=== PATIENT | female | born 1965 | race Caucasian/White ===

== ENCOUNTER 2020-10-29 12:02 | Inpatient (IN) ==
[2020-10-29 18:29] LABS: Basophils # (auto) 0.01 K/uL (0-0.2); Basophils % (auto) 0.2 %; Hematocrit (blood only) 35.5 % (37-47); Hemoglobin 11.6 g/dL (12.0-16.0); Immature Granulocytes # (auto) 0.02 K/uL (0.00-0.02); Immature Granulocytes % (auto) 0.4 %; Lymphocytes # (auto) 0.73 K/uL (1.2-3.4); Lymphocytes % (auto) 14.3 %; Mean Corpuscular Hemoglobin 29.4 pg (25-34); Mean Corpuscular Volume 90.1 fL (80-100); Mean Platelet Volume 10.2 fL (7.4-10.4); Monocytes # (auto) 0.18 K/uL (0.11-0.59); Monocytes % (auto) 3.5 %; Neutrophils # (auto) 4.15 K/uL (1.4-6.5); Neutrophils % (auto) 81.6 %; Platelet Count 297 K/uL (130-400); RDW Coefficient of Variation 13.8 % (11.5-14.5); RDW Standard Deviation 46.4 fL (36.4-46.3); Red Blood Count 3.94 M/uL (4.2-5.4); White Blood Count 5.09 K/uL (4.8-10.8)
[2020-10-29] MEDS ORDERED: ACETAMINOPHEN 1000 MG/100 ML IV IV PRN (18:34)
[2020-10-29] MEDS ORDERED: ICU PROTOCOL FOR HYPERGLYCEMIA PRN (18:35)
--- NOTE | 2020-10-29 18:35 | Critical Care Consultation ---
Date of Consultation October 29, 2020 Assessment & Plan (1) Acute respiratory failure with hypoxia: (2) Pneumonia: (3) COVID-19: (4) Obesity: (5) Hypertension: Chest x-ray 10/29/2020 personally reviewed: Portable film, good inspiratory effort, bilateral costophrenic and cardiophrenic angles are clean, diffuse alveolar opacities appreciated bilaterally, increased cardiac silhouette CT chest 10/27/2020 personally reviewed: Centrilobular emphysema, diffuse groundglass opacities appreciated bilaterally upper and lower lobes No pleural effusion No mediastinal adenopathy --Acute hypoxic respiratory failure Likely secondary to multilobar pneumonia from COVID-19 COVID-19 PCR positive 10/25/2020, patient having symptoms since 10/18/2020 Continue with dexamethasone --COPD with emphysema Not on any inhalers at home We will start the patient on Incruse --Hypertension Continue with home medications --Coronary artery disease s/p stent 2014 --Morbid obesity with probable GISEL Advised to lose with diet and exercise --Prophylaxis VTE: Lovenox GI: Protonix Lines: Peripheral Diet: Cardiac Plan: Stick in and out Follow-up CRP, BNP, CMP and CBC Patient does have increased cardiac silhouette. If the BNP is high I will give the patient 40 mg of Lasix. At the time of examination patient was saturating 92% on 50%, 40 L. Continue with O2 supplementation to keep oxygen saturation between 88-92% Awake proning will be beneficial for the patient. We will see how the patient is in the next 24 hours. Based on that we will decide whether the patient will benefit from Tocilizumab. Continue with incentive spirometry and flutter valve Continue with Mucinex 1200 twice daily Awake proning will be beneficial for the patient I have personally spent 60 minutes of critical care time in the direct management of this patient. This is a life/limb threatening event. This includes time spent evaluating patient, direct bedside care, chart review, placing orders, interpretation of diagnostic studies, discussion with consultants, patient, and family members, as well as other required patient management activities. This time is exclusive of all separately billable procedures, and teaching time and separate from and in addition to any other critical care service time. Please note the above document was generated using voice recognition software. It may contain grammatical, syntax or spelling errors. History of Present Illness Attending Physician: Jordy Strong MD History of Present Illness 55-year-old female with past medical history of coronary artery disease s/p stent in 2014, active smoker presented to [facility] as a transfer from [place]. Patient was admitted to [place] for hypoxic respiratory failure with COVID-19 pneumonia Over there she was on 20 L 80% high flow saturating in the low 80s. Patient has been vaccinated for our modern she got 2 vaccine back in July 2020 At the time of examination patient was on high flow 50%, 40 L, she was saturating 92-93% She was in mild respiratory distress but she was able to talk in full sentences. She denies any chest pain. She did complain of cough and inability to bring up phlegm. She denies any hemoptysis. Denies any dysuria, no diarrhea. No headache, no blurry vision. As per the patient patient has been having complaints of cough and shortness of breath which has been going on since 10/18/2020 She was eventually tested for COVID-19 on 10/25/2020. She was progressively getting worse and thus the reason she is went to the hospital. Social history: Greater than [id number] smoking history, a pack a year smoker, denies any illicit drug use, no alcohol use. Has a dog at home. No birds or poultry nearby. Allergies Allergy/AdvReac Type Severity Reaction Status Date / Time latex Allergy Rash Verified 10/29/20 18:35 oxycodone [From Percocet] Allergy Hives Verified 10/29/20 18:36 Home Medications Medication Instructions Recorded Confirmed Type empagliflozin 25 mg tablet 25 mg PO DAILY 10/30/20 10/30/20 History (Jardiance) esomeprazole magnesium 20 mg 20 mg PO DAILY 10/30/20 10/30/20 History capsule,delayed release gabapentin 300 mg capsule 300 mg PO HS 10/30/20 10/30/20 History hydrochlorothiazide 25 mg tablet 25 mg PO DAILY 10/30/20 10/30/20 History insulin glargine 100 unit/mL (3 62 unit SUBCUT BID 10/30/20 10/30/20 History mL) subcutaneous pen (Lantus Solostar U-100 Insulin) metformin 500 mg tablet,extended 500 mg PO BID 10/30/20 10/30/20 History release 24 hr metoprolol succinate 25 mg 25 mg PO BID 10/30/20 10/30/20 History tablet,extended release 24 hr rosuvastatin 20 mg tablet 20 mg PO DAILY 10/30/20 10/30/20 History Patient History Medical History CAD (coronary artery disease) COVID-19 Hyperlipidemia Hypertension Obesity Pneumonia Tobacco dependence Surgical History History of coronary artery stent placement x 1 - 2016; [place] S/P cholecystectomy open Family History Father Myocardial infarction Mother Diabetes ESRD (end stage renal disease) on dialysis Social History (Updated 10/30/20 @ 00:57 by Jordy De La O) Smoking Status: Former smoker Age Started Using Tobacco: 17; Age Quit Using Tobacco: 55; packs per day: 1; Cigarettes Per Day: 20; Smoking End Date: September 2020; Second Hand Exposure: Yes; Do You Dip or Chew Tobacco: No; Hx Alcohol Use: No Hx Substance Use: No Preferred Language: Croatian Communication Ability: Effective Fraud Examiner Required: No Beliefs That Will Affect Care: None marital status: Current Living Situation: Spouse Current Living Situation Comment: Arabella LAKHANI How many Children do You have: 3 Other Information That Helps Us Care for You: No other: grew up in [place]; then lived in [place]; then moved to [place] Feels Safe at Home: Yes Safety Concerns: Feels Safe At This Time Assistive Devices: Oxygen - Continuous Review of Systems Review of Systems: All systems reviewed & are unremarkable except as noted in HPI & below Physical Exam Physical Exam: Constitutional: Mild respiratory distress HEENT: EOMI, PERRLA Respiratory system: Decreased air entry bilaterally, no wheeze, no rub, positive crackles bilateral lower lobes CVS: S1-S2 positive, no murmurs or gallops Abdomen: Soft, nontender, nondistended, positive bowel sounds x4, obese Extremities: +2 pulses bilaterally radialis/ dorsalis pedis, no cyanosis, no ed bryson Neuro: Awake alert oriented x3 Psych: Normal mood and affect G/U: No Parsons Skin: no rashes, warm and dry Lymphatic: no cervical or axillary lymphadenopathy Results & Data Results & Data ([facility]) Vital Signs (Past 12 Hours) Vital Signs Pulse Resp BP Pulse Ox 10/29/20 17:45 100 H 22 91 10/29/20 17:32 92 H 28 H 159/102 H 92 10/29/20 17:30 90 28 H 159/103 H 92 Coding Level of Care Code Critical Care 1st 30-74 mins Diagnoses Acute respiratory failure with hypoxia J96.01 Pneumonia J18.9 COVID-19 U07.1 Obesity E66.9 Hypertension I10 Time Spent (min) 60
[2020-10-29 18:46] LABS: Mean Corpuscular Hgb Conc 32.7 g/dL (32-36)
[2020-10-29 18:51] LABS: Alanine Aminotransferase 29 U/L (12-78); Albumin Level 2.4 gm/dl (3.4-5.0); Aspartate Aminotransferase 41 U/L (15-37); BUN Creatinine Ratio 33.1 (10-20); Blood Urea Nitrogen 41 mg/dl (7-18); Calcium 9.1 mg/dl (8.5-10.1); Carbon Dioxide 20 mmol/L (21-32); Chloride 105 mmol/L (98-107); Creatinine Clr Calc Pharmacy 61.1 ml/min; Est GFR (Non-African American) 49.2 ml/min; Glucose 330 mg/dl (70-99); Potassium 5.7 mmol/L (3.5-5.1); Sodium 131 mmol/L (136-145)
--- NOTE | 2020-10-29 19:04 | XRay Report ---
SINGLE VIEW CHEST CLINICAL HISTORY: Covid pneumonia. FINDINGS: An AP, portable, upright chest radiograph is compared to chest x-ray and chest CT dated 10/27. The heart is enlarged noting atherosclerotic calcification of the thoracic aorta. Multifocal a irspace consolidation is seen throughout both lungs. This has progressed as compared 10/27/2020. No lar ge pleural effusion or pneumothorax is seen. The bony thorax is grossly intact. IMPRESSION: 1. Multifocal airspace consolidation is consistent with the reported history of a viral pneumonia. Th is has worsened as compared to 10/27/2020. Radiographic follow-up to resolution is recommended. 2. Cardiomegaly. ACT 112: Negative or not required by law. Electronically signed by: Shailesh Palma M.D. 10/29/2020 7:02 PM
[2020-10-29 19:18] LABS: Albumin Globulin Ratio 0.5 (0.9-2); Alkaline Phosphatase 121 U/L (45-117); Bilirubin,Total < 0.1 mg/dl (0.2-1); Globulin 4.9 gm/dl (2.5-4.0); NT Pro B Type Natriuretic Pept 996 pg/ml (0-900); Total Protein 7.3 gm/dl (6.4-8.2)
[2020-10-29] MEDS ORDERED: PHARMACY GLYCEMIC MGMT CONSULT PRN (19:31)
[2020-10-29] MEDS ORDERED: FUROSEMIDE 20 MG in SYRINGE 0 ML IV ONE (19:45)
[2020-10-29] MEDS ORDERED: INSULIN PROTOCOL GOAL RANGE ONE (19:55)
[2020-10-29] MEDS ORDERED: STAT IV Infusion **Titration per Protocol STA (19:55)
[2020-10-29] MEDS ORDERED: SEVERE STRESS LEVEL ONE (19:55)
[2020-10-29] MEDS ORDERED: INSULIN REGULAR 250 UNITS in SODIUM CHLORIDE 0.9% 247.5 ML IV SCH (20:00)
--- NOTE | 2020-10-29 20:17 | History & Physical Report ---
Date of Service October 29, 2020 Assessment & Plan (1) Pneumonia due to COVID-19 virus: Plan: She is about 10-11 days into her illness. Unfortunately she was a "breakthrough case" despite full vaccination with Moderna in July. She was initiated on remdesivir on 10/28 at [facility], and steroids on 10/25 (as outpatient). Plan 3 more days of remdesivir (10/30-11/01). Plan 5 more days of decadron 6mg daily given the severity of her illness - start the decadron in am. Appreciate Dr Perez's consultation. If any worsening overnight may be Tocilizumba candidate (CRP>7.5, first day of hospitalization was 10/28 at [facility], etc). Self-proning. Flutter. Incentive. Bronchodilators as needed. O2 support. Procalcitonin is normal making bacterial superinfection unlikely. She did receive 5 days of atypical coverage w/ azithromycin. Hold off on additional abx at this time. (2) Acute respiratory failure with hypoxia: Plan: 2nd severe COVID-19 pneumonia. Could have component of acute diastolic CHF given CXR findings and elevated BNP. Lasix trial tonight. At risk of PE - prolonged travel to [place] by car (to and from), COVID itself, etc. Start with dopplers of legs. If neg consider CTA chest. D-dimer was elevated at outside hospital. (3) Diabetes mellitus type 2, uncontrolled: Plan: Check a1c in am. Was in the 600-700 range upon admission in [place]. BSGs now elevated >300 again here. With stress of illness and steroids SC injections providing adequate control likely to be difficult. Thus, pharmacy consult placed; start insulin infusion. Hold metformin and jardiance. Hold lantus. (4) Abnormal LFTs: Plan: Suspect 2nd to #1. Recheck in am. Given good protective morbidity/mortality data with statins and COVID-19 will resume her statin in am if LFTs are stable. (5) CAD (coronary artery disease): Plan: s/p [place] 2016. Uncertain why she is not on aspirin but should be. Will initiate 81mg in am. Statin. Beta vianey. No evidence of ACS. (6) Obesity: Plan: BMI 37 (7) Hypertension: Plan: Hold HCTZ. Cont BB. Hold CELINE. Lasix x 1 this evening. (8) Hyperlipidemia: Plan: Statin as above (9) Tobacco dependence: Plan: Nicoderm patch 21mg/day. Pt states she has not smoked since being in [place]. (10) Hypomagnesemia: Plan: 2 grams mag sulfate x 1. Repeat mag level am. (11) Acute kidney injury: Plan: Cr 1.9 on 10/27. Improved today to 1.2. Probably multifactorial - prerenal from poor oral intake leading up to admission, hyperglycemia and dehydration from such leading up to 10/27 admission, COVID itself causing ATN, etc. Supportive care. BMP tonight and in am. (12) Hyperkalemia: Plan: 2nd to OMAR and severe hyperglycemia. Suspect the K will correct once on insulin drip. BMP tonight and in am. (13) DVT prophylaxis: Plan: heparin SC ordered by ICU team transition to systemic anticoagulation if dopplers are + for DVT Plan: full code will likely need PT/OT Admission and Anticipated Discharge Date Admission Date: October 29, 2020 History of Present Illness Chief Complaint: worsening dyspnea, known COVID-19 pneumonia Primary Care Provider: NO PCP 55yo female with T2DM x 10+ years, CAD s/p [place] with stent placement x 1 in ~2015 (hospitalized [place], [place]), and chronic tobacco dependence presents as a transfer from [facility] due to worsening acute hypoxic resp failure 2nd COVID-19 pneumonia. Patient's history goes back to about October 19 or October 20 when she and her arrived in [place] to see their son, [id number], and new grand-baby. Upon their arrival in [place] they noted that their son was quite ill from a respiratory infection. Within about 48 hours the patient states she felt chest heaviness and believed she herself was coming down with bronchitis. She convinced her son to get tested for COVID-19 on (son was not vaccinated). On October 22 the patient & her left [place] to drive back to [place]. Over the course of last week the patient's respiratory symptoms worsened and she felt poorly overall. She never had fever. She did have a poor appetite en route back to [place] as well as this past weekend. She mentioned that she received 2 doses of Moderna Vaccine in July. When she & her arrived home they ultimately found out that their son was indeed POSITIVE for COVID-19. On Sunday, 10/25 the patient went to her PCP's office in [place]. She was tested for COVID-19 and her test was also positive. She was placed on prednisone at that time along with inhalers and a z-pack. Despite such her respiratory symptoms continued to worsen with progressive shortness of breath (with minimal exertion) and cough. She presented to [facility] on the evening of 10/[address] d[address] chest (no contrast) showed diffuse b/l pneumonia. Records show her Na was 127, K was 5.3, d-dimer was elevated, Creatinine was 1.9, and serum glucose was 675. She received her first dose of remdesivir on the AM of 10/28, a 2nd dose of remdesivir this am, and also received dexamethasone 6mg on 10/28 and again this morning. I was contacted by the hospitalist at [facility] due to worsening hypoxia and respiratory failure early this am. Patient's O2 requirement escalated from [place] O2 to high-flow 20L and 80% FiO2. CRP was 12 this am. I requested an ABG which returned 7.41, 32, 84, --3. We accepted the patient to [facility], and she was transported by ground with BIPAP in place. After arrival here we were able to transition from BIPAP, to high-flow NC 40 L (vapotherm), to 10 L high-flow wall-mount. During my bedside visit she was feeling better than earlier today, reported good appetite, and only c/o chest symptoms related to her pneumonia. She denies that any of her symptoms today were similar to her past acute IL. Allergies Allergy/AdvReac Type Severity Reaction Status Date / Time latex Allergy Rash Verified 10/29/20 18:35 oxycodone [From Percocet] Allergy Hives Verified 10/29/20 18:36 Home Medications Medication Instructions Recorded Confirmed Type empagliflozin 25 mg tablet 25 mg PO DAILY 10/30/20 10/30/20 History (Jardiance) esomeprazole magnesium 20 mg 20 mg PO DAILY 10/30/20 10/30/20 History capsule,delayed release gabapentin 300 mg capsule 300 mg PO HS 10/30/20 10/30/20 History hydrochlorothiazide 25 mg tablet 25 mg PO DAILY 10/30/20 10/30/20 History insulin glargine 100 unit/mL (3 62 unit SUBCUT BID 10/30/20 10/30/20 History mL) subcutaneous pen (Lantus Solostar U-100 Insulin) metformin 500 mg tablet,extended 500 mg PO BID 10/30/20 10/30/20 History release 24 hr metoprolol succinate 25 mg 25 mg PO BID 10/30/20 10/30/20 History tablet,extended release 24 hr rosuvastatin 20 mg tablet 20 mg PO DAILY 10/30/20 10/30/20 History Past Med/Surg History Medical History CAD (coronary artery disease) COVID-19 Hyperlipidemia Hypertension Obesity Pneumonia Tobacco dependence Surgical History History of coronary artery stent placement x 1 - 2015; [place] S/P cholecystectomy open Family History Father Myocardial infarction Mother Diabetes ESRD (end stage renal disease) on dialysis Social History (Updated 10/30/20 @ 00:57 by Jordy De La O) Smoking Status: Former smoker Age Started Using Tobacco: 17; Age Quit Using Tobacco: 55; packs per day: 1; Cigarettes Per Day: 20; Smoking End Date: September 2020; Second Hand Exposure: Yes; Do You Dip or Chew Tobacco: No; Hx Alcohol Use: No Hx Substance Use: No Preferred Language: Portuguese Communication Ability: Effective Reformatory Attendant Required: No Beliefs That Will Affect Care: None marital status: Current Living Situation: Spouse Current Living Situation Comment: Arabella LAKHANI How many Children do You have: 3 Other Information That Helps Us Care for You: No other: grew up in [place]; then lived in [place]; then moved to [place] Feels Safe at Home: Yes Safety Concerns: Feels Safe At This Time Assistive Devices: Oxygen - Continuous Review of Systems Constitutional: + fatigue, + weakness and + anorexia (early on in illness but appetite now normal ); no fever, no chills and no weight loss Eyes: no worsening vision Ear, Nose, Mouth, Throat: no nasal congestion, no sore throat and no dysphagia denies loss of taste/smell Respiratory: + cough, + chest congestion, + dyspnea, + dyspnea on exertion and + pain on inspiration; no hemoptysis Cardiovascular: as per Subjective / HPI, + chest pain and + dyspnea on exertion; no orthopnea and no edema Gastrointestinal: no abdominal pain, no vomiting and no diarrhea/loose stools Genitourinary: no dysuria Musculoskeletal: + myalgia (now resolved ); no back pain and no neck pain Neurologic: + generalized weakness and + loss of sensation (stocking-glove paresthesias from neuropathy) Psychiatric: + anxiety Endocrine: very high BSGs in the days leading up to hospitalization; recently changed from Trulicity to Jardiance Hematologic / Lymphatic: no easy bleeding Physical Exam Constitutional: + ill appearing and + obese; no acute distress and no altered mental status Eyes: PERRL allergic shiners around periorbital region b/l ENMT: Ears: no hearing impairment Nose: no external nose abnormality Mouth: no oral mucosal abnormality and oral mucous membranes not dry Neck: trachea midline, no thyromegaly Respiratory: severely decreased BS b/l especially the expiratory phase; bibasilar fine crackles; scant wheeze; no increase in work of breathing Cardiovascular: Rate/Rhythm: regular rate and regular rhythm Heart Sounds: normal S1 and normal S2; no murmur Vessels: posterior tibial pulses present and dorsalis pedis pulses present; no JVD Extremities: no edema Gastrointestinal (Abdomen): normal bowel sounds, soft, nontender, no hepatosplenomegaly Musculoskeletal: left calf is larger than right calf; varicosities present b/l legs Skin: no rashes Neurologic: moves all extremities; no focal motor deficits Psychiatric: A+Ox3, euthymic affect Lymphatic: no cervical lymphadenopathy Results & Data Results & Data ([facility]) Vital Signs (Past 12 Hours) Vital Signs Temp Pulse Pulse Pulse Resp BP Pulse Ox 10/29/20 19:40 36.8 C 87 20 143/85 H 97 10/29/20 18:37 97 H 10/29/20 18:36 10/29/20 18:35 37.2 C 109 H 24 135/82 92 10/29/20 17:45 100 H 22 91 10/29/20 17:32 92 H 28 H 159/102 H 92 10/29/20 17:30 90 28 H 159/103 H 92 Pulse Ox 10/29/20 19:40 10/29/20 18:37 10/29/20 18:36 92 10/29/20 18:35 10/29/20 17:45 10/29/20 17:32 10/29/20 17:30 Laboratory Results Laboratory Results - last 24 hr 10/29/20 10/29/20 10/29/20 18:22 18:22 18:44 WBC 5.09 RBC 3.94 L Hgb 11.6 L Hct 35.5 L MCV 90.1 MCH 29.4 MCHC 32.7 RDW Std Deviation 46.4 H RDW Coeff of Ale 13.8 Plt Count 297 MPV 10.2 Immature Gran % (Auto) 0.4 Neut % (Auto) 81.6 Lymph % (Auto) 14.3 Pinal % (Auto) 3.5 Eos % (Auto) 0.0 Baso % (Auto) 0.2 Neut # (Auto) 4.15 Lymph # (Auto) 0.73 L Pinal # (Auto) 0.18 Eos # (Auto) 0.00 Baso # (Auto) 0.01 Immature Gran # (Auto) 0.02 Sodium 131 L Potassium 5.7 H Chloride 105 Carbon Dioxide 20 L Anion Gap 7.0 BUN 41 H Creatinine 1.24 H Est Cr Clr Drug Dosing 61.1 Est GFR ( Amer) 57.0 Est GFR (Non-Af Amer) 49.2 BUN/Creatinine Ratio 33.1 H Glucose 330 H* POC Glucose 339 H* Calcium 9.1 Phosphorus Magnesium Total Bilirubin < 0.1 L AST 41 H ALT 29 Alkaline Phosphatase 121 H C-Reactive Protein 13.60 H NT-Pro-B Natriuret Pep 996 H Total Protein 7.3 Albumin 2.4 L Globulin 4.9 H Albumin/Globulin Ratio 0.5 L Beta-Hydroxybutyric Acd Procalcitonin Nasal Screen MRSA (PCR) 10/29/20 10/29/20 10/29/20 19:07 20:31 21:45 WBC RBC Hgb Hct MCV MCH MCHC RDW Std Deviation RDW Coeff of Ale Plt Count MPV Immature Gran % (Auto) Neut % (Auto) Lymph % (Auto) Pinal % (Auto) Eos % (Auto) Baso % (Auto) Neut # (Auto) Lymph # (Auto) Pinal # (Auto) Eos # (Auto) Baso # (Auto) Immature Gran # (Auto) Sodium Potassium Chloride Carbon Dioxide Anion Gap BUN Creatinine Est Cr Clr Drug Dosing Est GFR ( Amer) Est GFR (Non-Af Amer) BUN/Creatinine Ratio Glucose POC Glucose 287 H Calcium Phosphorus Magnesium Total Bilirubin AST ALT Alkaline Phosphatase C-Reactive Protein NT-Pro-B Natriuret Pep Total Protein Albumin Globulin Albumin/Globulin Ratio Beta-Hydroxybutyric Acd Procalcitonin < 0.05 Nasal Screen MRSA (PCR) Negative 10/29/20 10/29/20 10/29/20 23:05 23:07 23:08 WBC RBC Hgb Hct MCV MCH MCHC RDW Std Deviation RDW Coeff of Ale Plt Count MPV Immature Gran % (Auto) Neut % (Auto) Lymph % (Auto) Pinal % (Auto) Eos % (Auto) Baso % (Auto) Neut # (Auto) Lymph # (Auto) Pinal # (Auto) Eos # (Auto) Baso # (Auto) Immature Gran # (Auto) Sodium 132 L Potassium 5.1 Chloride 104 Carbon Dioxide 19 L Anion Gap 8.0 BUN 43 H Creatinine 1.26 H Est Cr Clr Drug Dosing 60.2 Est GFR ( Amer) 55.9 Est GFR (Non-Af Amer) 48.3 BUN/Creatinine Ratio 33.9 H Glucose 366 H* POC Glucose 360 H* 360 H* Calcium 8.8 Phosphorus 4.4 Magnesium 1.5 L Total Bilirubin AST ALT Alkaline Phosphatase C-Reactive Protein NT-Pro-B Natriuret Pep Total Protein Albumin Globulin Albumin/Globulin Ratio Beta-Hydroxybutyric Acd 0.94 Procalcitonin Nasal Screen MRSA (PCR) 10/30/20 10/30/20 00:10 00:56 WBC RBC Hgb Hct MCV MCH MCHC RDW Std Deviation RDW Coeff of Ale Plt Count MPV Immature Gran % (Auto) Neut % (Auto) Lymph % (Auto) Pinal % (Auto) Eos % (Auto) Baso % (Auto) Neut # (Auto) Lymph # (Auto) Pinal # (Auto) Eos # (Auto) Baso # (Auto) Immature Gran # (Auto) Sodium Potassium Chloride Carbon Dioxide Anion Gap BUN Creatinine Est Cr Clr Drug Dosing Est GFR ( Amer) Est GFR (Non-Af Amer) BUN/Creatinine Ratio Glucose POC Glucose 307 H* 270 H Calcium Phosphorus Magnesium Total Bilirubin AST ALT Alkaline Phosphatase C-Reactive Protein NT-Pro-B Natriuret Pep Total Protein Albumin Globulin Albumin/Globulin Ratio Beta-Hydroxybutyric Acd Procalcitonin Nasal Screen MRSA (PCR) Diagnostic Findings Chest X-Ray 10/29/20 18:00 SINGLE VIEW CHEST CLINICAL HISTORY: Covid pneumonia. FINDINGS: An AP, portable, upright chest radiograph is compared to chest x-ray and chest CT dated 10/27/2020. The heart is enlarged noting atherosclerotic calcification of the thoracic aorta. Multifocal airspace consolidation is seen throughout both lungs. This has progressed as compared 10/27/2020. No large p leural effusion or pneumothorax is seen. The bony thorax is grossly intact. IMPRESSION: 1. Multifocal airspace consolidation is consistent with the reported history of a viral pneumonia. This has worsened as compared to 10/27/2020. Radiographic follow-up to resolution is recommended. 2. Cardiomegaly. ACT 112: Negative or not required by law. Electronically signed by: Shailesh Palma M.D. 10/29/2020 7:02 PM Venous Doppler Study 10/29/20 21:21 ULTRASOUND BILATERAL LOWER EXTREMITY VENOUS CLINICAL HISTORY: Lower extremity edema. Recent travel. Covid. COMPARISON STUDY: No priors. TECHNIQUE: Real-time, grayscale, and color Doppler sonography of the deep veins of the right and left lower extremity was performed from the inguinal crease to the calf. Compression and augmentation were utilized. FINDINGS: There is no sonographic evidence of deep venous thrombosis identified in the right or left lower extremity. The common femoral, superficial femoral, and popliteal veins are patent and normally compressible bilaterally. The greater saphenous vein and the profunda femoris vein at the junction with the common femoral vein are clear in both legs. The visualized calf veins are patent bilaterally. IMPRESSION: There is no sonographic evidence of deep venous thrombosis identified in the right or left lower extremity. ACT 112: Negative or not required by law. Electronically signed by: Shailesh Palma M.D. 10/29/2020 10:13 PM Code Status & VTE Plan VTE Prophylaxis Plan VTE Prophylaxis will be ordered: Yes PG Care Time/CCT Total # of Minutes Spent Total Time Spent with Patient: Total time spent is greater than 50% in coordination of care (as documented) at patient's floor/unit and/or counseling patient: Coding Level of Care Code 00193 Initial Inpt Care Lvl 3 Diagnoses Pneumonia due to COVID-19 virus U07.1; J12.82 Acute respiratory failure with hypoxia J96.01 Diabetes mellitus type 2, uncontrolled E11.65 Abnormal LFTs R94.5 CAD (coronary artery disease) I25.10 Obesity E66.9 Hypertension I10 Hyperlipidemia E78.5 Tobacco dependence F17.200 Hypomagnesemia E83.42 DVT prophylaxis Z29.9 Acute kidney injury N17.9 Hyperkalemia E87.5
[2020-10-29] MEDS ORDERED: GLUCAGON FOR INJ 1 MG VIAL IM PRN (21:00)
[2020-10-29] MEDS ORDERED: CARBOHYDRATES FOR HYPOGLYCEMIA PO PRN (21:00)
[2020-10-29] MEDS ORDERED: GLUCOSE 40% GEL 15 GM TUBE PO PRN (21:00)
[2020-10-29] MEDS ORDERED: NovoLIN-R BOLUS FROM BAG IV ONE (21:00)
[2020-10-29] MEDS ORDERED: GLUCOSE 10 TABS/TUBE PO PRN (21:00)
[2020-10-29] MEDS ORDERED: DEXTROSE 50% 50 ML SYRINGE IV PRN (21:00)
[2020-10-29] MEDS: HEPARIN SOD 5,000 UNIT/0.5 ML VIAL SQ SCH (21:29)
[2020-10-29] MEDS: guaiFENesin 600 MG TABCR PO SCH (21:29)
[2020-10-29] MEDS: INSULIN ASPART 100 UNITS/ML 3 ML PEN SC SCH (21:46)
--- NOTE | 2020-10-29 22:14 | Ultrasound Report ---
ULTRASOUND BILATERAL LOWER EXTREMITY VENOUS CLINICAL HISTORY: Lower extremity edema. Recent travel. Covid. COMPARISON STUDY: No priors. TECHNIQUE: Real-time, grayscale, and color Doppler sonography of the deep veins of the right and left lower extremity was performed from the inguinal crease to the calf. Compression and augmentation wer e utilized. FINDINGS: There is no sonographic evidence of deep venous thrombosis identified in the right or left lower extremity. The common femoral, superficial femoral, and popliteal veins are patent and normally compressible bilaterally. The greater saphenous vein and the profunda femoris vein at the junction w ith the common femoral vein are clear in both legs. The visualized calf veins are patent bilaterally. IMPRESSION: There is no sonographic evidence of deep venous thrombosis identified in the right or lef t lower extremity. ACT 112: Negative or not required by law. Electronically signed by: hSailesh Palma M.D. 10/29/2020 10:13 PM
[2020-10-29] MEDS: ASPIRIN 81 MG ECTAB PO SCH (23:20)
[2020-10-29] MEDS: GABAPENTIN 300 MG CAP PO SCH (23:20)
[2020-10-29] MEDS: METOPROLOL TARTRATE 25 MG TAB PO SCH (23:21)
[2020-10-29 23:54] LABS: BUN Creatinine Ratio 33.9 (10-20); Calcium 8.8 mg/dl (8.5-10.1); Creatinine Clr Calc Pharmacy 60.2 ml/min; Est GFR (African American) 55.9 ml/min; Est GFR (Non-African American) 48.3 ml/min; Magnesium 1.5 mg/dl (1.8-2.4); Phosphorus 4.4 mg/dl (2.5-4.9); Potassium 5.1 mmol/L (3.5-5.1)
[2020-10-30 00:07] LABS: Beta-Hydroxybutyrate 0.94 mg/dl (0.2-2.81)
[2020-10-30] MEDS: MAGNESIUM SULFATE / D5W 1 GM/100 ML BAG IV SCH ×2 (02:37→04:30)
[2020-10-30] MEDS ORDERED: INSULIN GLARGINE SOLOSTAR 100 UNITS/ML 3 ML PEN SC ONE (03:30)
[2020-10-30] MEDS: HEPARIN SOD 5,000 UNIT/0.5 ML VIAL SQ SCH ×3 (05:30→21:43)
[2020-10-30] MEDS: guaiFENesin 600 MG TABCR PO SCH ×2 (07:11→19:25)
[2020-10-30] MEDS: ASPIRIN 81 MG ECTAB PO SCH (07:11)
[2020-10-30] MEDS: dexAMETHasone 6 MG in SYRINGE 0 ML IV SCH (07:11)
[2020-10-30] MEDS: UMECLIDINIUM BROMIDE 62.5MCG/BLISTER 7 PUFFS/INHALER INH SCH (07:12)
[2020-10-30] MEDS: NICOTINE 21 MG/24 HR TDSY TD SCH (07:12)
[2020-10-30] MEDS: PANTOprazole 40 MG TAB PO SCH (07:12)
[2020-10-30] MEDS: METOPROLOL TARTRATE 25 MG TAB PO SCH ×2 (07:12→19:25)
[2020-10-30] MEDS ORDERED: PATIROMER CALCIUM SORBITEX 8.4 GM PACK PO ONE (07:32)
[2020-10-30] MEDS ORDERED: SODIUM BICARB 8.4% INJ 50 MEQ/50 ML SYR IV STA (07:35)
[2020-10-30] MEDS: INSULIN ASPART 100 UNITS/ML 3 ML PEN SC SCH ×4 (08:12→20:57)
[2020-10-30 08:53] LABS: Basophils # (auto) 0.01 K/uL (0-0.2); Basophils % (auto) 0.1 %; Eosinophils # (auto) 0.01 K/uL (0-0.5); Eosinophils % (auto) 0.1 %; Hematocrit (blood only) 35.7 % (37-47); Hemoglobin 11.8 g/dL (12.0-16.0); Immature Granulocytes # (auto) 0.01 K/uL (0.00-0.02); Immature Granulocytes % (auto) 0.1 %; Lymphocytes # (auto) 1.14 K/uL (1.2-3.4); Mean Corpuscular Hemoglobin 29.8 pg (25-34); Mean Corpuscular Hgb Conc 33.1 g/dL (32-36); Mean Corpuscular Volume 90.2 fL (80-100); Mean Platelet Volume 10.2 fL (7.4-10.4); Monocytes # (auto) 0.44 K/uL (0.11-0.59); Monocytes % (auto) 5.4 %; Neutrophils # (auto) 6.55 K/uL (1.4-6.5); Neutrophils % (auto) 80.3 %; Platelet Count 366 K/uL (130-400); RDW Coefficient of Variation 13.8 % (11.5-14.5); Red Blood Count 3.96 M/uL (4.2-5.4); White Blood Count 8.16 K/uL (4.8-10.8)
[2020-10-30 09:05] LABS: Estimated Average Glucose 246 mg/dl; Hemoglobin A1C 10.2 % (4.5-5.6)
[2020-10-30 09:20] LABS: Albumin Level 2.4 gm/dl (3.4-5.0); Aspartate Aminotransferase 33 U/L (15-37); BUN Creatinine Ratio 41.9 (10-20); Blood Urea Nitrogen 42 mg/dl (7-18); Calcium 8.9 mg/dl (8.5-10.1); Carbon Dioxide 24 mmol/L (21-32); Chloride 106 mmol/L (98-107); Creatinine Clr Calc Pharmacy 74.9 ml/min; Est GFR (Non-African American) 63.8 ml/min; Glucose 119 mg/dl (70-99); Potassium 4.7 mmol/L (3.5-5.1); Sodium 135 mmol/L (136-145)
[2020-10-30 09:35] LABS: Alanine Aminotransferase 26 U/L (12-78); Alkaline Phosphatase 125 U/L (45-117); Bilirubin Direct < 0.1 mg/dl (0-0.2); Bilirubin,Total 0.2 mg/dl (0.2-1); Phosphorus 3.7 mg/dl (2.5-4.9); Total Protein 7.5 gm/dl (6.4-8.2)
--- NOTE | 2020-10-30 09:57 | XRay Report ---
XR chest 1V portable CLINICAL HISTORY: f/u COMPARISON STUDY: October 29, 2020 FINDINGS: No pneumothorax. No pleural effusion. Lung volumes are decreased with crowded lung markings. Redemonstration of the multifocal opacities throughout bilateral lungs which appear slightly worsened since prior. Evaluation is slightly limited due to rotation. Cardiomediastinal silhouette is mildly enlarged and stable since prior. Pulmonary vasculature is obscured.. Osseous structures: unremarkable IMPRESSION: 1. Mild interval worsening of bilateral multifocal opacities likely representing pneumonia. ACT 112: Negative or not required by law. The above report was generated using voice recognition software. It may contain grammatical, syntax o r spelling errors. Electronically signed by: Marieal Enamorado DO 10/30/2020 9:55 AM
--- NOTE | 2020-10-30 10:06 | Pharmacy Report ---
Pharmacy Glycemic Short Note 2 - Date of Service October 30, 2020 - Glycemic Short BSG Results (Last 24 hours): 10/29/20 10/29/20 10/29/20 18:22 18:44 20:31 Glucose 330 H* POC Glucose 339 H* 287 H 10/29/20 10/29/20 10/29/20 23:05 23:07 23:08 Glucose 366 H* POC Glucose 360 H* 360 H* 10/30/20 10/30/20 10/30/20 00:10 00:56 02:14 Glucose POC Glucose 307 H* 270 H 209 H 10/30/20 10/30/20 10/30/20 03:22 04:20 05:11 Glucose POC Glucose 183 H 188 H 160 H 10/30/20 10/30/20 10/30/20 07:04 08:08 08:32 Glucose 119 H POC Glucose 122 H 97 OUTPATIENT ANTIDIABETIC REGIMEN: * Metformin XR 500 mg PO BIDM * Jardiance 25 mg PO Daily * Trulicity 0.75 mg SC Weekly * Lantus 62 units SC BID * HbA1c = 10.2% (10/30/20) ASSESSMENT: * 55 yo F admitted last evening from [facility] secondary to worsening COVID-19 pneumonia symptoms. Her BSGs upon arrival to [facility] were > 600 mg/dL. Upon arrival at [facility], BSG was 339 mg/dL. Pharmacy was consulted at this point to assist with inpatient glycemic management. * Received a 4 unit IV insulin bolus followed by a continuous insulin infusion. 62 units of Lantus was administered around 0330 this AM to help transition patient off insulin drip. BSGs trended down nicely: [phone] mg/dL. Insulin infusion was stopped this morning. Over a ten hour period, the patient received ~40 units of insulin from the drip. * She remains on Dexamethasone 6 mg IV daily and Remdesivir. * No carb coverage was administered this morning so expecting lunch BSG to be elevated especially with steroid dose * Will start aggressive Novolog parameters for now based on total outpatient insulin dose * Home Lantus dose will be administered for now given HbA1c and steroids PLAN FOR INPATIENT GLYCEMIC CONTROL: * Hold outpatient oral diabetes medications * Basal insulin * Lantus 62 units SQ BID * Bolus insulin * NovoLog per scale ACHS or Q6hrs while NPO * Goal Range: Low 110 mg/dL - High 140 mg/dL * Correction Factor: 10 mg/dL/unit * Nutritional / Prandial insulin per carb ratio of 1 unit per 3 grams CHO consumed PLAN FOR DISCHARGE: * To be determined
--- NOTE | 2020-10-30 10:24 | Hospitalist Progress Note ---
Date of Service October 30, 2020 Assessment & Plan (1) Pneumonia due to COVID-19 virus: Plan: She is about 10-11 days into her illness. Unfortunately she was a "breakthrough case" despite full vaccination with Moderna in July. She was initiated on remdesivir on 10/28 at [facility], and steroids on 10/25 (as outpatient). continue Remdesivir, 2 more days continue decadron 6mg daily 4 more days great response to Lasix, likely got more than sufficient fluids at [facility] repeat Lasix 20mg IV today, diuresing down to 5L NC no need for Tocilizumab Self-proning. Flutter. Incentive. Bronchodilators as needed. O2 support. Procalcitonin is normal making bacterial superinfection unlikely (2) Acute respiratory failure with hypoxia: Plan: 2nd severe COVID-19 pneumonia, also a slight component of volume overload from fluids prior to transfer great response to Lasix 20mg IV last night, repeat dose today, great response down to 5L NC today, no distress, try to wean oxygen as tolerated (3) Diabetes mellitus type 2, uncontrolled: Plan: Was in the 600-700 range upon admission in [place]. BSGs now elevated >300 on admission initially treated with insulin infusion, now on basal bolus pharmacy consulted due to critical illness initially monitor for hypoglycemia Hold metformin and jardiance. (4) Abnormal LFTs: Plan: Suspect 2nd to #1. LFT normal today (5) CAD (coronary artery disease): Plan: s/p LA 2015. Will initiate 81mg in am. Statin. Beta vianey. No evidence of ACS. (6) Obesity: Plan: BMI 37 (7) Hypertension: Plan: Hold HCTZ. Cont BB. Hold CELINE. Lasix daily (8) Hyperlipidemia: Plan: Statin as above (9) Tobacco dependence: Plan: Nicoderm patch 21mg/day. Pt states she has not smoked since being in [place]. (10) Hypomagnesemia: Plan: 2 grams mag sulfate x 1. Repeat mag level am. (11) Acute kidney injury: Plan: Cr 1.9 on 10/27. Improved today to 1.2. Probably multifactorial - prerenal from poor oral intake leading up to admiss ion, hyperglycemia and dehydration from such leading up to 10/27 admission, COVID itself now with volume overload, treating with Lasix, great response (12) Hyperkalemia: Plan: 2nd to OMAR and severe hyperglycemia. corrected with insulin drip and Lasix (13) DVT prophylaxis: Plan: heparin SC Plan: full code try to d/c in 24-48 hours Admission and Anticipated Discharge Date Admission Date: October 29, 2020 Subjective patient doing much better compared to yesterday, breathing easier, saturations stable on 6L, 88-90% while sitting at edge of bed reviewed chart, discussed with Dr. Perez responded well to Lasix last night, considering another dose later today off insulin drip and on basal bolus eating well, minimal cough, no fever, making urine says she is worried about her because he is sick at home, not as bad as her Review of Systems Review of Systems: All systems reviewed & are unremarkable except as noted in Subjective Respiratory: + cough, + dyspnea and + dyspnea on exertion Cardiovascular: no chest pain and no edema Gastrointestinal: no abdominal pain, no nausea, no vomiting, no constipation and no diarrhea/loose stools Physical Exam Constitutional: well developed, well nourished, + ill appearing and comfortable; no acute distress Neck: trachea midline, no thyromegaly Respiratory: + cough and + tachypneic; no respiratory distress and no labored breathing Auscultation: no crackles, no rales and no wheezes Cardiovascular: RRR, no murmur, no edema Gastrointestinal (Abdomen): normal bowel sounds, soft, nontender, no hepatosplenomegaly Musculoskeletal: no cyanosis or clubbing, extremities motor strength 5/5 Skin: no rashes, warm and dry Neurologic: patellar DTR's 2+ bilat, sensation intact and PERRL, EOMI, accommodation nl, no face palsy, no dysarthria Psychiatric: A+Ox3, euthymic affect Results & Data Results & Data ([facility]) Vital Signs (Past 12 Hours) Vital Signs Temp Pulse Pulse Pulse Resp BP BP 10/30/20 08:59 85 16 117/59 L 10/30/20 08:40 10/30/20 08:35 10/30/20 08:00 36.8 C 86 20 113/85 10/30/20 07:57 80 10/30/20 07:40 10/30/20 07:35 10/30/20 07:10 10/30/20 07:00 36.5 C 80 16 125/69 10/30/20 06:00 80 10/30/20 05:26 93 H 10/30/20 04:25 80 108/56 L 10/30/20 03:55 24 10/30/20 03:25 86 150/91 H 10/30/20 02:25 85 144/74 H 10/30/20 02:22 36.6 C 83 19 10/30/20 01:25 79 130/71 10/30/20 00:25 77 149/85 H 10/29/20 23:21 95 H 128/87 10/29/20 23:18 36.6 C 90 23 BP Pulse Ox Pulse Ox 10/30/20 08:59 98 10/30/20 08:40 98 10/30/20 08:35 88 L 10/30/20 08:00 92 10/30/20 07:57 10/30/20 07:40 96 10/30/20 07:35 88 L 10/30/20 07:10 100 10/30/20 07:00 100 10/30/20 06:00 96 10/30/20 05:26 10/30/20 04:25 100 10/30/20 03:55 98 10/30/20 03:25 96 10/30/20 02:25 87 L 10/30/20 02:22 130/71 90 10/30/20 01:25 98 10/30/20 00:25 100 10/29/20 23:21 90 10/29/20 23:18 128/87 90 Laboratory Results Laboratory Results - last 24 hr 10/29/20 10/29/20 10/29/20 18:22 18:22 18:44 WBC 5.09 RBC 3.94 L Hgb 11.6 L Hct 35.5 L MCV 90.1 MCH 29.4 MCHC 32.7 RDW Std Deviation 46.4 H RDW Coeff of Ale 13.8 Plt Count 297 MPV 10.2 Immature Gran % (Auto) 0.4 Neut % (Auto) 81.6 Lymph % (Auto) 14.3 Routt % (Auto) 3.5 Eos % (Auto) 0.0 Baso % (Auto) 0.2 Neut # (Auto) 4.15 Lymph # (Auto) 0.73 L Routt # (Auto) 0.18 Eos # (Auto) 0.00 Baso # (Auto) 0.01 Immature Gran # (Auto) 0.02 Sodium 131 L Potassium 5.7 H Chloride 105 Carbon Dioxide 20 L Anion Gap 7.0 BUN 41 H Creatinine 1.24 H Est Cr Clr Drug Dosing 61.1 Est GFR ( Amer) 57.0 Est GFR (Non-Af Amer) 49.2 BUN/Creatinine Ratio 33.1 H Glucose 330 H* POC Glucose 339 H* Estimat Average Glucose Hemoglobin A1c Calcium 9.1 Phosphorus Magnesium Total Bilirubin < 0.1 L Direct Bilirubin AST 41 H ALT 29 Alkaline Phosphatase 121 H C-Reactive Protein 13.60 H NT-Pro-B Natriuret Pep 996 H Total Protein 7.3 Albumin 2.4 L Globulin 4.9 H Albumin/Globulin Ratio 0.5 L Beta-Hydroxybutyric Acd Procalcitonin Nasal Screen MRSA (PCR) 10/29/20 10/29/20 10/29/20 19:07 20:31 21:45 WBC RBC Hgb Hct MCV MCH MCHC RDW Std Deviation RDW Coeff of Ale Plt Count MPV Immature Gran % (Auto) Neut % (Auto) Lymph % (Auto) Routt % (Auto) Eos % (Auto) Baso % (Auto) Neut # (Auto) Lymph # (Auto) Routt # (Auto) Eos # (Auto) Baso # (Auto) Immature Gran # (Auto) Sodium Potassium Chloride Carbon Dioxide Anion Gap BUN Creatinine Est Cr Clr Drug Dosing Est GFR ( Amer) Est GFR (Non-Af Amer) BUN/Creatinine Ratio Glucose POC Glucose 287 H Estimat Average Glucose Hemoglobin A1c Calcium Phosphorus Magnesium Total Bilirubin Direct Bilirubin AST ALT Alkaline Phosphatase C-Reactive Protein NT-Pro-B Natriuret Pep Total Protein Albumin Globulin Albumin/Globulin Ratio Beta-Hydroxybutyric Acd Procalcitonin < 0.05 Nasal Screen MRSA (PCR) Negative 10/29/20 10/29/20 10/29/20 23:05 23:07 23:08 WBC RBC Hgb Hct MCV MCH MCHC RDW Std Deviation RDW Coeff of Ael Plt Count MPV Immature Gran % (Auto) Neut % (Auto) Lymph % (Auto) Routt % (Auto) Eos % (Auto) Baso % (Auto) Neut # (Auto) Lymph # (Auto) Routt # (Auto) Eos # (Auto) Baso # (Auto) Immature Gran # (Auto) Sodium 132 L Potassium 5.1 Chloride 104 Carbon Dioxide 19 L Anion Gap 8.0 BUN 43 H Creatinine 1.26 H Est Cr Clr Drug Dosing 60.2 Est GFR ( Amer) 55.9 Est GFR (Non-Af Amer) 48.3 BUN/Creatinine Ratio 33.9 H Glucose 366 H* POC Glucose 360 H* 360 H* Estimat Average Glucose Hemoglobin A1c Calcium 8.8 Phosphorus 4.4 Magnesium 1.5 L Total Bilirubin Direct Bilirubin AST ALT Alkaline Phosphatase C-Reactive Protein NT-Pro-B Natriuret Pep Total Protein Albumin Globulin Albumin/Globulin Ratio Beta-Hydroxybutyric Acd 0.94 Procalcitonin Nasal Screen MRSA (PCR) 10/30/20 10/30/20 10/30/20 00:10 00:56 02:14 WBC RBC Hgb Hct MCV MCH MCHC RDW Std Deviation RDW Coeff of Ale Plt Count MPV Immature Gran % (Auto) Neut % (Auto) Lymph % (Auto) Routt % (Auto) Eos % (Auto) Baso % (Auto) Neut # (Auto) Lymph # (Auto) Routt # (Auto) Eos # (Auto) Baso # (Auto) Immature Gran # (Auto) Sodium Potassium Chloride Carbon Dioxide Anion Gap BUN Creatinine Est Cr Clr Drug Dosing Est GFR ( Amer) Est GFR (Non-Af Amer) BUN/Creatinine Ratio Glucose POC Glucose 307 H* 270 H 209 H Estimat Average Glucose Hemoglobin A1c Calcium Phosphorus Magnesium Total Bilirubin Direct Bilirubin AST ALT Alkaline Phosphatase C-Reactive Protein NT-Pro-B Natriuret Pep Total Protein Albumin Globulin Albumin/Globulin Ratio Beta-Hydroxybutyric Acd Procalcitonin Nasal Screen MRSA (PCR) 10/30/20 10/30/20 10/30/20 03:22 04:20 05:11 WBC RBC Hgb Hct MCV MCH MCHC RDW Std Deviation RDW Coeff of Ale Plt Count MPV Immature Gran % (Auto) Neut % (Auto) Lymph % (Auto) Routt % (Auto) Eos % (Auto) Baso % (Auto) Neut # (Auto) Lymph # (Auto) Routt # (Auto) Eos # (Auto) Baso # (Auto) Immature Gran # (Auto) Sodium Potassium Chloride Carbon Dioxide Anion Gap BUN Creatinine Est Cr Clr Drug Dosing Est GFR ( Amer) Est GFR (Non-Af Amer) BUN/Creatinine Ratio Glucose POC Glucose 183 H 188 H 160 H Estimat Average Glucose Hemoglobin A1c Calcium Phosphorus Magnesium Total Bilirubin Direct Bilirubin AST ALT Alkaline Phosphatase C-Reactive Protein NT-Pro-B Natriuret Pep Total Protein Albumin Globulin Albumin/Globulin Ratio Beta-Hydroxybutyric Acd Procalcitonin Nasal Screen MRSA (PCR) 10/30/20 10/30/20 10/30/20 07:04 08:08 08:32 WBC RBC Hgb Hct MCV MCH MCHC RDW Std Deviation RDW Coeff of Ale Plt Count MPV Immature Gran % (Auto) Neut % (Auto) Lymph % (Auto) Routt % (Auto) Eos % (Auto) Baso % (Auto) Neut # (Auto) Lymph # (Auto) Routt # (Auto) Eos # (Auto) Baso # (Auto) Immature Gran # (Auto) Sodium Potassium Chloride Carbon Dioxide Anion Gap BUN Creatinine Est Cr Clr Drug Dosing Est GFR ( Amer) Est GFR (Non-Af Amer) BUN/Creatinine Ratio Glucose POC Glucose 122 H 97 Estimat Average Glucose 246 Hemoglobin A1c 10.2 H Calcium Phosphorus Magnesium Total Bilirubin Direct Bilirubin AST ALT Alkaline Phosphatase C-Reactive Protein NT-Pro-B Natriuret Pep Total Protein Albumin Globulin Albumin/Globulin Ratio Beta-Hydroxybutyric Acd Procalcitonin Nasal Screen MRSA (PCR) 10/30/20 10/30/20 08:32 08:32 WBC 8.16 RBC 3.96 L Hgb 11.8 L Hct 35.7 L MCV 90.2 MCH 29.8 MCHC 33.1 RDW Std Deviation 46.0 RDW Coeff of Ale 13.8 Plt Count 366 MPV 10.2 Immature Gran % (Auto) 0.1 Neut % (Auto) 80.3 Lymph % (Auto) 14.0 Routt % (Auto) 5.4 Eos % (Auto) 0.1 Baso % (Auto) 0.1 Neut # (Auto) 6.55 H Lymph # (Auto) 1.14 L Routt # (Auto) 0.44 Eos # (Auto) 0.01 Baso # (Auto) 0.01 Immature Gran # (Auto) 0.01 Sodium 135 L Potassium 4.7 Chloride 106 Carbon Dioxide 24 Anion Gap 5.0 BUN 42 H Creatinine 1.00 Est Cr Clr Drug Dosing 74.9 Est GFR ( Amer) 74.0 Est GFR (Non-Af Amer) 63.8 BUN/Creatinine Ratio 41.9 H Glucose 119 H POC Glucose Estimat Average Glucose Hemoglobin A1c Calcium 8.9 Phosphorus 3.7 Magnesium 2.0 Total Bilirubin 0.2 Direct Bilirubin < 0.1 AST 33 ALT 26 Alkaline Phosphatase 125 H C-Reactive Protein 12.00 H NT-Pro-B Natriuret Pep Total Protein 7.5 Albumin 2.4 L Globulin Albumin/Globulin Ratio Beta-Hydroxybutyric Acd Procalcitonin Nasal Screen MRSA (PCR) Medications Administered Current Inpatient Medications Acetaminophen (Acetaminophen 1000 Mg/100 Ml Iv) 1,000 mg IV Q8 PRN PRN Reason: Fever Stop: 11/01/20 18:33 Aspirin (Aspirin 81 Mg Ectab) 81 mg PO QAM [facility] Stop: 11/28/20 21:44 Last Admin: 10/30/20 07:11 Dose: 81 mg Documented by: Dextrose (Dextrose 50% 50 Ml Syringe) 25 - 50 ml IV UD PRN; Protocol PRN Reason: Hypoglycemia Protocol Stop: 11/28/20 20:59 Gabapentin (Gabapentin 300 Mg Cap) 300 mg PO HS [facility] Stop: 11/28/20 21:44 Last Admin: 10/29/20 23:20 Dose: 300 mg Documented by: Glucagon (Glucagon For Inj 1 Mg Vial) 1 mg IM UD PRN; Protocol PRN Reason: Hypoglycemia Protocol Stop: 11/28/20 20:59 Glucose (Glucose 40% Gel 15 Gm Tube) 15 - 30 gm PO UD PRN; Protocol PRN Reason: Hypoglycemia Protocol Stop: 11/28/20 20:59 Glucose (Glucose 10 Tabs/Tube) 4 - 8 tabs PO UD PRN; Protocol PRN Reason: Hypoglycemia Protocol Stop: 11/28/20 20:59 Guaifenesin (Guaifenesin 600 Mg Tabcr) 1,200 mg PO Q12 [facility] Stop: 11/28/20 20:59 Last Admin: 10/30/20 07:11 Dose: 1,200 mg Documented by: Heparin Sodium (Porcine) (Heparin Sod 5,000 Unit/0.5 Ml Vial) 5,000 units SQ Q8 [facility] Stop: 11/28/20 21:59 Last Admin: 10/30/20 05:30 Dose: 5,000 units Documented by: Remdesivir 100 mg/ Sodium (Chloride) 250 mls @ 250 mls/hr IV Q24H [facility]; Protocol Stop: 11/01/20 12:59 Dexamethasone 6 mg/ Syringe 1.5 mls @ 1 mls/min IV Q24H [facility] Stop: 11/04/20 08:59 Last Admin: 10/30/20 07:11 Dose: 1 mls/min Documented by: Insulin Aspart (Insulin Aspart 100 Units/Ml 3 Ml Pen) 0 units SC ACHS [facility]; Protocol Stop: 11/29/20 11:29 Metoprolol Tartrate (Metoprolol Tartrate 25 Mg Tab) 25 mg PO BID [facility] Stop: 11/28/20 21:44 Last Admin: 10/30/20 07:12 Dose: 25 mg Documented by: Miscellaneous (Icu Protocol For Hyperglycemia) 1 ea N/A PRN PRN; Protocol PRN Reason: Hyperglycemia Protocol Stop: 10/31/20 18:34 Miscellaneous (Carbohydrates For Hypoglycemia ) 15 - 30 gm PO UD PRN PRN Reason: Hypoglycemia Treatment Stop: 11/28/20 20:59 Miscellaneous (Remove Nicoderm Patch) 1 ea N/A DAILY@0859 [facility] Stop: 11/29/20 08:58 Last Admin: 10/30/20 07:50 Dose: Not Given Documented by: Miscellaneous Information (Pharmacy Glycemic Mgmt Consult) 1 ea N/A UD PRN PRN Reason: Consult Stop: 11/28/20 19:30 Nicotine (Nicotine 21 Mg/24 Hr Tdsy) 21 mg TD QAM [facility] Stop: 11/29/20 08:59 Last Admin: 10/30/20 07:12 Dose: 21 mg Documented by: Pantoprazole Sodium (Pantoprazole 40 Mg Tab) 40 mg PO QAM [facility] Stop: 11/29/20 08:59 Last Admin: 10/30/20 07:12 Dose: 40 mg Documented by: Sodium Chloride (Sodium Chloride 0.9% 10ml Flush) 30 ml IV Q24H [facility] Stop: 11/01/20 13:01 Umeclidinium Strang (Umeclidinium Strang 62.5mcg/Blister 7 Puffs/Inhaler) 1 puffs INH DAILY [facility] Stop: 11/29/20 08:59 Last Admin: 10/30/20 07:12 Dose: 1 puffs Documented by: PG Care Time/CCT Total # of Minutes Spent Total Time Spent with Patient: Total time spent is greater than 50% in coordination of care (as documented) at patient's floor/unit and/or counseling patient: Coding Level of Care Code 15475 Subseq Hosp Care Lvl 3 Diagnoses Pneumonia due to COVID-19 virus U07.1; J12.82 Acute respiratory failure with hypoxia J96.01 Diabetes mellitus type 2, uncontrolled E11.65 Abnormal LFTs R94.5 CAD (coronary artery disease) I25.10 Obesity E66.9 Hypertension I10 Hyperlipidemia E78.5 Tobacco dependence F17.200 Hypomagnesemia E83.42 Acute kidney injury N17.9 Hyperkalemia E87.5 DVT prophylaxis Z29.9
[2020-10-30] MEDS ORDERED: FUROSEMIDE 20 MG in SYRINGE 0 ML IV ONE (11:45)
[2020-10-30] MEDS ORDERED: FUROSEMIDE 40 MG/4 ML VIAL IV ONE (11:47)
--- NOTE | 2020-10-30 11:53 | Critical Care Progress Note ---
Date of Service October 30, 2020 Assessment & Plan (1) Acute respiratory failure with hypoxia: (2) Pneumonia: (3) COVID-19: (4) Obesity: (5) Hypertension: Plan: Chest x-ray 10/29/2020 personally reviewed: Portable film, good inspiratory effo rt, bilateral costophrenic and cardiophrenic angles are clean, diffuse alveolar opacities appreciated bilaterally, increased cardiac silhouette CT chest 10/27/2020 personally reviewed: Centrilobular emphysema, diffuse groundglass opacities appreciated bilaterally upper and lower lobes No pleural effusion No mediastinal adenopathy --Acute hypoxic respiratory failure Likely secondary to multilobar pneumonia from COVID-19 COVID-19 PCR positive 10/25/2020, patient having symptoms since 10/18/2020 Continue with dexamethasone Patient is technically out of remdesivir timeline. I am unsure if it would be of any benefit. Remdesivir was started at [facility] 10/28/20. --COPD with emphysema Not on any inhalers at home We will start the patient on Incruse --OMAR Monitor BUNs/creatinine Avoid nephrotoxic medication --Hypertension Continue with home medications --Coronary artery disease s/p stent 2014 --Morbid obesity with probable GISEL Advised to lose with diet and exercise --Prophylaxis VTE: Heparin GI: Protonix Lines: Peripheral Diet: Cardiac Plan: In/out: -132, urine output 100 Chest x-ray does show mild worsening of the bilateral alveolar infiltrates. Patient has made significant improvement to her oxygen requirement since coming to the hospital I think we can hold back on Tocilizumab. Continue with incentive spirometry and flutter valve along with awake proning Continue with Mucinex 1200 twice daily Depending on how the patient clinical status is in the next 12 hours we will decide if she can go to. I have personally spent 35 minutes of critical care time in the direct management of this patient. This is a life/limb threatening event. This includes time spent evaluating patient, direct bedside care, chart review, placing orders, interpretation of diagnostic studies, discussion with consultants, patient, and family members, as well as other required patient management activities. This time is exclusive of all separately billable procedures, and teaching time and separate from and in addition to any other critical care service time. Please note the above document was generated using voice recognition software. It may contain grammatical, syntax or spelling errors. Admission and Anticipated Discharge Date Admission Date: October 29, 2020 Subjective Patient seen and examined at bedside. No acute distress. No evidence overnight. Patient was saturating 90-91% on 8 L oxygen. She stated she is doing well. Has been using incentive spirometer as well as flutter valve. Denies any chest pain, no headache, no nausea, no vomiting. Has been afebrile. Urinating well. Fair appetite. Review of Systems Review of Systems: All systems reviewed & are unremarkable except as noted in Subjective Physical Exam Physical Exam: Constitutional: No acute distress HEENT: EOMI, PERRLA Respiratory system: Decreased air entry bilaterally, no wheeze, no rub, positive crackles bilateral lower lobes CVS: S1-S2 positive, no murmurs or gallops Abdomen: Soft, nontender, nondistended, positive bowel sounds x4, obese Extremities: +2 pulses bilaterally radialis/ dorsalis pedis, no cyanosis, no edema Neuro: Awake alert oriented x3 Psych: Normal mood and affect G/U: No Parsons Skin: no rashes, warm and dry Lymphatic: no cervical or axillary lymphadenopathy Results & Data Results & Data ([facility]) Vital Signs (Past 12 Hours) Vital Signs Temp Pulse Pulse Pulse Resp BP BP 10/30/20 11:00 36.5 C 88 22 128/76 10/30/20 10:57 10/30/20 10:00 85 21 118/59 L 10/30/20 08:59 85 16 117/59 L 10/30/20 08:40 10/30/20 08:35 10/30/20 08:00 36.8 C 86 20 113/85 10/30/20 07:57 80 10/30/20 07:40 10/30/20 07:35 10/30/20 07:10 10/30/20 07:00 36.5 C 80 16 125/69 10/30/20 06:00 80 10/30/20 05:26 93 H 10/30/20 04:25 80 108/56 L 10/30/20 03:55 24 10/30/20 03:25 86 150/91 H 10/30/20 02:25 85 144/74 H 10/30/20 02:22 36.6 C 83 19 10/30/20 01:25 79 130/71 10/30/20 00:25 77 149/85 H BP Pulse Ox Pulse Ox 10/30/20 11:00 90 10/30/20 10:57 92 10/30/20 10:00 92 10/30/20 08:59 98 10/30/20 08:40 98 10/30/20 08:35 88 L 10/30/20 08:00 92 10/30/20 07:57 10/30/20 07:40 96 10/30/20 07:35 88 L 10/30/20 07:10 100 10/30/20 07:00 100 10/30/20 06:00 96 10/30/20 05:26 10/30/20 04:25 100 10/30/20 03:55 98 10/30/20 03:25 96 10/30/20 02:25 87 L 10/30/20 02:22 130/71 90 10/30/20 01:25 98 10/30/20 00:25 100 10/30/20 08:32 10/30/20 08:32 Coding Level of Care Code Critical Care 1st 30-74 mins Diagnoses Acute respiratory failure with hypoxia J96.01 Pneumonia J18.9 COVID-19 U07.1 Obesity E66.9 Hypertension I10 Time Spent (min) 35
[2020-10-30] MEDS: REMDESIVIR 100 MG in SODIUM CHLORIDE 0.9% 230 ML IV SCH (11:54)
[2020-10-30] MEDS: SODIUM CHLORIDE 0.9% 10ML FLUSH IV SCH (13:17)
[2020-10-30] MEDS ORDERED: INSULIN HUMAN REGULAR PER UNIT 10 UNITS in SYRINGE 9.9 ML IV ONE (16:45)
[2020-10-30] MEDS: GABAPENTIN 300 MG CAP PO SCH (19:24)
[2020-10-31] MEDS ORDERED: INSULIN ASPART 100 UNITS/ML 3 ML PEN SC SCH (02:00)
[2020-10-31 05:55] LABS: Basophils # (auto) 0.01 K/uL (0-0.2); Basophils % (auto) 0.1 %; Hematocrit (blood only) 35.4 % (37-47); Hemoglobin 11.9 g/dL (12.0-16.0); Immature Granulocytes # (auto) 0.02 K/uL (0.00-0.02); Immature Granulocytes % (auto) 0.3 %; Lymphocytes # (auto) 1.56 K/uL (1.2-3.4); Lymphocytes % (auto) 22.6 %; Mean Corpuscular Hemoglobin 29.5 pg (25-34); Mean Corpuscular Hgb Conc 33.6 g/dL (32-36); Mean Corpuscular Volume 87.6 fL (80-100); Mean Platelet Volume 9.6 fL (7.4-10.4); Monocytes # (auto) 0.53 K/uL (0.11-0.59); Monocytes % (auto) 7.7 %; Neutrophils # (auto) 4.79 K/uL (1.4-6.5); Neutrophils % (auto) 69.3 %; Platelet Count 347 K/uL (130-400); RDW Coefficient of Variation 13.7 % (11.5-14.5); RDW Standard Deviation 44.2 fL (36.4-46.3); Red Blood Count 4.04 M/uL (4.2-5.4); White Blood Count 6.91 K/uL (4.8-10.8)
[2020-10-31] MEDS: HEPARIN SOD 5,000 UNIT/0.5 ML VIAL SQ SCH ×3 (05:59→21:13)
[2020-10-31 06:32] LABS: BUN Creatinine Ratio 49.1 (10-20); Creatinine Clr Calc Pharmacy 76.7 ml/min; Est GFR (African American) 75.8 ml/min; Est GFR (Non-African American) 65.4 ml/min; Potassium 4.6 mmol/L (3.5-5.1)
[2020-10-31 06:33] LABS: C Reactive Protein 6.7 mg/dl (0-0.29)
[2020-10-31] MEDS: NICOTINE 21 MG/24 HR TDSY TD SCH (07:20)
[2020-10-31] MEDS: METOPROLOL TARTRATE 25 MG TAB PO SCH ×2 (07:20→21:13)
[2020-10-31] MEDS: PANTOprazole 40 MG TAB PO SCH (07:20)
[2020-10-31] MEDS: dexAMETHasone 6 MG in SYRINGE 0 ML IV SCH (07:20)
[2020-10-31] MEDS: UMECLIDINIUM BROMIDE 62.5MCG/BLISTER 7 PUFFS/INHALER INH SCH (07:20)
[2020-10-31] MEDS: guaiFENesin 600 MG TABCR PO SCH ×2 (07:20→21:12)
[2020-10-31] MEDS: ASPIRIN 81 MG ECTAB PO SCH (07:21)
--- NOTE | 2020-10-31 07:22 | Electrocardiogram Report ---
Test Reason : Blood Pressure : / mmHG Vent. Rate : 086 BPM Atrial Rate : 086 BPM P-R Int : 168 ms QRS Dur : 090 ms QT Int : 396 ms P-R-T Axes : 053 038 056 degrees QTc Int : 473 ms Normal sinus rhythm No previous ECGs available Confirmed by Rene Sky ([id number]) on 10/31/2020 7:22:29 AM Referred By: Ruth Perez Confirmed By:Juliano Sky
[2020-10-31] MEDS ORDERED: FUROSEMIDE 20 MG in SYRINGE 0 ML IV ONE (07:30)
[2020-10-31] MEDS ORDERED: OXYMETAZOLINE 0.05% 30 ML BTL NAE ONE (07:54)
[2020-10-31] MEDS: INSULIN ASPART 100 UNITS/ML 3 ML PEN SC SCH ×4 (08:04→21:21)
--- NOTE | 2020-10-31 08:45 | Pulmonology Progress Note ---
Date of Service October 31, 2020 Assessment & Plan (1) Acute respiratory failure with hypoxia: (2) Pneumonia: (3) COVID-19: (4) Obesity: (5) Hypertension: Plan: Chest x-ray 10/29/2020 personally reviewed: Portable film, good inspiratory effo rt, bilateral costophrenic and cardiophrenic angles are clean, diffuse alveolar opacities appreciated bilaterally, increased cardiac silhouette CT chest 10/27/2020 personally reviewed: Centrilobular emphysema, diffuse groundglass opacities appreciated bilaterally upper and lower lobes No pleural effusion No mediastinal adenopathy --Acute hypoxic respiratory failure Likely secondary to multilobar pneumonia from COVID-19 COVID-19 PCR positive 10/25/2020, patient having symptoms since 10/18/2020 Continue with dexamethasone Patient is technically out of remdesivir timeline. I am unsure if it would be of any benefit. Remdesivir was started at [facility] 10/28/20. --COPD with emphysema Not on any inhalers at home We will start the patient on Incruse --OMAR Monitor BUNs/creatinine Avoid nephrotoxic medication --Hypertension Continue with home medications --Coronary artery disease s/p stent 2014 --Morbid obesity with probable GISEL Advised to lose with diet and exercise --Prophylaxis VTE: Heparin GI: Protonix Lines: Peripheral Diet: Cardiac Plan: In/out: -1261, urine output 2572 Chest x-ray shows improvement in the infiltrate Patient does have history of anxiety. I think anxiety along with hypoxia played a role in the episode that she had overnight I did go down to 12 L and she was still saturating 92%. Gradually titrate off the oxygen to keep O2 saturation around 88-92% No need for Tocilizumab. Pulmonary will continue to follow peripherally. Please call directly with any questions Case discussed with Dr. Ruiz Please note the above document was generated using voice recognition software. It may contain grammatical, syntax or spelling errors.Any formal questions or concerns about the content, text or information contained within the body of this dictation should be directly addressed to the provider for clarification. Admission and Anticipated Discharge Date Admission Date: October 29, 2020 Subjective Patient seen and examined bedside. No acute distress. Overnight patient had an episode of hypoxia where she went into the 70s. She was put on a high flow she was still hypoxic and ultimately put on BiPAP At the time of examination she was on 15 L, saturating 96% not in any acute distress. She was talking in full sentences. She was having her breakfast. Denies any chest pain, overall she states she feels much better. Has been using incentive spine EYES: Pupils round equal and react to light, extraocular movements full, no injection. Start above. Review of Systems Review of Systems: All systems reviewed & are unremarkable except as noted in Subjective Physical Exam Physical Exam: Constitutional: No acute distress HEENT: EOMI, PERRLA Respiratory system: Decreased air entry bilaterally, no wheeze, no rub, positive crackles bilateral lower lobes CVS: S1-S2 positive, no murmurs or gallops Abdomen: Soft, nontender, nondistended, positive bowel sounds x4, obese Extremities: +2 pulses bilaterally radialis/ dorsalis pedis, no cyanosis, no edema Neuro: Awake alert oriented x3 Psych: Normal mood and affect G/U: No Parsons Skin: no rashes, warm and dry Lymphatic: no cervical or axillary lymphadenopathy Results & Data Results & Data ([facility]) Vital Signs (Past 12 Hours) Vital Signs Temp Pulse Pulse Pulse Resp BP Pulse Ox 10/31/20 08:34 76 10/31/20 08:25 80 20 97 10/31/20 07:12 36.8 C 90 20 116/74 92 10/31/20 04:23 37.0 C 87 18 132/85 98 10/30/20 23:28 36.4 C L 80 18 137/82 92 10/30/20 21:38 Pulse Ox 10/31/20 08:34 10/31/20 08:25 10/31/20 07:12 92 10/31/20 04:23 10/30/20 23:28 10/30/20 21:38 100 10/31/20 05:35 10/31/20 05:35 PG Care Time/CCT Total # of Minutes Spent Total Time Spent with Patient: Total time spent is greater than 50% in coordination of care (as documented) at patient's floor/unit and/or counseling patient: Critical Care Time: No Coding Level of Care Code 39083 Subseq Hosp Care Lvl 3 Diagnoses Acute respiratory failure with hypoxia J96.01 Pneumonia J18.9 COVID-19 U07.1 Obesity E66.9 Hypertension I10
--- NOTE | 2020-10-31 08:47 | Hospitalist Progress Note ---
Date of Service October 31, 2020 Assessment & Plan (1) Pneumonia due to COVID-19 virus: Plan: She is about 10-11 days into her illness at time of admission. Unfortunately she was a "breakthrough case" despite full vaccination with Moderna in July. She was initiated on remdesivir on 10/28 at [facility], and steroids on 10/25 (as outpatient). continue Remdesivir, 1 more day continue Decadron 6mg daily 3 more days CRP down to 6 from 12 yesterday, no need for Tocilizumab great response to Lasix, likely got more than sufficient fluids at [facility] repeat Lasix 20mg IV this morning some distress overnight after removing oxygen, desaturating to 70s on room air could not recover on high flow, now comfortable on BIPAP CXR 10/31 is improved rest on BIPAP this morning and gradually wean back to high flow and plan for slow wean from high flow Procalcitonin is normal making bacterial superinfection unlikely (2) Acute respiratory failure with hypoxia: Plan: 2nd severe COVID-19 pneumonia, also a slight component of volume overload from fluids prior to transfer great response to Lasix 20mg IV, repeat a dose this morning, negative fluid balance CXR improved on 10/31 was down to 5L NC evening of 10/30 and not in distress got down to room air last night but desaturated to 70's, could not recover on high flow, was worked up, coughing a lot, probably under ventilating placed on BIPAP this morning, now much more comfortable, laying on right side will allow her to rest on BIPAP this morning, try to wean back to high flow this afternoon and plan for slower wean down from high flow discussed with Dr. Perez, he agrees she looks better in terms of CXR and labs, just needs to rest on BIPAP (3) Diabetes mellitus type 2, uncontrolled: Plan: Was in the 600-700 range upon admission in [place]. BSGs now elevated >300 on admission initially treated with insulin infusion, now on basal bolus pharmacy consulted due to critical illness initially monitor for hypoglycemia, no episode Hold metformin and jardiance, resume on discharge (4) Abnormal LFTs: Plan: Suspect 2nd to #1. LFT normal 10/30 (5) CAD (coronary artery disease): Plan: s/p [place] 2015. Will initiate 81mg in am. Statin. Beta vianey. No evidence of ACS. (6) Obesity: Plan: BMI 37 (7) Hypertension: Plan: Hold HCTZ. Cont BB. Hold CELINE. Lasix daily (8) Hyperlipidemia: Plan: Statin as above (9) Tobacco dependence: Plan: Nicoderm patch 21mg/day. Pt states she has not smoked since being in [place]. (10) Hypomagnesemia: Plan: 2 grams mag sulfate x 1. repeat Mag level tomorrow (11) Acute kidney injury: Plan: Cr 1.9 on 10/27. Improved today to 0.98 Probably multifactorial - prerenal from poor oral intake leading up to admission, hyperglycemia and dehydration from such leading up to 10/27 admission, COVID itself now with volume overload, treating with Lasix, great response give Lasix 20mg IV x 1 this morning, likely won't need another dose, approaching euvolemia (12) Hyperkalemia: Plan: 2nd to OMAR and severe hyperglycemia. corrected with insulin drip and Lasix K is 4.6 today (13) DVT prophylaxis: Plan: heparin SC Plan: full code try to d/c in 24-48 hours Admission and Anticipated Discharge Date Admission Date: October 29, 2020 Subjective patient titrated herself down to room air from 5L over night but she desaturated to the 70's she could not recover, got very worked up, anxious, coughing saturations still in the 80's this morning on 15L high flow, will place on BIPAP, much more comfortable at this time laying on her right side CXR this morning looks improved labs reviewed, WBC 6k, Hb 11.9, Cr 0.98, CRP down to 6.7 from 12 d/w Dr. Perez, he agrees that the patient looks better in terms of CXR and labs, likely coughing spell, anxiety driving desaturations, let her rest on BIPAP will follow up with her this afternoon Review of Systems Review of Systems: All systems reviewed & are unremarkable except as noted in Subjective Constitutional: + fatigue; no fever and no weakness Respiratory: + cough and + dyspnea Cardiovascular: no chest pain and no edema Gastrointestinal: no abdominal pain, no nausea, no vomiting, no constipation and no diarrhea/loose stools Psychiatric: + anxiety Physical Exam Constitutional: well developed, well nourished, + ill appearing and comfortable; no acute distress Neck: trachea midline, no thyromegaly Respiratory: + cough and + tachypneic; no respiratory distress and no labored breathing Auscultation: no crackles, no rales and no wheezes Cardiovascular: RRR, no murmur, no edema Gastrointestinal (Abdomen): normal bowel sounds, soft, nontender, no hep atosplenomegaly Musculoskeletal: no cyanosis or clubbing, extremities motor strength 5/5 Skin: no rashes, warm and dry Neurologic: patellar DTR's 2+ bilat, sensation intact and PERRL, EOMI, accommodation nl, no face palsy, no dysarthria Psychiatric: A+Ox3, euthymic affect Results & Data Results & Data ([facility]) Vital Signs (Past 12 Hours) Vital Signs Temp Pulse Pulse Pulse Resp BP Pulse Ox 10/31/20 08:34 76 10/31/20 08:25 80 20 97 10/31/20 07:12 36.8 C 90 20 116/74 92 10/31/20 04:23 37.0 C 87 18 132/85 98 10/30/20 23:28 36.4 C L 80 18 137/82 92 10/30/20 21:38 Pulse Ox 10/31/20 08:34 10/31/20 08:25 10/31/20 07:12 92 10/31/20 04:23 10/30/20 23:28 10/30/20 21:38 100 Laboratory Results Laboratory Results - last 24 hr 10/30/20 10/30/20 10/30/20 08:32 08:32 08:32 WBC 8.16 RBC 3.96 L Hgb 11.8 L Hct 35.7 L MCV 90.2 MCH 29.8 MCHC 33.1 RDW Std Deviation 46.0 RDW Coeff of Ale 13.8 Plt Count 366 MPV 10.2 Immature Gran % (Auto) 0.1 Neut % (Auto) 80.3 Lymph % (Auto) 14.0 [place] % (Auto) 5.4 Eos % (Auto) 0.1 Baso % (Auto) 0.1 Neut # (Auto) 6.55 H Lymph # (Auto) 1.14 L [place] # (Auto) 0.44 Eos # (Auto) 0.01 Baso # (Auto) 0.01 Immature Gran # (Auto) 0.01 Sodium 135 L Potassium 4.7 Chloride 106 Carbon Dioxide 24 Anion Gap 5.0 BUN 42 H Creatinine 1.00 Est Cr Clr Drug Dosing 74.9 Est GFR ( Amer) 74.0 Est GFR (Non-Af Amer) 63.8 BUN/Creatinine Ratio 41.9 H Glucose 119 H POC Glucose Estimat Average Glucose 246 Hemoglobin A1c 10.2 H Calcium 8.9 Phosphorus 3.7 Magnesium 2.0 Total Bilirubin 0.2 Direct Bilirubin < 0.1 AST 33 ALT 26 Alkaline Phosphatase 125 H C-Reactive Protein 12.00 H Total Protein 7.5 Albumin 2.4 L 10/30/20 10/30/20 10/30/20 11:14 16:28 16:30 WBC RBC Hgb Hct MCV MCH MCHC RDW Std Deviation RDW Coeff of Ale Plt Count MPV Immature Gran % (Auto) Neut % (Auto) Lymph % (Auto) [place] % (Auto) Eos % (Auto) Baso % (Auto) Neut # (Auto) Lymph # (Auto) [place] # (Auto) Eos # (Auto) Baso # (Auto) Immature Gran # (Auto) Sodium Potassium Chloride Carbon Dioxide Anion Gap BUN Creatinine Est Cr Clr Drug Dosing Est GFR ( Amer) Est GFR (Non-Af Amer) BUN/Creatinine Ratio Glucose POC Glucose 251 H 309 H* 323 H* Estimat Average Glucose Hemoglobin A1c Calcium Phosphorus Magnesium Total Bilirubin Direct Bilirubin AST ALT Alkaline Phosphatase C-Reactive Protein Total Protein Albumin 10/30/20 10/31/20 10/31/20 20:36 01:57 05:35 WBC 6.91 RBC 4.04 L Hgb 11.9 L Hct 35.4 L MCV 87.6 MCH 29.5 MCHC 33.6 RDW Std Deviation 44.2 RDW Coeff of Ale 13.7 Plt Count 347 MPV 9.6 Immature Gran % (Auto) 0.3 Neut % (Auto) 69.3 Lymph % (Auto) 22.6 [place] % (Auto) 7.7 Eos % (Auto) 0.0 Baso % (Auto) 0.1 Neut # (Auto) 4.79 Lymph # (Auto) 1.56 [place] # (Auto) 0.53 Eos # (Auto) 0.00 Baso # (Auto) 0.01 Immature Gran # (Auto) 0.02 Sodium Potassium Chloride Carbon Dioxide Anion Gap BUN Creatinine Est Cr Clr Drug Dosing Est GFR ( Amer) Est GFR (Non-Af Amer) BUN/Creatinine Ratio Glucose POC Glucose 232 H 193 H Estimat Average Glucose Hemoglobin A1c Calcium Phosphorus Magnesium Total Bilirubin Direct Bilirubin AST ALT Alkaline Phosphatase C-Reactive Protein Total Protein Albumin 10/31/20 10/31/20 05:35 07:16 WBC RBC Hgb Hct MCV MCH MCHC RDW Std Deviation RDW Coeff of Ale Plt Count MPV Immature Gran % (Auto) Neut % (Auto) Lymph % (Auto) [place] % (Auto) Eos % (Auto) Baso % (Auto) Neut # (Auto) Lymph # (Auto) [place] # (Auto) Eos # (Auto) Baso # (Auto) Immature Gran # (Auto) Sodium 133 L Potassium 4.6 Chloride 104 Carbon Dioxide 24 Anion Gap 5.0 BUN 48 H Creatinine 0.98 Est Cr Clr Drug Dosing 76.7 Est GFR ( Amer) 75.8 Est GFR (Non-Af Amer) 65.4 BUN/Creatinine Ratio 49.1 H Glucose 130 H POC Glucose 107 H Estimat Average Glucose Hemoglobin A1c Calcium 9.0 Phosphorus Magnesium Total Bilirubin Direct Bilirubin AST ALT Alkaline Phosphatase C-Reactive Protein 6.70 H Total Protein Albumin Medications Administered Current Inpatient Medications Aspirin (Aspirin 81 Mg Ectab) 81 mg PO QAM SHAKIR Stop: 11/28/20 21:44 Last Admin: 10/31/20 07:21 Dose: 81 mg Documented by: Dextrose (Dextrose 50% 50 Ml Syringe) 25 - 50 ml IV UD PRN; Protocol PRN Reason: Hypoglycemia Protocol Stop: 11/28/20 20:59 Gabapentin (Gabapentin 300 Mg Cap) 300 mg PO HS SHAKIR Stop: 11/28/20 21:44 Last Admin: 10/30/20 19:24 Dose: 300 mg Documented by: Glucagon (Glucagon For Inj 1 Mg Vial) 1 mg IM UD PRN; Protocol PRN Reason: Hypoglycemia Protocol Stop: 11/28/20 20:59 Glucose (Glucose 40% Gel 15 Gm Tube) 15 - 30 gm PO UD PRN; Protocol PRN Reason: Hypoglycemia Protocol Stop: 11/28/20 20:59 Glucose (Glucose 10 Tabs/Tube) 4 - 8 tabs PO UD PRN; Protocol PRN Reason: Hypoglycemia Protocol Stop: 11/28/20 20:59 Guaifenesin (Guaifenesin 600 Mg Tabcr) 1,200 mg PO Q12 SHAKIR Stop: 11/28/20 20:59 Last Admin: 10/31/20 07:20 Dose: 1,200 mg Documented by: Heparin Sodium (Porcine) (Heparin Sod 5,000 Unit/0.5 Ml Vial) 5,000 units SQ Q8 SHAKIR Stop: 11/28/20 21:59 Last Admin: 10/31/20 05:59 Dose: 5,000 units Documented by: Remdesivir 100 mg/ Sodium (Chloride) 250 mls @ 250 mls/hr IV Q24H SHAKIR; Protocol Stop: 11/01/20 12:59 Last Infusion: 10/30/20 13:03 Dose: Infused Documented by: Dexamethasone 6 mg/ Syringe 1.5 mls @ 1 mls/min IV Q24H [facility] Stop: 11/04/20 08:59 Last Admin: 10/31/20 07:20 Dose: 1 mls/min Documented by: Insulin Aspart (Insulin Aspart 100 Units/Ml 3 Ml Pen) 0 units SC ACHS [facility]; Protocol Stop: 11/29/20 11:29 Last Admin: 10/31/20 08:04 Dose: Not Given Documented by: Insulin Glargine (Insulin Glargine Solostar 100 Units/Ml 3 Ml Pen) 62 units SC DAILY [facility]; Protocol Stop: 11/30/20 08:59 Insulin Human NPH (Insulin Human Nph) 30 units SC DAILY [facility]; Protocol Stop: 11/30/20 08:59 Metoprolol Tartrate (Metoprolol Tartrate 25 Mg Tab) 25 mg PO BID [facility] Stop: 11/28/20 21:44 Last Admin: 10/31/20 07:20 Dose: 25 mg Documented by: Miscellaneous (Carbohydrates For Hypoglycemia ) 15 - 30 gm PO UD PRN PRN Reason: Hypoglycemia Treatment Stop: 11/28/20 20:59 Miscellaneous (Remove Nicoderm Patch) 1 ea N/A DAILY@0859 [facility] Stop: 11/29/20 08:58 Last Admin: 10/31/20 07:21 Dose: Not Given Documented by: Miscellaneous Information (Pharmacy Glycemic Mgmt Consult) 1 ea N/A UD PRN PRN Reason: Consult Stop: 11/28/20 19:30 Nicotine (Nicotine 21 Mg/24 Hr Tdsy) 21 mg TD QAM [facility] Stop: 11/29/20 08:59 Last Admin: 10/31/20 07:20 Dose: 21 mg Documented by: Pantoprazole Sodium (Pantoprazole 40 Mg Tab) 40 mg PO QAM SHAKIR Stop: 11/29/20 08:59 Last Admin: 10/31/20 07:20 Dose: 40 mg Documented by: Sodium Chloride (Sodium Chloride 0.9% 10ml Flush) 30 ml IV Q24H SHAKIR Stop: 11/01/20 13:01 Last Admin: 10/30/20 13:17 Dose: 30 ml Documented by: Umeclidinium Fulton (Umeclidinium [place] 62.5mcg/Blister 7 Puffs/Inhaler) 1 puffs INH DAILY SHAKIR Stop: 11/29/20 08:59 Last Admin: 10/31/20 07:20 Dose: 1 puffs Documented by: PG Care Time/CCT Total # of Minutes Spent Total Time Spent: 35 Total Time Spent with Patient: Total time spent is greater than 50% in coordination of care (as documented) at patient's floor/unit and/or counseling patient: Coding Level of Care Code 38953 Subseq Hosp Care Lvl 3 Diagnoses Pneumonia due to COVID-19 virus U07.1; J12.82 Acute respiratory failure with hypoxia J96.01 Diabetes mellitus type 2, uncontrolled E11.65 Abnormal LFTs R94.5 CAD (coronary artery disease) I25.10 Obesity E66.9 Hypertension I10 Hyperlipidemia E78.5 Tobacco dependence F17.200 Hypomagnesemia E83.42 Acute kidney injury N17.9 Hyperkalemia E87.5 DVT prophylaxis Z29.9
[2020-10-31] MEDS ORDERED: INSULIN HUMAN NPH SC SCH (09:00)
[2020-10-31] MEDS ORDERED: INSULIN GLARGINE SOLOSTAR 100 UNITS/ML 3 ML PEN SC SCH (09:00)
--- NOTE | 2020-10-31 09:32 | XRay Report ---
XR chest 1V portable CLINICAL HISTORY: covid pna COMPARISON STUDY: October 30, 2020 FINDINGS: No pneumothorax. No pleural effusion. Redemonstration of the patchy bilateral airspace opacities, possibly slightly improved since prior. L cha volumes are decreased. Cardiomediastinal silhouette is within normal limits in size. Pulmonary vasculature is obscured.. Osseous structures: unremarkable IMPRESSION: 1. Minimal interval improvement of multifocal pneumonia. ACT 112: Negative or not required by law. The above report was generated using voice recognition software. It may contain grammatical, syntax o r spelling errors. Electronically signed by: Mariela Enamorado DO 10/31/2020 9:31 AM
--- NOTE | 2020-10-31 09:54 | Pharmacy Report ---
Pharmacy Glycemic Short Note 2 - Date of Service October 31, 2020 - Glycemic Short BSG Results (Last 24 hours): 10/30/20 10/30/20 10/30/20 11:14 16:28 16:30 Glucose POC Glucose 251 H 309 H* 323 H* 10/30/20 10/31/20 10/31/20 20:36 01:57 05:35 Glucose 130 H POC Glucose 232 H 193 H 10/31/20 07:16 Glucose POC Glucose 107 H OUTPATIENT ANTIDIABETIC REGIMEN: * Metformin XR 500 mg PO BIDM * Jardiance 25 mg PO Daily * Trulicity 0.75 mg SC Weekly * Lantus 62 units SC BID * HbA1c = 10.2% (10/30/20) ASSESSMENT: 10/31: * Patient received a total of 153 units of insulin yesterday (62 units basal + 91 units bolus) * BSGs were not controlled following transition from insulin drip: 251-323-232 mg/dL * Believe lunch hyperglycemia was secondary to uncovered carbs for breakfast and no steroid coverage * Received a 10 unit IV insulin bolus at dinner time secondary to hyperglycemia * Fasting BSG is well controlled at 107 mg/dL this AM * BID Lantus was not ordered yesterday so patient only received AM dose * Given fasting, will continue with once daily Lantus for now * Patient will received 6 mg of IV Dexamethasone through 11/03 * Will start NPH at 0.3 units/kg today to help control steroid-induced hyperglycemia 10/30: * 55 yo F admitted last evening from [facility] secondary to worsening COVID-19 pneumonia symptoms. Her BSGs upon arrival to [facility] were > 600 mg/dL. Upon arrival at [facility], BSG was 339 mg/dL. Pharmacy was consulted at this point to assist with inpatient glycemic management. * Received a 4 unit IV insulin bolus followed by a continuous insulin infusion. 62 units of Lantus was administered around 0330 this AM to help transition patient off insulin drip. BSGs trended down nicely: 311-161-991-122-97 mg/dL. Insulin infusion was stopped this morning. Over a ten hour period, the patient received ~40 units of insulin from the drip. * She remains on Dexamethasone 6 mg IV daily and Remdesivir. * No carb coverage was administered this morning so expecting lunch BSG to be elevated especially with steroid dose * Will start aggressive Novolog parameters for now based on total outpatient insulin dose * Home Lantus dose will be administered for now given HbA1c and steroids PLAN FOR INPATIENT GLYCEMIC CONTROL: * Hold outpatient oral diabetes medications * Basal insulin * Lantus 62 units SC AM * NPH 30 units SC AM with dexamethasone - hold if dexamethasone held/discontinued * Bolus insulin * NovoLog per scale ACHS or Q6hrs while NPO * Goal Range: Low 110 mg/dL - High 140 mg/dL * Correction Factor: 10 mg/dL/unit * Nutritional / Prandial insulin per carb ratio of 1 unit per 3 grams CHO consumed PLAN FOR DISCHARGE: * To be determined
[2020-10-31] MEDS: DOCUSATE SODIUM/SENNA 50/8.6MG TAB PO SCH (10:57)
[2020-10-31] MEDS: buPROPion XL 150 MG TABCR PO SCH (10:57)
[2020-10-31] MEDS: REMDESIVIR 100 MG in SODIUM CHLORIDE 0.9% 230 ML IV SCH (12:25)
[2020-10-31] MEDS: SODIUM CHLORIDE 0.9% 10ML FLUSH IV SCH (13:29)
[2020-10-31] MEDS ORDERED: RAPID SEQUENCE INDUCTION BAG ONE (17:03)
[2020-10-31] MEDS: GABAPENTIN 300 MG CAP PO SCH (21:12)
[2020-10-31] MEDS: LORazepam 0.5 MG TAB PO SCH (21:13)
[2020-11-01] MEDS: HEPARIN SOD 5,000 UNIT/0.5 ML VIAL SQ SCH ×2 (06:31→15:42)
[2020-11-01 06:39] LABS: Hematocrit (blood only) 36.1 % (37-47); Hemoglobin 11.9 g/dL (12.0-16.0); Mean Corpuscular Hemoglobin 29.3 pg (25-34); Mean Corpuscular Volume 88.9 fL (80-100); Mean Platelet Volume 9.6 fL (7.4-10.4); Platelet Count 401 K/uL (130-400); RDW Coefficient of Variation 13.6 % (11.5-14.5); RDW Standard Deviation 44.6 fL (36.4-46.3); Red Blood Count 4.06 M/uL (4.2-5.4); White Blood Count 9.82 K/uL (4.8-10.8)
[2020-11-01 07:14] LABS: Albumin Level 2.4 gm/dl (3.4-5.0); BUN Creatinine Ratio 42.5 (10-20); Calcium 9.1 mg/dl (8.5-10.1); Creatinine Clr Calc Pharmacy 66.5 ml/min; Est GFR (African American) 63.8 ml/min; Est GFR (Non-African American) 55.1 ml/min; Magnesium 2.1 mg/dl (1.8-2.4); Potassium 4.9 mmol/L (3.5-5.1)
[2020-11-01 07:16] LABS: Albumin Globulin Ratio 0.5 (0.9-2); Bilirubin,Total 0.3 mg/dl (0.2-1); C Reactive Protein 4.35 mg/dl (0-0.29); Globulin 4.7 gm/dl (2.5-4.0); Phosphorus 3.8 mg/dl (2.5-4.9); Total Protein 7.1 gm/dl (6.4-8.2)
[2020-11-01] MEDS: dexAMETHasone 6 MG in SYRINGE 0 ML IV SCH (08:50)
[2020-11-01] MEDS: ASPIRIN 81 MG ECTAB PO SCH (08:51)
[2020-11-01] MEDS: guaiFENesin 600 MG TABCR PO SCH ×2 (08:51→21:17)
[2020-11-01] MEDS: DOCUSATE SODIUM/SENNA 50/8.6MG TAB PO SCH (08:51)
[2020-11-01] MEDS: METOPROLOL TARTRATE 25 MG TAB PO SCH ×2 (08:51→21:17)
[2020-11-01] MEDS: UMECLIDINIUM BROMIDE 62.5MCG/BLISTER 7 PUFFS/INHALER INH SCH (08:51)
[2020-11-01] MEDS: PANTOprazole 40 MG TAB PO SCH (08:51)
[2020-11-01] MEDS: buPROPion XL 150 MG TABCR PO SCH (08:51)
[2020-11-01] MEDS ORDERED: INSULIN GLARGINE SOLOSTAR 100 UNITS/ML 3 ML PEN SC SCH (09:00)
[2020-11-01] MEDS: NICOTINE 21 MG/24 HR TDSY TD SCH (09:03)
[2020-11-01 09:21] LABS: D Dimer 590 ug/L FEU (0-500)
[2020-11-01] MEDS: INSULIN ASPART 100 UNITS/ML 3 ML PEN SC SCH ×4 (09:30→21:42)
[2020-11-01] MEDS: INSULIN HUMAN NPH SC SCH (09:32)
--- NOTE | 2020-11-01 11:11 | Hospitalist Progress Note ---
Date of Service November 01, 2020 Assessment & Plan (1) Pneumonia due to COVID-19 virus: Plan: Clinically worse with escalating O2 requirements. She is about 13-14 days into her illness. Her illness is a "breakthrough case" as she was fully vaccinated with Moderna in July. She was initiated on remdesivir on 10/28 at [facility], and steroids on 10/25 (as outpatient). Day #5 of remdesivir today. d/c such after today's dose. Day #8 of decadron 6mg daily. At this point she is NOT a Tocilizumab candidate. Procal on 10/29 was normal. Due to clinical worsening - even despite improved CRP - will recheck procal in am. She did receive a 5-day course of azithromycin last week as outpatient, then as inpatient at [facility]. Cont Self-proning. Flutter valve. Incentive. Bronchodilators as needed. O2 support to maintain O2 sats 90-92%. Appreciate ongoing pulmonary support. (2) Acute respiratory failure with hypoxia: Plan: Worse today. 2nd severe COVID-19 pneumonia. 2nd acute systolic CHF (see below). d-dimer modestly high. recent b/l LE venous dopplers negative for DVT. She has been at risk of PE - prolonged travel to [place] by car (to and from) recently, COVID itself, etc. Low threshold for CTA chest to r/o PE if further decline. (3) Acute systolic CHF (congestive heart failure): Plan: Limited echo today with EF 25-30%. She has several wall motion abnormalities to suggest ischemic cardiomyopathy. She has known CAD with prior RI in ~2016. I cannot rule out a COVID-19 related cardiomyopathy. Lasix 20mg IV x 1 this am; repeat again this afternoon. Recheck BNP am. Check troponin in am. (however, no recent ischemic symptoms) Spoke with Dr Sky who will consult tomorrow from [facility] cardiology. (4) Diabetes mellitus type 2, uncontrolled: Plan: Was in the 600-700 range upon admission in [place] last week. Holding metformin and jardiance. A1c 10.2%. Appreciate pharmacy glycemic support. Required IV insulin hospital day #1 - now on SC basal-bolus regimen. Defer management to pharmacy. (5) Abnormal LFTs: Plan: Suspect 2nd to #1. Improved. Resume statin. (6) CAD (coronary artery disease): Plan: s/p RI 2016. She was not taking aspirin at admission; asa 81mg daily added. Resume Statin. Cont Beta vianey. No evidence of ACS. See #3 above re: abnormal echo. Will attempt to obtain records from [facility] in [facility] re: prior RI, cath, etc. Consult cardiology in am. (7) Obesity: Plan: BMI 36 (8) Hypertension: Plan: Cont to hold HCTZ. Cont BB. Hold CELINE. Controlled. (9) Hyperlipidemia: Plan: Resume crestor (10) Tobacco dependence: Plan: Nicoderm patch 21mg/day. Pt states she has not smoked since being in [place]. (11) Hypomagnesemia: Plan: Repleted and resolved. Normal level this am. (12) Acute kidney injury: Plan: Cr 1.9 on 10/27 in [place]. 2nd to COVID, severely uncontrolled DM, etc. Cr 1.1 today and stable. BMP am. (13) Hyperkalemia: Plan: 2nd to OMAR and severe hyperglycemia. resolved. (14) DVT prophylaxis: Plan: change to lovenox 40 BID Plan: attempted to call pt's at # listed in chart this evening no answer Admission and Anticipated Discharge Date Admission Date: October 29, 2020 Subjective events of overnight reviewed. patient was desaturating early this am and was placed on high flow NC. during rounds patient had just ambulated/transferred from the commode back to the side of the bed. she was visibly dyspneic. she was tachypneic, and O2 sats were in the 70s. I placed her back in the prone position - O2 sats gradually improved to the mid 80s over about 5 minutes. she continues with cough - mainly dry, occasional sputum. chest tightness - central - with deep breaths or cough. no left-sided chest discomfort. good appetite. denies headache, abd pain, nausea, emesis, diarrhea. denies leg pains. tele overnight wnl. Review of Systems Constitutional: + fatigue; no fever, no chills and no anorexia Respiratory: as per Subjective / HPI, + cough, + dyspnea, + dyspnea on exertion and + pain on inspiration; no hemoptysis and no wheezing Cardiovascular: no orthopnea and no edema Gastrointestinal: no abdominal pain, no nausea and no vomiting Psychiatric: tearful, anxious Physical Exam Physical Exam: Gen: tachypneic, dyspneic Skin: pale Mouth: MM dry Neck: no JVD Heart: RRR, s1 s2, no murmur Lungs: diffuse fine crackles b/l - worse than my exam on 10/30; no wheeze; increased work of breathing - mild retractions after moving in the bed Abd: soft, NT, ND, BS+, NO HSM Ext: no edema, varicose veins, pulses 2+ b/l Psych: anxious, tearful, a/o x 3 Results & Data Results & Data ([facility]) Vital Signs (Past 12 Hours) Vital Signs Temp Pulse Resp BP BP Pulse Ox 11/01/20 08:55 89 21 88 L 11/01/20 08:27 86 21 90 11/01/20 07:49 36.4 C L 91 H 24 117/71 11/01/20 03:32 75 18 95 10/31/20 23:35 36.6 C 86 19 159/79 H 91 Laboratory Results Laboratory Results - last 24 hr 10/31/20 10/31/20 10/31/20 11:38 15:51 18:17 WBC RBC Hgb Hct MCV MCH MCHC RDW Std Deviation RDW Coeff of Ale Plt Count MPV D-Dimer Sodium Potassium Chloride Carbon Dioxide Anion Gap BUN Creatinine Est Cr Clr Drug Dosing Est GFR ( Amer) Est GFR (Non-Af Amer) BUN/Creatinine Ratio Glucose POC Glucose 243 H 229 H 194 H Calcium Phosphorus Magnesium Total Bilirubin AST ALT Alkaline Phosphatase C-Reactive Protein Total Protein Albumin Globulin Albumin/Globulin Ratio 10/31/20 11/01/20 11/01/20 19:33 06:11 06:11 WBC 9.82 RBC 4.06 L Hgb 11.9 L Hct 36.1 L MCV 88.9 MCH 29.3 MCHC 33.0 RDW Std Deviation 44.6 RDW Coeff of Ale 13.6 Plt Count 401 H MPV 9.6 D-Dimer Sodium 135 L Potassium 4.9 Chloride 104 Carbon Dioxide 25 Anion Gap 6.0 BUN 48 H Creatinine 1.13 Est Cr Clr Drug Dosing 66.5 Est GFR ( Amer) 63.8 Est GFR (Non-Af Amer) 55.1 BUN/Creatinine Ratio 42.5 H Glucose 81 POC Glucose 251 H Calcium 9.1 Phosphorus 3.8 Magnesium 2.1 Total Bilirubin 0.3 AST 27 ALT 26 Alkaline Phosphatase 115 C-Reactive Protein 4.35 H Total Protein 7.1 Albumin 2.4 L Globulin 4.7 H Albumin/Globulin Ratio 0.5 L 11/01/20 11/01/20 07:45 08:27 WBC RBC Hgb Hct MCV MCH MCHC RDW Std Deviation RDW Coeff of Ale Plt Count MPV D-Dimer 590 H* Sodium Potassium Chloride Carbon Dioxide Anion Gap BUN Creatinine Est Cr Clr Drug Dosing Est GFR ( Amer) Est GFR (Non-Af Amer) BUN/Creatinine Ratio Glucose POC Glucose 88 Calcium Phosphorus Magnesium Total Bilirubin AST ALT Alkaline Phosphatase C-Reactive Protein Total Protein Albumin Globulin Albumin/Globulin Ratio PG Care Time/CCT Total # of Minutes Spent Total Time Spent with Patient: Total time spent is greater than 50% in coordination of care (as documented) at patient's floor/unit and/or counseling patient: Coding Level of Care Code 46575 Subseq Hosp Care Lvl 3 Diagnoses Pneumonia due to COVID-19 virus U07.1; J12.82 Acute respiratory failure with hypoxia J96.01 Diabetes mellitus type 2, uncontrolled E11.65 Abnormal LFTs R94.5 CAD (coronary artery disease) I25.10 Obesity E66.9 Hypertension I10 Hyperlipidemia E78.5 Tobacco dependence F17.200 Hypomagnesemia E83.42 Acute kidney injury N17.9 Hyperkalemia E87.5 DVT prophylaxis Z29.9 Acute systolic CHF (congestive heart failure) I50.21
--- NOTE | 2020-11-01 11:17 | XRay Report ---
XR chest 1V portable CLINICAL HISTORY: covid pna COMPARISON STUDY: October 31, 2020 FINDINGS: No pneumothorax. No pleural effusion. Bilateral mixed reticular and airspace opacities are again seen. Mild interval prominence of reticula r component is seen on the left. Cardiomediastinal silhouette is mildly enlarged. Pulmonary vasculature is obscured.. Osseous structures: unremarkable IMPRESSION: 1. Bilateral infiltrates are again seen, mild interval worsening of reticular component on the left. ACT 112: Negative or not required by law. The above report was generated using voice recognition software. It may contain grammatical, syntax o r spelling errors. Electronically signed by: Mariela Enamorado DO 11/01/2020 11:16 AM
--- NOTE | 2020-11-01 11:29 | Pharmacy Report ---
Pharmacy Glycemic Short Note 2 - Date of Service November 01, 2020 - Glycemic Short BSG Results (Last 24 hours): 10/31/20 10/31/20 10/31/20 11:38 15:51 18:17 Glucose POC Glucose 243 H 229 H 194 H 10/31/20 11/01/20 11/01/20 19:33 06:11 07:45 Glucose 81 POC Glucose 251 H 88 OUTPATIENT ANTIDIABETIC REGIMEN: * Metformin XR 500 mg PO BIDM * Jardiance 25 mg PO Daily * Trulicity 0.75 mg SC Weekly * Lantus 62 units SC BID * HbA1c = 10.2% (10/30/20) ASSESSMENT: 11/01: * Post-prandial BSG's continued to be elevated yesterday ranging 194-251 mg/dL. CHO ratio was tightened at lunch. * AM fasting BSG continued to trend down today to 81 mg/dL * Will decrease overall basal (NPH plus Lantus) by ~10%. However, will increase NPH to help cover some post prandial elevations. Will therefore significantly decrease Lantus to compensate. * Will loosen correction factor at HS only as that may be contributing both to the significant decrease in BSG overnight and lower AM fasting BSG's * Patient may require tightening of CHO ratio, but will defer for now and monitor BSG's 10/31: * Patient received a total of 153 units of insulin yesterday (62 units basal + 91 units bolus) * BSGs were not controlled following transition from insulin drip: 251-323-232 mg/dL * Believe lunch hyperglycemia was secondary to uncovered carbs for breakfast and no steroid coverage * Received a 10 unit IV insulin bolus at dinner time secondary to hyperglycemia * Fasting BSG is well controlled at 107 mg/dL this AM * BID Lantus was not ordered yesterday so patient only received AM dose * Given fasting, will continue with once daily Lantus for now * Patient will received 6 mg of IV Dexamethasone through 11/03 * Will start NPH at 0.3 units/kg today to help control steroid-induced hyperglycemia 10/30: * 55 yo F admitted last evening from [facility] secondary to worsening COVID-19 pneumonia symptoms. Her BSGs upon arrival to [facility] were > 600 mg/dL. Upon arrival at [facility], BSG was 339 mg/dL. Pharmacy was con sulted at this point to assist with inpatient glycemic management. * Received a 4 unit IV insulin bolus followed by a continuous insulin infusion. 62 units of Lantus was administered around 0330 this AM to help transition patient off insulin drip. BSGs trended down nicely: [phone] mg/dL. Insulin infusion was stopped this morning. Over a ten hour period, the patient received ~40 units of insulin from the drip. * She remains on Dexamethasone 6 mg IV daily and Remdesivir. * No carb coverage was administered this morning so expecting lunch BSG to be elevated especially with steroid dose * Will start aggressive Novolog parameters for now based on total outpatient insulin dose * Home Lantus dose will be administered for now given HbA1c and steroids PLAN FOR INPATIENT GLYCEMIC CONTROL: * Hold outpatient oral diabetes medications * Basal insulin - total reduction ~10% today * Decrease Lantus 40 units SC AM * Increase NPH 40 units SC AM with dexamethasone - hold if dexamethasone held/discontinued * Bolus insulin * NovoLog per scale ACHS or Q6hrs while NPO * Goal Range: Low 110 mg/dL - High 140 mg/dL * Correction Factor: 10 mg/dL/unit * Nutritional / Prandial insulin per carb ratio of 1 unit per 2 grams CHO consumed PLAN FOR DISCHARGE: * To be determined
[2020-11-01] MEDS ORDERED: FUROSEMIDE 20 MG in SYRINGE 0 ML IV ONE ×2 (11:30→17:16)
[2020-11-01] MEDS: REMDESIVIR 100 MG in SODIUM CHLORIDE 0.9% 230 ML IV SCH (11:51)
[2020-11-01] MEDS: SODIUM CHLORIDE 0.9% 10ML FLUSH IV SCH (12:54)
--- NOTE | 2020-11-01 13:59 | XCELERA ---
[id number]
--- NOTE | 2020-11-01 16:36 | Pulmonology Progress Note ---
Date of Service November 01, 2020 Assessment & Plan (1) Acute respiratory failure with hypoxia: (2) Pneumonia: (3) COVID-19: (4) Obesity: (5) Hypertension: Plan: Impression: 55-year-old female with COVID-19 pneumonia and hypoxemic respiratory failure. Echocardiogram showed severe reduction in ejection fraction down to 25 to 30% with moderate mitral regurgitation and regional wall motion abnormalities. She has had an increase in her oxygen requirement. Despite this, the patient appears fairly comfortable. Recommendations: 1. Hypoxemic respiratory failure: Agree with high flow oxygen for now. Should the patient fail, would have a low threshold for repeating blood gas to ensure there is no CO2 elevation and application of positive airway pressure/CPAP/B iPAP. I think we have alternative diagnoses that are more likely than PE so would not pursue CT angiogram or empiric anticoagulation at this time. 2. Discussed with hospitalist. Agree with attempts at additional diuretics. Would push diuresis until BUN and creatinine increase or the patient develops decreasing blood pressure. X-ray does appear mildly congested however the IVC did demonstrate collapse on the echocardiogram and accurate assessment of her filling pressures is somewhat difficult. 3. Recommend cardiology consultation. Unclear if the patient would benefit from cardiac catheterization given the wall motion abnormalities. Also unclear whether dobutamine or other inotropic support may be beneficial. 4. Covid pneumonia: The patient is currently on dexamethasone. Would complete 10-day course at 6 mg. No indication for escalation of therapy. Her CRP and inflammatory markers are all decreasing. No indication for Tocilizumab and the patient is well outside the window for any other antiviral therapies. Continue supportive care. 5. COPD: We will transition her to Anoro plus Arnuity. Consider outpatient PFTs. Please note the above document was generated using voice recognition software. It may contain grammatical, syntax or spelling errors.Any formal questions or concerns about the content, text or information contained within the body of this dictation should be directly addressed to the provider for clarification. Admission and Anticipated Discharge Date Admission Date: October 29, 2020 Subjective Please refer to hospitalist note. Seen from the window. The patient is awake alert conversant and eating a full meal. She does not appear to be in any respiratory distress but is hypoxemic on high flow. Review of Systems Review of Systems: Please refer to the hospitalist note. No changes Physical Exam Physical Exam: Exam per hospitalist. Results & Data Results & Data ([facility]) Vital Signs (Past 12 Hours) Vital Signs Temp Pulse Pulse Resp BP BP Pulse Ox 11/01/20 16:08 58 L 11/01/20 15:39 36.5 C 89 20 99/57 L 89 L 11/01/20 15:18 87 21 90 11/01/20 11:56 36.5 C 88 26 H 124/77 87 L 11/01/20 11:09 83 18 88 L 11/01/20 08:55 89 21 88 L 11/01/20 08:27 86 21 90 11/01/20 07:49 36.4 C L 91 H 24 117/71 Laboratory Results 11/01/20 06:11 11/01/20 06:11 Diagnostic Findings Chest x-ray is independently reviewed. There appear to be bilateral prominence of the bronchovascular markings. No overt pleural effusions are identified. Mild cardiomegaly. PG Care Time/CCT Total # of Minutes Spent Total Time Spent with Patient: Total time spent is greater than 50% in coordination of care (as documented) at patient's floor/unit and/or counseling patient: Coding Level of Care Code 43841 Subseq Hosp Care Lvl 3 Diagnoses Acute respiratory failure with hypoxia J96.01 Pneumonia J18.9 COVID-19 U07.1 Obesity E66.9 Hypertension I10 Time Spent (min) 40
[2020-11-01] MEDS: LORazepam 0.5 MG TAB PO PRN (17:59)
[2020-11-01] MEDS: UMECLIDINIUM/VILANTEROL 62.5/25MCG 7 PUFFS/INHALER INH SCH (21:17)
[2020-11-01] MEDS: GABAPENTIN 300 MG CAP PO SCH (21:17)
[2020-11-01] MEDS: FLUTICASONE FUROATE 100MCG 14 PUFFS/INHALER INH SCH (21:17)
[2020-11-01] MEDS: LORazepam 0.5 MG TAB PO SCH (21:17)
[2020-11-01] MEDS: ENOXAPARIN INJ 40 MG/0.4 ML SYR SQ SCH (23:16)
[2020-11-02] MEDS: INSULIN ASPART 100 UNITS/ML 3 ML PEN SC SCH ×6 (00:33→22:11)
[2020-11-02 06:26] LABS: Hematocrit (blood only) 35.2 % (37-47); Hemoglobin 11.6 g/dL (12.0-16.0); Mean Corpuscular Hemoglobin 29.1 pg (25-34); Mean Corpuscular Volume 88.4 fL (80-100); Mean Platelet Volume 9.6 fL (7.4-10.4); Platelet Count 395 K/uL (130-400); RDW Coefficient of Variation 13.7 % (11.5-14.5); RDW Standard Deviation 44.6 fL (36.4-46.3); Red Blood Count 3.98 M/uL (4.2-5.4); White Blood Count 10.07 K/uL (4.8-10.8)
[2020-11-02 07:04] LABS: BUN Creatinine Ratio 45.6 (10-20); Blood Urea Nitrogen 49 mg/dl (7-18); Calcium 8.9 mg/dl (8.5-10.1); Carbon Dioxide 24 mmol/L (21-32); Chloride 103 mmol/L (98-107); Est GFR (African American) 68.2 ml/min; Est GFR (Non-African American) 58.8 ml/min; Glucose 90 mg/dl (70-99); Potassium 4.6 mmol/L (3.5-5.1); Sodium 133 mmol/L (136-145)
[2020-11-02 07:09] LABS: NT Pro B Type Natriuretic Pept 872 pg/ml (0-900); Troponin I < 0.015 ng/ml (0-0.045)
[2020-11-02] MEDS: ROSUVASTATIN CALCIUM 20 MG TAB PO SCH (08:35)
[2020-11-02] MEDS: METOPROLOL TARTRATE 25 MG TAB PO SCH ×2 (08:35→21:08)
[2020-11-02] MEDS: FLUTICASONE FUROATE 100MCG 14 PUFFS/INHALER INH SCH ×2 (08:35→21:06)
[2020-11-02] MEDS: guaiFENesin 600 MG TABCR PO SCH ×2 (08:35→21:07)
[2020-11-02] MEDS: dexAMETHasone 6 MG in SYRINGE 0 ML IV SCH (08:35)
[2020-11-02] MEDS: ASPIRIN 81 MG ECTAB PO SCH (08:36)
[2020-11-02] MEDS: NICOTINE 21 MG/24 HR TDSY TD SCH (08:36)
[2020-11-02] MEDS: DOCUSATE SODIUM/SENNA 50/8.6MG TAB PO SCH (08:36)
[2020-11-02] MEDS: buPROPion XL 150 MG TABCR PO SCH (08:36)
[2020-11-02] MEDS: PANTOprazole 40 MG TAB PO SCH (08:36)
[2020-11-02] MEDS: ENOXAPARIN INJ 40 MG/0.4 ML SYR SQ SCH ×2 (08:38→21:05)
[2020-11-02] MEDS: UMECLIDINIUM/VILANTEROL 62.5/25MCG 7 PUFFS/INHALER INH SCH (08:39)
[2020-11-02] MEDS: INSULIN HUMAN NPH SC SCH (08:56)
[2020-11-02] MEDS: INSULIN GLARGINE SOLOSTAR 100 UNITS/ML 3 ML PEN SC SCH (08:56)
--- NOTE | 2020-11-02 11:52 | Pulmonology Progress Note ---
Date of Service November 02, 2020 Assessment & Plan (1) Acute respiratory failure with hypoxia: (2) Pneumonia: (3) COVID-19: (4) Obesity: (5) Hypertension: Plan: Impression: 55-year-old female with COVID-19 pneumonia and hypoxemic respiratory failure. Echocardiogram showed severe reduction in ejection fraction down to 25 to 30% with moderate mitral regurgitation and regional wall motion abnormalities. She has had an increase in her oxygen requirement. Despite this, the patient appears fairly comfortable. Recommendations: 1. Hypoxemic respiratory failure: Agree with high flow oxygen for now. Should the patient fail, would have a low threshold for repeating blood gas to ensure there is no CO2 elevation and application of positive airway pressure/CPAP/ BiPAP. I think we have alternative diagnoses that are more likely than PE so would not pursue CT angiogram or empiric anticoagulation at this time. Patient can continue to self prone as tolerated. Could consider adding NRB to her high flow if needed. The patient demonstrates 'happy hypoxemia' and would not recommend intubation unless signs of respiratory distress or increased work of breathing. Could consider echo with bubble to see if R>L shunt is present, but doubt would change control coordinator currently. 2. Await cardiology consultation. Unclear if the patient would benefit from cardiac catheterization given the wall motion abnormalities. Also unclear whether dobutamine or other inotropic support may be beneficial. 3. Covid pneumonia: The patient is currently on dexamethasone. Would complete 10-day course at 6 mg. No indication for escalation of therapy. Her CRP and inflammatory markers are all decreasing. No indication for Tocilizumab and the patient is well outside the window for any other antiviral therapies. Continue supportive care. 4. COPD: Continue Anoro plus Arnuity. Consider outpatient PFTs. Prognosis guarded. Will continue to monitor with you. Please note the above document was generated using voice recognition software. It may contain grammatical, syntax or spelling errors.Any formal questions or concerns about the content, text or information contained within the body of this dictation should be directly addressed to the provider for clarification. Admission and Anticipated Discharge Date Admission Date: October 29, 2020 Subjective Patient seen and examined. She relates that she is doing well clinically. She denies any significant shortness of breath despite being hypoxemic. She is not really coughing or expectorating phlegm. She denies chest pain or palpitations. She continues to tolerated diet well with no nausea or vomiting. She does not report any chest pain or significant lower extremity edema. Review of Systems Review of Systems: All systems reviewed & are unremarkable except as noted in HPI & below Physical Exam Constitutional: WD/WN, vitals as above Neck: trachea midline, no thyromegaly Respiratory: normal respiratory effort; no respiratory distress and no labored breathing Auscultation: + rales; no wheezes Cardiovascular: RRR, no murmur, no edema Gastrointestinal (Abdomen): normal bowel sounds, soft, nontender, no hepatosplenomegaly Musculoskeletal: Extremities: extremities normal to inspection Skin: no rashes, warm and dry Neurologic: Nonfocal exam Lymphatic: no cervical lymphadenopathy Results & Data Results & Data ([facility]) Vital Signs (Past 12 Hours) Vital Signs Temp Pulse Pulse Pulse Resp BP Pulse Ox 11/02/20 11:49 36.9 C 83 19 102/53 L 91 11/02/20 11:06 89 20 82 L 11/02/20 08:30 36.9 C 93 H 22 116/74 87 L 11/02/20 08:00 77 11/02/20 07:34 79 18 90 11/02/20 04:03 36.5 C 132/79 11/02/20 03:48 77 19 86 L 11/02/20 03:30 62 20 94 11/02/20 00:01 36.8 C 79 17 137/74 94 Laboratory Results 11/02/20 06:10 11/02/20 06:10 PG Care Time/CCT Total # of Minutes Spent Total Time Spent with Patient: Total time spent is greater than 50% in coordination of care (as documented) at patient's floor/unit and/or counseling patient: Coding Level of Care Code 24168 Subseq Hosp Care Lvl 2 Diagnoses Acute respiratory failure with hypoxia J96.01 Pneumonia J18.9 COVID-19 U07.1 Obesity E66.9 Hypertension I10
--- NOTE | 2020-11-02 14:19 | Cardiology Consultation ---
Date of Consultation November 02, 2020 Assessment & Plan (1) Acute systolic CHF (congestive heart failure): It seems likely that the patient did have an element of pulmonary vascular congestion at the time of admission. Her BNP was mildly elevated. She is known to have severe LV dysfunction based on a recent echocardiogram. This would have been in addition to her viral pneumonia but likely contributed to some element of hypoxia and breathing difficulty. However, she has undergone aggressive diuresis over the past couple of days. This is affected a mild improvement in her symptoms. However, she continues to be hypoxic in require high-flow oxygen. Therefore, I think the contribution from heart failure to her current respiratory difficulties is minimal. I would have expected a more dramatic improvement given the diuresis affected over the past couple of days. I think we should continue some element of daily diuresis in order to optimize her cardiac function and prevent additional pulmonary edema. We must be cognizant of intravascular depletion. She has an element of a contraction alkalosis currently. (2) Acute respiratory failure with hypoxia: I think this is primarily related to her viral pneumonia. While her BNP was not entirely normal it was not severely elevated. She affected a good diuresis. Hopefully with time and continued treatment of her viral pneumonia we will see improvement. If there is any concern about residual pulmonary vascular congestion causing symptoms, a repeat BMP can be obtained. Right heart catheterization could also be entertained although given her COVID positive status, this is less desirable. (3) CAD (coronary artery disease): A remote history of a single-vessel intervention. According to the patient this did not result in significant LV dysfunction. However, no old records are available. Unfortunately, she does not appear to have had any follow-up here locally. No evidence of a recent infarct based on biomarkers. No symptoms suggestive of a recent infarct. She should continue rosuvastatin, metoprolol and a daily aspirin. (4) Mitral regurgitation: Moderate on her recent echocardiogram. No idea whether this is chronic or new. Unlikely to cause symptoms currently but will need to be followed over time. (5) Cardiomyopathy: This is of unclear duration. Again, the patient was not aware of any reduced LV function but does not appear to have had close follow-up at least here locally. She did not describe symptoms of a cardiomyopathy or heart failure leading up to her admission. She does not appear to have had a recent coronary event based on the absence of elevated biomarkers. Also no symptoms consistent with a recent coronary event. It is possible that this is simply related to her degree of illness in a viral infection. Again no evidence of myocarditis based on normal biomarkers. The current recommendation is simply supportive. Diuresis as needed. Addition of Supa inhibition when her clinical condition improves. If she continues to have reduced LV systolic function repeat angiography can be considered once her clinical situation improves. No urgent indication for cardiac catheterization. History of Present Illness Reason for Consultation: Hypoxic respiratory failure Requesting Physician: Jairon Attending Physician: Jordy De La O History of Present Illness The patient is a 55-year-old woman with a history of coronary disease having suffered a myocardial infarction 2015. Patient states that at that time she was preparing for her wedding and began to have symptoms of severe chest discomfort. She presented to the local emergency room in [place] and eventually underwent percutaneous intervention to which she describes as a single-vessel. She reports having a single stent to a single coronary artery. She has not been aware of any reported heart damage. She was not aware of significant cardiac dysfunction or heart failure. She has not established locally with a box sorter. The patient was recently visiting family members in [place] when she began to experience symptoms of a mild respiratory illness. This eventually progressed to include worsening dyspnea and coughing. She presents to the hospital with hypoxia and was admitted with a viral pneumonia. She was initially seen at an outside institution and transferred to our facility when her condition worsened. She has been on high flow oxygen since that time. She has not required intubation she was treated with anti viral medication as well as steroids. An echocardiogram obtained during this admission revealed severely reduced LV systolic function. A BNP obtained was mildly elevated. Patient states that prior to her current illness she was an active individual who was not limited by breathing difficulty. She did not report symptoms of chest discomfort either at rest or with exertion. She does not exercise regularly but has no trouble performing routine activities. She denies dizziness or lightheadedness. She cannot recall suffering a syncopal episode. She has not had any recurrence of her index chest discomfort. She denies orthopnea or paroxysmal nocturnal dyspnea. She felt that perhaps there was some mild lower extremity edema but not significantly worse than usual. Allergies Allergy/AdvReac Type Severity Reaction Status Date / Time latex Allergy Rash Verified 10/29/20 18:35 oxycodone [From Percocet] Allergy Hives Verified 10/29/20 18:36 Home Medications Medication Instructions Recorded Confirmed Type empagliflozin 25 mg tablet 25 mg PO DAILY 10/30/20 10/30/20 History (Jardiance) esomeprazole magnesium 20 mg 20 mg PO DAILY 10/30/20 10/30/20 History capsule,delayed release gabapentin 300 mg capsule 300 mg PO HS 10/30/20 10/30/20 History hydrochlorothiazide 25 mg tablet 25 mg PO DAILY 10/30/20 10/30/20 History insulin glargine 100 unit/mL (3 62 unit SUBCUT BID 10/30/20 10/30/20 History mL) subcutaneous pen (Lantus Solostar U-100 Insulin) metformin 500 mg tablet,extended 500 mg PO BID 10/30/20 10/30/20 History release 24 hr metoprolol succinate 25 mg 25 mg PO BID 10/30/20 10/30/20 History tablet,extended release 24 hr rosuvastatin 20 mg tablet 20 mg PO DAILY 10/30/20 10/30/20 History Patient History Medical History (Updated 11/10/20 @ 11:04 by Gemrán Mueller MD) CAD (coronary artery disease) COVID-19 Hyperlipidemia Hypertension Hypertensive urgency Obesity Pneumonia Tobacco dependence Surgical History History of coronary artery stent placement x - 2015; [place] S/P cholecystectomy open Family History Father Myocardial infarction Mother Diabetes ESRD (end stage renal disease) on dialysis Social History (Updated 10/30/20 @ 00:57 by Jordy De La O) Smoking Status: Former smoker Age Started Using Tobacco: 17; Age Quit Using Tobacco: 55; packs per day: 1; Cigarettes Per Day: 20; Smoking End Date: September 2020; Second Hand Exposure: Yes; Do You Dip or Chew Tobacco: No; Hx Alcohol Use: No Hx Substance Use: No Preferred Language: Kiswahili Communication Ability: Effective Cow Buyer Required: No Beliefs That Will Affect Care: None marital status: Current Living Situation: Spouse Current Living Situation Comment: Arabella LAKHANI How many Children do You have: 3 Other Information That Helps Us Care for You: No other: grew up in [place]; then lived in [place]; then moved to [place] Feels Safe at Home: Yes Safety Concerns: Feels Safe At This Time Assistive Devices: Oxygen - Continuous Review of Systems Review of Systems: All systems reviewed & are unremarkable except as noted in HPI & below Physical Exam Physical Exam: She is alert and oriented x3. Mood affect appear normal. She answered all questions appropriately. In mild respiratory distress. Coughing on occasion. HEENT: Sclerae are anicteric. Pupils are equal and reactive to light and accommodation. Extraocular movements were intact. Neuro: Cranial nerves intact Lungs: Fine crackles in some occasional wheezes. Increased respiratory effort. respiratory effort without use of accessory muscles. There is normal pulmonary excursion. Cardiac: The rhythm was regular. Mildly tachycardic. S1 and S2 were normal. There are no murmurs on examination. The PMI was not markedly displaced on palpation. Extremities: Patient has bilateral radial pulses that are equal in intensity. There is no evidence cyanosis or clubbing. There was no evidence of significant peripheral edema bilaterally. Skin: There are no rashes noted on examination today. Results & Data ([facility]) Vital Signs (Past 12 Hours) Vital Signs Temp Pulse Pulse Pulse Resp BP Pulse Ox 11/02/20 11:49 36.9 C 83 19 102/53 L 91 11/02/20 11:06 89 20 82 L 11/02/20 08:30 36.9 C 93 H 22 116/74 87 L 11/02/20 08:00 77 11/02/20 07:34 79 18 90 11/02/20 04:03 36.5 C 132/79 11/02/20 03:48 77 19 86 L 11/02/20 03:30 62 20 94 Laboratory Results Abnormal Lab Results 11/01/20 11/01/20 11/01/20 16:30 19:45 23:59 WBC RBC Hgb Hct MCV MCH MCHC RDW Std Deviation RDW Coeff of Ale Plt Count MPV Sodium Potassium Chloride Carbon Dioxide Anion Gap BUN Creatinine Est Cr Clr Drug Dosing Est GFR ( Amer) Est GFR (Non-Af Amer) BUN/Creatinine Ratio Glucose POC Glucose 305 H* 300 H 146 H Calcium Troponin I NT-Pro-B Natriuret Pep Procalcitonin 11/02/20 11/02/20 11/02/20 04:01 06:10 06:10 WBC 10.07 RBC 3.98 L Hgb 11.6 L Hct 35.2 L MCV 88.4 MCH 29.1 MCHC 33.0 RDW Std Deviation 44.6 RDW Coeff of Ale 13.7 Plt Count 395 MPV 9.6 Sodium Potassium Chloride Carbon Dioxide Anion Gap BUN Creatinine Est Cr Clr Drug Dosing Est GFR ( Amer) Est GFR (Non-Af Amer) BUN/Creatinine Ratio Glucose POC Glucose 78 Calcium Troponin I NT-Pro-B Natriuret Pep Procalcitonin < 0.05 11/02/20 11/02/20 11/02/20 06:10 08:28 11:47 WBC RBC Hgb Hct MCV MCH MCHC RDW Std Deviation RDW Coeff of Ale Plt Count MPV Sodium 133 L Potassium 4.6 Chloride 103 Carbon Dioxide 24 Anion Gap 6.0 BUN 49 H Creatinine 1.07 Est Cr Clr Drug Dosing 70.0 Est GFR ( Amer) 68.2 Est GFR (Non-Af Amer) 58.8 BUN/Creatinine Ratio 45.6 H Glucose 90 POC Glucose 86 191 H Calcium 8.9 Troponin I < 0.015 NT-Pro-B Natriuret Pep 872 Procalcitonin Diagnostic Findings Chest x-ray obtained at the time admission revealed evidence of viral pneumonia. Echocardiogram obtained on 11/01/2020 revealed reduced LV systolic function with ejection fraction around 30%. There were regional wall motion abnormalities involving akinesis of the septum. Moderate mitral regurgitation. ECG Additional Comments: EKG demonstrated normal sinus rhythm without acute ST or T- wave changes. No definite evidence of old infarct. PG Care Time/CCT Total # of Minutes Spent Total Time Spent with Patient: Total time spent is greater than 50% in coordination of care (as documented) at patient's floor/unit and/or counseling patient: Coding Level of Care Code 90641 Inpt Consult Level 5 Diagnoses Acute systolic CHF (congestive heart failure) I50.21 Acute respiratory failure with hypoxia J96.01 CAD (coronary artery disease) I25.10 Mitral regurgitation I34.0 Cardiomyopathy I42.9
--- NOTE | 2020-11-02 14:21 | Pharmacy Report ---
Pharmacy Glycemic Short Note 2 - Date of Service November 02, 2020 - Glycemic Short BSG Results (Last 24 hours): 11/01/20 11/01/20 11/01/20 16:30 19:45 23:59 Glucose POC Glucose 305 H* 300 H 146 H 11/02/20 11/02/20 11/02/20 04:01 06:10 08:28 Glucose 90 POC Glucose 78 86 11/02/20 11:47 Glucose POC Glucose 191 H OUTPATIENT ANTIDIABETIC REGIMEN: * Metformin XR 500 mg PO BIDM * Jardiance 25 mg PO Daily * Trulicity 0.75 mg SC Weekly * Lantus 62 units SC BID * HbA1c = 10.2% (10/30/20) ASSESSMENT: 8.10: * BSGs trended up to the 300s yesterday afternoon. It was confirmed that patient had 2 packs of anna crackers prior to dinner BSG and it was suspected that snacking occurred prior to HS reading making these values difficult to interpret. * Fasting BSG increased somewhat to 90 mg/dL. Will further decrease lantus. * Patient continues to tolerate a diet and remains on dexamethasone (order to time out after tomorrow's dose) 11/01:. * Post-prandial BSG's continued to be elevated yesterday ranging 194-251 mg/dL. CHO ratio was tightened at lunch. * AM fasting BSG continued to trend down today to 81 mg/dL * Will decrease overall basal (NPH plus Lantus) by ~10%. However, will increase NPH to help cover some post prandial elevations. Will therefore significantly decrease Lantus to compensate. * Will loosen correction factor at HS only as that may be contributing both to the significant decrease in BSG overnight and lower AM fasting BSG's * Patient may require tightening of CHO ratio, but will defer for now and monitor BSG's 10/31: * Patient received a total of 153 units of insulin yesterday (62 units basal + 91 units bolus) * BSGs were not controlled following transition from insulin drip: 251-323-232 mg/dL * Believe lunch hyperglycemia was secondary to uncovered carbs for breakfast and no steroid coverage * Received a 10 unit IV insulin bolus at dinner time secondary to hyperglycemia * Fasting BSG is well controlled at 107 mg/dL this AM * BID Lantus was not ordered yesterday so patient only received AM dose * Given fasting, will continue with once daily Lantus for now * Patient will received 6 mg of IV Dexamethasone through 11/03 * Will start NPH at 0.3 units/kg today to help control steroid-induced hyperglycemia 10/30: * 55 yo F admitted last evening from [facility] secondary to worsening COVID-19 pneumonia symptoms. Her BSGs upon arrival to [facility] were > 600 mg/dL. Upon arrival at [facility], BSG was 339 mg/dL. Pharmacy was consulted at this point to assist with inpatient glycemic management. * Received a 4 unit IV insulin bolus followed by a continuous insulin infusion. 62 units of Lantus was administered around 0330 this AM to help transition patient off insulin drip. BSGs trended down nicely: 042-108-648-122-97 mg/dL. Insulin infusion was stopped this morning. Over a ten hour period, the patient received ~40 units of insulin from the drip. * She remains on Dexamethasone 6 mg IV daily and Remdesivir. * No carb coverage was administered this morning so expecting lunch BSG to be elevated especially with steroid dose * Will start aggressive Novolog parameters for now based on total outpatient insulin dose * Home Lantus dose will be administered for now given HbA1c and steroids PLAN FOR INPATIENT GLYCEMIC CONTROL: * Hold outpatient oral diabetes medications * Basal insulin - total reduction ~7% today * Decrease Lantus 35 units SC AM * no change NPH 40 units SC AM with dexamethasone - hold if dexamethasone held/discontinued * Bolus insulin * NovoLog per scale ACHS or Q6hrs while NPO * Goal Range: Low 110 mg/dL - High 140 mg/dL * Correction Factor: 10 mg/dL/unit (15 mg/dl/unit at HS) * Nutritional / Prandial insulin per carb ratio of 1 unit per 2 grams CHO consumed PLAN FOR DISCHARGE: * To be determined
[2020-11-02] MEDS ORDERED: FUROSEMIDE 20 MG in SYRINGE 0 ML IV ONE (17:30)
[2020-11-02] MEDS: GABAPENTIN 300 MG CAP PO SCH (21:07)
[2020-11-02] MEDS: LORazepam 0.5 MG TAB PO SCH (21:10)
--- NOTE | 2020-11-02 21:31 | Hospitalist Progress Note ---
Date of Service November 02, 2020 Assessment & Plan (1) Pneumonia due to COVID-19 virus: Plan: About the same clinically as yesterday. Maybe slight improvement symptomatically following aggressive diuresis the last few days. She is about 14-15 days into her illness. Her illness is a "breakthrough case" as she was fully vaccinated with Moderna in July. She was initiated on remdesivir on 10/28 at [facility], and steroids on 10/25 (as outpatient). Completed 5 day course of remdesivir. Day #9 of decadron 6mg daily. At this point she is NOT a Tocilizumab candidate. Procal on 10/29 was normal. Repeat procal level today again negative. Bacterial superinfection unlikely. CRPs have improved during the visit. She did receive a 5-day course of azithromycin last week as outpatient, then as inpatient at [facility]. Cont Self-proning. Flutter valve. Incentive. Bronchodilators as needed. HFNC O2 support to maintain O2 sats 90-92%. Appreciate ongoing pulmonary support. Appreciate cardiology support. (2) Acute respiratory failure with hypoxia: Plan: Ongoing. 2nd severe COVID-19 pneumonia. 2nd acute systolic CHF (see below). d-dimer modestly high. recent b/l LE venous dopplers negative for DVT. She has been at risk of PE - prolonged travel to [place] by car (to and from) recently, COVID itself, etc. Low threshold for CTA chest to r/o PE if further decline. (3) Acute systolic CHF (congestive heart failure): Plan: Limited echo yesterday with EF 25-30%. She has several wall motion abnormalities to suggest ischemic cardiomyopathy. She has known CAD with prior [place] in ~2016. I cannot rule out a COVID-19 related cardiomyopathy. Lasix 20mg IV x [address] Sky. Repeat BMP in am. BNP today wnl. Troponin negative making a viral cardiomyopathy / myocarditis unlikely from COVID. Appreciate Dr Sky's consult. Will need ischemic eval/cath once recovered from COVID and off high oxygen requirements. (4) Diabetes mellitus type 2, uncontrolled: Plan: Was in the 600-700 range upon admission in [place] last week. Holding metformin and jardiance. A1c 10.2%. Appreciate pharmacy glycemic support. Required IV insulin hospital day #1 - now on SC basal-bolus regimen. Defer management to pharmacy. (5) Abnormal LFTs: Plan: Suspect 2nd to #1. Improved. Resumed statin. (6) CAD (coronary artery disease): Plan: s/p [place] 2016. She was not taking aspirin at admission; asa 81mg daily added. Cont Statin. Cont Beta vianey. No evidence of ACS. See #3 above re: abnormal echo. Will attempt to obtain records from [facility] in [facility] re: prior AZ, cath, etc. Appreciate Dr Sky's consultation. (7) Obesity: Plan: BMI 36 (8) Hypertension: Plan: Cont to hold HCTZ. Cont BB. Cont to hold CELINE. BPs are low normal in the face of diuresis. (9) Hyperlipidemia: Plan: crestor (10) Tobacco dependence: Plan: Nicoderm patch 21mg/day. Pt states she has not smoked since being in [place]. (11) Hypomagnesemia: Plan: Repleted and resolved. (12) Acute kidney injury: Plan: Cr 1.9 on 10/27 in [place]. 2nd to COVID, severely uncontrolled DM, etc. Cr 1.1 again today and stable. BMP am. (13) Hyperkalemia: Plan: 2nd to OMAR and severe hyperglycemia. resolved. (14) DVT prophylaxis: Plan: lovenox 40 BID Plan: Spoke with pt's daughter, Mayra, who lives in [place]. . Spent ~20 minutes discussing plan of care, current issues, oxygen requirements, etc. Admission and Anticipated Discharge Date Admission Date: October 29, 2020 Subjective patient despondent during the visit. again very tearful about current situation. no dyspnea at rest, but has ORTEGA with minimal activity. no chest pain. no orthopnea. coughing - mainly dry. no hemoptysis. HFNC requirements about the same or modestly worse (on 80% FiO2 during my visit). pt asked that I contact her daughter in [place] to give her update. Review of Systems Constitutional: + fatigue; no fever, no chills and no anorexia Respiratory: + dyspnea on exertion Cardiovascular: + dyspnea on exertion; no dyspnea at rest, no orthopnea, no paroxysmal nocturnal dyspnea and no edema Gastrointestinal: no abdominal pain, no nausea, no vomiting and no diarrhea/ loose stools Physical Exam Physical Exam: Gen: tachypneic, dyspneic with any movement; tearful; looks very tired today Skin: pale Mouth: MM dry Neck: no JVD Heart: RRR, s1 s2, no murmur Lungs: diffuse fine crackles b/l; increased work of breathing with mild retractions and tachypnea if she moves Abd: soft, NT, ND, BS+, NO HSM Ext: no edema, varicose veins, pulses 2+ b/l Psych: anxious, tearful, a/o x 3 Results & Data Results & Data ([facility]) Vital Signs (Past 12 Hours) Vital Signs Temp Pulse Pulse Pulse Resp BP BP 11/02/20 19:31 36.6 C 102 H 17 122/81 11/02/20 19:27 73 18 11/02/20 18:37 91 H 11/02/20 16:43 36.5 C 83 18 97/72 L 11/02/20 15:50 88 22 11/02/20 14:00 11/02/20 11:49 36.9 C 83 19 102/53 L 11/02/20 11:06 89 20 Pulse Ox Pulse Ox 11/02/20 19:31 84 L 11/02/20 19:27 99 11/02/20 18:37 11/02/20 16:43 99 11/02/20 15:50 92 11/02/20 14:00 92 11/02/20 11:49 91 11/02/20 11:06 82 L Laboratory Results Laboratory Results - last 24 hr 11/01/20 11/02/20 11/02/20 23:59 04:01 06:10 WBC RBC Hgb Hct MCV MCH MCHC RDW Std Deviation RDW Coeff of Ale Plt Count MPV Sodium Potassium Chloride Carbon Dioxide Anion Gap BUN Creatinine Est Cr Clr Drug Dosing Est GFR ( Amer) Est GFR (Non-Af Amer) BUN/Creatinine Ratio Glucose POC Glucose 146 H 78 Calcium Troponin I NT-Pro-B Natriuret Pep Procalcitonin < 0.05 11/02/20 11/02/20 11/02/20 06:10 06:10 08:28 WBC 10.07 RBC 3.98 L Hgb 11.6 L Hct 35.2 L MCV 88.4 MCH 29.1 MCHC 33.0 RDW Std Deviation 44.6 RDW Coeff of Ale 13.7 Plt Count 395 MPV 9.6 Sodium 133 L Potassium 4.6 Chloride 103 Carbon Dioxide 24 Anion Gap 6.0 BUN 49 H Creatinine 1.07 Est Cr Clr Drug Dosing 70.0 Est GFR ( Amer) 68.2 Est GFR (Non-Af Amer) 58.8 BUN/Creatinine Ratio 45.6 H Glucose 90 POC Glucose 86 Calcium 8.9 Troponin I < 0.015 NT-Pro-B Natriuret Pep 872 Procalcitonin 11/02/20 11/02/20 11/02/20 11:47 16:41 19:34 WBC RBC Hgb Hct MCV MCH MCHC RDW Std Deviation RDW Coeff of Ale Plt Count MPV Sodium Potassium Chloride Carbon Dioxide Anion Gap BUN Creatinine Est Cr Clr Drug Dosing Est GFR ( Amer) Est GFR (Non-Af Amer) BUN/Creatinine Ratio Glucose POC Glucose 191 H 296 H 259 H Calcium Troponin I NT-Pro-B Natriuret Pep Procalcitonin PG Care Time/CCT Total # of Minutes Spent Total Time Spent with Patient: Total time spent is greater than 50% in coordination of care (as documented) at patient's floor/unit and/or counseling patient: Coding Level of Care Code 19902 Subseq Hosp Care Lvl 3 Diagnoses Pneumonia due to COVID-19 virus U07.1; J12.82 Acute respiratory failure with hypoxia J96.01 Acute systolic CHF (congestive heart failure) I50.21 Diabetes mellitus type 2, uncontrolled E11.65 Abnormal LFTs R94.5 CAD (coronary artery disease) I25.10 Obesity E66.9 Hypertension I10 Hyperlipidemia E78.5 Tobacco dependence F17.200 Hypomagnesemia E83.42 Acute kidney injury N17.9 Hyperkalemia E87.5 DVT prophylaxis Z29.9
[2020-11-03] MEDS: dexAMETHasone 6 MG in SYRINGE 0 ML IV SCH (08:33)
[2020-11-03] MEDS: guaiFENesin 600 MG TABCR PO SCH ×2 (08:33→20:02)
[2020-11-03] MEDS: DOCUSATE SODIUM/SENNA 50/8.6MG TAB PO SCH (08:33)
[2020-11-03] MEDS: ENOXAPARIN INJ 40 MG/0.4 ML SYR SQ SCH ×2 (08:34→20:01)
[2020-11-03] MEDS: PANTOprazole 40 MG TAB PO SCH (08:34)
[2020-11-03] MEDS: METOPROLOL TARTRATE 25 MG TAB PO SCH ×2 (08:34→20:07)
[2020-11-03] MEDS: ASPIRIN 81 MG ECTAB PO SCH (08:34)
[2020-11-03] MEDS: NICOTINE 21 MG/24 HR TDSY TD SCH (08:34)
[2020-11-03] MEDS: ROSUVASTATIN CALCIUM 20 MG TAB PO SCH (08:34)
[2020-11-03] MEDS: buPROPion XL 150 MG TABCR PO SCH (08:34)
[2020-11-03] MEDS: FLUTICASONE FUROATE 100MCG 14 PUFFS/INHALER INH SCH ×2 (08:35→20:02)
[2020-11-03] MEDS: UMECLIDINIUM/VILANTEROL 62.5/25MCG 7 PUFFS/INHALER INH SCH (08:35)
[2020-11-03] MEDS: LORazepam 0.5 MG TAB PO PRN (08:51)
[2020-11-03 08:55] LABS: BUN Creatinine Ratio 44.7 (10-20); Calcium 9.2 mg/dl (8.5-10.1); Creatinine Clr Calc Pharmacy 64.6 ml/min; Est GFR (African American) 61.8 ml/min; Est GFR (Non-African American) 53.3 ml/min; Potassium 4.6 mmol/L (3.5-5.1)
[2020-11-03] MEDS: INSULIN ASPART 100 UNITS/ML 3 ML PEN SC SCH ×4 (08:55→21:00)
[2020-11-03] MEDS: INSULIN GLARGINE SOLOSTAR 100 UNITS/ML 3 ML PEN SC SCH (08:55)
[2020-11-03] MEDS ORDERED: INSULIN HUMAN NPH SC ONE (09:00)
--- NOTE | 2020-11-03 11:47 | Pharmacy Report ---
Pharmacy Glycemic Short Note 2 - Date of Service November 03, 2020 - Glycemic Short BSG Results (Last 24 hours): 11/02/20 11/02/20 11/02/20 11:47 16:41 19:34 Glucose POC Glucose 191 H 296 H 259 H 11/03/20 11/03/20 11/03/20 07:47 08:07 11:40 Glucose 84 POC Glucose 85 119 H OUTPATIENT ANTIDIABETIC REGIMEN: * Metformin XR 500 mg PO BIDM * Jardiance 25 mg PO Daily * Trulicity 0.75 mg SC Weekly * Lantus 62 units SC BID * HbA1c = 10.2% (10/30/20) ASSESSMENT: 11/03: * Fasting BSGs remain at goal, however post-prandial hyperglycemia remains problematic despite yesterday's insulin adjustments * Fasting BSG 85 this AM with 35 units Lantus and 40 units NPH given in last 24 hrs. * 3 of 3 post-prandial BSGs elevated yesterday, most pronounced with dinner and HS checks. Will increase NPH dose as well as 10% increase in prandial Novolog doses. Will continue to give lesser doses of Novolog at HS to prevent excessive correction at bedtime given fasting AM BSG trend. * Today is the last day of scheduled dexamethasone IV in the AM. Will d/c NPH tomorrow AM as a result. 11/02: * BSGs trended up to the 300s yesterday afternoon. It was confirmed that patient had 2 packs of anna crackers prior to dinner BSG and it was suspected that snacking occurred prior to HS reading making these values difficult to interpret. * Fasting BSG increased somewhat to 90 mg/dL. Will further decrease lantus. * Patient continues to tolerate a diet and remains on dexamethasone (order to time out after tomorrow's dose) 11/01: * Post-prandial BSG's continued to be elevated yesterday ranging 194-251 mg/dL. CHO ratio was tightened at lunch. * AM fasting BSG continued to trend down today to 81 mg/dL * Will decrease overall basal (NPH plus Lantus) by ~10%. However, will increase NPH to help cover some post prandial elevations. Will therefore significantly decrease Lantus to compensate. * Will loosen correction factor at HS only as that may be contributing both to the significant decrease in BSG overnight and lower AM fasting BSG's * Patient may require tightening of CHO ratio, but will defer for now and monitor BSG's PLAN FOR INPATIENT GLYCEMIC CONTROL: * Hold outpatient oral diabetes medications * Basal insulin - increase NPH * continue Lantus 35 units SC AM * increase NPH 55 units SC AM with dexamethasone - hold if dexamethasone held/discontinued * Bolus insulin * NovoLog per scale ACHS or Q6hrs while NPO * Goal Range: Low 110 mg/dL - High 140 mg/dL (High 180 mg/dL at HS) * Correction Factor: 10 mg/dL/unit (15 mg/dl/unit at HS) * Nutritional / Prandial insulin per carb ratio of 1 unit per 1.8 grams CHO consumed PLAN FOR DISCHARGE: * To be determined
--- NOTE | 2020-11-03 12:37 | Pulmonology Progress Note ---
Date of Service November 03, 2020 Assessment & Plan (1) Acute respiratory failure with hypoxia: (2) Pneumonia: (3) COVID-19: (4) Obesity: (5) Hypertension: Plan: Impression: 55-year-old female with COVID-19 pneumonia and hypoxemic respiratory failure. Echocardiogram showed severe reduction in ejection fraction down to 25 to 30% with moderate mitral regurgitation and regional wall motion abnormalities. She has had an increase in her oxygen requirement. Despite this, the patient appears fairly comfortable. Recommendations: 1. Hypoxemic respiratory failure: Agree with high flow oxygen for now. Requirement is decreased significantly over the last 24 hours and she is now down to about 45%. She may be able to transition to conventional oxygen within the next day or so. I suspect this has more to do with diuresis then improvement from underlying lung inflammation. 2. CHF: Reviewed cardiology consultation. Additional recommendations per cardiology 3. Covid pneumonia: The patient is currently on dexamethasone. Would complete 10-day course at 6 mg. No indication for escalation of therapy. Her CRP and inflammatory markers are all decreasing. No indication for Tocilizumab and the patient is well outside the window for any other antiviral therapies. Continue supportive care. 4. COPD: Continue Anoro plus Arnuity. Consider outpatient PFTs. At this point in time, she appears slowly improving. Available to see if needed. Call if questions or change in clinical status. Please note the above document was generated using voice recognition software. It may contain grammatical, syntax or spelling errors.Any formal questions or concerns about the content, text or information contained within the body of this dictation should be directly addressed to the provider for clarification. Admission and Anticipated Discharge Date Admission Date: October 29, 2020 Subjective Chart reviewed. Patient not examined due to Covid pandemic and desire to prevent exposure to additional staff members. Oxygen has been weaned significantly. Physical Exam Physical Exam: Exam per hospitalist. Results & Data Results & Data ([facility]) Vital Signs (Past 12 Hours) Vital Signs Temp Pulse Pulse Resp BP BP Pulse Ox 11/03/20 11:42 37.0 C 90 20 102/64 85 L 11/03/20 11:01 84 18 90 11/03/20 08:00 74 11/03/20 07:50 36.6 C 84 17 103/59 L 86 L 11/03/20 07:30 78 18 95 11/03/20 06:29 95 H 22 96/78 L 89 L 11/03/20 02:39 75 11/03/20 02:12 79 19 90 Laboratory Results 11/02/20 06:10 11/03/20 08:07 Diagnostic Findings No new imaging PG Care Time/CCT Total # of Minutes Spent Total Time Spent with Patient: Total time spent is greater than 50% in coordination of care (as documented) at patient's floor/unit and/or counseling patient: Coding Level of Care Code 70809 Subseq Hosp Care Lvl 2 Diagnoses Acute respiratory failure with hypoxia J96.01 Pneumonia J18.9 COVID-19 U07.1 Obesity E66.9 Hypertension I10 Time Spent (min) 20
[2020-11-03] MEDS: LORazepam 0.5 MG TAB PO SCH (19:58)
[2020-11-03] MEDS: GABAPENTIN 300 MG CAP PO SCH (19:59)
--- NOTE | 2020-11-03 22:04 | Hospitalist Progress Note ---
Date of Service November 03, 2020 Assessment & Plan (1) Pneumonia due to COVID-19 virus: Plan: Improved today clinically. Decreasing FiO2 requirements. She is about 15 days into her illness. Her illness is a "breakthrough case" as she was fully vaccinated with Moderna in July. She was initiated on remdesivir on 10/28 at [facility], and steroids on 10/25 (as outpatient). Completed 5 day course of remdesivir. Day #10 of steroids today. NOT a Tocilizumab candidate. Procal on 10/29 was normal. Repeat procal level 11/02 negative. Bacterial superinfection unlikely. CRPs have improved during the visit. She did receive a 5-day course of azithromycin last week as outpatient, then as inpatient at [facility]. Cont Self-proning. Flutter valve. Incentive. Bronchodilators as needed. HFNC O2 support to maintain O2 sats 90-92%. Wean as tolerated. Appreciate ongoing pulmonary support. Appreciate cardiology support. (2) Acute respiratory failure with hypoxia: Plan: Ongoing but seems to finally be slowly improving. 2nd severe COVID-19 pneumonia. 2nd acute systolic CHF (see below). (3) Acute systolic CHF (congestive heart failure): Plan: Limited echo this admission with EF 25-30%. She has several wall motion abnormalities to suggest ischemic cardiomyopathy. She has known CAD with prior PR in ~2015. I cannot rule out a COVID-19 related cardiomyopathy but doubtful as troponins have been wnl. s/p diuresis since admission last weekend. Appears euvolemic today. No further lasix. Continue beta vianey. ultimately will need CELINE or ARB or Entresto. Appreciate Dr Sky's consult. Will need ischemic eval/cath once recovered from COVID and off high oxygen requirements. (4) Diabetes mellitus type 2, uncontrolled: Plan: Was in the 600-700 range upon admission in [place] last week. A1c 10.2%. Appreciate pharmacy glycemic support. (5) Abnormal LFTs: Plan: Suspect 2nd to #1. Improved/resolved. Resumed statin. (6) CAD (coronary artery disease): Plan: s/p PR 2016. She was not taking aspirin at admission; thus asa 81mg daily added. Cont Statin. Cont Beta vianey. No evidence of ACS. See #3 above re: abnormal echo. Will attempt to obtain records from [facility] re: prior PR, cath, etc. Appreciate Dr Sky's consultation. (7) Obesity: Plan: BMI 36 (8) Hypertension: Plan: Cont to hold HCTZ. Cont BB. Cont to hold CELINE but resume such if BPs will allow. (9) Hyperlipidemia: Plan: crestor (10) Tobacco dependence: Plan: Nicoderm patch 21mg/day. (11) Hypomagnesemia: Plan: Repleted and resolved. (12) Acute kidney injury: Plan: Cr 1.9 on 10/27 in [place]. 2nd to COVID, severely uncontrolled DM, etc. Cr 1.1/1.2 last 48 hours. BMP am. (13) Hyperkalemia: Plan: 2nd to OMAR and severe hyperglycemia. resolved. (14) DVT prophylaxis: Plan: lovenox 40 BID Plan: Spoke with pt's daughter, Mayra, who lives in [place] - 11/02 and 11/03. . Plan of care discussed in detail. Admission and Anticipated Discharge Date Admission Date: October 29, 2020 Subjective tele overnight wnl patient was resting comfortably flat in bed during my visit she reports feeling the best she has been since her illness started dyspnea improved still coughing but also improved appetite normal ORTEGA remains but seems slightly better FIO2 requirements did decrease today no new issues Review of Systems Constitutional: + fatigue; no fever, no chills and no anorexia Respiratory: no wheezing Cardiovascular: no chest pain, no orthopnea and no edema Gastrointestinal: no abdominal pain, no nausea, no vomiting, no constipation and no diarrhea/loose stools Physical Exam Physical Exam: Gen: comfortable today; overall color and constitution improved; no dyspnea Mouth: MMM Neck: no JVD Heart: RRR, s1 s2, no murmur Lungs: diffuse fine crackles b/l; no increased work of breathing today Abd: soft, NT, ND, BS+, NO HSM Ext: no edema, pulses 2+ b/l Psych: affect more full today; a/o x 3 Results & Data Results & Data ([facility]) Vital Signs (Past 12 Hours) Vital Signs Temp Pulse Pulse Resp BP BP Pulse Ox 11/03/20 21:35 93 H 16 126/87 93 11/03/20 21:04 83 19 141/77 H 90 11/03/20 20:34 81 21 109/62 97 11/03/20 20:00 88 19 89/62 L 89 L 11/03/20 19:45 20 78 L 11/03/20 19:30 81 31 H 75 L 11/03/20 19:00 85 21 93 11/03/20 15:22 36.8 C 85 20 92/57 L 95 11/03/20 15:02 82 18 90 11/03/20 14:00 11/03/20 11:42 37.0 C 90 20 102/64 85 L 11/03/20 11:01 84 18 90 Pulse Ox 11/03/20 21:35 11/03/20 21:04 11/03/20 20:34 11/03/20 20:00 11/03/20 19:45 11/03/20 19:30 11/03/20 19:00 11/03/20 15:22 11/03/20 15:02 11/03/20 14:00 89 L 11/03/20 11:42 11/03/20 11:01 Laboratory Results Laboratory Results - last 24 hr 11/03/20 11/03/20 11/03/20 07:47 08:07 11:40 Sodium 136 Potassium 4.6 Chloride 103 Carbon Dioxide 26 Anion Gap 6.0 BUN 52 H Creatinine 1.16 Est Cr Clr Drug Dosing 64.6 Est GFR ( Amer) 61.8 Est GFR (Non-Af Amer) 53.3 BUN/Creatinine Ratio 44.7 H Glucose 84 POC Glucose 85 119 H Calcium 9.2 Magnesium 2.0 11/03/20 11/03/20 16:09 19:57 Sodium Potassium Chloride Carbon Dioxide Anion Gap BUN Creatinine Est Cr Clr Drug Dosing Est GFR ( Amer) Est GFR (Non-Af Amer) BUN/Creatinine Ratio Glucose POC Glucose 199 H 225 H Calcium Magnesium PG Care Time/CCT Total # of Minutes Spent Total Time Spent with Patient: Total time spent is greater than 50% in coordination of care (as documented) at patient's floor/unit and/or counseling patient: Coding Level of Care Code 92914 Subseq Hosp Care Lvl 3 Diagnoses Pneumonia due to COVID-19 virus U07.1; J12.82 Acute respiratory failure with hypoxia J96.01 Acute systolic CHF (congestive heart failure) I50.21 Diabetes mellitus type 2, uncontrolled E11.65 Abnormal LFTs R94.5 CAD (coronary artery disease) I25.10 Obesity E66.9 Hypertension I10 Hyperlipidemia E78.5 Tobacco dependence F17.200 Hypomagnesemia E83.42 Acute kidney injury N17.9 Hyperkalemia E87.5 DVT prophylaxis Z29.9
[2020-11-04 06:42] LABS: Hematocrit (blood only) 34.4 % (37-47); Hemoglobin 11.2 g/dL (12.0-16.0); Mean Corpuscular Hemoglobin 29.2 pg (25-34); Mean Corpuscular Hgb Conc 32.6 g/dL (32-36); Mean Corpuscular Volume 89.8 fL (80-100); Mean Platelet Volume 9.8 fL (7.4-10.4); Platelet Count 449 K/uL (130-400); RDW Coefficient of Variation 13.6 % (11.5-14.5); RDW Standard Deviation 44.1 fL (36.4-46.3); Red Blood Count 3.83 M/uL (4.2-5.4); White Blood Count 11.54 K/uL (4.8-10.8)
[2020-11-04 07:04] LABS: BUN Creatinine Ratio 44.2 (10-20); Creatinine Clr Calc Pharmacy 67.2 ml/min; Est GFR (African American) 64.5 ml/min; Est GFR (Non-African American) 55.6 ml/min; Potassium 4.8 mmol/L (3.5-5.1)
[2020-11-04] MEDS: guaiFENesin 600 MG TABCR PO SCH ×2 (07:54→20:34)
[2020-11-04] MEDS: ASPIRIN 81 MG ECTAB PO SCH (07:54)
[2020-11-04] MEDS: PANTOprazole 40 MG TAB PO SCH (07:54)
[2020-11-04] MEDS: METOPROLOL TARTRATE 25 MG TAB PO SCH ×2 (07:54→20:35)
[2020-11-04] MEDS: DOCUSATE SODIUM/SENNA 50/8.6MG TAB PO SCH (07:55)
[2020-11-04] MEDS: NICOTINE 21 MG/24 HR TDSY TD SCH (07:55)
[2020-11-04] MEDS: ROSUVASTATIN CALCIUM 20 MG TAB PO SCH (07:55)
[2020-11-04] MEDS: buPROPion XL 150 MG TABCR PO SCH (07:55)
[2020-11-04] MEDS: ENOXAPARIN INJ 40 MG/0.4 ML SYR SQ SCH ×2 (07:55→20:31)
[2020-11-04] MEDS: UMECLIDINIUM/VILANTEROL 62.5/25MCG 7 PUFFS/INHALER INH SCH (07:56)
[2020-11-04] MEDS: FLUTICASONE FUROATE 100MCG 14 PUFFS/INHALER INH SCH ×2 (07:57→23:14)
[2020-11-04] MEDS: INSULIN GLARGINE SOLOSTAR 100 UNITS/ML 3 ML PEN SC SCH ×2 (08:10→23:16)
[2020-11-04] MEDS: INSULIN ASPART 100 UNITS/ML 3 ML PEN SC SCH ×4 (08:10→23:15)
[2020-11-04] MEDS ORDERED: ACETAMINOPHEN 500 MG TAB PO PRN (09:12)
[2020-11-04] MEDS: LORazepam 0.5 MG TAB PO PRN (09:31)
--- NOTE | 2020-11-04 10:43 | Pharmacy Report ---
Pharmacy Glycemic Short Note 2 - Date of Service November 04, 2020 - Glycemic Short BSG Results (Last 24 hours): 11/03/20 11/03/20 11/03/20 11:40 16:09 19:57 Glucose POC Glucose 119 H 199 H 225 H 11/04/20 11/04/20 05:47 07:49 Glucose 116 H POC Glucose 89 OUTPATIENT ANTIDIABETIC REGIMEN: * Metformin XR 500 mg PO BIDM * Jardiance 25 mg PO Daily * Trulicity 0.75 mg SC Weekly * Lantus 62 units SC BID * HbA1c = 10.2% (10/30/20) ASSESSMENT: 11/04: * BSGs better controlled over last 24 hrs * Dexamethasone IV has d/c'd and pt currently has no orders to continue this medication today * Will dc NPH and convert back to BID Lantus dosing at reduced doses vs out-pt needs as he is receiving prandial insulin here whereas he does not as outpt * Novolog doses will be weaned back as well due to absence of steroid effect today 11/03: * Fasting BSGs remain at goal, however post-prandial hyperglycemia remains problematic despite yesterday's insulin adjustments * Fasting BSG 85 this AM with 35 units Lantus and 40 units NPH given in last 24 hrs. * 3 of 3 post-prandial BSGs elevated yesterday, most pronounced with dinner and HS checks. Will increase NPH dose as well as 10% increase in prandial Novolog doses. Will continue to give lesser doses of Novolog at HS to prevent excessive correction at bedtime given fasting AM BSG trend. * Today is the last day of scheduled dexamethasone IV in the AM. Will d/c NPH tomorrow AM as a result. 11/02: * BSGs trended up to the 300s yesterday afternoon. It was confirmed that patient had 2 packs of anna crackers prior to dinner BSG and it was suspected that snacking occurred prior to HS reading making these values difficult to interpret. * Fasting BSG increased somewhat to 90 mg/dL. Will further decrease lantus. * Patient continues to tolerate a diet and remains on dexamethasone (order to time out after tomorrow's dose) 11/01: * Post-prandial BSG's continued to be elevated yesterday ranging 194-251 mg/dL. CHO ratio was tightened at lunch. * AM fasting BSG continued to trend down today to 81 mg/dL * Will decrease overall basal (NPH plus Lantus) by ~10%. However, will increase NPH to help cover some post prandial elevations. Will therefore significantly decrease Lantus to compensate. * Will loosen correction factor at HS only as that may be contributing both to the significant decrease in BSG overnight and lower AM fasting BSG's * Patient may require tightening of CHO ratio, but will defer for now and monitor BSG's PLAN FOR INPATIENT GLYCEMIC CONTROL: * Hold outpatient oral diabetes medications * Basal insulin - decrease * Lantus 20 units SC BID * discontinue NPH now that dexamethasone d/c'd * Bolus insulin - decrease * NovoLog per scale ACHS or Q6hrs while NPO * Goal Range: Low 110 mg/dL - High 140 mg/dL (High 180 mg/dL at HS) * Correction Factor: 15 mg/dl/unit * Nutritional / Prandial insulin per carb ratio of 1 unit per 5 grams CHO consumed PLAN FOR DISCHARGE: * To be determined
--- NOTE | 2020-11-04 13:44 | XRay Report ---
XR chest 1V portable HISTORY: 55 years-old Female COVID-19 pneumonia, worsening hypoxia acute shortness of breath with hy poxia COMPARISON: 11/01/2020 TECHNIQUE: Semierect AP view of the chest FINDINGS: Cardiac silhouette is enlarged. Multifocal bilateral airspace opacities redemonstrated and appear gen erally stable from comparison. No pneumothorax. Probable trace pleural effusions. The bones appear gr ossly intact. IMPRESSION: 1. Stable appearance of the extensive bilateral airspace opacities compatible with multifocal pneumon ia. 2. Cardiomegaly. ACT 112: Negative or not required by law. The above report was generated using voice recognition software. It may contain grammatical, syntax o r spelling errors. Electronically signed by: Riccardo Dominguez M.D. 11/04/2020 1:43 PM
[2020-11-04] MEDS ORDERED: busPIRone 5 MG TAB PO PRN (15:04)
[2020-11-04] MEDS ORDERED: IPRATROPIUM BROMIDE/ALBUTEROL respimat INH INH SCH (15:05)
[2020-11-04] MEDS ORDERED: FUROSEMIDE 20 MG in SYRINGE 0 ML IV ONE (15:30)
[2020-11-04] MEDS: LORazepam 0.5 MG TAB PO SCH (20:14)
[2020-11-04] MEDS: GABAPENTIN 300 MG CAP PO SCH (20:33)
--- NOTE | 2020-11-04 21:17 | Hospitalist Progress Note ---
Date of Service November 04, 2020 Assessment & Plan (1) Pneumonia due to COVID-19 virus: Plan: Had been improving clinically over last 48 hours with subjective & objective improvement including decreasing FiO2 requirements. HOWEVER, much worse today on grand scale with pulmonary status. CXR today with diffuse b/l infiltrates - probably all extensive pneumonitis/ARDS rather than pulmonary edema but latter could still be present despite aggressive diuresis intermittently throughout her stay. She is about 15-16 days into her illness. Her illness is a "breakthrough case" as she was fully vaccinated with Moderna in July. She was initiated on remdesivir on 10/28 at [facility], and steroids on 10/25 (as outpatient). Completed 5 day course of remdesivir. Completed 10-day course of steroids. NOT a Tocilizumab candidate. Was out of window for such. Procal on 10/29 was normal. Repeat procal level 11/02 negative. Bacterial superinfection unlikely. CRPs have improved during the visit. She completed a 5-day course of azithromycin previously in the last 2 weeks for atypical coverage. Plan - Cont Self-proning. Flutter valve. Incentive. SCHEDULE her Bronchodilators. Maintain BiPAP for the rest of afternoon and at night tonight. Send sputum cx as she is now producing sputum. Lasix 20mg IV x 1 now; consider repeat tonight. Issa for better UOP measurement and difficulty with her trying to void on bedpan, etc. Dr Wade aware of today's events. We discussed re-trial of steroids - holding for now. Ideally we have repeat imaging to exclude PE but she is too sick and likely could not tolerate a trip to CT scanner. Holding on empiric anticoagulation. Appreciate ongoing pulmonary support. Appreciate cardiology support. (2) Acute respiratory failure with hypoxia: Plan: Ongoing worse today 2nd severe COVID-19 pneumonia. 2nd acute systolic CHF. (3) Acute systolic CHF (congestive heart failure): Plan: Limited echo this admission with EF 25-30%. She has several wall motion abnormalities to suggest ischemic cardiomyopathy. She has known CAD with prior WI in ~2016. I cannot rule out a COVID-19 related cardiomyopathy but doubtful as troponins have been wnl. s/p diuresis since admission last weekend. Repeat IV lasix again today. Strict I's and O's. Daily weights. Continue beta vianey. ultimately will need CELINE or ARB or Entresto. Appreciate Dr Sky's consult. Will need ischemic eval/cath once recovered from COVID and off high oxygen requirements. (4) Diabetes mellitus type 2, uncontrolled: Plan: Was in the 600-700 range upon admission in [place] last week. Also quite high upon transfer from [place] to [facility]. Needed insulin drip here last weekend. Now on basal-bolus SC regimen - pharmacy managing. A1c 10.2%. Appreciate pharmacy glycemic support. (5) Abnormal LFTs: Plan: Suspect 2nd to #1. Improved/resolved. Resumed statin. (6) CAD (coronary artery disease): Plan: s/p WI 2016. She was not taking aspirin at admission; thus asa 81mg daily added. Cont Statin. Cont Beta vianey. No evidence of ACS. See #3 above re: abnormal echo. Will attempt to obtain records from [facility] in [facility] re: prior WI, cath, etc. Appreciate Dr Sky's consultation. (7) Obesity: Plan: BMI 36 (8) Hypertension: Plan: Cont to hold HCTZ. Cont to hold CELINE but resume such if BPs will allow. Cont metoprolol 25 BID. Convert this to metoprolol succinate given depressed EF at some point. (9) Hyperlipidemia: Plan: crestor (10) Tobacco dependence: Plan: Nicoderm patch 21mg/day. (11) Hypomagnesemia: Plan: Repleted and resolved. (12) Acute kidney injury: Plan: Cr 1.9 on 10/27 in [place]. 2nd to COVID, severely uncontrolled DM, etc. Cr 1.1/1.2 last 48 hours. BMP am. (13) Hyperkalemia: Plan: 2nd to OMAR and severe hyperglycemia. resolved. (14) DVT prophylaxis: Plan: lovenox 40 BID (15) Anxiety: Plan: severe. certainly hypoxia makes it worse. buspar 5mg TID prn Plan: Spoke with pt's daughter, Mayra, who lives in [place] - 11/02 and 11/03 and then again today. . Plan of care discussed in detail. Discussed day's events and resp status worsening. She may come from [place] to [place] soon. Discussed w/ her that COVID unit would be opening soon and that this is typically a locked unit. updated in [facility] near the pt's [place]. Questions answered. Care discussed with Dr Wade. total time today 70 minutes including complex care coordination and management of respiratory failure Admission and Anticipated Discharge Date Admission Date: October 29, 2020 Subjective about the time of my visit the pt's had just arrived and was there for a "window visit" to see his . patient was VERY emotional / crying during the visit. she stated "It's just been a very hard day." she admits to frequent crying, anxiety. she felt worse today overall. didn't sleep well last pm. coughing more and starting to produce more sputum now. FiO2 requirements are a bit more today than yesterday - now 70%. eating unchanged. dyspnea at rest unchanged but perhaps more ORTEGA than previous. no chest pains. following my bedside visit (which occurred about 2pm) I was called by nursing staff at ~530pm that patient had sprung out of bed to use the commode patient became severely dyspneic; O2 sats dropped to low 50s; she was cyanotic and near-syncopal staff quickly went into the room, got her back to bed, HFNC maxed out to 40 L / 100% FiO2 despite this O2 sats would not recover - best was low 80s RT called STAT - changed to BIPAP with recovery of sats to low 90s on bipap with resolution of above symptoms/signs following this event I came to floor - did not enter the room but patient was finally resting comfortably on the side position with BIPAP in place; no distress visualized sats now about 92% on the BiPAP discussed care with Dr Wade from ICU regarding the above asked nursing to place cadleron to avoid having her get to the commode, etc Review of Systems Review of Systems: gen - no fevers, no chills; +weakness and fatigue CV - no chest pain or pleuritic pain pulm - no hemoptysis; +wheezing abd/GI - no nausea, no emesis, no diarrhea, no abd pain psych - anxious Physical Exam Physical Exam: Gen: looks worse; sickly appearing today; looks exhausted; mild tachypnea; crying, anxious Mouth: MMM Neck: no JVD Heart: RRR, s1 s2, no murmur Lungs: diffuse fine crackles b/l nearly extending up the entire posterior thorax b/l; tachypneic; mild end=exp wheezes b/l Abd: soft, NT, ND, BS+, NO HSM Ext: no edema, pulses 2+ b/l Psych: a/o x 3 but very anxious skin: no rash Results & Data Results & Data ([facility]) Vital Signs (Past 12 Hours) Vital Signs Temp Pulse Pulse Resp BP Pulse Ox Pulse Ox 11/04/20 20:54 36.7 C 11/04/20 20:52 114 H 23 114/67 88 L 11/04/20 18:00 37.2 C 100 H 38 H 142/62 H 88 L 11/04/20 16:40 105 H 27 H 95 11/04/20 16:00 98 H 11/04/20 14:30 97 H 18 89 L 11/04/20 14:00 37 C 100 H 30 H 127/77 91 91 11/04/20 10:54 85 18 89 L 11/04/20 10:29 84 18 96 Laboratory Results Laboratory Results - last 24 hr 11/04/20 11/04/20 11/04/20 05:47 05:47 07:49 WBC 11.54 H RBC 3.83 L Hgb 11.2 L Hct 34.4 L MCV 89.8 MCH 29.2 MCHC 32.6 RDW Std Deviation 44.1 RDW Coeff of Ale 13.6 Plt Count 449 H MPV 9.8 Sodium 135 L Potassium 4.8 Chloride 104 Carbon Dioxide 25 Anion Gap 6.0 BUN 50 H Creatinine 1.12 Est Cr Clr Drug Dosing 67.2 Est GFR ( Amer) 64.5 Est GFR (Non-Af Amer) 55.6 BUN/Creatinine Ratio 44.2 H Glucose 116 H POC Glucose 89 Calcium 9.0 11/04/20 11/04/20 11:49 20:41 WBC RBC Hgb Hct MCV MCH MCHC RDW Std Deviation RDW Coeff of Ale Plt Count MPV Sodium Potassium Chloride Carbon Dioxide Anion Gap BUN Creatinine Est Cr Clr Drug Dosing Est GFR ( Amer) Est GFR (Non-Af Amer) BUN/Creatinine Ratio Glucose POC Glucose 280 H 177 H Calcium Diagnostic Findings Chest X-Ray 11/04/20 13:09 XR chest 1V portable HISTORY: 55 years-old Female COVID-19 pneumonia, worsening hypoxia acute shortness of breath with hypoxia COMPARISON: 11/01/2020 TECHNIQUE: Semierect AP view of the chest FINDINGS: Cardiac silhouette is enlarged. Multifocal bilateral airspace opacities redemonstrated and appear generally stable from comparison. No pneumothorax. Probable trace pleural effusions. The bones appear grossly intact. IMPRESSION: 1. Stable appearance of the extensive bilateral airspace opacities compatible with multifocal pneumonia. 2. Cardiomegaly. ACT 112: Negative or not required by law. The above report was generated using voice recognition software. It may contain grammatical, syntax or spelling errors. Electronically signed by: Riccardo Dominguez M.D. 11/04/2020 1:43 PM PG Care Time/CCT Total # of Minutes Spent Total Time Spent with Patient: Total time spent is greater than 50% in coordination of care (as documented) at patient's floor/unit and/or counseling patient: Prolonged Care Time Prolonged Care Time: Yes Total Prolonged Care Time: 70 Coding Level of Care Code 19770 Subseq Hosp Care Lvl 3 (25 - SIGNIFICANT, SEPARATELY IDENTIFIABLE ) Diagnoses Pneumonia due to COVID-19 virus U07.1; J12.82 Acute respiratory failure with hypoxia J96.01 Acute systolic CHF (congestive heart failure) I50.21 Diabetes mellitus type 2, uncontrolled E11.65 Abnormal LFTs R94.5 CAD (coronary artery disease) I25.10 Obesity E66.9 Hypertension I10 Hyperlipidemia E78.5 Tobacco dependence F17.200 Hypomagnesemia E83.42 Acute kidney injury N17.9 Hyperkalemia E87.5 DVT prophylaxis Z29.9 Anxiety F41.9 Additional Codes Prolonged Care Time - Prolonged Care Time: Yes ([id number]) Time Spent (min) 70
[2020-11-05] MEDS: LORazepam 0.5 MG TAB PO PRN (01:50)
[2020-11-05 06:49] LABS: Base Excess VBG -2.4 mEq/L; HCO3 VBG 22 mmol/L; PCO2 VBG 37 mmHg (38-50); PO2 VBG 33 mmHg
[2020-11-05 06:50] LABS: Oxygen Saturation VBG < 60.0 %
[2020-11-05] MEDS: ALBUTEROL HFA 8 GM INHALER INH SCH ×5 (07:14→19:43)
[2020-11-05] MEDS: IPRATROPIUM BROMIDE HFA INHALER INH SCH ×5 (07:15→19:43)
[2020-11-05 07:59] LABS: BUN Creatinine Ratio 33.3 (10-20); Calcium 8.6 mg/dl (8.5-10.1); Creatinine Clr Calc Pharmacy 65.4 ml/min; Est GFR (African American) 62.5 ml/min; Est GFR (Non-African American) 53.9 ml/min; Magnesium 1.8 mg/dl (1.8-2.4); Potassium 4.4 mmol/L (3.5-5.1)
[2020-11-05] MEDS: ENOXAPARIN INJ 40 MG/0.4 ML SYR SQ SCH ×2 (08:20→21:01)
[2020-11-05] MEDS: INSULIN GLARGINE SOLOSTAR 100 UNITS/ML 3 ML PEN SC SCH ×2 (09:20→21:04)
[2020-11-05] MEDS: INSULIN ASPART 100 UNITS/ML 3 ML PEN SC SCH ×6 (09:20→23:35)
[2020-11-05] MEDS: NICOTINE 21 MG/24 HR TDSY TD SCH (09:22)
[2020-11-05] MEDS: buPROPion XL 150 MG TABCR PO SCH (11:20)
[2020-11-05] MEDS: DOCUSATE SODIUM/SENNA 50/8.6MG TAB PO SCH (11:20)
[2020-11-05] MEDS: ASPIRIN 81 MG ECTAB PO SCH (11:20)
[2020-11-05] MEDS: UMECLIDINIUM/VILANTEROL 62.5/25MCG 7 PUFFS/INHALER INH SCH (11:21)
[2020-11-05] MEDS: ROSUVASTATIN CALCIUM 20 MG TAB PO SCH (11:21)
[2020-11-05] MEDS: METOPROLOL TARTRATE 25 MG TAB PO SCH ×2 (11:21→21:02)
[2020-11-05] MEDS: PANTOprazole 40 MG TAB PO SCH (11:21)
[2020-11-05] MEDS: guaiFENesin 600 MG TABCR PO SCH (11:21)
[2020-11-05] MEDS: FLUTICASONE FUROATE 100MCG 14 PUFFS/INHALER INH SCH ×2 (11:21→21:07)
--- NOTE | 2020-11-05 12:16 | Pharmacy Report ---
Pharmacy Glycemic Short Note 2 - Date of Service November 05, 2020 - Glycemic Short BSG Results (Last 24 hours): 11/04/20 11/05/20 11/05/20 20:41 06:28 09:17 Glucose 134 H POC Glucose 177 H 112 H 11/05/20 11:38 Glucose POC Glucose 118 H OUTPATIENT ANTIDIABETIC REGIMEN: * Metformin XR 500 mg PO BIDM * Jardiance 25 mg PO Daily * Trulicity 0.75 mg SC Weekly * Lantus 62 units SC BID * HbA1c = 10.2% (10/30/20) ASSESSMENT: 11/05: * BSGs reasonably well controlled over last 24 hrs * Patient's clinical status worsening today and current plans are for transfer to ICU with possible intubation * Fasting BSG 112 this AM w/ 40 units basal on board, would like to continue some basal insulin. AM dose was held per radiology special procedure tech. Will readdress once transfer to ICU complete. If steroid therapy resumed a dose of Lantus will be ordered prior to scheduled PM dose. * Current Novolog doses remain reasonable given increasing stressors today, but may need increased again is steroid therapy resumed. 11/04: * BSGs better controlled over last 24 hrs * Dexamethasone IV has d/c'd and pt currently has no orders to continue this medication today * Will dc NPH and convert back to BID Lantus dosing at reduced doses vs out-pt needs as he is receiving prandial insulin here whereas he does not as outpt * Novolog doses will be weaned back as well due to absence of steroid effect today 11/03: * Fasting BSGs remain at goal, however post-prandial hyperglycemia remains problematic despite yesterday's insulin adjustments * Fasting BSG 85 this AM with 35 units Lantus and 40 units NPH given in last 24 hrs. * 3 of 3 post-prandial BSGs elevated yesterday, most pronounced with dinner and HS checks. Will increase NPH dose as well as 10% increase in prandial Novolog doses. Will continue to give lesser doses of Novolog at HS to prevent excessive correction at bedtime given fasting AM BSG trend. * Today is the last day of scheduled dexamethasone IV in the AM. Will d/c NPH tomorrow AM as a result. 11/02: * BSGs trended up to the 300s yesterday afternoon. It was confirmed that patient had 2 packs of anna crackers prior to dinner BSG and it was suspected that snacking occurred prior to HS reading making these values difficult to interpret. * Fasting BSG increased somewhat to 90 mg/dL. Will further decrease lantus. * Patient continues to tolerate a diet and remains on dexamethasone (order to time out after tomorrow's dose) PLAN FOR INPATIENT GLYCEMIC CONTROL: * Hold outpatient oral diabetes medications * Basal insulin * Lantus SC BID 0 units if BSG less than 110, 15 units if BSG 110-160, 20 units if BSG greater than 160 * Bolus insulin * NovoLog per scale q 4 hrs * Goal Range: Low 110 mg/dL - High 140 mg/dL * Correction Factor: 12 mg/dl/unit * Nutritional / Prandial insulin per carb ratio of 1 unit per 4 grams CHO consumed PLAN FOR DISCHARGE: * To be determined
--- NOTE | 2020-11-05 14:42 | Critical Care Progress Note ---
Date of Service November 05, 2020 Assessment & Plan (1) Acute respiratory failure with hypoxia: (2) Pneumonia due to COVID-19 virus: (3) Cardiomyopathy: (4) Mitral regurgitation: (5) Acute systolic CHF (congestive heart failure): (6) Acute kidney injury: Plan: Impression: 55-year-old female with COVID-19 pneumonia and hypoxemic respiratory failure. Echocardiogram showed severe reduction in ejection fraction down to 25 to 30% with moderate mitral regurgitation and regional wall motion abnormalities. She has had an increase in her oxygen requirement and was transferred back to the ICU 11/05/2020. 24-hour events: The patient has had escalation of her oxygen requirement and is now requiring bilevel. She has mild increased work of breathing. She is being transferred to the ICU for closer monitoring. Initially she was reluctant to consider intubation or mechanical ventilation however she is reconsidered. Recommendations: 1. Neurological: Patient is awake alert and conversant. Continue to follow clinically. Continue BuSpar and Neurontin. 2. Cardiovascular: Acute CHF with reduction in ejection fraction and wall motion abnormalities. She also has mitral regurgitation. Her filling pressures are difficult to estimate. She does not have profound peripheral edema and its unclear how much lung edema may be contributing to her hypoxemic respiratory failure. For now we will continue to observe with empiric diuresis as tolerated. Should the patient's condition clinically worsen to requiring mechanical ventilation would have a low threshold for proceeding with pulmonary artery catheterization to assist with volume status. Discussed with cardiology. Appreciate their assistance. 3. Pulmonary: Patient has been symptomatic with Covid since 10/18/2020 and tested + 10/25/2020. She received remdesivir at an outside facility. The patient is outside the window to consider Tocilizumab. Acute hypoxemic respiratory failure. Secondary to fluid overload as well as pneumonitis secondary to COVID- 19. She is on the dexamethasone 6 mg daily protocol. CRP has been decreasing. She states that she is currently doing okay with self proning and use of high flow oxygen. Continue for now with low threshold to proceed with intubation mechanical ventilation should the patient experience increased work of breathing or be unable to maintain oxygen levels to an appropriate degree. The patient understands potential risk of clinical deterioration but wishes to continue with her current therapy and delay intubation mechanical ventilation if at all possible. 4. GI: Patient expresses a fervent desire to pursue eating. I advised her of the potential risks especially if we have to urgently intubate her. She expressed understanding but would again like to remain on a diet. Continue Protonix. 5. Renal: Serum creatinine has been holding. Electrolytes demonstrate a mild hyponatremia, mildly progressive over the last couple days. Continue to trend with additional diuretics.. 6. ID: COVID-19 pneumonia: The patient has a white count of 11,000. 7 Endocrine: Glycemic control per protocol. 8. Heme-onc: Mild anemia as well as leukocytosis. Could be due to demargination from dexamethasone. Continue to follow clinically. 9. Prophylaxis: Continue Lovenox. She is taking a PPI as well. The patient is critically ill at this point time with significant possibility of clinical deterioration and loss of organ function or . A total of 78 minutes was spent in evaluation management stabilization of this patient including discussion with consultants, the admitting service, and multiple nursing staff as well as respiratory therapy. Please note the above document was generated using voice recognition software. It may contain grammatical, syntax or spelling errors.Any formal questions or concerns about the content, text or information contained within the body of this dictation should be directly addressed to the provider for clarification. Admission and Anticipated Discharge Date Admission Date: October 29, 2020 Subjective Patient seen and examined. Discussed with bedside nurse as well as the admitting hospitalist and patient was discussed on multidisciplinary rounds as well as with cardiology. The patient reports that her breathing is okay. This is in spite of the fact that her oxygen saturations dropped into the 70s with any significant physical activity. When I evaluated the patient she was currently on bilevel at 70% with oxygen saturations in the mid 90s. According to the respiratory therapist, they were unable to transition her back to high flow due to hypoxemia this morning. The patient is not report any coughing. No chest pain or palpitations. No syncope presyncope or significant lower extremity edema. Review of Systems Review of Systems: All systems reviewed & are unremarkable except as noted in HPI & below Physical Exam Physical Exam: Exam per hospitalist. Constitutional: WD/WN, vitals as above Neck: trachea midline, no thyromegaly Respiratory: normal respiratory effort; no respiratory distress and no labored breathing Auscultation: + rales; no wheezes Cardiovascular: RRR, no murmur, no edema Gastrointestinal (Abdomen): normal bowel sounds, soft, nontender, no hepatosplenomegaly Musculoskeletal: Extremities: extremities normal to inspection Skin: no rashes, warm and dry Lymphatic: no cervical lymphadenopathy Results & Data Results & Data ([facility]) Vital Signs (Past 12 Hours) Vital Signs Temp Pulse Pulse Pulse Resp BP BP 11/05/20 13:17 11/05/20 12:55 106 H 20 11/05/20 12:22 109 H 24 117/61 11/05/20 12:00 37.1 C 118 H 30 H 130/59 L 11/05/20 11:22 37 C 114 H 30 H 126/60 11/05/20 10:45 109 H 24 11/05/20 10:44 105 H 24 11/05/20 09:35 105 H 11/05/20 08:00 37.1 C 110 H 34 H 137/62 11/05/20 07:24 112 H 22 11/05/20 07:21 112 H 22 11/05/20 03:53 37.2 C 107 H 24 101/83 11/05/20 03:37 103 H 25 H Pulse Ox Pulse Ox 11/05/20 13:17 90 11/05/20 12:55 90 11/05/20 12:22 93 11/05/20 12:00 94 11/05/20 11:22 91 11/05/20 10:45 93 11/05/20 10:44 94 11/05/20 09:35 11/05/20 08:00 88 L 11/05/20 07:24 92 11/05/20 07:21 92 11/05/20 03:53 87 L 11/05/20 03:37 93 Coding Level of Care Code Critical Care ea addt'l 30 min Diagnoses Acute respiratory failure with hypoxia J96.01 Pneumonia due to COVID-19 virus U07.1; J12.82 Cardiomyopathy I42.9 Mitral regurgitation I34.0 Acute systolic CHF (congestive heart failure) I50.21 Acute kidney injury N17.9 Time Spent (min) 76 Comment Please code [id number] and [id number]
[2020-11-05] MEDS ORDERED: FUROSEMIDE 40 MG in SYRINGE 0 ML IV ONE (14:45)
--- NOTE | 2020-11-05 18:14 | Hospitalist Progress Note ---
Date of Service November 05, 2020 Assessment & Plan (1) Pneumonia due to COVID-19 virus: Plan: Acute hypoxemic respiratory failure 2/2 Covid pneumonia Clinically continues to worsen with increasing oxygen requirements this morning Patient is a "breakthrough case "following vaccination with [employer] in July Initiated on remdesivir 11/07 at [facility] and steroids 10/25 as outpatient - Completed 5-day course of remdesivir Completed 10-day course of steroids Completed 5-day course of azithromycin prior to admission Patient was out of the window for Tocilizumab Patient remains reluctant to be intubated, but has expressed an understanding at this point is necessary and a desire if absolutely necessary. Per ICU, appreciate recommendations (2) Acute respiratory failure with hypoxia: Plan: 2/2 Covid pneumonia managed as noted (3) Acute systolic CHF (congestive heart failure): Plan: Acute CHF R EF TTE shows EF 25-30% with wall motion abnormalities suggestive of ischemic cardiomyopathy History of prior ME in 2016, troponins normal during admission Continue diuresis, I's and O's, fluids per ICU Will require CELINE/Entresto/ARB as outpatient once clinically improved Appreciate cardiology recommendations Continue metoprolol 25 mg p.o. twice daily, recommend conversion to succinate Ischemic eval/cath pending once recovered from COVID and off high oxygen requirements. (4) Diabetes mellitus type 2, uncontrolled: Plan: -A1c 10.2%. -ICU hyperglycemia protocol (5) Abnormal LFTs: Plan: Improved, likely secondary to Covid (6) CAD (coronary artery disease): Plan: -s/p ME 2016. -She was not taking aspirin at admission; thus asa 81mg daily added. -Cont Statin. -Cont Beta vianey. -No evidence of ACS at this time -pending ischemic eval once recovered as noted in COVID PNA management (7) Obesity: Plan: BMI 36 (8) Hypertension: Plan: -Cont to hold HCTZ. -Cont to hold CELINE but resume such if/when BPs allow. -Cont metoprolol 25 BID. (9) Hyperlipidemia: Plan: -crestor (10) Tobacco dependence: Plan: -Nicoderm patch 21mg/day. (11) Hypomagnesemia: Plan: -Repleted and resolved. (12) Acute kidney injury: Plan: -Cr 1.9 on 10/27 in [place]. -2nd to COVID, severely uncontrolled DM, etc. -Improved near baseline (~1.1) -BMP (13) Hyperkalemia: Plan: 2nd to OMAR and severe hyperglycemia. resolved. (14) DVT prophylaxis: Plan: -lovenox 40 BID (15) Anxiety: Plan: -severe. -certainly hypoxia makes it worse. -buspar 5mg TID prn Plan: Patient's daughter Mayra, who lives in [place] . She may come from [place] to [place] soon. Admission and Anticipated Discharge Date Admission Date: October 29, 2020 Subjective Patient is seen at the bedside this morning. She reports that she is fatigued, but not short of breath. She reports she had not felt short of breath, but is very fatigued. Per nursing and respiratory therapy failed to transition to high flow, requiring increasing respiratory support. Patient was seen by critical care and is being transferred to the ICU for escalation of care. Critical care provider had discussed intubation/mechanical ventilation with her which she initially did not want, but had reconsider this after discussion. Patient reports that she remembers this discussion, and agrees that she would not want intubation or medical mechanical ventilation if required. Review of Systems Review of Systems: Limited by fatigue and BiPAP, negative as below. Constitutional: Denies fever, chills. Endorses fatigue. Eyes: Denies vision change ENT: Denies ear pain, sore throat, sinus pain Cardiovascular: Denies Chest pain, chest pressure, palpitations Respiratory: Denies shortness of breath, sputum production. Gastrointestinal: Denies abdominal pain, nausea, vomitin Musculoskeletal: Horses global fatigue, denies acute focal weakness, muscle aches/pain, joint aches/pain Integumentary:Denies acute rash, lesions, bruising Neurological: Denies headache, numbness, tingling, focal weakness Physical Exam Physical Exam: General: A&Ox3. Appears ill. Cooperative. HEENT: Atraumatic, normocephalic. Pulm: Patient prone during exam. Bibasilar crackles/rales appreciated, no wheezes. Symmetrical chest rise. No accessory use for respiration. Cardiac: RRR, -mrg. Radial pulses intact and symmetrical. Abdominal: Nontender, nondistended, soft. BS present. Results & Data Results & Data ([place]) Vital Signs (Past 12 Hours) Vital Signs Temp Pulse Pulse Pulse Resp BP BP 11/05/20 16:39 37.8 C H 123 H 24 103/64 11/05/20 15:39 38.1 C H 124 H 26 H 129/94 11/05/20 15:15 38.0 C H 123 H 28 H 112/73 11/05/20 15:10 120 H 28 H 11/05/20 14:30 38.1 C H 110 H 20 11/05/20 14:00 38.4 C H 106 H 20 11/05/20 13:40 38.3 C H 104 H 21 11/05/20 13:17 11/05/20 12:55 106 H 20 11/05/20 12:22 109 H 24 117/61 11/05/20 12:00 37.1 C 118 H 30 H 130/59 L 11/05/20 11:22 37 C 114 H 30 H 126/60 11/05/20 10:45 109 H 24 11/05/20 10:44 105 H 24 11/05/20 09:35 105 H 11/05/20 08:00 37.1 C 110 H 34 H 137/62 11/05/20 07:24 112 H 22 11/05/20 07:21 112 H 22 Pulse Ox Pulse Ox 11/05/20 16:39 98 11/05/20 15:39 87 L 11/05/20 15:15 91 11/05/20 15:10 84 L 11/05/20 14:30 95 11/05/20 14:00 95 11/05/20 13:40 95 11/05/20 13:17 90 11/05/20 12:55 90 11/05/20 12:22 93 11/05/20 12:00 94 11/05/20 11:22 91 11/05/20 10:45 93 11/05/20 10:44 94 11/05/20 09:35 11/05/20 08:00 88 L 11/05/20 07:24 92 11/05/20 07:21 92 PG Care Time/CCT Total # of Minutes Spent Total Time Spent with Patient: Total time spent is greater than 50% in coordination of care (as documented) at patient's floor/unit and/or counseling patient: Coding Level of Care Code 05759 Subseq Hosp Care Lvl 3 Diagnoses Pneumonia due to COVID-19 virus U07.1; J12.82 Acute respiratory failure with hypoxia J96.01 Acute systolic CHF (congestive heart failure) I50.21 Diabetes mellitus type 2, uncontrolled E11.65 Abnormal LFTs R94.5 CAD (coronary artery disease) I25.10 Obesity E66.9 Hypertension I10 Hyperlipidemia E78.5 Tobacco dependence F17.200 Hypomagnesemia E83.42 Acute kidney injury N17.9 Hyperkalemia E87.5 DVT prophylaxis Z29.9 Anxiety F41.9
[2020-11-05] MEDS: LORazepam 0.5 MG TAB PO SCH (21:02)
[2020-11-05] MEDS: GABAPENTIN 300 MG CAP PO SCH (21:03)
[2020-11-05] MEDS ORDERED: ACETAMINOPHEN 1,000 MG/100 ML VIAL IV STA (22:19)
[2020-11-06] MEDS ORDERED: RAPID SEQUENCE INDUCTION BAG ONE (01:57)
--- NOTE | 2020-11-06 01:59 | Communication Note ---
Date of Service: November 06, 2020 Shortly after 0200, nursing staff reports that the patient is having worsening shortness of breath and complaining of inability to breathe. Earlier tonight, I did speak with the patient and discussed intubation procedure as she was requiring maximum BiPAP settings and her saturations have not improved. At that point, the patient was awake, alert, and oriented. She was able to make her own decisions. She was adamant that she would not wish to be intubated. When I reassessed the patient at bedside again, she reports that she is having difficulty breathing which has worsened from earlier in the night. We discussed neck step is emergent endotracheal intubation in an effort to try and help oxygenate. Again, she was hesitant and reports that she does not want to be on the ventilator. I discussed that I am concerned that she is requiring 100% BiPAP with high inspiratory pressures and despite that, her saturations are in the mid 80s and she is tachypneic with increasing work of breathing. She becomes tearful and states "I am going to anyway." At this point, she request to speak to her family prior to intubation. She recognizes the need for intubation and agrees verbally. Nursing staff did contact the patient's and daughter. Reportedly, during these conversations, she discussed her concerns with him and that she "won't be leaving the hospital." I did reach out to emergency department provider as anesthesia was not present in house. I did wish to repair accordingly given the high risk intubation and knowing the patient is with poor hemodynamics and an EF of approximately 30%. I did place arterial line. Please see separate procedure. ABG was noted to show appropriate ventilation, but very poor oxygenation with an SaO2 of 48. Patient was noted to have soft blood pressures. Noted that the patient would need induction agents as well as sedatives, orders were placed to start Levophed peripherally in preparation for induction/sedation. The patient was successfully intubated very quickly by emergency department provider. Patient had initial drop in oxygenation to 79%, however she returned to the mid to low 80s. When placed on the ventilator, the patient had a drop in her saturations to the 70s. Initial paralytic did wear off slightly and the patient was bolused with IV rocuronium. OG tube was placed by nursing staff. Saturations remained an issue as her saturations did dip into the 60s. Patient was bagged into the 70s. Sedation hemodynamics were appropriately managed. Chest x-ray was obtained. The ET tube was withdrawn to an appropriate depth. Tidal volumes were noted to be appropriate throughout ventilation. ARDSnet protocol was utilized and the patient's PEEP was titrated to 20. She remained on 100% FiO2. Decision was made at this point to prone the patient to help with oxygenation/ventilation. Verbal orders for Nimbex were provided and nursing staff. Additional IV sites were obtained by nursing staff. Assessment for central line placement is unable to be achieved secondary to desaturation with any positional movement. Patient was placed into the prone position in appropriate fashion. After preprocedure, the patient saturation did immediately climb by 10 points into the 70s. Despite maximized ventilator settings and appropriate sedation/paralytic therapy, the patient remains with saturations in the 60s to 70s. We did bagged the patient on occasion to help improve oxygenation, but the highest value that we could reach was in the 70s. Orders were placed for IV Lasix. At this point, I did reach out to my attending physician for further recommendations. Inhaled epoprostenol was suggested. This was ordered and discussed with respiratory therapy. I did reach out to pharmacy who promptly provided the medication to the unit. I did present again at bedside to help with initiation of epoprostenol. Shortly after starting the epoprostenol, the patient's saturations did improve from the 60s into the high 70s and eventually plateaued at 82 to 84%. [id number]: I did reach out to the patient's , Keron Wu ([phone]) to provided update. He did not answer. The patient remains on ARDSNet ventilator settings with high PEEP. She is proned. She is on inhaled epoprostenol. The patient completed entire course of remdesivir. She completed course of Decadron. She has been diuresed. Patient had been fully vaccinated. Unfortunately, the patient is on maximum therapy that we are able to provide at this point. Cardiovascular, the patient is with an EF of 25 to 30%. At this point, I am generally concerned that the patient has reached maximum treatment for underlying disease process. I will attempt to reach out to family to further discuss ongoing management and my concerns for moving forward. 2446: The patient's did return my phone call. I had a lengthy conversation with him by phone. I discussed all the events that occurred throughout the night. He is thankful and grateful for care that she is received at this point. When questioned further, I did address CODE STATUS. Patient's agrees that in the event of cardiovascular collapse, the patient would not wish to undergo chest compressions, defibrillation, or aggressive ACLS medications. He is comfortable continuing with current course and reassessing status as needed. Orders changed in the computer. I have personally spent 110 minutes of critical care time in the direct management of this patient. This is a life/limb threatening event. This includes time spent evaluating patient, direct bedside care, chart review, placing orders, interpretation of diagnostic studies, discussion with consultants, patient, and family members, as well as other required patient management activities. This time is exclusive of all separately billable procedures, and teaching time and separate from and in addition to any other critical care service time. Coding Level of Care Code Critical Care 1st 30-74 mins Time Spent (min) 110
[2020-11-06] MEDS ORDERED: PROPOFOL IV EMULSION 10 MG/ML 100 ML VIAL IV ONE (02:14)
[2020-11-06] MEDS ORDERED: NOREPINEPHRINE/D5W 8 MG/508 ML IV ONE (02:15)
--- NOTE | 2020-11-06 02:53 | Emergency Department Note ---
ED Visit Note Procedural Sedation Indication Intubation. Total time: 15 minutes. Written consent was obtained after the risks and benefits were explained to the patient, including, but not limited to aspiration, allergic reaction, breathing difficulties, cardiac complications, vomiting, pain, event recall, bleeding, and/or infection. Pre-sedation examination and paperwork completed. The patient was on 100% oxygen via Bipap prior to the procedure. Continous end tidal CO2 monitoring, pulse oximetry, and cardiac monitoring were utilized. Suction, airway equipment, medications, respiratory equipment, and appropriate personnel were prepared prior to the initiation of the procedure. A time out was taken. Sedation was achieved utilizing 3 mg of Versed and 150 mg Fentanyl. After I observed the patient had reached the appropriate level of sedation the intubation was performed without complication. Sedation was discontinued and the monitoring continued. Endotracheal Intubation Indication hypoxia, covid pneumonia. The patient was on 100% oxygen via NRB prior to the procedure. Suction, airway equipment, RSI drugs, respiratory equipment, and appropriate personnel were prepared prior to the initiation of the procedure. A time out was taken. Induction was performed with Versed, fentanyl and Succ. After observing the clinical benefit of the medications, the airway was easily visualized utilizing a glidescope. A 7.5 size ETT tube was placed atraumatically to 24 cm using standard technique. The cuff inflated without signs of malfunction. There were bilateral breath sounds, positive colormetric change, no gastric sounds, a good capnography waveform, and post procedure pulse oximetry was 86%. Post intubation sedation and paralysis was administered using propofol. There were no complications. .
[2020-11-06 03:13] LABS: iSTAT Allen Test Pass; iSTAT Art Bld Gas pCO2 Correct 33 mmHg (35-46); iSTAT Art Bld Gas pH Corrected 7.433 (7.35-7.45); iSTAT Arterial Blood Gas HCO3 22 meg/L (19-24); iSTAT Arterial Blood Gas pCO2 33 mmHg (35-46); iSTAT Arterial Blood Gas pH 7.43 (7.35-7.45); iSTAT Arterial Blood Gas pO2 48 mmHg (80-95); iSTAT Arterial Blood Gas pO2 C 47; iSTAT Carbon Dioxide 23 mmol/L (24-31); iSTAT FiO2 100 %; iSTAT Hematocrit 31 % (37-47); iSTAT Hemoglobin 10.5 g/dl (12.0-16.0); iSTAT Potassium 4.7 mmol/L (3.3-5.0); iSTAT Site R Radial; iSTAT Sodium 131 mmol/L (135-144)
[2020-11-06 03:13] LABS: iSTAT Allen Test Pass; iSTAT Art Bld Gas pCO2 Correct 34 mmHg (35-46); iSTAT Art Bld Gas pH Corrected 7.403 (7.35-7.45); iSTAT Arterial Blood Gas HCO3 21 meg/L (19-24); iSTAT Arterial Blood Gas pCO2 34 mmHg (35-46); iSTAT Arterial Blood Gas pO2 39 mmHg (80-95); iSTAT Arterial Blood Gas pO2 C 38; iSTAT Carbon Dioxide 22 mmol/L (24-31); iSTAT Hematocrit 30 % (37-47); iSTAT Hemoglobin 10.2 g/dl (12.0-16.0); iSTAT Site Art Line; iSTAT Sodium 131 mmol/L (135-144)
[2020-11-06] MEDS: fentaNYL DRIP 1,250 MCG/250 ML BAG IV SCH ×2 (03:31→18:00)
[2020-11-06] MEDS: propofoL 1,000 MG/100 ML VIAL IV SCH ×5 (03:33→21:16)
[2020-11-06] MEDS ORDERED: STAT IV Infusion **Titration per Protocol STA ×2 (03:50→05:23)
[2020-11-06] MEDS ORDERED: FUROSEMIDE 40 MG in SYRINGE 0 ML IV ONE (04:00)
[2020-11-06 04:25] LABS: Appearance Urine Turbid (Clear); Bilirubin Urine Negative (Negative); Blood Urine 2+ (Negative); Color Urine Dark Yellow; Epithelial Cell Urine Auto >30 /lpf (0-5); Glucose Urine UA Negative (Negative); Ketones Urine Negative (Negative); Leukocyte Esterase Urine 2+ (Negative); Nitrite Urine Negative (Negative); Protein Urine 1+ (Negative); Specific Gravity Urine 1.019 (1.000-1.030); Urobilinogen Urine Negative (Negative); WBC Urine Automated >30 /hpf (0-5)
[2020-11-06] MEDS: CISATRACURIUM BESYLATE 40 MG in 0.9 % SODIUM CHLORIDE 80 ML IV SCH ×2 (04:28→14:13)
[2020-11-06 04:39] LABS: Bacteria Urine Automated 2+ (Negative)
[2020-11-06] MEDS: INSULIN ASPART 100 UNITS/ML 3 ML PEN SC SCH ×5 (04:52→19:49)
[2020-11-06] MEDS: ARTIFICIAL TEARS OP OINT 3.5 GM TUBE OP SCH ×5 (04:53→19:50)
--- NOTE | 2020-11-06 05:00 | Procedure Note ---
Procedure Note Date of Service November 06, 2020 Note Procedure: Arterial Line Placement Attending: Dr. Wade APC: Ortega Flannery PA-C Indication: Monitoring on Pressors Anesthesia: Lidocaine 1% Emergent consent implied in the setting of patient in active extremitas requiring close hemodynamic monitoring during induction for endotracheal intubation as well as need for frequent labs and ABGs. Patient verbally consents. A time-out was completed verifying correct patient, procedure, site, positioning, and implant(s) or special equipment if applicable. Allens test was performed to ensure adequate perfusion. Patients RIGHT wrist was prepped and draped in the usual sterile fashion. Ultrasound guidance was used to aid needle placement. A 20g Arrow arterial line was introduced into the RIGHT Radial artery. Catheter was threaded, and the needle was removed with appropriate blood return. Good waveform was observed. The patient tolerated the procedure well. Confirmation of placement with ultrasound. Blood Loss: Minimal Complications: None Procedural Ultrasound Guidance: Procedure Date: 11/06/2020 Indication: Pressors, frequent labs, ABGs Attending: Dr. Wade APC: Ortega Flannery PA-C Artery Identified: YES Line confirmed in Artery with ultrasound: YES Complications: NONE Patient tolerated procedure: WELL Coding CPT Codes Tubes, Drains, and Vasc Access - Tubes, Drains, and Vasc Access: [id number] Place Catheter In Artery ([id number]) [facility] [place] Procedure Codes (Charges) Tubes, Drains, and Vasc Access Procedure 1: Tubes, Drains, and Vasc Access: [id number] Place Catheter In Artery
[2020-11-06] MEDS ORDERED: PROPOFOL BOLUS FROM BAG IV PRN (05:23)
[2020-11-06] MEDS ORDERED: NOREPINEPHRINE/D5W 8 MG/508 ML BAG IV SCH (05:30)
[2020-11-06 05:41] LABS: Basophils # (auto) 0.01 K/uL (0-0.2); Basophils % (auto) 0.1 %; Eosinophils # (auto) 0.61 K/uL (0-0.5); Eosinophils % (auto) 3.6 %; Hemoglobin 10.8 g/dL (12.0-16.0); Immature Granulocytes # (auto) 0.11 K/uL (0.00-0.02); Immature Granulocytes % (auto) 0.7 %; Lymphocytes # (auto) 0.97 K/uL (1.2-3.4); Lymphocytes % (auto) 5.7 %; Mean Corpuscular Hemoglobin 29.8 pg (25-34); Mean Corpuscular Hgb Conc 32.7 g/dL (32-36); Mean Corpuscular Volume 90.9 fL (80-100); Mean Platelet Volume 9.4 fL (7.4-10.4); Monocytes # (auto) 0.36 K/uL (0.11-0.59); Monocytes % (auto) 2.1 %; Neutrophils # (auto) 14.83 K/uL (1.4-6.5); Neutrophils % (auto) 87.8 %; Platelet Count 517 K/uL (130-400); RDW Coefficient of Variation 14.1 % (11.5-14.5); RDW Standard Deviation 46.6 fL (36.4-46.3); Red Blood Count 3.63 M/uL (4.2-5.4); White Blood Count 16.89 K/uL (4.8-10.8)
[2020-11-06 06:12] LABS: Albumin Globulin Ratio 0.3 (0.9-2); Albumin Level 1.8 gm/dl (3.4-5.0); BUN Creatinine Ratio 30.1 (10-20); Calcium 8.9 mg/dl (8.5-10.1); Creatinine Clr Calc Pharmacy 49.8 ml/min; Est GFR (African American) 44.9 ml/min; Est GFR (Non-African American) 38.8 ml/min; Globulin 5.7 gm/dl (2.5-4.0); Potassium 5.1 mmol/L (3.5-5.1); Total Protein 7.5 gm/dl (6.4-8.2)
[2020-11-06] MEDS: buPROPion XL 150 MG TABCR PO SCH (07:10)
[2020-11-06] MEDS: NICOTINE 21 MG/24 HR TDSY TD SCH (08:19)
[2020-11-06] MEDS: ENOXAPARIN INJ 40 MG/0.4 ML SYR SQ SCH ×2 (08:20→19:50)
[2020-11-06] MEDS: ASPIRIN 81 MG ECTAB PO SCH (08:22)
[2020-11-06] MEDS: METOPROLOL TARTRATE 25 MG TAB PO SCH (08:22)
[2020-11-06] MEDS: DOCUSATE SODIUM/SENNA 50/8.6MG TAB PO SCH (08:23)
[2020-11-06] MEDS: PANTOprazole 40 MG TAB PO SCH (08:27)
[2020-11-06] MEDS: ROSUVASTATIN CALCIUM 20 MG TAB PO SCH (08:27)
[2020-11-06] MEDS: EPOPROSTENOL SODIUM (GLYCINE) 1.5 MG/5 ML INH PRN ×3 (08:46→23:17)
--- NOTE | 2020-11-06 09:42 | Critical Care Progress Note ---
Date of Service November 06, 2020 Assessment & Plan (1) Acute respiratory failure with hypoxia: (2) Pneumonia due to COVID-19 virus: (3) Cardiomyopathy: (4) Mitral regurgitation: (5) Acute systolic CHF (congestive heart failure): (6) Acute kidney injury: Plan: Impression: 55-year-old female with COVID-19 pneumonia and hypoxemic respiratory failure. Echocardiogram showed severe reduction in ejection fraction down to 25 to 30% with moderate mitral regurgitation and regional wall motion abnormalities. She has had an increase in her oxygen requirement and was transferred back to the ICU 11/05/2020. Intubated 11/06/2020 due to hypoxemic respiratory failure 24-hour events: Patient's respiratory status deteriorated overnight and after extensive conversation with the patient she elected to pursue intubation mechanical ventilation. Post intubation the patient had significant hypoxemic respiratory failure necessitating neuromuscular blockade, prone positioning, and eventually institution of nebulized epoprostenol. Recommendations: 1. Neurological: Continue current sedation and neuromuscular blockade. We will institute BIS monitoring. 2. Cardiovascular: Acute CHF with reduction in ejection fraction and wall motion abnormalities. She also has mitral regurgitation. Her filling pressures are difficult to estimate. She does not have profound peripheral edema and its unclear how much lung edema may be contributing to her hypoxemic respiratory failure. For now we will continue to observe with empiric diuresis as tolerated. Should the patient's condition clinically worsen to requiring mechanical ventilation would have a low threshold for proceeding with pulmonary artery catheterization to assist with volume status. Discussed with cardiology. Appreciate their assistance. 3. Pulmonary: Patient has been symptomatic with Covid since 10/18/2020 and tested + 10/25/2020. She received remdesivir at an outside facility. The patient is outside the window to consider Tocilizumab. Acute hypoxemic respiratory failure. Secondary to fluid overload as well as pneumonitis secondary to COVID- 19. She is on the dexamethasone 6 mg daily protocol. CRP has been decreasing. She states that she is currently doing okay with self proning and use of high flow oxygen. Continue for now with low threshold to proceed with intubation mechanical ventilation should the patient experience increased work of breathing or be unable to maintain oxygen levels to an appropriate degree. The patient understands potential risk of clinical deterioration but wishes to continue with her current therapy and delay intubation mechanical ventilation if at all possible. 4. GI: Patient expresses a fervent desire to pursue eating. I advised her of the potential risks especially if we have to urgently intubate her. She expressed understanding but would again like to remain on a diet. Continue Protonix. 5. Renal: Serum creatinine has been holding. Electrolytes demonstrate a mild hyponatremia, mildly progressive over the last couple days. Continue to trend with additional diuretics.. 6. ID: COVID-19 pneumonia: The patient has a white count of 11,000. 7 Endocrine: Glycemic control per protocol. 8. Heme-onc: Mild anemia as well as leukocytosis. Could be due to demargination from dexamethasone. Continue to follow clinically. 9. Prophylaxis: Continue Lovenox. She is taking a PPI as well. The patient is critically ill at this point time with significant possibility of clinical deterioration and loss of organ function or . A total of 78 minutes was spent in evaluation management stabilization of this patient including discussion with consultants, the admitting service, and multiple nursing staff as well as respiratory therapy. Please note the above document was generated using voice recognition software. It may contain grammatical, syntax or spelling errors.Any formal questions or concerns about the content, text or information contained within the body of this dictation should be directly addressed to the provider for clarification. Admission and Anticipated Discharge Date Admission Date: October 29, 2020 Subjective Patient is intubated sedated and paralyzed. She is proned. Review of Systems Review of Systems: Unobtainable due to endotracheal tube Physical Exam Physical Exam: Patient is intubated sedated paralyzed and prone to. Constitutional: WD/WN, vitals as above Neck: trachea midline, no thyromegaly Respiratory: normal respiratory effort; no respiratory distress and no labored breathing Auscultation: + rales Cardiovascular: RRR, no murmur, no edema Gastrointestinal (Abdomen): normal bowel sounds, soft, nontender, no hepatosplenomegaly Musculoskeletal: Lower extremities bilaterally are cool to the touch but pulses appear to be palpable. Capillary refill is okay Skin: no rashes, warm and dry Lymphatic: no cervical lymphadenopathy Results & Data Results & Data ([facility]) Vital Signs (Past 12 Hours) Vital Signs Temp Pulse Resp BP Pulse Ox 11/06/20 09:15 30 H 11/06/20 08:55 104 H 26 H 107/51 L 88 L 11/06/20 07:20 108 H 26 H 116/58 L 84 L 11/06/20 06:11 35.7 C L 108 H 213/101 H 84 L 11/06/20 06:00 108 H 27 H 123/56 L 84 L 11/06/20 05:41 36.0 C L 110 H 181/103 H 83 L 11/06/20 05:11 36.4 C L 110 H 178/101 H 82 L 11/06/20 04:42 36.6 C 107 H 226/110 H 85 L 11/06/20 04:20 162 H 26 H 164/63 H 77 L 11/06/20 04:11 36.6 C 97 H 151/105 H 70 L 11/06/20 03:44 36.7 C 100 H 26 H 68 L 11/06/20 02:30 36.7 C 90 98/59 L 87 L 11/06/20 02:11 36.7 C 94 H 24 143/82 H 84 L 11/06/20 01:16 91 H 27 H 88 L 11/06/20 00:39 37.5 C 92 H 26 H 108/61 85 L 11/06/20 00:00 99 H 11/05/20 23:45 97 H 23 90 11/05/20 23:40 38.3 C H 100 H 28 H 101/50 L 88 L 11/05/20 22:39 39.3 C H 104 H 26 H 100/58 L 87 L 11/05/20 21:39 39.2 C H 117 H 20 107/64 91 Critical Care Results & Data Vital Signs (Past 12 Hours) Vital Signs Temp Pulse Resp BP Pulse Ox 11/06/20 09:15 30 H 11/06/20 08:55 104 H 26 H 107/51 L 88 L 11/06/20 07:20 108 H 26 H 116/58 L 84 L 11/06/20 06:11 35.7 C L 108 H 213/101 H 84 L 11/06/20 06:00 108 H 27 H 123/56 L 84 L 11/06/20 05:41 36.0 C L 110 H 181/103 H 83 L 11/06/20 05:11 36.4 C L 110 H 178/101 H 82 L 11/06/20 04:42 36.6 C 107 H 226/110 H 85 L 11/06/20 04:20 162 H 26 H 164/63 H 77 L 11/06/20 04:11 36.6 C 97 H 151/105 H 70 L 11/06/20 03:44 36.7 C 100 H 26 H 68 L 11/06/20 02:30 36.7 C 90 98/59 L 87 L 11/06/20 02:11 36.7 C 94 H 24 143/82 H 84 L 11/06/20 01:16 91 H 27 H 88 L 11/06/20 00:39 37.5 C 92 H 26 H 108/61 85 L 11/06/20 00:00 99 H 11/05/20 23:45 97 H 23 90 11/05/20 23:40 38.3 C H 100 H 28 H 101/50 L 88 L 11/05/20 22:39 39.3 C H 104 H 26 H 100/58 L 87 L Lab & Micro Results (Past 24 Hours) RBC 3.63 M/uL (4.2-5.4) L 11/06/20 WBC 16.89 K/uL (4.8-10.8) H 11/06/20 Hgb 10.8 g/dL (12.0-16.0) L 11/06/20 Hct 33.0 % (37-47) L 11/06/20 MCV 90.9 fL (80-100) 11/06/20 MCH 29.8 pg (25-34) 11/06/20 MCHC 32.7 g/dL (32-36) 11/06/20 RDW Standard Deviation 46.6 fL (36.4-46.3) H 11/06/20 RDW Coefficient of Variation 14.1 % (11.5-14.5) 11/06/20 Plt Count 517 K/uL (130-400) H 11/06/20 MPV 9.4 fL (7.4-10.4) 11/06/20 Neutrophils (%) (Auto) 87.8 % 11/06/20 Lymphocytes (%) (Auto) 5.7 % 11/06/20 Monocytes # (Auto) 0.36 K/uL (0.11-0.59) 11/06/20 Eosinophils # (Auto) 0.61 K/uL (0-0.5) H 11/06/20 Immature Granulocyte % (Auto) 0.7 % 11/06/20 Neutrophils # (Auto) 14.83 K/uL (1.4-6.5) H 11/06/20 Lymphocytes # (Auto) 0.97 K/uL (1.2-3.4) L 11/06/20 Monocytes # (Auto) 0.36 K/uL (0.11-0.59) 11/06/20 Eosinophils # (Auto) 0.61 K/uL (0-0.5) H 11/06/20 Basophils # (Auto) 0.01 K/uL (0-0.2) 11/06/20 Immature Granulocyte # (Auto) 0.11 K/uL (0.00-0.02) H 11/06/20 Na 129 mmol/L (136-145) L 11/06/20 K 5.1 mmol/L (3.5-5.1) 11/06/20 Cl 100 mmol/L (98-107) 11/06/20 CO2 22 mmol/L (21-32) 11/06/20 Anion Gap 7.0 (3-11) 11/06/20 BUN 45 mg/dl (7-18) H 11/06/20 Creatinine 1.51 mg/dl (0.6-1.2) H 11/06/20 Estimated GFR ( Amer) 44.9 ml/min 11/06/20 Estimated GFR (Non-Af Amer) 38.8 ml/min 11/06/20 BUN/Creatinine Ratio 30.1 (10-20) H 11/06/20 Glu 162 mg/dl (70-99) H 11/06/20 Ca 8.9 mg/dl (8.5-10.1) 11/06/20 Total Bilirubin 1.0 mg/dl (0.2-1) 11/06/20 AST 31 U/L (15-37) 11/06/20 ALT 36 U/L (12-78) 11/06/20 Alkaline Phosphatase 136 U/L (45-117) H 11/06/20 TP 7.5 gm/dl (6.4-8.2) 11/06/20 Albumin 1.8 gm/dl (3.4-5.0) L 11/06/20 Globulin 5.7 gm/dl (2.5-4.0) H 11/06/20 Albumin/Globulin Ratio 0.3 (0.9-2) L 11/06/20 Calcium Level 8.9 mg/dl (8.5-10.1) 11/06/20 05:17 11/06/20 Rustam Test Pass 11/06/20 03:00 11/06/20 I & O Totals 24 Hours 11/05/20 11/06/20 11/07/20 06:59 06:59 06:59 Intake Total 700 / 700 619.880 / 619.880 64.94 / 64.94 Output Total 2250 / 2250 1657 / 1657 Balance -1550 / -1550 -1037.120 / -1037.120 64.94 / 64.94 Cumulative 10/29/20 thru 11/06/20 07:07 Intake Total 6315.508 Output Total 64644 Balance -8521.492 RT Ventilator Mngmt (Last Documented) Ventilator Ordered Settings Ventilator Support Mode Assist Control 11/06/20 07:20 Respiratory Rate 30 11/06/20 09:15 Ventilator Tidal Volume 300 11/06/20 09:15 Setting Minute Ventilation 9.5 11/06/20 07:20 Positive End Expiratory 20 11/06/20 08:55 Pressure Fraction of Inspired Oxygen 100 11/06/20 08:55 Machine Comment vent changes per Dr Wade 11/06/20 09:15 Ventilator - PT Measurements Respiratory Rate 30 Exhaled Tidal Volume 366 Minute Ventilation 9.5 Peak Inspiratory Airway 42 Pressure Mean Airway Pressure 29 Plateau Pressure 39 Respiratory Cycle Inspiratory: 1:1.3 Expiratory Ratio Inspiratory Phase Time 1.0 End-Tidal CO2 39 Static Lung Compliance 19.26 Dynamic Lung Compliance 16.64 Normal Static Lung Compliance 44.00 Patient Measurements Comment proned Coding Diagnoses Acute respiratory failure with hypoxia J96.01 Pneumonia due to COVID-19 virus U07.1; J12.82 Cardiomyopathy I42.9 Mitral regurgitation I34.0 Acute systolic CHF (congestive heart failure) I50.21 Acute kidney injury N17.9
--- NOTE | 2020-11-06 10:20 | XRay Report ---
XR chest 1V portable HISTORY: Shortness of breath. intubation COMPARISON: Chest 11/04/2020. FINDINGS: Interval progression of the multifocal bilateral airspace opacities consistent with Covid p neumonia. No pneumothorax. No pleural effusion is. The heart is mildly enlarged. A nasogastric tube t erminates below the diaphragm. The tip is not included on this study. Endotracheal tube appears to be located at the right mainstem bronchus. IMPRESSION: 1. Endotracheal tube located at the right mainstem bronchus. This should be pulled back by 3 cm. 2. Progressive multifocal airspace opacities consistent with Covid pneumonia. ACT 112: Negative or not required by law. Electronically signed by: Catarino Muniz M.D. 11/06/2020 10:19 AM
--- NOTE | 2020-11-06 10:21 | XRay Report ---
XR chest 1V portable HISTORY: REPOSITION TUBE COMPARISON: Chest 11/06/2020. FINDINGS: The endotracheal tube terminates 3.8 cm and the allan. Nasogastric tube terminates below t he diaphragm. The tip is not included on this study. Extensive multifocal bilateral airspace opacitie s consistent with Covid pneumonia are again noted. There are low lung volumes. No pleural fusions. No pneumothorax. The heart remains mildly enlarged. IMPRESSION: 1. Satisfactory support line placement. 2. Extensive bilateral airspace opacities consistent with Covid pneumonia. ACT 112: Negative or not required by law. Electronically signed by: Catarino Muniz M.D. 11/06/2020 10:20 AM
[2020-11-06 10:37] LABS: iSTAT Art Bld Gas pCO2 Correct 69 mmHg (35-46); iSTAT Art Bld Gas pH Corrected 7.134 (7.35-7.45); iSTAT Arterial Blood Gas HCO3 24 meg/L (19-24); iSTAT Arterial Blood Gas pCO2 75 mmHg (35-46); iSTAT Arterial Blood Gas pH 7.11 (7.35-7.45); iSTAT Arterial Blood Gas pO2 72 mmHg (80-95); iSTAT Arterial Blood Gas pO2 C 63; iSTAT Carbon Dioxide 26 mmol/L (24-31); iSTAT FiO2 100 %; iSTAT Hematocrit 34 % (37-47); iSTAT Hemoglobin 11.6 g/dl (12.0-16.0); iSTAT Potassium 5.6 mmol/L (3.3-5.0); iSTAT Site Art Line; iSTAT Sodium 131 mmol/L (135-144)
[2020-11-06] MEDS: INSULIN GLARGINE SOLOSTAR 100 UNITS/ML 3 ML PEN SC SCH ×2 (10:44→19:51)
[2020-11-06] MEDS: FLUTICASONE FUROATE 100MCG 14 PUFFS/INHALER INH SCH (10:54)
[2020-11-06] MEDS ORDERED: VANCOMYCIN CONSULT ACTIVE PRN (11:32)
[2020-11-06] MEDS ORDERED: MEROPENEM CONSULT ACITVE PRN (11:32)
--- NOTE | 2020-11-06 11:33 | Critical Care Progress Note ---
Date of Service November 06, 2020 Assessment & Plan (1) Acute respiratory failure with hypoxia: (2) Pneumonia due to COVID-19 virus: (3) Cardiomyopathy: (4) Mitral regurgitation: (5) Acute systolic CHF (congestive heart failure): (6) Acute kidney injury: Plan: Impression: 55-year-old female with COVID-19 pneumonia and hypoxemic respiratory failure. Echocardiogram showed severe reduction in ejection fraction down to 25 to 30% with moderate mitral regurgitation and regional wall motion abnormalities. She has had an increase in her oxygen requirement and was transferred back to the ICU 11/05/2020. Intubated 11/06/2020 due to hypoxemic respiratory failure 24-hour events: Patient's respiratory status deteriorated overnight and after extensive conversation with the patient she elected to pursue intubation mechanical ventilation. Post intubation the patient had significant hypoxemic respiratory failure necessitating neuromuscular blockade, prone positioning, and eventually institution of nebulized epoprostenol. Recommendations: 1. Neurological: Continue current sedation and neuromuscular blockade. We will institute BIS monitoring. 2. Cardiovascular: Acute CHF with reduction in ejection fraction and wall motion abnormalities. She also has mitral regurgitation. Her filling pressures are difficult to estimate. Based on physical exam she. She does not appear acutely volume up. Unfortunately in the prone position we cannot perform right heart catheterization. Would favor continuing prone ventilation at this point time as her oxygenation did not require tolerate flipping her to the supine position. If clinically we have continued issues, may need to pursue right heart catheterization in the future. Hold all of her antihypertensives for now. Norepinephrine as needed 3. Pulmonary: Patient has been symptomatic with Covid since 10/18/2020 and tested + 10/25/2020. She received remdesivir at an outside facility. The patient is outside the window to consider Tocilizumab. Acute hypoxemic respiratory failure. Secondary to fluid overload as well as pneumonitis secondary to COVID- 19. Now intubated on high ventilatory settings and inhaled epoprostenol. Plateau pressures are high. We will decrease tidal volume to 4 cc/kg ideal body weight and augment respiratory rate to 32. Will allow for permissive hypercapnia. I:E ratio flipped to 1.2-1. Continue nebulized epoprostenol. The patient status at this point time would preclude transfer to a facility for ECMO and I am not sure that her cardiovascular status would make her a candidate. Not sure that this is overall survivable. Given that she is this far out, we will increase her dexamethasone to 20 mg a day for 5 days and then 10 mg a day for 5days for late-phase ARDS. We will try and target 20 to 22 hours of prone positioning. She was flipped prone at 4:00 in the morning so we will try and flip her back around midnight or 1 AM. 4. GI: N.p.o. for now. Continue Protonix 5. Renal: Serum creatinine has been holding. Electrolytes demonstrate a mild hyponatremia, mild hyperkalemia with an increase in serum creatinine. Will need to follow closely and if this should continue to decline, nephrology input will be required. The patient is a poor candidate for dialysis. Hold additional diuretics 6. ID: COVID-19 pneumonia: The patient has a white count of 11,000. Procalcitonin had previously been negative but is now up to 1.42. She does have acute kidney injury superimposed which makes it difficult to interpret. She was febrile last night and x-ray looks worse. We will repeat respiratory culture and initiate antibiotics in the form of vancomycin and Merrem. 7 Endocrine: Glycemic control per protocol. 8. Heme-onc: Mild anemia as well as leukocytosis. Could be due to demargin ation from dexamethasone. Continue to follow clinically. 9. Prophylaxis: Continue Lovenox. She is taking a PPI as well. The patient is critically ill at this point time with significant possibility of clinical deterioration and loss of organ function or . A total of 95 minutes was spent in evaluation management stabilization of this patient including discussion with consultants, the admitting service, and multiple nursing staff as well as respiratory therapy. was updated by phone. The patient is now DNR/DNI. Unclear if this is survivable at this point time. Please note the above document was generated using voice recognition software. It may contain grammatical, syntax or spelling errors.Any formal questions or concerns about the content, text or information contained within the body of this dictation should be directly addressed to the provider for clarification. Admission and Anticipated Discharge Date Admission Date: October 29, 2020 Subjective Patient is intubated sedated paralyzed in prone Review of Systems Review of Systems: Unobtainable due to endotracheal tube Physical Exam Constitutional: WD/WN, vitals as above Patient examined in the prone position. Neck: trachea midline, no thyromegaly Respiratory: + respiratory distress Auscultation: + crackles and + wheezes Cardiovascular: Rate/Rhythm: regular rate Heart Sounds: normal S1, normal S2 and + murmur Extremities: no edema Gastrointestinal (Abdomen): normal bowel sounds, soft, nontender, no hepatosplenomegaly Musculoskeletal: Legs are cool to the touch below the knees. Popliteal pulses are palpable. Capillary refill is delayed but adequate. Skin: no rashes, warm and dry Neurologic: Nonfocal exam Lymphatic: no cervical lymphadenopathy Results & Data Results & Data ([facility]) Vital Signs (Past 12 Hours) Vital Signs Temp Pulse Resp BP Pulse Ox 11/06/20 10:48 32 H 11/06/20 10:15 92 H 30 H 91/52 L 89 L 11/06/20 10:01 35.0 C L 92 H 93/48 L 88 L 11/06/20 09:46 35.0 C L 93 H 89/43 L 88 L 11/06/20 09:15 30 H 11/06/20 08:55 104 H 26 H 107/51 L 88 L 11/06/20 08:41 35.2 C L 104 H 151/80 H 87 L 11/06/20 07:41 35.3 C L 106 H 151/79 H 85 L 11/06/20 07:20 108 H 26 H 116/58 L 84 L 11/06/20 06:11 35.7 C L 108 H 213/101 H 84 L 11/06/20 06:00 108 H 27 H 123/56 L 84 L 11/06/20 05:41 36.0 C L 110 H 181/103 H 83 L 11/06/20 05:11 36.4 C L 110 H 178/101 H 82 L 11/06/20 04:42 36.6 C 107 H 226/110 H 85 L 11/06/20 04:20 162 H 26 H 164/63 H 77 L 11/06/20 04:11 36.6 C 97 H 151/105 H 70 L 11/06/20 03:44 36.7 C 100 H 26 H 68 L 11/06/20 02:30 36.7 C 90 98/59 L 87 L 11/06/20 02:11 36.7 C 94 H 24 143/82 H 84 L 11/06/20 01:16 91 H 27 H 88 L 11/06/20 00:39 37.5 C 92 H 26 H 108/61 85 L 11/06/20 00:00 99 H 11/05/20 23:45 97 H 23 90 11/05/20 23:40 38.3 C H 100 H 28 H 101/50 L 88 L Critical Care Results & Data Vital Signs (Past 12 Hours) Vital Signs Temp Pulse Resp BP Pulse Ox 11/06/20 10:48 32 H 11/06/20 10:15 92 H 30 H 91/52 L 89 L 11/06/20 10:01 35.0 C L 92 H 93/48 L 88 L 11/06/20 09:46 35.0 C L 93 H 89/43 L 88 L 11/06/20 09:15 30 H 11/06/20 08:55 104 H 26 H 107/51 L 88 L 11/06/20 08:41 35.2 C L 104 H 151/80 H 87 L 11/06/20 07:41 35.3 C L 106 H 151/79 H 85 L 11/06/20 07:20 108 H 26 H 116/58 L 84 L 11/06/20 06:11 35.7 C L 108 H 213/101 H 84 L 11/06/20 06:00 108 H 27 H 123/56 L 84 L 11/06/20 05:41 36.0 C L 110 H 181/103 H 83 L 11/06/20 05:11 36.4 C L 110 H 178/101 H 82 L 11/06/20 04:42 36.6 C 107 H 226/110 H 85 L 11/06/20 04:20 162 H 26 H 164/63 H 77 L 11/06/20 04:11 36.6 C 97 H 151/105 H 70 L 11/06/20 03:44 36.7 C 100 H 26 H 68 L 11/06/20 02:30 36.7 C 90 98/59 L 87 L 11/06/20 02:11 36.7 C 94 H 24 143/82 H 84 L 11/06/20 01:16 91 H 27 H 88 L 11/06/20 00:39 37.5 C 92 H 26 H 108/61 85 L 11/06/20 00:00 99 H 11/05/20 23:45 97 H 23 90 11/05/20 23:40 38.3 C H 100 H 28 H 101/50 L 88 L Lab & Micro Results (Past 24 Hours) RBC 3.63 M/uL (4.2-5.4) L 11/06/20 WBC 16.89 K/uL (4.8-10.8) H 11/06/20 Hgb 10.8 g/dL (12.0-16.0) L 11/06/20 Hct 33.0 % (37-47) L 11/06/20 MCV 90.9 fL (80-100) 11/06/20 MCH 29.8 pg (25-34) 11/06/20 MCHC 32.7 g/dL (32-36) 11/06/20 RDW Standard Deviation 46.6 fL (36.4-46.3) H 11/06/20 RDW Coefficient of Variation 14.1 % (11.5-14.5) 11/06/20 Plt Count 517 K/uL (130-400) H 11/06/20 MPV 9.4 fL (7.4-10.4) 11/06/20 Neutrophils (%) (Auto) 87.8 % 11/06/20 Lymphocytes (%) (Auto) 5.7 % 11/06/20 Monocytes # (Auto) 0.36 K/uL (0.11-0.59) 11/06/20 Eosinophils # (Auto) 0.61 K/uL (0-0.5) H 11/06/20 Immature Granulocyte % (Auto) 0.7 % 11/06/20 Neutrophils # (Auto) 14.83 K/uL (1.4-6.5) H 11/06/20 Lymphocytes # (Auto) 0.97 K/uL (1.2-3.4) L 11/06/20 Monocytes # (Auto) 0.36 K/uL (0.11-0.59) 11/06/20 Eosinophils # (Auto) 0.61 K/uL (0-0.5) H 11/06/20 Basophils # (Auto) 0.01 K/uL (0-0.2) 11/06/20 Immature Granulocyte # (Auto) 0.11 K/uL (0.00-0.02) H 11/06/20 Na 129 mmol/L (136-145) L 11/06/20 K 5.1 mmol/L (3.5-5.1) 11/06/20 Cl 100 mmol/L (98-107) 11/06/20 CO2 22 mmol/L (21-32) 11/06/20 Anion Gap 7.0 (3-11) 11/06/20 BUN 45 mg/dl (7-18) H 11/06/20 Creatinine 1.51 mg/dl (0.6-1.2) H 11/06/20 Estimated GFR ( Amer) 44.9 ml/min 11/06/20 Estimated GFR (Non-Af Amer) 38.8 ml/min 11/06/20 BUN/Creatinine Ratio 30.1 (10-20) H 11/06/20 Glu 162 mg/dl (70-99) H 11/06/20 Ca 8.9 mg/dl (8.5-10.1) 11/06/20 Total Bilirubin 1.0 mg/dl (0.2-1) 11/06/20 AST 31 U/L (15-37) 11/06/20 ALT 36 U/L (12-78) 11/06/20 Alkaline Phosphatase 136 U/L (45-117) H 11/06/20 TP 7.5 gm/dl (6.4-8.2) 11/06/20 Albumin 1.8 gm/dl (3.4-5.0) L 11/06/20 Globulin 5.7 gm/dl (2.5-4.0) H 11/06/20 Albumin/Globulin Ratio 0.3 (0.9-2) L 11/06/20 Calcium Level 8.9 mg/dl (8.5-10.1) 11/06/20 05:17 11/06/20 Rustam Test NA 11/06/20 10:18 11/06/20 Diagnostic Findings (Past 24 Hours) Chest X-Ray 11/06/20 02:50 XR chest 1V portable HISTORY: Shortness of breath. intubation COMPARISON: Chest 11/04/2020. FINDINGS: Interval progression of the multifocal bilateral airspace opacities consistent with Covid pneumonia. No pneumothorax. No pleural effusion is. The heart is mildly enlarged. A nasogastric tube terminates below the diaphragm. The tip is not included on this study. Endotracheal tube appears to be located at the right mainstem bronchus. IMPRESSION: 1. Endotracheal tube located at the right mainstem bronchus. This should be pulled back by 3 cm. 2. Progressive multifocal airspace opacities consistent with Covid pneumonia. ACT 112: Negative or not required by law. Electronically signed by: Catarino Muniz M.D. 11/06/2020 10:19 AM Chest X-Ray 11/06/20 07:00 XR chest 1V portable HISTORY: REPOSITION TUBE COMPARISON: Chest 11/06/2020. FINDINGS: The endotracheal tube terminates 3.8 cm and the allan. Nasogastric tube terminates below the diaphragm. The tip is not included on this study. Extensive multifocal bilateral airspace opacities consistent with Covid pneumonia are again noted. There are low lung volumes. No pleural fusions. No pneumothorax. The heart remains mildly enlarged. IMPRESSION: 1. Satisfactory support line placement. 2. Extensive bilateral airspace opacities consistent with Covid pneumonia. ACT 112: Negative or not required by law. Electronically signed by: Catarino Muniz M.D. 11/06/2020 10:20 AM I & O Totals 24 Hours 11/05/20 11/06/20 11/07/20 06:59 06:59 06:59 Intake Total 700 / 700 619.880 / 619.880 254.54 / 254.54 Output Total 2250 / 2250 1657 / 1657 Balance -1550 / -1550 -1037.120 / -1037.120 254.54 / 254.54 Cumulative 10/29/20 thru 11/06/20 10:51 Intake Total 6505.108 Output Total 67644 Balance -8331.892 RT Ventilator Mngmt (Last Documented) Ventilator Ordered Settings Ventilator Support Mode Assist Control 11/06/20 07:20 Respiratory Rate 32 11/06/20 10:48 Ventilator Tidal Volume 300 11/06/20 09:15 Setting Minute Ventilation 9.5 11/06/20 07:20 Positive End Expiratory 20 11/06/20 10:15 Pressure Fraction of Inspired Oxygen 100 11/06/20 10:15 Machine Comment vent change per Dr. Wade 11/06/20 10:48 Ventilator - PT Measurements Respiratory Rate 32 Exhaled Tidal Volume 366 Minute Ventilation 9.5 Peak Inspiratory Airway 42 Pressure Mean Airway Pressure 29 Plateau Pressure 39 Respiratory Cycle Inspiratory: 1:1.3 Expiratory Ratio Inspiratory Phase Time 1.0 End-Tidal CO2 42 Static Lung Compliance 19.26 Dynamic Lung Compliance 16.64 Normal Static Lung Compliance 44.00 Patient Measurements Comment proned Coding Level of Care Code Critical Care ea addt'l 30 min Diagnoses Acute respiratory failure with hypoxia J96.01 Pneumonia due to COVID-19 virus U07.1; J12.82 Cardiomyopathy I42.9 Mitral regurgitation I34.0 Acute systolic CHF (congestive heart failure) I50.21 Acute kidney injury N17.9 Time Spent (min) 95 Comment [id number] and [id number]
[2020-11-06] MEDS ORDERED: VANCOMYCIN HCL 2,000 MG in SODIUM CHLORIDE 0.9% 500 ML IV ONE (12:00)
[2020-11-06] MEDS: MEROPENEM 500 MG in SYRINGE 0 ML IV SCH ×2 (12:35→19:46)
[2020-11-06] MEDS: ALBUMIN 25% 12.5 GM/50 ML VIAL IV SCH ×4 (12:38→15:50)
--- NOTE | 2020-11-06 14:16 | Pharmacy Report ---
Pharmacy Abx Initial Consult - Date of Service November 06, 2020 - Pharmacy Dosing Scope Date of Consult: 11/06/20 Consultation requested by: Dr. Wade Pharmacy is consulted to initiate vancomycin/meropenem IV dosing therapy, order appropriate labs and adjust drug dose/frequency. - Subjective The patient is a 55 year old F admitted on 10/29/20 17:25. - Objective Height: 5 ft 5 in Weight: 99.8 kg Vital Signs (Past 12hrs): Vital Signs Temp Pulse Resp BP Pulse Ox 11/06/20 13:31 34.6 C L 88 98/59 L 95 11/06/20 13:30 87 32 H 104/52 L 95 11/06/20 13:01 34.5 C L 88 104/52 L 93 11/06/20 12:35 89 32 H 92/52 L 89 L 11/06/20 12:31 34.6 C L 89 97/53 L 89 L 11/06/20 12:01 34.7 C L 88 104/51 L 89 L 11/06/20 11:31 34.7 C L 89 93/51 L 89 L 11/06/20 11:25 89 32 H 89/51 L 88 L 11/06/20 11:01 34.8 C L 90 109/51 L 88 L 11/06/20 10:48 32 H 11/06/20 10:31 34.9 C L 91 H 102/48 L 89 L 11/06/20 10:15 92 H 30 H 91/52 L 89 L 11/06/20 10:01 35.0 C L 92 H 93/48 L 88 L 11/06/20 09:46 35.0 C L 93 H 89/43 L 88 L 11/06/20 09:15 30 H 11/06/20 08:55 104 H 26 H 107/51 L 88 L 11/06/20 08:41 35.2 C L 104 H 151/80 H 87 L 11/06/20 07:41 35.3 C L 106 H 151/79 H 85 L 11/06/20 07:20 108 H 26 H 116/58 L 84 L 11/06/20 06:11 35.7 C L 108 H 213/101 H 84 L 11/06/20 06:00 108 H 27 H 123/56 L 84 L 11/06/20 05:41 36.0 C L 110 H 181/103 H 83 L 11/06/20 05:11 36.4 C L 110 H 178/101 H 82 L 11/06/20 04:42 36.6 C 107 H 226/110 H 85 L 11/06/20 04:20 162 H 26 H 164/63 H 77 L 11/06/20 04:11 36.6 C 97 H 151/105 H 70 L 11/06/20 03:44 36.7 C 100 H 26 H 68 L 11/06/20 02:30 36.7 C 90 98/59 L 87 L 11/06/20 02:11 36.7 C 94 H 24 143/82 H 84 L Lab Results (24hrs): Laboratory Tests (24 Hours) 11/06/20 11/06/20 11/05/20 05:17 05:17 23:44 WBC 16.89 H Neut # (Auto) 14.83 H Creatinine 1.51 H D Est Cr Clr Drug Dosing 49.8 Procalcitonin 1.42 H Micro Results: 11/06/20 03:41 Urine Culture - Pending Urine,Straight Cath 11/05/20 23:44 Aerobic Blood Culture - Pending Blood Anaerobic Blood Culture - Pending 11/05/20 23:44 Aerobic Blood Culture - Pending Blood Anaerobic Blood Culture - Pending - Risk Factors for Resistance * Current hospitalization > 5 days - Assessment & Plan Assessment 55 year old F admitted 10/29 with COVID-19 pneumonia and hypoxemic respiratory failure. She had increasing oxygen needs last evening and was transferred to ICU 11/05, respiratory status deteriorated overnight requiring intubation 11/06. Now with leukocytosis, PCT-1.42, and OMAR (SCr 1.15 --> 1.51). Pt was febrile last evening to 39.3, and now hypothermic. Vancomycin and meropenem IV initiated for pulmonary source. Blood and urine cultures pending. MRSA nasal swab ordered. Plan Vancomycin IV * Loading dose: 2000 mg (~ 20mg/kg) * Goal trough level for pneumonia: 15 to 20 mcg/mL * Given OMAR and critically ill status, plan to dose by levels. * F/U MRSA nasal swab Meropenem IV * Target dose = 500mg IV q6h for pulmonary source * Will dose 500mg IV q8h for CrCL 25-49mL/min and adjust appropriately Pharmacy will continue to follow and will adjust dose/frequency as necessary. Thank you.
[2020-11-06] MEDS: UMECLIDINIUM/VILANTEROL 62.5/25MCG 7 PUFFS/INHALER INH SCH (19:01)
--- NOTE | 2020-11-06 19:27 | Hospitalist Progress Note ---
Date of Service November 06, 2020 Assessment & Plan (1) Pneumonia due to COVID-19 virus: Plan: Acute hypoxemic respiratory failure 2/2 Covid pneumonia Patient is a "breakthrough case "following vaccination with Moderna in July Initiated on remdesivir 11/07 at [facility] and steroids 10/25 as outpatient - Completed 5-day course of remdesivir Completed 10-day course of steroids Completed 5-day course of azithromycin prior to admission Patient was out of the window for Tocilizumab Patient intubated evening of for worsening respiratory failure on maximal bilevel settings. Vent management and acute care managed by wire winder team while critically ill, appreciate recommendations and management. Antibiotics expanded to vancomycin/meropenem (2) Acute respiratory failure with hypoxia: Plan: 2/2 Covid pneumonia managed as noted (3) Acute systolic CHF (congestive heart failure): Plan: Acute CHF R EF TTE shows EF 25-30% with wall motion abnormalities suggestive of ischemic cardiomyopathy History of prior VT in 2016, troponins normal during admission Management per ICU Appreciate cardiology recommendations If patient were to survive her current critical illness she would require ischemic eval/cath pending once recovered from COVID and off high oxygen requirements, however prognosis is guarded at this time. (4) Diabetes mellitus type 2, uncontrolled: Plan: -A1c 10.2%. -ICU hyperglycemia protocol (5) Abnormal LFTs: Plan: -Due to Covid and critical illness (6) CAD (coronary artery disease): Plan: -s/p VT 2016. -She was not taking aspirin at admission; thus asa 81mg daily added. Metoprolol and statin held while critically ill (7) Obesity: Plan: BMI 36 (8) Hypertension: Plan: -Cont to hold HCTZ. -Cont to hold CELINE -Cont to hold 25 BID. (9) Hyperlipidemia: Plan: -crestor (10) Tobacco dependence: Plan: -Nicoderm patch 21mg held while critically ill (11) Hypomagnesemia: Plan: -ICU electrolyte protocol (12) Acute kidney injury: Plan: -Cr 1.9 on 10/27 in [place]. -2nd to COVID, severely uncontrolled DM, etc. -Recently improving, increased to 1.51 in the setting of critical illness (13) Hyperkalemia: Plan: 5.1 today, does not acquire emergent dialysis at this time. Poor candidate with critical illness, current management by ICU team (14) DVT prophylaxis: Plan: -lovenox 40 BID (15) Anxiety: Plan: -severe. -certainly hypoxia makes it worse. -buspar 5mg TID prn Plan: Patient's daughter Mayra, who lives in [place] . She may come from [place] to [place] Admission and Anticipated Discharge Date Admission Date: October 29, 2020 Subjective Patient is critically ill, under intensive unit care for COVID-19 pneumonia with hypoxic respiratory failure. Subjective unavailable as patient intubated and sedated at time of assessment. Review of Systems Review of Systems: Unobtainable due to endotracheal tube Physical Exam Physical Exam: Physical exam deferred to minimize COVID-19 transmission risk. Results & Data Results & Data ([facility]) Vital Signs (Past 12 Hours) Vital Signs Temp Pulse Resp BP Pulse Ox 11/06/20 18:05 96 H 33 H 124/61 97 11/06/20 18:01 35.2 C L 96 H 105/60 93 11/06/20 17:31 35.1 C L 94 H 105/55 L 92 11/06/20 17:15 93 H 33 H 113/57 L 95 11/06/20 17:01 35.0 C L 92 H 99/58 L 95 11/06/20 16:31 34.9 C L 90 93/59 L 94 11/06/20 16:01 34.8 C L 89 89/55 L 93 11/06/20 15:55 90 32 H 102/51 L 94 11/06/20 15:31 34.8 C L 88 86/51 L 93 11/06/20 15:01 34.7 C L 88 88/54 L 93 11/06/20 14:40 88 33 H 103/51 L 95 11/06/20 14:31 34.6 C L 88 100/52 L 94 11/06/20 14:01 34.6 C L 89 102/56 L 95 11/06/20 13:31 34.6 C L 88 98/59 L 95 11/06/20 13:30 87 32 H 104/52 L 95 11/06/20 13:01 34.5 C L 88 104/52 L 93 11/06/20 12:35 89 32 H 92/52 L 89 L 11/06/20 12:31 34.6 C L 89 97/53 L 89 L 11/06/20 12:01 34.7 C L 88 104/51 L 89 L 11/06/20 11:31 34.7 C L 89 93/51 L 89 L 11/06/20 11:25 89 32 H 89/51 L 88 L 11/06/20 11:01 34.8 C L 90 109/51 L 88 L 11/06/20 10:48 32 H 11/06/20 10:31 34.9 C L 91 H 102/48 L 89 L 11/06/20 10:15 92 H 30 H 91/52 L 89 L 11/06/20 10:01 35.0 C L 92 H 93/48 L 88 L 11/06/20 09:46 35.0 C L 93 H 89/43 L 88 L 11/06/20 09:15 30 H 11/06/20 08:55 104 H 26 H 107/51 L 88 L 11/06/20 08:41 35.2 C L 104 H 151/80 H 87 L 11/06/20 07:41 35.3 C L 106 H 151/79 H 85 L 11/06/20 07:20 108 H 26 H 116/58 L 84 L PG Care Time/CCT Total # of Minutes Spent Total Time Spent with Patient: Total time spent is greater than 50% in coordination of care (as documented) at patient's floor/unit and/or counseling patient: Coding Level of Care Code 44271 Subseq Hosp Care Lvl 1 Diagnoses Pneumonia due to COVID-19 virus U07.1; J12.82 Acute respiratory failure with hypoxia J96.01 Acute systolic CHF (congestive heart failure) I50.21 Diabetes mellitus type 2, uncontrolled E11.65 Abnormal LFTs R94.5 CAD (coronary artery disease) I25.10 Obesity E66.9 Hypertension I10 Hyperlipidemia E78.5 Tobacco dependence F17.200 Hypomagnesemia E83.42 Acute kidney injury N17.9 Hyperkalemia E87.5 DVT prophylaxis Z29.9 Anxiety F41.9
[2020-11-06] MEDS: LORazepam 0.5 MG TAB PO SCH (19:55)
[2020-11-06] MEDS ORDERED: ROCURONIUM BROMIDE 10 MG/ML 5 ML VIAL IV ONE (20:34)
[2020-11-06] MEDS ORDERED: fentaNYL citrate 100 MCG/2 ML VIAL IV ONE (20:34)
[2020-11-06] MEDS ORDERED: SUCCINYLCHOLINE CHLORIDE 20 MG/ML 10 ML VIAL IV ONE (20:34)
[2020-11-06] MEDS ORDERED: MIDAZOLAM HCL 1 MG/ML 2ML VIAL IV ONE (20:34)
--- NOTE | 2020-11-07 00:57 | Procedure Note ---
Procedure Note Date of Service November 07, 2020 Note INTERNAL JUGULAR CENTRAL LINE PROCEDURE NOTE: Procedure: Internal Jugular Central Line Placement Attending: Dr. Bethel Wade Provider: DAWIT Eckert Indication: Central Drug Administration Anesthesia: None Emergent consent was implied as patient is currently intubated sedated and paralyzed in the setting of acute hypoxic respiratory failure from COVID-19 pneumonia. A time-out was completed verifying correct patient, procedure, site, positioning, and implants(s) or special equipment if applicable. Patients right neck was cleansed and draped in the typical sterile fashion using Chloraprep. The Internal Jugular Vein and Carotid Artery were identified using ultrasound. The Internal Jugular vein was cannulated under direct ultrasound guidance using an introducer needle on a syringe. Good venous blood return was maintained prior to removal of syringe from introducer needle. Using Seldinger Technique, a guide wire was advanced through the introducer needle without resistance. The introducer needle was removed and ultrasound images were obtained of the guide wire within the Internal Jugular Vein and saved to the patients medical record. A small incision was made in penetrating fashion at the guide wire insertion site utilizing an 11 blade scalpel. The dilator was advanced to the vessel without resistance. The dilator was exchanged for the triple lumen catheter which was advanced into the vessel without resistance. The guide wire was removed intact from the catheter without issue. Claves were placed on each catheter tip with confirmation of good blood flow from each lumen. Each port was easily flushed with sterile saline. The catheter was placed at 16 cm and sutured in place. BioPatch was applied to the catheter and a sterile Tegaderm dressing was applied over the catheter with careful attention to sterility. Patient tolerated procedure well. No immediate complications were met. Post procedure x-ray was completed, placement was appropriate and no pneumothorax was noted. Images obtained are saved for permanent record Procedural Ultrasound Guidance: Procedure Date: 11/07/2020 Indication: Central venous catheter insertion Attending: Dr. Bethel Wade Provider: DAWIT Eckert Artery AND Vein visualized: Yes Compressible Vein: Yes Guidewire or Short Catheter seen in vein prior to dilation: Yes Line confirmed in Vein with ultrasound: Yes Images obtained are saved for permanent record. Coding CPT Codes Tubes, Drains, and Vasc Access - Tubes, Drains, and Vasc Access: [id number] Place catheter in vein superior or inferior vena cava ([id number]) Tubes, Drains, and Vasc Access - Tubes, Drains, and Vasc Access: [id number] Ultrasound Guidance For Vascular ([id number]) [facility] Procedure Codes (Charges) Tubes, Drains, and Vasc Access Procedure 2: Tubes, Drains, and Vasc Access: [id number] Place catheter in vein superior or inferior vena cava Procedure 3: Tubes, Drains, and Vasc Access: [id number] Ultrasound Guidance For Vascular
[2020-11-07] MEDS: propofoL 1,000 MG/100 ML VIAL IV SCH ×7 (01:22→23:16)
[2020-11-07] MEDS: CISATRACURIUM BESYLATE 40 MG in 0.9 % SODIUM CHLORIDE 80 ML IV SCH ×4 (01:23→19:54)
[2020-11-07] MEDS: ARTIFICIAL TEARS OP OINT 3.5 GM TUBE OP SCH ×7 (01:43→23:52)
[2020-11-07] MEDS: INSULIN ASPART 100 UNITS/ML 3 ML PEN SC SCH ×6 (01:44→20:58)
[2020-11-07] MEDS: MEROPENEM 500 MG in SYRINGE 0 ML IV SCH ×3 (04:54→19:54)
[2020-11-07 05:03] LABS: Eosinophils # (auto) 0.26 K/uL (0-0.5); Eosinophils % (auto) 1.6 %; Hematocrit (blood only) 29.9 % (37-47); Hemoglobin 9.3 g/dL (12.0-16.0); Immature Granulocytes # (auto) 0.06 K/uL (0.00-0.02); Immature Granulocytes % (auto) 0.4 %; Lymphocytes # (auto) 0.35 K/uL (1.2-3.4); Lymphocytes % (auto) 2.1 %; Mean Corpuscular Hemoglobin 28.8 pg (25-34); Mean Corpuscular Hgb Conc 31.1 g/dL (32-36); Mean Corpuscular Volume 92.6 fL (80-100); Mean Platelet Volume 9.5 fL (7.4-10.4); Monocytes # (auto) 0.49 K/uL (0.11-0.59); Neutrophils % (auto) 92.9 %; Platelet Count 452 K/uL (130-400); RDW Standard Deviation 47.7 fL (36.4-46.3); Red Blood Count 3.23 M/uL (4.2-5.4); White Blood Count 16.56 K/uL (4.8-10.8)
[2020-11-07 05:27] LABS: iSTAT Art Bld Gas pCO2 Correct 53 mmHg (35-46); iSTAT Art Bld Gas pH Corrected 7.207 (7.35-7.45); iSTAT Arterial Blood Gas HCO3 21 meg/L (19-24); iSTAT Arterial Blood Gas pCO2 53 mmHg (35-46); iSTAT Arterial Blood Gas pH 7.21 (7.35-7.45); iSTAT Arterial Blood Gas pO2 80 mmHg (80-95); iSTAT Arterial Blood Gas pO2 C 79; iSTAT Carbon Dioxide 23 mmol/L (24-31); iSTAT FiO2 50 %; iSTAT Hematocrit 29 % (37-47); iSTAT Hemoglobin 9.9 g/dl (12.0-16.0); iSTAT Potassium 5.5 mmol/L (3.3-5.0); iSTAT Site Art Line; iSTAT Sodium 133 mmol/L (135-144)
[2020-11-07 05:31] LABS: Albumin Level 2.4 gm/dl (3.4-5.0); BUN Creatinine Ratio 24.3 (10-20); Calcium 8.4 mg/dl (8.5-10.1); Creatinine Clr Calc Pharmacy 29.7 ml/min; Est GFR (African American) 24.4 ml/min; Est GFR (Non-African American) 21.1 ml/min; Magnesium 2.6 mg/dl (1.8-2.4); Potassium 5.6 mmol/L (3.5-5.1)
[2020-11-07 05:36] LABS: Albumin Globulin Ratio 0.5 (0.9-2); Bilirubin,Total 0.6 mg/dl (0.2-1); Total Protein 7.4 gm/dl (6.4-8.2)
[2020-11-07 05:56] LABS: Phosphorus 9.2 mg/dl (2.5-4.9)
[2020-11-07] MEDS: fentaNYL DRIP 1,250 MCG/250 ML BAG IV SCH ×2 (06:14→18:14)
[2020-11-07] MEDS: NICOTINE 21 MG/24 HR TDSY TD SCH (07:54)
[2020-11-07] MEDS: PANTOprazole 40 MG TAB PO SCH (07:56)
[2020-11-07] MEDS: ASPIRIN 81 MG ECTAB PO SCH (07:56)
[2020-11-07] MEDS: ENOXAPARIN INJ 40 MG/0.4 ML SYR SQ SCH (08:03)
[2020-11-07] MEDS: ROSUVASTATIN CALCIUM 20 MG TAB PO SCH (08:03)
[2020-11-07] MEDS: DOCUSATE SODIUM/SENNA 50/8.6MG TAB PO SCH (08:16)
--- NOTE | 2020-11-07 08:21 | XRay Report ---
XR chest 1V portable HISTORY: Central venous line insertion. COMPARISON: Chest 11/06/2020. FINDINGS: Interval placement of right jugular central venous catheter which terminates at the jugular /SVC junction. Endotracheal tube terminates 5.9 cm from the allan. Nasogastric tube terminates below the diaphragm. The tip is not included on this study. No pneumothorax. No pleural effusions. Extensi ve multifocal bilateral airspace opacities persist. This is consistent with Covid pneumonia. The hear t remains borderline enlarged. IMPRESSION: 1. Satisfactory support line placement. 2. Extensive bilateral airspace opacities persist. ACT 112: Negative or not required by law. Electronically signed by: Catarino Muniz M.D. 11/07/2020 8:20 AM
[2020-11-07] MEDS ORDERED: INSULIN GLARGINE SOLOSTAR 100 UNITS/ML 3 ML PEN SC SCH ×2 (09:00→21:00)
[2020-11-07] MEDS ORDERED: VANCOMYCIN HCL 1,000 MG in SODIUM CHLORIDE 0.9% 250 ML IV ONE (09:00)
--- NOTE | 2020-11-07 09:13 | Pharmacy Report ---
Pharmacy Glycemic Short Note 2 - Date of Service November 07, 2020 - Glycemic Short BSG Results (Last 24 hours): 11/06/20 11/06/20 11/06/20 12:06 16:26 19:38 Glucose POC Glucose 216 H 187 H 173 H 11/07/20 11/07/20 11/07/20 01:25 04:07 04:11 Glucose 125 H POC Glucose 128 H 125 H 11/07/20 08:28 Glucose POC Glucose 101 H OUTPATIENT ANTIDIABETIC REGIMEN: * Metformin XR 500 mg PO BIDM * Jardiance 25 mg PO Daily * Trulicity 0.75 mg SC Weekly * Lantus 62 units SC BID * HbA1c = 10.2% (10/30/20) ASSESSMENT: 11/07 * Pt remains intubated, sedated, paralyzed. NPO. No steroids (completed course of DXM 11/03/20) * 11/06: BSGs [phone] * BSGs elevated secondary to basal insulin deficiency from 11/05. Pt received 40 units of basal on 11/04 and then only 15 units of basal on 11/05. Likely true basal needs ~ 30 units/day * Will change Lantus from scale based dosing to fixed BID dosing so that doses are not omitted when BSG is in range. * Continue NovoLog Q4hrs. No changes needed since pt is NPO. Will re-evaluate if enteral nutrition started in the next few days. 11/05: * BSGs reasonably well controlled over last 24 hrs * Patient's clinical status worsening today and current plans are for transfer to ICU with possible intubation * Fasting BSG 112 this AM w/ 40 units basal on board, would like to continue some basal insulin. AM dose was held per peoplesoft hcm developer. Will readdress once transfer to ICU complete. If steroid therapy resumed a dose of Lantus will be ordered prior to scheduled PM dose. * Current Novolog doses remain reasonable given increasing stressors today, but may need increased again is steroid therapy resumed. 11/04: * BSGs better controlled over last 24 hrs * Dexamethasone IV has d/c'd and pt currently has no orders to continue this medication today * Will dc NPH and convert back to BID Lantus dosing at reduced doses vs out-pt needs as he is receiving prandial insulin here whereas he does not as outpt * Novolog doses will be weaned back as well due to absence of steroid effect today 11/03: * Fasting BSGs remain at goal, however post-prandial hyperglycemia remains problematic despite yesterday's insulin adjustments * Fasting BSG 85 this AM with 35 units Lantus and 40 units NPH given in last 24 hrs. * 3 of 3 post-prandial BSGs elevated yesterday, most pronounced with dinner and HS checks. Will increase NPH dose as well as 10% increase in prandial Novolog doses. Will continue to give lesser doses of Novolog at HS to prevent excessive correction at bedtime given fasting AM BSG trend. * Today is the last day of scheduled dexamethasone IV in the AM. Will d/c NPH tomorrow AM as a result. 11/02: * BSGs trended up to the 300s yesterday afternoon. It was confirmed that patient had 2 packs of anna crackers prior to dinner BSG and it was suspected that snacking occurred prior to HS reading making these values difficult to interpret. * Fasting BSG increased somewhat to 90 mg/dL. Will further decrease lantus. * Patient continues to tolerate a diet and remains on dexamethasone (order to time out after tomorrow's dose) PLAN FOR INPATIENT GLYCEMIC CONTROL: * Hold outpatient oral diabetes medications * Basal insulin * Lantus 15 units SQ BID * Bolus insulin * NovoLog per scale q 4 hrs * Goal Range: Low 110 mg/dL - High 140 mg/dL * Correction Factor: 15 mg/dl/unit * Nutritional / Prandial insulin per carb ratio of 1 unit per 6 grams CHO consumed PLAN FOR DISCHARGE: * A1c = 10.2% on 10/30/20 * Outpatient regimen will need adjusted at [place] to achieve better glycemic control. This will all be dependent on patient prognosis.
[2020-11-07] MEDS ORDERED: SODIUM POLYSTYRENE SULFONATE 15G/60ML SUSP PO STA (09:17)
--- NOTE | 2020-11-07 09:20 | Critical Care Progress Note ---
Date of Service November 07, 2020 Assessment & Plan (1) Acute respiratory failure with hypoxia: (2) Pneumonia due to COVID-19 virus: (3) Cardiomyopathy: (4) Mitral regurgitation: (5) Acute systolic CHF (congestive heart failure): (6) Acute kidney injury: Plan: Impression: 55-year-old female with COVID-19 pneumonia and hypoxemic respiratory failure. Echocardiogram showed severe reduction in ejection fraction down to 25 to 30% with moderate mitral regurgitation and regional wall motion abnormalities. She has had an increase in her oxygen requirement and was transferred back to the ICU 11/05/2020. Intubated 11/06/2020 due to hypoxemic respiratory failure 24-hour events: Patient completed about 20 hours of proning and improved significantly. Her FiO2 and PEEP were weaned considerably. She was weaned off of inhaled epoprostenol overnight and flipped back to the supine position around midnight. She has tolerated it well. Her urine output is picking up. She remains sedated and paralyzed. Recommendations: 1. Neurological: Continue current sedation and neuromuscular blockade. We will continue BIS monitoring. 2. Cardiovascular: Acute CHF with reduction in ejection fraction and wall motion abnormalities. She also has mitral regurgitation. Her filling pressures are difficult to estimate. Volume status does not appear excessive on physical exam. Given her significant clinical improvement overnight, will hold off on right heart catheterization for now. Continue to use norepinephrine as needed 3. Pulmonary: Patient has been symptomatic with Covid since 10/18/2020 and test ed + 10/25/2020. She received remdesivir at an outside facility. The patient is outside the window to consider Tocilizumab. Acute hypoxemic respiratory failure. Current blood gas 7.2 1/53/80 with plateau pressure in the low 20s. Continue inverse ratio ventilation. She has had significant improvement over the last 24 hours and her pressures have been weaned significantly. Would continue dexamethasone to 20 mg a day for 5 days and then 10 mg a day for 5days for late-phase ARDS, started 11/06. Given her significant improvement we will keep her supine today and reprone her if we have issues maintaining oxygenation. Given her comorbid cardiac issues, do not think she is a candidate for ECMO and she is shown significant improvement over the last 24 hours. 4. GI: N.p.o. for now but may consider institution of trophic tube feeding depending on how she does. Continue Protonix 5. Renal: Serum creatinine significantly increased today. She is also mildly hyperkalemic. Will administer dose of Kayexalate and calcium and recheck labs later this afternoon. Nephrology consultation is pending. Her urine output has picked up over the last several hours so hopefully this is a transient issue. 6. ID: COVID-19 pneumonia: Day #2 meropenem and vancomycin. Respiratory cultures pending. Continue empiric antibiotics pending culture results. 7 Endocrine: Glycemic control per protocol. 8. Heme-onc: Mild anemia as well as leukocytosis. Could be due to demargination from dexamethasone versus infection. Continue to follow clinically. 9. Prophylaxis: Transition to subcu heparin given renal failure. She is taking a PPI as well. The patient is critically ill at this point time with significant possibility of clinical deterioration and loss of organ function or . A total of 50 minutes was spent in evaluation management stabilization of this patient including discussion with consultants, the admitting service, and multiple nursing staff as well as respiratory therapy. will be updated by phone. Patient is no compressions or shocks at this point in time. She has shown some improvement over the last 24 hours but remains critically ill. Please note the above document was generated using voice recognition software. It may contain grammatical, syntax or spelling errors.Any formal questions or concerns about the content, text or information contained within the body of this dictation should be directly addressed to the provider for clarification. Admission and Anticipated Discharge Date Admission Date: October 29, 2020 Subjective Intubated sedated and paralyzed Review of Systems Review of Systems: Unobtainable due to endotracheal tube Physical Exam Constitutional: WD/WN, vitals as above Neck: trachea midline, no thyromegaly Respiratory: + respiratory distress Auscultation: + crackles and + wheezes Cardiovascular: Rate/Rhythm: regular rate Heart Sounds: normal S1, normal S2 and + murmur Extremities: no edema Gastrointestinal (Abdomen): normal bowel sounds, soft, nontender, no hepatosplenomegaly Musculoskeletal: Extremities: extremities normal to inspection Skin: no rashes, warm and dry Lymphatic: no cervical lymphadenopathy Results & Data Results & Data ([facility]) Vital Signs (Past 12 Hours) Vital Signs Temp Pulse Resp BP Pulse Ox 11/07/20 09:01 37.1 C 110 H 103/63 94 11/07/20 08:31 37.2 C 106 H 100/58 L 97 11/07/20 08:01 37.2 C 105 H 99/59 L 96 11/07/20 07:50 106 H 32 H 96 11/07/20 07:31 37.2 C 105 H 94/55 L 97 11/07/20 07:01 37.2 C 105 H 93/53 L 98 11/07/20 06:45 104 H 32 H 122/50 L 11/07/20 06:13 105 H 32 H 117/48 L 100 11/07/20 06:01 37.2 C 107 H 97/54 L 100 11/07/20 05:43 111 H 32 H 121/51 L 99 11/07/20 05:31 37.1 C 109 H 96/56 L 99 11/07/20 05:01 37.0 C 113 H 100/60 98 11/07/20 04:40 114 H 32 H 122/52 L 98 11/07/20 04:31 36.9 C 115 H 110/65 98 11/07/20 04:05 120 H 32 H 141/67 H 98 11/07/20 04:01 36.9 C 122 H 139/74 97 11/07/20 03:46 120 H 44 H 136/64 99 11/07/20 03:31 36.9 C 119 H 109/69 100 11/07/20 03:01 36.9 C 118 H 101/68 99 11/07/20 02:31 36.8 C 117 H 104/65 99 11/07/20 02:26 115 H 32 H 113/60 99 11/07/20 02:01 36.7 C 113 H 95/66 L 96 11/07/20 01:33 110 H 32 H 106/56 L 95 11/07/20 01:31 36.6 C 109 H 93/62 L 89 L 11/07/20 01:01 36.6 C 109 H 94/59 L 98 11/07/20 00:31 36.6 C 110 H 100/64 96 11/07/20 00:15 115 H 32 H 123/64 97 11/07/20 00:01 36.7 C 113 H 125/65 92 11/07/20 00:00 109 H 11/06/20 23:31 36.6 C 113 H 121/69 95 11/06/20 23:22 111 H 32 H 100/54 L 93 11/06/20 23:01 36.5 C 110 H 123/67 93 11/06/20 22:35 111 H 32 H 102/53 L 93 11/06/20 22:31 36.3 C L 110 H 121/70 93 11/06/20 22:01 36.3 C L 105 H 115/62 91 11/06/20 21:31 36.2 C L 102 H 111/67 93 11/06/20 21:30 101 H 32 H 82/47 L 91 Critical Care Results & Data Vital Signs (Past 12 Hours) Vital Signs Temp Pulse Resp BP Pulse Ox 11/07/20 09:01 37.1 C 110 H 103/63 94 11/07/20 08:31 37.2 C 106 H 100/58 L 97 11/07/20 08:01 37.2 C 105 H 99/59 L 96 11/07/20 07:50 106 H 32 H 96 11/07/20 07:31 37.2 C 105 H 94/55 L 97 11/07/20 07:01 37.2 C 105 H 93/53 L 98 11/07/20 06:45 104 H 32 H 122/50 L 11/07/20 06:13 105 H 32 H 117/48 L 100 11/07/20 06:01 37.2 C 107 H 97/54 L 100 11/07/20 05:43 111 H 32 H 121/51 L 99 11/07/20 05:31 37.1 C 109 H 96/56 L 99 11/07/20 05:01 37.0 C 113 H 100/60 98 11/07/20 04:40 114 H 32 H 122/52 L 98 11/07/20 04:31 36.9 C 115 H 110/65 98 11/07/20 04:05 120 H 32 H 141/67 H 98 11/07/20 04:01 36.9 C 122 H 139/74 97 11/07/20 03:46 120 H 44 H 136/64 99 11/07/20 03:31 36.9 C 119 H 109/69 100 11/07/20 03:01 36.9 C 118 H 101/68 99 11/07/20 02:31 36.8 C 117 H 104/65 99 11/07/20 02:26 115 H 32 H 113/60 99 11/07/20 02:01 36.7 C 113 H 95/66 L 96 11/07/20 01:33 110 H 32 H 106/56 L 95 11/07/20 01:31 36.6 C 109 H 93/62 L 89 L 11/07/20 01:01 36.6 C 109 H 94/59 L 98 11/07/20 00:31 36.6 C 110 H 100/64 96 11/07/20 00:15 115 H 32 H 123/64 97 11/07/20 00:01 36.7 C 113 H 125/65 92 11/07/20 00:00 109 H 11/06/20 23:31 36.6 C 113 H 121/69 95 11/06/20 23:22 111 H 32 H 100/54 L 93 11/06/20 23:01 36.5 C 110 H 123/67 93 11/06/20 22:35 111 H 32 H 102/53 L 93 11/06/20 22:31 36.3 C L 110 H 121/70 93 11/06/20 22:01 36.3 C L 105 H 115/62 91 11/06/20 21:31 36.2 C L 102 H 111/67 93 11/06/20 21:30 101 H 32 H 82/47 L 91 Lab & Micro Results (Past 24 Hours) RBC 3.23 M/uL (4.2-5.4) L 11/07/20 WBC 16.56 K/uL (4.8-10.8) H 11/07/20 Hgb 9.3 g/dL (12.0-16.0) L 11/07/20 Hct 29.9 % (37-47) L 11/07/20 MCV 92.6 fL (80-100) 11/07/20 MCH 28.8 pg (25-34) 11/07/20 MCHC 31.1 g/dL (32-36) L 11/07/20 RDW Standard Deviation 47.7 fL (36.4-46.3) H 11/07/20 RDW Coefficient of Variation 14.0 % (11.5-14.5) 11/07/20 Plt Count 452 K/uL (130-400) H 11/07/20 MPV 9.5 fL (7.4-10.4) 11/07/20 Neutrophils (%) (Auto) 92.9 % 11/07/20 Lymphocytes (%) (Auto) 2.1 % 11/07/20 Monocytes # (Auto) 0.49 K/uL (0.11-0.59) 11/07/20 Eosinophils # (Auto) 0.26 K/uL (0-0.5) 11/07/20 Immature Granulocyte % (Auto) 0.4 % 11/07/20 Neutrophils # (Auto) 15.40 K/uL (1.4-6.5) H 11/07/20 Lymphocytes # (Auto) 0.35 K/uL (1.2-3.4) L 11/07/20 Monocytes # (Auto) 0.49 K/uL (0.11-0.59) 11/07/20 Eosinophils # (Auto) 0.26 K/uL (0-0.5) 11/07/20 Basophils # (Auto) 0.00 K/uL (0-0.2) 11/07/20 Immature Granulocyte # (Auto) 0.06 K/uL (0.00-0.02) H 11/07/20 Na 132 mmol/L (136-145) L 11/07/20 K 5.6 mmol/L (3.5-5.1) H 11/07/20 Cl 100 mmol/L (98-107) 11/07/20 CO2 21 mmol/L (21-32) 11/07/20 Anion Gap 11.0 (3-11) 11/07/20 BUN 61 mg/dl (7-18) H 11/07/20 Creatinine 2.50 mg/dl (0.6-1.2) H 11/07/20 Estimated GFR ( Amer) 24.4 ml/min 11/07/20 Estimated GFR (Non-Af Amer) 21.1 ml/min 11/07/20 BUN/Creatinine Ratio 24.3 (10-20) H 11/07/20 Glu 125 mg/dl (70-99) H 11/07/20 Ca 8.4 mg/dl (8.5-10.1) L 11/07/20 Phosphorus Level 9.2 mg/dl (2.5-4.9) H 11/07/20 Total Bilirubin 0.6 mg/dl (0.2-1) 11/07/20 AST 31 U/L (15-37) 11/07/20 ALT 32 U/L (12-78) 11/07/20 Alkaline Phosphatase 114 U/L (45-117) 11/07/20 TP 7.4 gm/dl (6.4-8.2) 11/07/20 Albumin 2.4 gm/dl (3.4-5.0) L 11/07/20 Globulin 5.0 gm/dl (2.5-4.0) H 11/07/20 Albumin/Globulin Ratio 0.5 (0.9-2) L 11/07/20 Mg 2.6 mg/dl (1.8-2.4) H 11/07/20 04:11 11/07/20 Calcium Level 8.4 mg/dl (8.5-10.1) L 11/07/20 04:11 11/07/20 Rustam Test NA 11/07/20 04:33 11/07/20 Microbiology 11/06/20 Unknown Gram Stain - Final Sputum,Vent Suction 11/05/20 23:44 Aerobic Blood Culture - Preliminary Blood No growth in Aerobic bottle after 24 hours. Anaerobic Blood Culture - Preliminary No growth in Anaerobic bottle after 24 hours. 11/05/20 23:44 Aerobic Blood Culture - Preliminary Blood No growth in Aerobic bottle after 24 hours. Anaerobic Blood Culture - Preliminary No growth in Anaerobic bottle after 24 hours. Diagnostic Findings (Past 24 Hours) Chest X-Ray 11/06/20 02:50 XR chest 1V portable HISTORY: Shortness of breath. intubation COMPARISON: Chest 11/04/2020. FINDINGS: Interval progression of the multifocal bilateral airspace opacities consistent with Covid pneumonia. No pneumothorax. No pleural effusion is. The heart is mildly enlarged. A nasogastric tube terminates below the diaphragm. The tip is not included on this study. Endotracheal tube appears to be located at the right mainstem bronchus. IMPRESSION: 1. Endotracheal tube located at the right mainstem bronchus. This should be pulled back by 3 cm. 2. Progressive multifocal airspace opacities consistent with Covid pneumonia. ACT 112: Negative or not required by law. Electronically signed by: Catarino Muniz M.D. 11/06/2020 10:19 AM Chest X-Ray 11/06/20 07:00 XR chest 1V portable HISTORY: REPOSITION TUBE COMPARISON: Chest 11/06/2020. FINDINGS: The endotracheal tube terminates 3.8 cm and the allan. Nasogastric tube terminates below the diaphragm. The tip is not included on this study. Extensive multifocal bilateral airspace opacities consistent with Covid pneumonia are again noted. There are low lung volumes. No pleural fusions. No pneumothorax. The heart remains mildly enlarged. IMPRESSION: 1. Satisfactory support line placement. 2. Extensive bilateral airspace opacities consistent with Covid pneumonia. ACT 112: Negative or not required by law. Electronically signed by: Catarino Muniz M.D. 11/06/2020 10:20 AM Chest X-Ray 11/07/20 00:56 XR chest 1V portable HISTORY: Central venous line insertion. COMPARISON: Chest 11/06/2020. FINDINGS: Interval placement of right jugular central venous catheter which terminates at the jugular/SVC junction. Endotracheal tube terminates 5.9 cm from the allan. Nasogastric tube terminates below the diaphragm. The tip is not included on this study. No pneumothorax. No pleural effusions. Extensive multifocal bilateral airspace opacities persist. This is consistent with Covid pneumonia. The heart remains borderline enlarged. IMPRESSION: 1. Satisfactory support line placement. 2. Extensive bilateral airspace opacities persist. ACT 112: Negative or not required by law. Electronically signed by: Catarino Muniz M.D. 11/07/2020 8:20 AM I & O Totals 24 Hours 11/06/20 11/07/20 11/08/20 06:59 06:59 06:59 Intake Total 619.880 / 314.333 8267.051 / 1942.051 134.752 / 134.752 Output Total 1657 / 1657 1325 / 1325 Balance -1037.120 / -1037.120 617.051 / 617.051 134.752 / 134.752 Cumulative 10/29/20 thru 11/07/20 09:00 Intake Total 8327.371 Output Total 17733 Balance -7334.629 RT Ventilator Mngmt (Last Documented) Ventilator Ordered Settings Ventilator Support Mode Assist Control 11/07/20 07:50 Respiratory Rate 32 11/07/20 07:50 Ventilator Tidal Volume 300 11/07/20 07:50 Setting Minute Ventilation 9.8 11/07/20 07:50 Positive End Expiratory 14 11/07/20 07:50 Pressure Fraction of Inspired Oxygen 0.5 11/07/20 08:01 Machine Comment weaned to +12 11/07/20 07:50 Ventilator - PT Measurements Respiratory Rate 32 Exhaled Tidal Volume 300 Minute Ventilation 9.8 Peak Inspiratory Airway 28 Pressure Mean Airway Pressure 22 Plateau Pressure 27 Respiratory Cycle Inspiratory: 1.4:1 Expiratory Ratio Inspiratory Phase Time 1.1 End-Tidal CO2 35 Static Lung Compliance 23.08 Dynamic Lung Compliance 21.43 Normal Static Lung Compliance 46.00 Patient Measurements Comment Flolan off at 0630 Coding Level of Care Code Critical Care 1st 30-74 mins Diagnoses Acute respiratory failure with hypoxia J96.01 Pneumonia due to COVID-19 virus U07.1; J12.82 Cardiomyopathy I42.9 Mitral regurgitation I34.0 Acute systolic CHF (congestive heart failure) I50.21 Acute kidney injury N17.9
[2020-11-07] MEDS ORDERED: CALCIUM CHLORIDE 10% 1,000 MG in SODIUM CHLORIDE 0.9% 50 ML IV STA (09:21)
--- NOTE | 2020-11-07 09:33 | Electrocardiogram Report ---
Test Reason : Blood Pressure : / mmHG Vent. Rate : 105 BPM Atrial Rate : 105 BPM P-R Int : 176 ms QRS Dur : 112 ms QT Int : 368 ms P-R-T Axes : 063 064 026 degrees QTc Int : 486 ms Sinus tachycardia Incomplete left bundle block Borderline ECG When compared with ECG of 30-OCT-2020 09:31, Incomplete left bundle block is now Present Confirmed by Jimmie Madison ([id number]) on 11/07/2020 9:32:58 AM Referred By: Ruth Perez Confirmed By:Jimmie Madison
--- NOTE | 2020-11-07 11:32 | Nephrology Consultation ---
Date of Consultation November 07, 2020 Assessment & Plan (1) Acute kidney injury: (2) Hyperkalemia: (3) Cardiomyopathy: (4) Acute respiratory failure with hypoxia: (5) Pneumonia due to COVID-19 virus: 55-year-old female with no history of chronic kidney disease, past medical history significant for hypertension, poorly-controlled diabetes, coronary artery disease admitted with respiratory failure secondary to breakthrough COVID pneumonia after 2 doses of Moderna vaccine in July. Developed OMAR with creatinine worsening over last 2-3 days to 2.5 with electrolyte abnormality and oliguria. AK most likely hemodynamically mediated. However, as blood pressure improved, off of pressor and respiratory status improved, overnight urine output improved to more than 1 liter. Received a dose of Kayexalate, risk repeat potassium currently pending. -- repeat renal panel and electrolyte in 2 hours, hopefully urine output will continue to improve and hyperkalemia will resolve. Continue to monitor urine output and electrolytes closely. 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 -- continue hemodynamic support to keep MAP above 65 --dose medications for GFR less than 30 will follow Thank you for allowing me to participate in your patient's care. History of Present Illness Reason for Consultation: Acute kidney injury Requesting Physician: Fidencio Smith MD Attending Physician: Fidencio Smith MD History of Present Illness Vandana Parekh is a 55-year-old female with past medical history significant for hypertension diabetes coronary artery disease, cardiomyopathy admitted to the hospital with respiratory failure secondary to COVID pneumonia. Nephrology consult requested for management of OMAR and hyperkalemia. EMR records were reviewed in detail during patient's visit. Ms. vázquez started noticing shortness of breath around 10/12/2020. As her sym ptoms progressively worsened she had COVID test done on 10/25/2020 which came positive. She did receive 2 doses of Moderna vaccine completed in July. Initially she was admitted to [facility] in [place] however transferred to [facility] on 10/29/20. She received Remdesivir, currently on dexamethasone. As she was intubated on 11/06/2020 for worsening respiratory status. 2D echo yesterday showed EF 25-30 percent. On admission creatinine was 1.2 with no history of CKD, creatinine worsened over last 2-3 days to 2.5 this morning. Urinalysis with low grade proteinuria and hematuria. No renal imaging done. Vancomycin trough level was 21. Last 2 days she was oliguric however over night urine output improved and she made around 1.3 liters of urine. Her respiratory status also improved, currently on FiO2 55 percent. Has been off of pressor. Potassium has been running high at 5.5 to 5.6. Received a dose of Kayexalate. Past medical history significant for poorly controlled diabetes, hypertension, history of coronary artery disease status post PTCA and stent, recent EF dropped to 25-30 percent. Remained intubated and on paralytic. Allergies Allergy/AdvReac Type Severity Reaction Status Date / Time latex Allergy Rash Verified 10/29/20 18:35 oxycodone [From Percocet] Allergy Hives Verified 10/29/20 18:36 Home Medications Medication Instructions Recorded Confirmed Type empagliflozin 25 mg tablet 25 mg PO DAILY 10/30/20 10/30/20 History (Jardiance) esomeprazole magnesium 20 mg 20 mg PO DAILY 10/30/20 10/30/20 History capsule,delayed release gabapentin 300 mg capsule 300 mg PO HS 10/30/20 10/30/20 History hydrochlorothiazide 25 mg tablet 25 mg PO DAILY 10/30/20 10/30/20 History insulin glargine 100 unit/mL (3 62 unit SUBCUT BID 10/30/20 10/30/20 History mL) subcutaneous pen (Lantus Solostar U-100 Insulin) metformin 500 mg tablet,extended 500 mg PO BID 10/30/20 10/30/20 History release 24 hr metoprolol succinate 25 mg 25 mg PO BID 10/30/20 10/30/20 History tablet,extended release 24 hr rosuvastatin 20 mg tablet 20 mg PO DAILY 10/30/20 10/30/20 History Patient History Medical History CAD (coronary artery disease) COVID-19 Hyperlipidemia Hypertension Obesity Pneumonia Tobacco dependence Surgical History History of coronary artery stent placement x 1 - 2016; [place] S/P cholecystectomy open Family History Father Myocardial infarction Mother Diabetes ESRD (end stage renal disease) on dialysis Social History (Updated 10/30/20 @ 00:57 by Jordy De La O) Smoking Status: Former smoker Age Started Using Tobacco: 17; Age Quit Using Tobacco: 55; packs per day: 1; Cigarettes Per Day: 20; Smoking End Date: September 2020; Second Hand Exposure: Yes; Do You Dip or Chew Tobacco: No; Hx Alcohol Use: No Hx Substance Use: No Preferred Language: Citizen Of [place] Communication Ability: Effective Director Of Graduate Admissions Required: No Beliefs That Will Affect Care: None marital status: Current Living Situation: Spouse Current Living Situation Comment: Arabella LAKHANI How many Children do You have: 3 Other Information That Helps Us Care for You: No other: grew up in [place]; then lived in [place]; then moved to [place] Feels Safe at Home: Yes Safety Concerns: Feels Safe At This Time Assistive Devices: Oxygen - Continuous Review of Systems Review of Systems: review of system was not possible at as patient remained intubated and sedated. Physical Exam Constitutional: WD/WN, vitals as above + ill appearing and + mechanically ventilated; no acute distress Eyes: PERRL, conjunctivae normal, anicteric sclerae ENMT: external ear and nose normal, oropharynx normal Ears: no hearing impairment Neck: trachea midline Respiratory: Auscultation: + diminished lung sounds and + crackles; no wheezes Cardiovascular: Rate/Rhythm: regular rate and regular rhythm Heart Sounds: normal S1 and normal S2 Extremities: + edema Gastrointestinal (Abdomen): Percussion/Palpation: abdomen soft; abdomen not rigid Musculoskeletal: Extremities: extremities normal to inspection Skin: no rashes, warm and dry Neurologic: Detailed neuro exam was not done as patient is intubated and jaki Results & Data ([facility]) Vital Signs (Past 12 Hours) Vital Signs Temp Pulse Resp BP Pulse Ox 11/07/20 09:01 37.1 C 110 H 103/63 94 11/07/20 08:31 37.2 C 106 H 100/58 L 97 11/07/20 08:01 37.2 C 105 H 99/59 L 96 11/07/20 07:50 106 H 32 H 96 11/07/20 07:31 37.2 C 105 H 94/55 L 97 11/07/20 07:01 37.2 C 105 H 93/53 L 98 11/07/20 06:45 104 H 32 H 122/50 L 11/07/20 06:13 105 H 32 H 117/48 L 100 11/07/20 06:01 37.2 C 107 H 97/54 L 100 11/07/20 05:43 111 H 32 H 121/51 L 99 11/07/20 05:31 37.1 C 109 H 96/56 L 99 11/07/20 05:01 37.0 C 113 H 100/60 98 11/07/20 04:40 114 H 32 H 122/52 L 98 11/07/20 04:31 36.9 C 115 H 110/65 98 11/07/20 04:05 120 H 32 H 141/67 H 98 11/07/20 04:01 36.9 C 122 H 139/74 97 11/07/20 03:46 120 H 44 H 136/64 99 11/07/20 03:31 36.9 C 119 H 109/69 100 11/07/20 03:01 36.9 C 118 H 101/68 99 11/07/20 02:31 36.8 C 117 H 104/65 99 11/07/20 02:26 115 H 32 H 113/60 99 11/07/20 02:01 36.7 C 113 H 95/66 L 96 11/07/20 01:33 110 H 32 H 106/56 L 95 11/07/20 01:31 36.6 C 109 H 93/62 L 89 L 11/07/20 01:01 36.6 C 109 H 94/59 L 98 11/07/20 00:31 36.6 C 110 H 100/64 96 11/07/20 00:15 115 H 32 H 123/64 97 11/07/20 00:01 36.7 C 113 H 125/65 92 11/07/20 00:00 109 H 11/06/20 23:31 36.6 C 113 H 121/69 95 11/06/20 23:22 111 H 32 H 100/54 L 93 PG Care Time/CCT Total # of Minutes Spent Total Time Spent with Patient: Total time spent is greater than 50% in coordination of care (as documented) at patient's floor/unit and/or counseling patient: Coding Level of Care Code 38554 Inpt Consult Level 5 Diagnoses Acute kidney injury N17.9 Hyperkalemia E87.5 Cardiomyopathy I42.9 Acute respiratory failure with hypoxia J96.01 Pneumonia due to COVID-19 virus U07.1; J12.82
[2020-11-07 12:23] LABS: BUN Creatinine Ratio 28.7 (10-20); Calcium 9.3 mg/dl (8.5-10.1); Creatinine Clr Calc Pharmacy 35.5 ml/min; Est GFR (African American) 30.3 ml/min; Est GFR (Non-African American) 26.2 ml/min; Potassium 4.5 mmol/L (3.5-5.1)
--- NOTE | 2020-11-07 13:06 | Pharmacy Report ---
Pharmacy Abx Dose Short Note - Date of Service November 07, 2020 - Assessment & Plan Assessment 55 year old F admitted 10/29 with COVID-19 pneumonia and hypoxemic respiratory failure. Transferred to the ICU on 11/05 and is now s/p intubation. * Started on vancomycin and meropenem. MRSA nasal swab is negative. Sputum culture pending. Patient remains critically ill and therefore vancomycin will be continued. Will continue to dose per level due to OMAR in the setting of CKD. * Pulmonology notes significant improvement overnight * Day # 2 of antimicrobial therapy Plan Vancomycin IV * Random level = 21.4 mcg/mL this AM @ 0411 * Vancomycin re-dosed at 1000 mg IV x 1 dose * Based on current renal function, I anticipate patient will need re-dosed tomorrow AM around 0800. However, in the setting of OMAR, I will obtain a random level with AM labs to determine further dosing * Goal trough level for pneumonia: 15 to 20 mcg/mL, Goal AUC = 400 - 600 Meropenem IV * Target dose = 500mg IV q6h for pulmonary source * Will dose 500mg IV q8h for CrCL 25-49mL/min and adjust appropriately Pharmacy will continue to follow and will adjust dose/frequency as necessary. Thank you.
--- NOTE | 2020-11-07 18:55 | Hospitalist Progress Note ---
Date of Service November 07, 2020 Assessment & Plan (1) Pneumonia due to COVID-19 virus: Plan: Acute hypoxemic respiratory failure 2/2 Covid pneumonia Patient is a "breakthrough case "following vaccination with Moderna in July Initiated on remdesivir 11/07 at [facility] and steroids 10/25 as outpatient - Completed 5-day course of remdesivir Completed 10-day course of steroids Completed 5-day course of azithromycin prior to admission Patient was out of the window for Tocilizumab Patient intubated evening of for worsening respiratory failure on maximal bilevel settings. Vent management and acute care managed by cartridge maker team while critically ill, appreciate recommendations and management. Continue vancomycin/meropenem (2) Acute respiratory failure with hypoxia: Plan: 2/2 Covid pneumonia managed as noted (3) Acute systolic CHF (congestive heart failure): Plan: Acute CHFrEF TTE shows EF 25-30% with wall motion abnormalities suggestive of ischemic cardiomyopathy History of prior [place] in 2016, troponins normal during admission Management per ICU Appreciate cardiology recommendations If patient were to survive her current critical illness she would require ischemic eval/cath pending once recovered from COVID and off high oxygen requirements, however prognosis is guarded at this time. (4) Diabetes mellitus type 2, uncontrolled: Plan: -A1c 10.2%. -ICU hyperglycemia protocol (5) Abnormal LFTs: Plan: -Due to Covid and critical illness (6) CAD (coronary artery disease): Plan: -s/p [place] 2016. -She was not taking aspirin at admission; thus asa 81mg daily added. Metoprolol and statin held while critically ill (7) Obesity: Plan: BMI 36 (8) Hypertension: Plan: -Cont to hold HCTZ. -Cont to hold CELINE -Cont to hold 25 BID. (9) Hyperlipidemia: Plan: -crestor (10) Tobacco dependence: Plan: -Nicoderm patch 21mg held while critically ill (11) Hypomagnesemia: Plan: -ICU electrolyte protocol (12) Acute kidney injury: Plan: -Cr 1.9 on 10/27 in [place]. -2nd to COVID, severely uncontrolled DM, etc. -Recently improving, increased to 1.51 in the setting of critical illness (13) Hyperkalemia: Plan: mildly elevated, poor dialysis candidate. Management by ICU team, currently on Kayexalate with nephro consulted and repeat BMP is ordered. (14) DVT prophylaxis: Plan: -lovenox 40 BID (15) Anxiety: Plan: -severe. - buspar held while critically ill and sedated Plan: Patient's daughter Mayra, who lives in [place] . Patient remains critically ill, intubated, sedated, and paralyzed. Urine output increasing, continues to require pressor support. Admission and Anticipated Discharge Date Admission Date: October 29, 2020 Subjective Patient with ETT tube in place, paralyzed and sedated Review of Systems Review of Systems: Obtainable due to ETT tube and sedation Physical Exam Physical Exam: Physical exam deferred to minimize COVID-19 transmission risk. Results & Data Results & Data ([facility]) Vital Signs (Past 12 Hours) Vital Signs Temp Pulse Resp BP Pulse Ox 11/07/20 06:13 105 H 32 H 117/48 L 100 11/07/20 06:01 37.2 C 107 H 97/54 L 100 11/07/20 05:43 111 H 32 H 121/51 L 99 11/07/20 05:31 37.1 C 109 H 96/56 L 99 11/07/20 05:01 37.0 C 113 H 100/60 98 11/07/20 04:40 114 H 32 H 122/52 L 98 11/07/20 04:31 36.9 C 115 H 110/65 98 11/07/20 04:05 120 H 32 H 141/67 H 98 11/07/20 04:01 36.9 C 122 H 139/74 97 11/07/20 03:46 120 H 44 H 136/64 99 11/07/20 03:31 36.9 C 119 H 109/69 100 11/07/20 03:01 36.9 C 118 H 101/68 99 11/07/20 02:31 36.8 C 117 H 104/65 99 11/07/20 02:26 115 H 32 H 113/60 99 11/07/20 02:01 36.7 C 113 H 95/66 L 96 11/07/20 01:33 110 H 32 H 106/56 L 95 11/07/20 01:31 36.6 C 109 H 93/62 L 89 L 11/07/20 01:01 36.6 C 109 H 94/59 L 98 11/07/20 00:31 36.6 C 110 H 100/64 96 11/07/20 00:15 115 H 32 H 123/64 97 11/07/20 00:01 36.7 C 113 H 125/65 92 11/07/20 00:00 109 H 11/06/20 23:31 36.6 C 113 H 121/69 95 11/06/20 23:22 111 H 32 H 100/54 L 93 11/06/20 23:01 36.5 C 110 H 123/67 93 11/06/20 22:35 111 H 32 H 102/53 L 93 11/06/20 22:31 36.3 C L 110 H 121/70 93 11/06/20 22:01 36.3 C L 105 H 115/62 91 11/06/20 21:31 36.2 C L 102 H 111/67 93 11/06/20 21:30 101 H 32 H 82/47 L 91 11/06/20 21:01 36.0 C L 112 H 154/78 H 92 11/06/20 20:33 103 H 32 H 107/56 L 94 11/06/20 20:31 35.8 C L 103 H 126/71 94 11/06/20 20:01 35.7 C L 101 H 123/74 94 11/06/20 19:40 99 H 32 H 99/53 L 94 11/06/20 19:31 35.6 C L 97 H 116/67 93 11/06/20 19:01 35.5 C L 94 H 109/62 92 PG Care Time/CCT Total # of Minutes Spent Total Time Spent with Patient: Total time spent is greater than 50% in coordination of care (as documented) at patient's floor/unit and/or counseling patient: Coding Level of Care Code 22172 Subseq Hosp Care Lvl 1 Diagnoses Pneumonia due to COVID-19 virus U07.1; J12.82 Acute respiratory failure with hypoxia J96.01 Acute systolic CHF (congestive heart failure) I50.21 Diabetes mellitus type 2, uncontrolled E11.65 Abnormal LFTs R94.5 CAD (coronary artery disease) I25.10 Obesity E66.9 Hypertension I10 Hyperlipidemia E78.5 Tobacco dependence F17.200 Hypomagnesemia E83.42 Acute kidney injury N17.9 Hyperkalemia E87.5 DVT prophylaxis Z29.9 Anxiety F41.9
[2020-11-07] MEDS ORDERED: dexAMETHasone 20 MG in SYRINGE 0 ML IV ONE (19:32)
[2020-11-07] MEDS ORDERED: SURGICEL FIBRILLAR HEMOSTAT 1 X 2IN TOP ONE (19:37)
[2020-11-07] MEDS ORDERED: dexAMETHasone 20 MG in DEXTROSE 5% 25 ML IV ONE (19:45)
[2020-11-07 20:39] LABS: BUN Creatinine Ratio 34.2 (10-20); Calcium 8.8 mg/dl (8.5-10.1); Creatinine Clr Calc Pharmacy 42.2 ml/min; Est GFR (African American) 37.3 ml/min; Est GFR (Non-African American) 32.2 ml/min; Potassium 4.5 mmol/L (3.5-5.1)
[2020-11-07] MEDS ORDERED: INSULIN GLARGINE SOLOSTAR 100 UNITS/ML 3 ML PEN SC ONE ×2 (21:00)
[2020-11-07] MEDS: LORazepam 0.5 MG TAB PO SCH (21:02)
[2020-11-08] MEDS: INSULIN ASPART 100 UNITS/ML 3 ML PEN SC SCH ×6 (00:11→20:20)
[2020-11-08] MEDS: CISATRACURIUM BESYLATE 40 MG in 0.9 % SODIUM CHLORIDE 80 ML IV SCH ×7 (02:07→22:16)
[2020-11-08] MEDS: propofoL 1,000 MG/100 ML VIAL IV SCH ×9 (03:19→22:08)
[2020-11-08] MEDS: fentaNYL DRIP 1,250 MCG/250 ML BAG IV SCH ×4 (03:58→21:40)
[2020-11-08] MEDS: MEROPENEM 500 MG in SYRINGE 0 ML IV SCH ×3 (04:53→20:06)
[2020-11-08] MEDS: ARTIFICIAL TEARS OP OINT 3.5 GM TUBE OP SCH ×6 (04:55→23:52)
[2020-11-08 05:05] LABS: Hematocrit (blood only) 23.7 % (37-47); Hemoglobin 7.6 g/dL (12.0-16.0); Mean Corpuscular Hemoglobin 29.1 pg (25-34); Mean Corpuscular Hgb Conc 32.1 g/dL (32-36); Mean Corpuscular Volume 90.8 fL (80-100); Mean Platelet Volume 9.5 fL (7.4-10.4); Platelet Count 373 K/uL (130-400); RDW Coefficient of Variation 14.1 % (11.5-14.5); Red Blood Count 2.61 M/uL (4.2-5.4); White Blood Count 4.84 K/uL (4.8-10.8)
[2020-11-08 05:14] LABS: iSTAT Allen Test Pass; iSTAT Art Bld Gas pCO2 Correct 39 mmHg (35-46); iSTAT Art Bld Gas pH Corrected 7.357 (7.35-7.45); iSTAT Arterial Blood Gas HCO3 22 meg/L (19-24); iSTAT Arterial Blood Gas pCO2 41 mmHg (35-46); iSTAT Arterial Blood Gas pH 7.34 (7.35-7.45); iSTAT Arterial Blood Gas pO2 60 mmHg (80-95); iSTAT Arterial Blood Gas pO2 C 54; iSTAT Carbon Dioxide 23 mmol/L (24-31); iSTAT FiO2 50 %; iSTAT Hematocrit 23 % (37-47); iSTAT Hemoglobin 7.8 g/dl (12.0-16.0); iSTAT Potassium 4.8 mmol/L (3.3-5.0); iSTAT Site Art Line; iSTAT Sodium 137 mmol/L (135-144)
[2020-11-08 05:19] LABS: Eosinophils # (auto) 0.03 K/uL (0-0.5); Eosinophils % (auto) 0.6 %; Immature Granulocytes # (auto) 0.01 K/uL (0.00-0.02); Immature Granulocytes % (auto) 0.2 %; Lymphocytes # (auto) 0.28 K/uL (1.2-3.4); Lymphocytes % (auto) 5.8 %; Monocytes # (auto) 0.08 K/uL (0.11-0.59); Monocytes % (auto) 1.7 %; Neutrophils # (auto) 4.44 K/uL (1.4-6.5); Neutrophils % (auto) 91.7 %; RBC Morphology Unremarkable
[2020-11-08 05:32] LABS: Albumin Level 1.8 gm/dl (3.4-5.0); BUN Creatinine Ratio 40.6 (10-20); Calcium 8.7 mg/dl (8.5-10.1); Creatinine Clr Calc Pharmacy 47.7 ml/min; Est GFR (African American) 43.9 ml/min; Est GFR (Non-African American) 37.9 ml/min; Magnesium 3.1 mg/dl (1.8-2.4); Potassium 4.8 mmol/L (3.5-5.1)
[2020-11-08 05:40] LABS: Albumin Globulin Ratio 0.4 (0.9-2); Bilirubin,Total 0.4 mg/dl (0.2-1); Globulin 4.8 gm/dl (2.5-4.0); Phosphorus 6.4 mg/dl (2.5-4.9); Total Protein 6.6 gm/dl (6.4-8.2)
--- NOTE | 2020-11-08 07:30 | XRay Report ---
XR chest 1V portable HISTORY: 55 years-old Female resp failure acute respiratory failure COMPARISON: Chest radiograph 11/07/2020 TECHNIQUE: Portable AP view of the chest FINDINGS: Endotracheal tube terminates 3.9 cm superior to the allan. Right IJ central venous catheter is noted in the expected location of the proximal SVC. Enteric tube courses below the diaphragm outside the f [id number]. Telemetry leads are coiled over the chest. There is no pneumothorax. Possible trace ple ural effusions. Extensive bilateral airspace opacities appear stable. IMPRESSION: 1. Lines and tubes as above. No pneumothorax. 2. Stable extensive bilateral airspace opacities. ACT 112: Negative or not required by law. The above report was generated using voice recognition software. It may contain grammatical, syntax o r spelling errors. Electronically signed by: Riccardo Dominguez M.D. 11/08/2020 7:28 AM
[2020-11-08] MEDS: dexAMETHasone 20 MG in DEXTROSE 5% 25 ML IV SCH (08:08)
[2020-11-08] MEDS: NICOTINE 21 MG/24 HR TDSY TD SCH (08:08)
[2020-11-08] MEDS: PANTOprazole 40 MG TAB PO SCH (08:09)
[2020-11-08] MEDS: ROSUVASTATIN CALCIUM 20 MG TAB PO SCH (08:09)
[2020-11-08] MEDS: DOCUSATE SODIUM/SENNA 50/8.6MG TAB PO SCH (08:11)
[2020-11-08] MEDS ORDERED: INSULIN GLARGINE SOLOSTAR 100 UNITS/ML 3 ML PEN SC ONE ×2 (08:45→21:00)
[2020-11-08] MEDS ORDERED: PANTOprazole 40 MG TAB PO SCH (09:00)
[2020-11-08] MEDS ORDERED: INSULIN GLARGINE SOLOSTAR 100 UNITS/ML 3 ML PEN SC SCH (09:00)
[2020-11-08] MEDS ORDERED: dexAMETHasone 20 MG in SYRINGE 0 ML IV SCH (09:00)
[2020-11-08 10:15] LABS: Fibrinogen > 860 mg/dl (184-400); Partial Thromboplastin Time 25.3 Seconds (21.0-31.0); Prothrombin Time 9.8 Seconds (9.0-12.0)
[2020-11-08] MEDS ORDERED: POLYETHYLENE (MIRALAX) 17 GM PACK PO ONE (10:30)
[2020-11-08] MEDS ORDERED: DOCUSATE SODIUM/SENNA 50/8.6MG TAB PO ONE (10:30)
--- NOTE | 2020-11-08 10:37 | Critical Care Progress Note ---
Date of Service November 08, 2020 Assessment & Plan (1) Acute respiratory failure with hypoxia: (2) Pneumonia due to COVID-19 virus: (3) Cardiomyopathy: (4) Mitral regurgitation: (5) Acute systolic CHF (congestive heart failure): (6) Acute kidney injury: Plan: Impression: 55-year-old female with COVID-19 pneumonia and hypoxemic respiratory failure. Echocardiogram showed severe reduction in ejection fraction down to 25 to 30% with moderate mitral regurgitation and regional wall motion abnormalities. She has had an increase in her oxygen requirement and was transferred back to the ICU 11/05/2020. Intubated 11/06/2020 due to hypoxemic respiratory failure Recommendations: 1. Neurological: We will wean off Nimbex drip. Continue propofol fentanyl. Check triglyceride level. 2. Cardiovascular: Acute CHF with reduction in ejection fraction and wall motion abnormalities. She also has mitral regurgitation. Her filling pressures are difficult to estimate. Volume status does not appear excessive on physical exam. Off of vasopressors. Unclear etiology of cardiomyopathy. Likely stress- induced from viral pneumonia and sepsis. 3. Pulmonary: Patient has been symptomatic with Covid since 10/18/2020 and tested + 10/25/2020. She received remdesivir at an outside facility. The patient is outside the window to consider Tocilizumab. Acute hypoxemic respiratory failure. Would continue dexamethasone to 20 mg a day for 5 days and then 10 mg a day for 5 days for late-phase ARDS, started 11/06. Continue to wean vent support as able. 4. GI: Advance tube feeds. Continue Protonix 40 mg twice daily. 5. Renal: Serum creatinine is improving today to 1.54. We will give a dose of 0.5 mg of Bumex. 6. ID: COVID-19 pneumonia: Cultures negative thus far. MRSA screen was negative. Vancomycin discontinued. Continue meropenem. 7 Endocrine: Glycemic control per protocol. 8. Heme-onc: Anemia is worsening. We will continue to monitor for signs of bleeding. Check coag studies. Hold DVT prophylaxis today. 9. Prophylaxis: SCDs. Holding chemical DVT prophylaxis CRITICAL CARE TIME - I have personally spent 35 minutes of critical care time in the direct management of this patient. This is a life/limb threatening event. This includes time spent evaluating patient, direct bedside care, chart review, placing orders, interpretation of diagnostic studies, discussion with consultants, patient, and family members, as well as other required patient management activities. This time is exclusive of all separately billable procedures, and teaching time and separate from and in addition to any other critical care service time. Admission and Anticipated Discharge Date Admission Date: October 29, 2020 Subjective Patient is currently intubated and sedated. Unable to obtain review of systems. No acute events overnight. Currently on Nimbex which we are weaning off. Review of Systems Review of Systems: Unobtainable due to patient's mental status and intubation status Physical Exam Constitutional: WD/WN, vitals as above Neck: trachea midline, no thyromegaly Respiratory: + respiratory distress Auscultation: + crackles and + wheezes Cardiovascular: Rate/Rhythm: regular rate Heart Sounds: normal S1, normal S2 and + murmur Extremities: no edema Gastrointestinal (Abdomen): normal bowel sounds, soft, nontender, no hepatosplenomegaly Musculoskeletal: Extremities: extremities normal to inspection Skin: no rashes, warm and dry Lymphatic: no cervical lymphadenopathy Results & Data Results & Data ([facility]) Vital Signs (Past 12 Hours) Vital Signs Temp Pulse Resp BP Pulse Ox 11/08/20 10:01 98.8 F 84 105/56 L 94 11/08/20 09:01 98.2 F 85 108/56 L 93 11/08/20 08:31 98.1 F 87 116/62 92 11/08/20 08:02 83 32 H 92 11/08/20 08:01 97.9 F 95 H 123/71 94 11/08/20 07:31 97.5 F L 83 106/57 L 93 11/08/20 07:01 97.2 F L 83 111/61 94 11/08/20 06:31 97.0 F L 79 108/58 L 94 11/08/20 06:01 96.6 F L 78 100/57 L 93 11/08/20 05:31 96.4 F L 78 103/59 L 94 11/08/20 05:00 96.1 F L 79 92 11/08/20 04:30 95.9 F L 81 88 L 11/08/20 04:02 95.7 F L 86 89 L 11/08/20 03:40 97 11/08/20 03:31 96.1 F L 90 112/67 96 11/08/20 03:20 84 32 H 95 11/08/20 03:01 96.3 F L 89 109/63 96 11/08/20 02:31 96.4 F L 86 106/62 95 11/08/20 02:01 96.6 F L 96 H 112/68 96 11/08/20 01:31 96.6 F L 92 H 108/62 96 11/08/20 01:01 97.0 F L 93 H 106/63 96 11/08/20 00:31 97.2 F L 96 H 108/67 96 11/08/20 00:01 97.2 F L 96 H 106/66 96 11/08/20 00:00 96 H 11/07/20 23:31 97.3 F L 100 H 110/68 96 11/07/20 23:06 102 H 32 H 94 11/07/20 23:01 97.5 F L 104 H 114/73 98 Vital signs, labs and imaging personally reviewed Coding Level of Care Code Critical Care 1st 30-74 mins Diagnoses Acute respiratory failure with hypoxia J96.01 Pneumonia due to COVID-19 virus U07.1; J12.82 Cardiomyopathy I42.9 Mitral regurgitation I34.0 Acute systolic CHF (congestive heart failure) I50.21 Acute kidney injury N17.9 Time Spent (min) 35
[2020-11-08] MEDS ORDERED: BUMETANIDE 0.5 MG in SYRINGE 0 ML IV ONE (11:00)
[2020-11-08] MEDS ORDERED: HYDROmorphone INJ 1 MG/ML SYRINGE IV STA (11:33)
[2020-11-08] MEDS ORDERED: HYDROmorphone INJ 1 MG/ML SYRINGE ONE (11:34)
[2020-11-08] MEDS: PANTOprazole 40 MG in SYRINGE 0 ML IV SCH ×2 (11:37→20:06)
[2020-11-08] MEDS: ASPIRIN 81 MG CHEW PEG SCH (11:37)
[2020-11-08] MEDS ORDERED: MIDAZOLAM HCL 1 MG/ML 2ML VIAL ONE (12:20)
[2020-11-08] MEDS: TUBE FEEDING WATER FLUSH GT SCH ×4 (12:24→23:52)
--- NOTE | 2020-11-08 12:27 | Pharmacy Report ---
Pharmacy Glycemic Short Note 2 - Date of Service November 08, 2020 - Glycemic Short BSG Results (Last 24 hours): 11/07/20 11/07/20 11/07/20 11:50 16:09 20:00 Glucose 94 121 H POC Glucose 94 11/07/20 11/07/20 11/08/20 20:10 23:28 04:47 Glucose 213 H POC Glucose 106 H 138 H 11/08/20 11/08/20 04:50 08:31 Glucose POC Glucose 223 H 222 H OUTPATIENT ANTIDIABETIC REGIMEN: * Metformin XR 500 mg PO BIDM * Jardiance 25 mg PO Daily * Trulicity 0.75 mg SC Weekly * Lantus 62 units SC BID * HbA1c = 10.2% (10/30/20) ASSESSMENT: 11/08 * Pt remains intubated. Attempting to wean paralytics today. Pressors off. Dexamethasone 20 mg IV x5 days started last night, 2nd dose this AM. Planned taper to 10 mg IV daily x5 days (for an additional 10 days of dexamethasone). * BSG's increased 2nd initiation of dexamethasone last night * Will increase Lantus. Used NPH previously while on dexamethasone 6 mg IV qAM, but will keep as Lantus for now as patient is now NPO. * Trickle feeds with Novasource renal starting. Would normally not cover trickle feeds with Novolog, however, due to significant prandial needs while previously on dexamethasone (at lower dose) evidenced by prior CHO ratio of 1.8 g CHO/unit, will cover with Novolog * Discussed insulin drip on ICU rounds given two BSG's very slightly >220 mg/dL. Will initiate at/after lunch if BSG's again >220 mg/dL - OK per Dr. Mueller * Novolog tightened to regimen while previously on dexamethasone, just slightly looser CHO ratio as patient is only on trickle feeds at this time 11/07 * Pt remains intubated, sedated, paralyzed. NPO. No steroids (completed course of DXM 11/03/20) * 11/06: BSGs [phone] * BSGs elevated secondary to basal insulin deficiency from 11/05. Pt received 40 units of basal on 11/04 and then only 15 units of basal on 11/05. Likely true basal needs ~ 30 units/day * Will change Lantus from scale based dosing to fixed BID dosing so that doses are not omitted when BSG is in range. * Continue NovoLog Q4hrs. No changes needed since pt is NPO. Will re-evaluate if enteral nutrition started in the next few days. 11/05: * BSGs reasonably well controlled over last 24 hrs * Patient's clinical status worsening today and current plans are for transfer to ICU with possible intubation * Fasting BSG 112 this AM w/ 40 units basal on board, would like to continue some basal insulin. AM dose was held per paper novelty maker. Will readdress once transfer to ICU complete. If steroid therapy resumed a dose of Lantus will be ordered prior to scheduled PM dose. * Current Novolog doses remain reasonable given increasing stressors today, but may need increased again is steroid therapy resumed. 11/04: * BSGs better controlled over last 24 hrs * Dexamethasone IV has d/c'd and pt currently has no orders to continue this medication today * Will dc NPH and convert back to BID Lantus dosing at reduced doses vs out-pt needs as he is receiving prandial insulin here whereas he does not as outpt * Novolog doses will be weaned back as well due to absence of steroid effect today 11/03: * Fasting BSGs remain at goal, however post-prandial hyperglycemia remains problematic despite yesterday's insulin adjustments * Fasting BSG 85 this AM with 35 units Lantus and 40 units NPH given in last 24 hrs. * 3 of 3 post-prandial BSGs elevated yesterday, most pronounced with dinner and HS checks. Will increase NPH dose as well as 10% increase in prandial Novolog doses. Will continue to give lesser doses of Novolog at HS to prevent excessive correction at bedtime given fasting AM BSG trend. * Today is the last day of scheduled dexamethasone IV in the AM. Will d/c NPH tomorrow AM as a result. 11/02: * BSGs trended up to the 300s yesterday afternoon. It was confirmed that patient had 2 packs of anna crackers prior to dinner BSG and it was suspected that snacking occurred prior to HS reading making these values difficult to interpret. * Fasting BSG increased somewhat to 90 mg/dL. Will further decrease lantus. * Patient continues to tolerate a diet and remains on dexamethasone (order to time out after tomorrow's dose) PLAN FOR INPATIENT GLYCEMIC CONTROL: * Hold outpatient oral diabetes medications * Basal insulin * Lantus 40 units SC x1 this AM. Additional 0-20 units depending on BSG * Bolus insulin * NovoLog per scale q 4 hrs * Goal Range: Low 120 mg/dL - High 160 mg/dL * Correction Factor: 10 mg/dl/unit * Nutritional / Prandial insulin per carb ratio of 1 unit per 2 grams CHO consumed PLAN FOR DISCHARGE: * A1c = 10.2% on 10/30/20 * Outpatient regimen will need adjusted at DC to achieve better glycemic control. This will all be dependent on patient prognosis.
[2020-11-08] MEDS ORDERED: VECURONIUM BROMIDE 10 MG VIAL IV ONE ×2 (12:28→18:13)
[2020-11-08] MEDS ORDERED: STAT IV Infusion **Titration per Protocol STA (14:23)
[2020-11-08] MEDS ORDERED: clonazePAM 0.5 MG TAB PO STA (14:25)
[2020-11-08] MEDS: DEXMEDETOMIDINE HCL 200 MCG in SODIUM CHLORIDE 0.9% 48 ML IV SCH ×2 (15:26→20:07)
[2020-11-08] MEDS: NOVASOURCE RENAL 2.0 CAL 1000ML BAG OG SCH (15:26)
--- NOTE | 2020-11-08 16:40 | Nephrology Progress Note ---
Date of Service November 08, 2020 Assessment & Plan (1) Acute kidney injury: Plan: Non-oliguric. Creatinine continues to improve with supportive care. Clinically consistent with hemodynamically mediated ATN. Remdesivir appropriately discontinued. Baseline kidney function normal. Electrolytes acceptable. BP controlled. Continue diuretics to encourage negative fluid balance. Medications are appropriately dosed for kidney dysfunction. Document I/O's. Repeat metabolic profile tomorrow AM. (2) Hyperkalemia: Plan: Improved s/p SPS. Loop diuretics to encourage kaluresis. Repeat metabolic profile tomorrow AM (3) Cardiomyopathy: Plan: Etiology unclear. Bumex 0.5 mg IV provided today. Encourage negative fluid balance. (4) Acute respiratory failure with hypoxia: Plan: Remains ventilator dependent. Worsening multifocal airspace disease on CXR. Diuretics to encourage negative fluid balance. (5) Pneumonia due to COVID-19 virus: Plan: Remdesivir given at OSH. Outside window for Tocilizumab. Dexamethasone per primary team. Plan of care reviewed with Dr. Mueller. Admission and Anticipated Discharge Date Admission Date: October 29, 2020 Subjective The patient was not physically seen today due to COVID exposure. Medical records were reviewed in detail. I discussed the patient with the bedside nurse and Dr. Mueller this morning. Vandana remains intubated and sedated. Vasopressors weaned off. TTE reviewed. Review of Systems Review of Systems: Unobtainable due to cognitive status Physical Exam Physical Exam: Deferred due to COVID. FIO2 50%; TV 300; PEEP 10. Results & Data ([facility]) Vital Signs (Past 12 Hours) Vital Signs Temp Pulse Resp BP Pulse Ox 11/08/20 16:01 36.2 C L 81 129/71 92 11/08/20 15:01 36.3 C L 80 118/63 92 11/08/20 14:50 84 27 H 93 11/08/20 14:01 36.4 C L 89 119/68 96 11/08/20 13:01 36.6 C 99 H 114/62 95 11/08/20 12:31 36.8 C 114 H 138/66 89 L 11/08/20 12:01 37.0 C 117 H 144/72 H 86 L 11/08/20 11:31 37.2 C 135 H 168/80 H 90 11/08/20 11:11 88 27 H 95 08/16/21 11:01 37.2 C 87 114/59 L 94 11/08/20 10:31 37.2 C 83 109/57 L 94 11/08/20 10:01 37.1 C 84 105/56 L 94 11/08/20 09:01 36.8 C 85 108/56 L 93 11/08/20 08:31 36.7 C 87 116/62 92 11/08/20 08:02 83 32 H 92 11/08/20 08:01 36.6 C 95 H 123/71 94 11/08/20 07:31 36.4 C L 83 106/57 L 93 11/08/20 07:01 36.2 C L 83 111/61 94 11/08/20 06:31 36.1 C L 79 108/58 L 94 11/08/20 06:01 35.9 C L 78 100/57 L 93 11/08/20 05:31 35.8 C L 78 103/59 L 94 11/08/20 05:00 35.6 C L 79 92 Laboratory Results Laboratory Results - last 24 hr 11/07/20 11/07/20 11/07/20 20:00 20:10 23:28 WBC RBC Hgb POC Hgb Hct POC Hct MCV MCH MCHC RDW Std Deviation RDW Coeff of Ale Plt Count MPV Immature Gran % (Auto) Neut % (Auto) Lymph % (Auto) Crook % (Auto) Eos % (Auto) Baso % (Auto) Neut # (Auto) Lymph # (Auto) Crook # (Auto) Eos # (Auto) Baso # (Auto) Immature Gran # (Auto) RBC Morphology PT INR APTT PTT Ratio Fibrinogen Sample Site POC pH POC pCO2 POC pO2 POC HCO3 POC Total CO2 POC Base Excess ABG pH (Temp Correct) ABG pCO2 (Temp Corrct POC ABG pO2 at Pt Temp POC ABG O2 Sat Rustam Test O2 Delivery Device POC O2 Rate POC FiO2 Tidal Volume PEEP POC Sodium Sodium 133 L POC Potassium Potassium 4.5 Chloride 105 Carbon Dioxide 22 Anion Gap 6.0 BUN 60 H Creatinine 1.76 H D Est Cr Clr Drug Dosing 42.2 Est GFR ( Amer) 37.3 Est GFR (Non-Af Amer) 32.2 BUN/Creatinine Ratio 34.2 H Glucose 121 H POC Glucose 106 H 138 H Calcium 8.8 Phosphorus Magnesium Total Bilirubin AST ALT Alkaline Phosphatase Lactate Dehydrogenase Total Protein Albumin Globulin Albumin/Globulin Ratio Triglycerides Random Vancomycin 11/08/20 11/08/20 11/08/20 04:43 04:47 04:47 WBC 4.84 RBC 2.61 L Hgb 7.6 L POC Hgb 7.8 L Hct 23.7 L POC Hct 23 L MCV 90.8 MCH 29.1 MCHC 32.1 RDW Std Deviation 47.0 H RDW Coeff of Ale 14.1 Plt Count 373 MPV 9.5 Immature Gran % (Auto) 0.2 Neut % (Auto) 91.7 Lymph % (Auto) 5.8 Crook % (Auto) 1.7 Eos % (Auto) 0.6 Baso % (Auto) 0.0 Neut # (Auto) 4.44 Lymph # (Auto) 0.28 L Crook # (Auto) 0.08 L Eos # (Auto) 0.03 Baso # (Auto) 0.00 Immature Gran # (Auto) 0.01 RBC Morphology Unremarkable PT INR APTT PTT Ratio Fibrinogen Sample Site Art Line POC pH 7.34 L POC pCO2 41 POC pO2 60 L POC HCO3 22 POC Total CO2 23 L POC Base Excess -4.0 ABG pH (Temp Correct) 7.357 ABG pCO2 (Temp Corrct 39 POC ABG pO2 at Pt Temp 54 POC ABG O2 Sat 89.0 L Rustam Test Pass O2 Delivery Device Ventilator POC O2 Rate 32 POC FiO2 50 Tidal Volume 300 PEEP 10 POC Sodium 137 Sodium 134 L POC Potassium 4.8 Potassium 4.8 Chloride 106 Carbon Dioxide 22 Anion Gap 6.0 BUN 63 H Creatinine 1.54 H Est Cr Clr Drug Dosing 47.7 Est GFR ( Amer) 43.9 Est GFR (Non-Af Amer) 37.9 BUN/Creatinine Ratio 40.6 H Glucose 213 H POC Glucose Calcium 8.7 Phosphorus 6.4 H D Magnesium 3.1 H Total Bilirubin 0.4 AST 15 ALT 22 Alkaline Phosphatase 93 Lactate Dehydrogenase Total Protein 6.6 Albumin 1.8 L Globulin 4.8 H Albumin/Globulin Ratio 0.4 L Triglycerides Random Vancomycin 11/08/20 11/08/20 11/08/20 04:47 04:47 04:50 WBC RBC Hgb POC Hgb Hct POC Hct MCV MCH MCHC RDW Std Deviation RDW Coeff of Ale Plt Count MPV Immature Gran % (Auto) Neut % (Auto) Lymph % (Auto) Crook % (Auto) Eos % (Auto) Baso % (Auto) Neut # (Auto) Lymph # (Auto) Crook # (Auto) Eos # (Auto) Baso # (Auto) Immature Gran # (Auto) RBC Morphology PT INR APTT PTT Ratio Fibrinogen Sample Site POC pH POC pCO2 POC pO2 POC HCO3 POC Total CO2 POC Base Excess ABG pH (Temp Correct) ABG pCO2 (Temp Corrct POC ABG pO2 at Pt Temp POC ABG O2 Sat Rustam Test O2 Delivery Device POC O2 Rate POC FiO2 Tidal Volume PEEP POC Sodium Sodium POC Potassium Potassium Chloride Carbon Dioxide Anion Gap BUN Creatinine Est Cr Clr Drug Dosing Est GFR ( Amer) Est GFR (Non-Af Amer) BUN/Creatinine Ratio Glucose POC Glucose 223 H Calcium Phosphorus Magnesium Total Bilirubin AST ALT Alkaline Phosphatase Lactate Dehydrogenase Total Protein Albumin Globulin Albumin/Globulin Ratio Triglycerides 400 H Random Vancomycin 17.7 11/08/20 11/08/20 11/08/20 08:31 09:42 09:42 WBC RBC Hgb POC Hgb Hct POC Hct MCV MCH MCHC RDW Std Deviation RDW Coeff of Ale Plt Count MPV Immature Gran % (Auto) Neut % (Auto) Lymph % (Auto) Crook % (Auto) Eos % (Auto) Baso % (Auto) Neut # (Auto) Lymph # (Auto) Crook # (Auto) Eos # (Auto) Baso # (Auto) Immature Gran # (Auto) RBC Morphology PT 9.8 INR 1.0 APTT 25.3 PTT Ratio 1.0 Fibrinogen > 860 H Sample Site POC pH POC pCO2 POC pO2 POC HCO3 POC Total CO2 POC Base Excess ABG pH (Temp Correct) ABG pCO2 (Temp Corrct POC ABG pO2 at Pt Temp POC ABG O2 Sat Rustam Test O2 Delivery Device POC O2 Rate POC FiO2 Tidal Volume PEEP POC Sodium Sodium POC Potassium Potassium Chloride Carbon Dioxide Anion Gap BUN Creatinine Est Cr Clr Drug Dosing Est GFR ( Amer) Est GFR (Non-Af Amer) BUN/Creatinine Ratio Glucose POC Glucose 222 H Calcium Phosphorus Magnesium Total Bilirubin AST ALT Alkaline Phosphatase Lactate Dehydrogenase 160 Total Protein Albumin Globulin Albumin/Globulin Ratio Triglycerides Random Vancomycin 11/08/20 11/08/20 12:12 15:47 WBC RBC Hgb POC Hgb Hct POC Hct MCV MCH MCHC RDW Std Deviation RDW Coeff of Ale Plt Count MPV Immature Gran % (Auto) Neut % (Auto) Lymph % (Auto) Crook % (Auto) Eos % (Auto) Baso % (Auto) Neut # (Auto) Lymph # (Auto) Crook # (Auto) Eos # (Auto) Baso # (Auto) Immature Gran # (Auto) RBC Morphology PT INR APTT PTT Ratio Fibrinogen Sample Site POC pH POC pCO2 POC pO2 POC HCO3 POC Total CO2 POC Base Excess ABG pH (Temp Correct) ABG pCO2 (Temp Corrct POC ABG pO2 at Pt Temp POC ABG O2 Sat Rustam Test O2 Delivery Device POC O2 Rate POC FiO2 Tidal Volume PEEP POC Sodium Sodium POC Potassium Potassium Chloride Carbon Dioxide Anion Gap BUN Creatinine Est Cr Clr Drug Dosing Est GFR ( Amer) Est GFR (Non-Af Amer) BUN/Creatinine Ratio Glucose POC Glucose 208 H 198 H Calcium Phosphorus Magnesium Total Bilirubin AST ALT Alkaline Phosphatase Lactate Dehydrogenase Total Protein Albumin Globulin Albumin/Globulin Ratio Triglycerides Random Vancomycin PG Care Time/CCT Total # of Minutes Spent Total Time Spent with Patient: Total time spent is greater than 50% in coordination of care (as documented) at patient's floor/unit and/or counseling patient: Coding Level of Care Code 25188 Subseq Hosp Care Lvl 3 Diagnoses Acute kidney injury N17.9 Hyperkalemia E87.5 Cardiomyopathy I42.9 Acute respiratory failure with hypoxia J96.01 Pneumonia due to COVID-19 virus U07.1; J12.82
[2020-11-08] MEDS ORDERED: MIDAZOLAM HCL 1 MG/ML 2ML VIAL IV ONE (18:12)
[2020-11-08] MEDS: clonazePAM 0.5 MG TAB PO SCH (20:06)
[2020-11-08] MEDS: DOCUSATE SODIUM SYRUP 100 MG/10 ML UDC PO SCH (20:06)
[2020-11-08] MEDS: SENNOSIDES 8.8 MG/5 ML UDC PO SCH (20:06)
--- NOTE | 2020-11-08 22:06 | Hospitalist Progress Note ---
Date of Service November 08, 2020 Assessment & Plan (1) Pneumonia due to COVID-19 virus: Plan: Acute hypoxemic respiratory failure 2/2 Covid pneumonia Patient is a "breakthrough case "following vaccination with Moderna in July Initiated on remdesivir 11/07 at [facility] and steroids 10/25 as outpatient - Completed 5-day course of remdesivir Completed 10-day course of steroids Completed 5-day course of azithromycin prior to admission Patient was out of the window for Tocilizumab Patient intubated evening of for worsening respiratory failure prone on 11/06 into 11/07, improved PEEP and FiO2 requirement now supine again, management per ICU guarded prognosis Continue vancomycin/meropenem (2) Acute respiratory failure with hypoxia: Plan: 2/2 Covid pneumonia managed as noted (3) Acute systolic CHF (congestive heart failure): Plan: Acute CHFrEF TTE shows EF 25-30% with wall motion abnormalities suggestive of ischemic cardiomyopathy History of prior MS in 2016, troponins normal during admission Management per ICU Appreciate cardiology recommendations If patient were to survive her current critical illness she would require ischemic eval/cath pending once recovered from COVID and off high oxygen requirements, however prognosis is guarded at this time. (4) Diabetes mellitus type 2, uncontrolled: Plan: -A1c 10.2%. -ICU hyperglycemia protocol monitor for hypoglycemia (5) Abnormal LFTs: Plan: -Due to Covid and critical illness (6) CAD (coronary artery disease): Plan: -s/p MS 2016. -She was not taking aspirin at admission; thus asa 81mg daily added. Metoprolol and statin held while critically ill (7) Obesity: Plan: BMI 36 (8) Hypertension: Plan: -Cont to hold HCTZ. -Cont to hold CELINE -Cont to hold 25 BID. (9) Hyperlipidemia: Plan: -crestor (10) Tobacco dependence: Plan: -Nicoderm patch 21mg held while critically ill (11) Hypomagnesemia: Plan: -ICU electrolyte protocol (12) Acute kidney injury: Plan: -Cr 1.9 on 10/27 in [place]. -2nd to COVID, severely uncontrolled DM, etc. Cr has improved, stable, monitor UO via calderon (13) Hyperkalemia: Plan: mildly elevated, poor dialysis candidate. Management by ICU team, currently on Kayexalate with nephro consulted (14) DVT prophylaxis: Plan: -lovenox 40 BID (15) Anxiety: Plan: -severe. - buspar held while critically ill and sedated Plan: Patient's daughter Mayra, who lives in [place] . Patient remains critically ill, intubated, sedated, and paralyzed. guarded prognosis Admission and Anticipated Discharge Date Admission Date: October 29, 2020 Subjective patient intubated, supine, was prone yesterday with improvement in PEEP and FiO2 requirement currently on PEEP of 10 discussed with her RN at the bedside Review of Systems Review of Systems: Unobtainable due to endotracheal tube Physical Exam Constitutional: + ill appearing and + mechanically ventilated; no acute distress Neck: trachea midline, no thyromegaly Respiratory: no respiratory distress (ventilated) Auscultation: no crackles, no rales and no wheezes Cardiovascular: RRR, no murmur, no edema Gastrointestinal (Abdomen): normal bowel sounds, soft, nontender, no hepatosplenomegaly Musculoskeletal: no cyanosis or clubbing, extremities motor strength 5/5 Skin: no rashes, warm and dry Neurologic: patellar DTR's 2+ bilat, sensation intact and PERRL, EOMI, accommodation nl, no face palsy, no dysarthria Psychiatric: A+Ox3, euthymic affect Results & Data Results & Data ([facility]) Vital Signs (Past 12 Hours) Vital Signs Temp Pulse Resp BP Pulse Ox 11/08/20 20:39 77 26 H 91 11/08/20 20:31 36.3 C L 101 H 170/89 H 86 L 11/08/20 20:01 36.2 C L 76 140/70 91 11/08/20 19:31 36.2 C L 78 138/71 91 11/08/20 19:01 36.2 C L 76 140/70 91 11/08/20 18:01 36.1 C L 81 132/74 89 L 11/08/20 17:01 36.2 C L 76 141/73 H 95 11/08/20 16:31 36.2 C L 77 137/69 94 11/08/20 16:01 36.2 C L 81 129/71 92 11/08/20 16:00 79 11/08/20 15:01 36.3 C L 80 118/63 92 11/08/20 14:50 84 27 H 93 11/08/20 14:01 36.4 C L 89 119/68 96 11/08/20 13:01 36.6 C 99 H 114/62 95 11/08/20 12:31 36.8 C 114 H 138/66 89 L 11/08/20 12:01 37.0 C 117 H 144/72 H 86 L 11/08/20 11:31 37.2 C 135 H 168/80 H 90 11/08/20 11:11 88 27 H 95 11/08/20 11:01 37.2 C 87 114/59 L 94 11/08/20 10:31 37.2 C 83 109/57 L 94 Laboratory Results Laboratory Results - last 24 hr 11/07/20 11/08/20 11/08/20 23:28 04:43 04:47 WBC 4.84 RBC 2.61 L Hgb 7.6 L POC Hgb 7.8 L Hct 23.7 L POC Hct 23 L MCV 90.8 MCH 29.1 MCHC 32.1 RDW Std Deviation 47.0 H RDW Coeff of Ale 14.1 Plt Count 373 MPV 9.5 Immature Gran % (Auto) 0.2 Neut % (Auto) 91.7 Lymph % (Auto) 5.8 Harris % (Auto) 1.7 Eos % (Auto) 0.6 Baso % (Auto) 0.0 Neut # (Auto) 4.44 Lymph # (Auto) 0.28 L Harris # (Auto) 0.08 L Eos # (Auto) 0.03 Baso # (Auto) 0.00 Immature Gran # (Auto) 0.01 RBC Morphology Unremarkable PT INR APTT PTT Ratio Fibrinogen Sample Site Art Line POC pH 7.34 L POC pCO2 41 POC pO2 60 L POC HCO3 22 POC Total CO2 23 L POC Base Excess -4.0 ABG pH (Temp Correct) 7.357 ABG pCO2 (Temp Corrct 39 POC ABG pO2 at Pt Temp 54 POC ABG O2 Sat 89.0 L Rustam Test Pass O2 Delivery Device Ventilator POC O2 Rate 32 POC FiO2 50 Tidal Volume 300 PEEP 10 POC Sodium 137 Sodium POC Potassium 4.8 Potassium Chloride Carbon Dioxide Anion Gap BUN Creatinine Est Cr Clr Drug Dosing Est GFR ( Amer) Est GFR (Non-Af Amer) BUN/Creatinine Ratio Glucose POC Glucose 138 H Calcium Phosphorus Magnesium Total Bilirubin AST ALT Alkaline Phosphatase Lactate Dehydrogenase Total Protein Albumin Globulin Albumin/Globulin Ratio Triglycerides Random Vancomycin 11/08/20 11/08/20 11/08/20 04:47 04:47 04:47 WBC RBC Hgb POC Hgb Hct POC Hct MCV MCH MCHC RDW Std Deviation RDW Coeff of Ale Plt Count MPV Immature Gran % (Auto) Neut % (Auto) Lymph % (Auto) Harris % (Auto) Eos % (Auto) Baso % (Auto) Neut # (Auto) Lymph # (Auto) Harris # (Auto) Eos # (Auto) Baso # (Auto) Immature Gran # (Auto) RBC Morphology PT INR APTT PTT Ratio Fibrinogen Sample Site POC pH POC pCO2 POC pO2 POC HCO3 POC Total CO2 POC Base Excess ABG pH (Temp Correct) ABG pCO2 (Temp Corrct POC ABG pO2 at Pt Temp POC ABG O2 Sat Rustam Test O2 Delivery Device POC O2 Rate POC FiO2 Tidal Volume PEEP POC Sodium Sodium 134 L POC Potassium Potassium 4.8 Chloride 106 Carbon Dioxide 22 Anion Gap 6.0 BUN 63 H Creatinine 1.54 H Est Cr Clr Drug Dosing 47.7 Est GFR ( Amer) 43.9 Est GFR (Non-Af Amer) 37.9 BUN/Creatinine Ratio 40.6 H Glucose 213 H POC Glucose Calcium 8.7 Phosphorus 6.4 H D Magnesium 3.1 H Total Bilirubin 0.4 AST 15 ALT 22 Alkaline Phosphatase 93 Lactate Dehydrogenase Total Protein 6.6 Albumin 1.8 L Globulin 4.8 H Albumin/Globulin Ratio 0.4 L Triglycerides 400 H Random Vancomycin 17.7 11/08/20 11/08/20 11/08/20 04:50 08:31 09:42 WBC RBC Hgb POC Hgb Hct POC Hct MCV MCH MCHC RDW Std Deviation RDW Coeff of Ale Plt Count MPV Immature Gran % (Auto) Neut % (Auto) Lymph % (Auto) Harris % (Auto) Eos % (Auto) Baso % (Auto) Neut # (Auto) Lymph # (Auto) Harris # (Auto) Eos # (Auto) Baso # (Auto) Immature Gran # (Auto) RBC Morphology PT 9.8 INR 1.0 APTT 25.3 PTT Ratio 1.0 Fibrinogen > 860 H Sample Site POC pH POC pCO2 POC pO2 POC HCO3 POC Total CO2 POC Base Excess ABG pH (Temp Correct) ABG pCO2 (Temp Corrct POC ABG pO2 at Pt Temp POC ABG O2 Sat Rustam Test O2 Delivery Device POC O2 Rate POC FiO2 Tidal Volume PEEP POC Sodium Sodium POC Potassium Potassium Chloride Carbon Dioxide Anion Gap BUN Creatinine Est Cr Clr Drug Dosing Est GFR ( Amer) Est GFR (Non-Af Amer) BUN/Creatinine Ratio Glucose POC Glucose 223 H 222 H Calcium Phosphorus Magnesium Total Bilirubin AST ALT Alkaline Phosphatase Lactate Dehydrogenase Total Protein Albumin Globulin Albumin/Globulin Ratio Triglycerides Random Vancomycin 11/08/20 11/08/20 11/08/20 09:42 12:12 15:47 WBC RBC Hgb POC Hgb Hct POC Hct MCV MCH MCHC RDW Std Deviation RDW Coeff of Ale Plt Count MPV Immature Gran % (Auto) Neut % (Auto) Lymph % (Auto) Harris % (Auto) Eos % (Auto) Baso % (Auto) Neut # (Auto) Lymph # (Auto) Harris # (Auto) Eos # (Auto) Baso # (Auto) Immature Gran # (Auto) RBC Morphology PT INR APTT PTT Ratio Fibrinogen Sample Site POC pH POC pCO2 POC pO2 POC HCO3 POC Total CO2 POC Base Excess ABG pH (Temp Correct) ABG pCO2 (Temp Corrct POC ABG pO2 at Pt Temp POC ABG O2 Sat Rustam Test O2 Delivery Device POC O2 Rate POC FiO2 Tidal Volume PEEP POC Sodium Sodium POC Potassium Potassium Chloride Carbon Dioxide Anion Gap BUN Creatinine Est Cr Clr Drug Dosing Est GFR ( Amer) Est GFR (Non-Af Amer) BUN/Creatinine Ratio Glucose POC Glucose 208 H 198 H Calcium Phosphorus Magnesium Total Bilirubin AST ALT Alkaline Phosphatase Lactate Dehydrogenase 160 Total Protein Albumin Globulin Albumin/Globulin Ratio Triglycerides Random Vancomycin 11/08/20 20:14 WBC RBC Hgb POC Hgb Hct POC Hct MCV MCH MCHC RDW Std Deviation RDW Coeff of Ale Plt Count MPV Immature Gran % (Auto) Neut % (Auto) Lymph % (Auto) Harris % (Auto) Eos % (Auto) Baso % (Auto) Neut # (Auto) Lymph # (Auto) Harris # (Auto) Eos # (Auto) Baso # (Auto) Immature Gran # (Auto) RBC Morphology PT INR APTT PTT Ratio Fibrinogen Sample Site POC pH POC pCO2 POC pO2 POC HCO3 POC Total CO2 POC Base Excess ABG pH (Temp Correct) ABG pCO2 (Temp Corrct POC ABG pO2 at Pt Temp POC ABG O2 Sat Rustam Test O2 Delivery Device POC O2 Rate POC FiO2 Tidal Volume PEEP POC Sodium Sodium POC Potassium Potassium Chloride Carbon Dioxide Anion Gap BUN Creatinine Est Cr Clr Drug Dosing Est GFR ( Amer) Est GFR (Non-Af Amer) BUN/Creatinine Ratio Glucose POC Glucose 206 H Calcium Phosphorus Magnesium Total Bilirubin AST ALT Alkaline Phosphatase Lactate Dehydrogenase Total Protein Albumin Globulin Albumin/Globulin Ratio Triglycerides Random Vancomycin Medications Administered Current Inpatient Medications Acetaminophen (Acetaminophen 500 Mg Tab) 1,000 mg PO Q6H PRN PRN Reason: pain or headache Stop: 12/04/20 09:11 Last Admin: 11/04/20 09:31 Dose: 1,000 mg Documented by: Aspirin (Aspirin 81 Mg Chew) 81 mg PEG QAM SHAKIR Stop: 12/08/20 10:29 Last Admin: 11/08/20 11:37 Dose: 81 mg Documented by: Clonazepam (Clonazepam 0.5 Mg Tab) 0.5 mg PO BID [facility] Stop: 12/08/20 20:59 Last Admin: 11/08/20 20:06 Dose: 0.5 mg Documented by: Dextrose (Dextrose 50% 50 Ml Syringe) 25 - 50 ml IV UD PRN; Protocol PRN Reason: Hypoglycemia Protocol Stop: 11/28/20 20:59 Docusate Sodium (Docusate Sodium Syrup 100 Mg/10 Ml Udc) 100 mg PO BID [facility] Stop: 12/08/20 20:59 Last Admin: 11/08/20 20:06 Dose: 100 mg Documented by: Enteral Nutritional Formula (Novasource Renal 2.0 Srinath 1000ml Bag) 1,000 ml OG CONT SHAKIR; Protocol Stop: 12/08/20 11:44 Last Admin: 11/08/20 15:26 Dose: 1,000 ml Documented by: Fentanyl Citrate (Fentanyl Bolus From Bag) 50 mcg IV Q60M PRN PRN Reason: Pain or Agitation Stop: 11/20/20 05:22 Glucagon (Glucagon For Inj 1 Mg Vial) 1 mg IM UD PRN; Protocol PRN Reason: Hypoglycemia Protocol Stop: 11/28/20 20:59 Glucose (Glucose 40% Gel 15 Gm Tube) 15 - 30 gm PO UD PRN; Protocol PRN Reason: Hypoglycemia Protocol Stop: 11/28/20 20:59 Glucose (Glucose 10 Tabs/Tube) 4 - 8 tabs PO UD PRN; Protocol PRN Reason: Hypoglycemia Protocol Stop: 11/28/20 20:59 Cisatracurium Besylate 40 mg/ (Sodium Chloride) 100 mls @ 17.1 mls/hr IV .Q5H51M SHAKIR; Protocol Stop: 12/06/20 03:59 Last Titration: 11/08/20 19:12 Dose: 2 mcg/kg/min, 17.1 mls/hr Documented by: Fentanyl Citrate (Fentanyl Drip) 1,250 mcg in 250 mls @ 30 mls/hr IV .Q8H20M SHAKIR; Protocol Stop: 11/20/20 05:29 Last Admin: 11/08/20 21:40 Dose: 150 mcg/hr, 30 mls/hr Documented by: Propofol (Diprivan) 1,000 mg in 100 mls @ 11.976 mls/hr IV .Q8H21M SHAKIR; Protocol Stop: 11/09/20 05:29 Last Titration: 11/08/20 19:12 Dose: 20 mcg/kg/min, 12 mls/hr Documented by: Meropenem 500 mg/ Syringe 10 mls @ 2 mls/min IV Q8H SAHKIR; Protocol Stop: 11/13/20 11:59 Last Admin: 11/08/20 20:06 Dose: 2 mls/min Documented by: Dexamethasone 10 mg/ Syringe 2.5 mls @ 1 mls/min IV DAILY SHAKIR Stop: 11/17/20 08:59 Dexamethasone 20 mg/ Dextrose 30 mls @ 0.833 mls/min IV DAILY SHAKIR Stop: 11/12/20 08:59 Last Infusion: 11/08/20 09:29 Dose: Infused Documented by: Pantoprazole Sodium 40 mg/ (Syringe) 10 mls @ 5 mls/min IV BID@0900,2100 [facility] Stop: 12/08/20 10:29 Last Admin: 11/08/20 20:06 Dose: 5 mls/min Documented by: Dexmedetomidine HCl 200 mcg/ (Sodium Chloride) 50 mls @ 9.52 mls/hr IV .Q5H16M SHAKIR; Protocol Stop: 11/12/20 14:44 Last Admin: 11/08/20 20:07 Dose: 0.4 mcg/kg/hr, 9.5 mls/hr Documented by: Insulin Aspart (Insulin Aspart 100 Units/Ml 3 Ml Pen) 0 units SC Q4 [facility]; Protocol Stop: 12/08/20 00:00 Last Admin: 11/08/20 20:20 Dose: 11 units Documented by: Miscellaneous (Carbohydrates For Hypoglycemia ) 15 - 30 gm PO UD PRN PRN Reason: Hypoglycemia Treatment Stop: 11/28/20 20:59 Miscellaneous Information (Pharmacy Glycemic Mgmt Consult) 1 ea N/A UD PRN PRN Reason: Consult Stop: 11/28/20 19:30 Miscellaneous Information (Meropenem Consult Acitve) 1 ea N/A UD PRN PRN Reason: Consult Stop: 12/06/20 11:31 Multi-Ingredient Cream (Artificial Tears Op Oint 3.5 Gm Tube) 1 appln OP Q4H [facility] Stop: 12/06/20 03:59 Last Admin: 11/08/20 20:07 Dose: 1 appln Documented by: Nicotine (Nicotine 21 Mg/24 Hr Tdsy) 21 mg TD QAM [facility] Stop: 11/29/20 08:59 Last Admin: 11/08/20 08:08 Dose: 21 mg Documented by: Polyethylene Glycol (Polyethylene (Miralax) 17 Gm Pack) 17 gm PO QAM [facility] Stop: 12/09/20 08:59 Propofol (Propofol Bolus From Bag) 20 mg IV Q5M PRN PRN Reason: Sedation Stop: 11/09/20 05:22 Rosuvastatin Calcium (Rosuvastatin Calcium 20 Mg Tab) 20 mg PO QAM [facility] Stop: 12/02/20 08:59 Last Admin: 11/08/20 08:09 Dose: 20 mg Documented by: Sennosides (Sennosides 8.8 Mg/5 Ml Udc) 17.6 mg PO BID [facility] Stop: 12/08/20 20:59 Last Admin: 11/08/20 20:06 Dose: 17.6 mg Documented by: Sterile Water (Tube Feeding Water Flush) 30 ml GT Q4H [facility] Stop: 12/08/20 11:59 Last Admin: 11/08/20 20:07 Dose: 30 ml Documented by: PG Care Time/CCT Total # of Minutes Spent Total Time Spent with Patient: Total time spent is greater than 50% in coordination of care (as documented) at patient's floor/unit and/or counseling patient: Coding Level of Care Code 09926 Subseq Hosp Care Lvl 2 Diagnoses Pneumonia due to COVID-19 virus U07.1; J12.82 Acute respiratory failure with hypoxia J96.01 Acute systolic CHF (congestive heart failure) I50.21 Diabetes mellitus type 2, uncontrolled E11.65 Abnormal LFTs R94.5 CAD (coronary artery disease) I25.10 Obesity E66.9 Hypertension I10 Hyperlipidemia E78.5 Tobacco dependence F17.200 Hypomagnesemia E83.42 Acute kidney injury N17.9 Hyperkalemia E87.5 DVT prophylaxis Z29.9 Anxiety F41.9
[2020-11-08] MEDS: DEXMEDETOMIDINE HCL 400 MCG in 0.9 % SODIUM CHLORIDE 96 ML IV SCH (23:51)
[2020-11-09] MEDS: INSULIN ASPART 100 UNITS/ML 3 ML PEN SC SCH ×7 (00:06→23:51)
[2020-11-09] MEDS: DEXMEDETOMIDINE HCL 200 MCG in SODIUM CHLORIDE 0.9% 48 ML IV SCH (00:09)
[2020-11-09] MEDS: CISATRACURIUM BESYLATE 40 MG in 0.9 % SODIUM CHLORIDE 80 ML IV SCH ×8 (01:00→22:58)
[2020-11-09] MEDS: fentaNYL DRIP 1,250 MCG/250 ML BAG IV SCH ×4 (03:00→22:24)
[2020-11-09] MEDS: propofoL 1,000 MG/100 ML VIAL IV SCH (03:26)
[2020-11-09] MEDS: TUBE FEEDING WATER FLUSH GT SCH ×6 (03:30→23:28)
[2020-11-09] MEDS: ARTIFICIAL TEARS OP OINT 3.5 GM TUBE OP SCH ×7 (03:30→23:28)
[2020-11-09] MEDS: DEXMEDETOMIDINE HCL 400 MCG in 0.9 % SODIUM CHLORIDE 96 ML IV SCH ×9 (03:40→23:13)
[2020-11-09] MEDS: MEROPENEM 500 MG in SYRINGE 0 ML IV SCH (03:40)
[2020-11-09 04:23] LABS: iSTAT Art Bld Gas pCO2 Correct 50 mmHg (35-46); iSTAT Art Bld Gas pH Corrected 7.308 (7.35-7.45); iSTAT Arterial Blood Gas HCO3 25 meg/L (19-24); iSTAT Arterial Blood Gas pCO2 50 mmHg (35-46); iSTAT Arterial Blood Gas pO2 101 mmHg (80-95); iSTAT Arterial Blood Gas pO2 C 99; iSTAT Carbon Dioxide 26 mmol/L (24-31); iSTAT FiO2 60 %; iSTAT Hematocrit 24 % (37-47); iSTAT Hemoglobin 8.2 g/dl (12.0-16.0); iSTAT Potassium 5.1 mmol/L (3.3-5.0); iSTAT Site Art Line; iSTAT Sodium 139 mmol/L (135-144)
[2020-11-09 05:18] LABS: Hematocrit (blood only) 25.3 % (37-47); Hemoglobin 8.1 g/dL (12.0-16.0); Immature Granulocytes # (auto) 0.02 K/uL (0.00-0.02); Immature Granulocytes % (auto) 0.3 %; Lymphocytes # (auto) 0.51 K/uL (1.2-3.4); Lymphocytes % (auto) 7.4 %; Mean Corpuscular Hemoglobin 29.1 pg (25-34); Mean Platelet Volume 9.3 fL (7.4-10.4); Monocytes # (auto) 0.37 K/uL (0.11-0.59); Monocytes % (auto) 5.4 %; Neutrophils # (auto) 5.98 K/uL (1.4-6.5); Neutrophils % (auto) 86.9 %; Platelet Count 418 K/uL (130-400); RDW Coefficient of Variation 14.1 % (11.5-14.5); RDW Standard Deviation 47.5 fL (36.4-46.3); Red Blood Count 2.78 M/uL (4.2-5.4); White Blood Count 6.88 K/uL (4.8-10.8)
[2020-11-09 05:53] LABS: Albumin Level 1.9 gm/dl (3.4-5.0); BUN Creatinine Ratio 50.8 (10-20); Calcium 9.2 mg/dl (8.5-10.1); Creatinine Clr Calc Pharmacy 46.8 ml/min; Est GFR (African American) 43.9 ml/min; Est GFR (Non-African American) 37.9 ml/min; Magnesium 3.2 mg/dl (1.8-2.4); Potassium 4.9 mmol/L (3.5-5.1)
[2020-11-09 05:56] LABS: Albumin Globulin Ratio 0.4 (0.9-2); Bilirubin,Total 0.2 mg/dl (0.2-1); Globulin 5.3 gm/dl (2.5-4.0); Phosphorus 6.3 mg/dl (2.5-4.9); Total Protein 7.2 gm/dl (6.4-8.2)
[2020-11-09] MEDS: ASPIRIN 81 MG CHEW PEG SCH (08:00)
[2020-11-09] MEDS: clonazePAM 0.5 MG TAB PO SCH ×2 (08:03→20:07)
[2020-11-09] MEDS: PANTOprazole 40 MG in SYRINGE 0 ML IV SCH ×2 (08:04→19:43)
[2020-11-09] MEDS: NICOTINE 21 MG/24 HR TDSY TD SCH (08:04)
[2020-11-09] MEDS: dexAMETHasone 20 MG in DEXTROSE 5% 25 ML IV SCH (08:04)
[2020-11-09] MEDS: POLYETHYLENE (MIRALAX) 17 GM PACK PO SCH (08:04)
[2020-11-09] MEDS: SENNOSIDES 8.8 MG/5 ML UDC PO SCH ×2 (08:05→19:43)
[2020-11-09] MEDS: ROSUVASTATIN CALCIUM 20 MG TAB PO SCH (08:05)
[2020-11-09] MEDS ORDERED: BUMETANIDE 1 MG in SYRINGE 0 ML IV ONE (08:15)
--- NOTE | 2020-11-09 08:19 | XRay Report ---
XR chest 1V portable HISTORY: Respiratory failure. Covid pneumonia. COMPARISON: Chest 11/08/2020. FINDINGS: Mild to moderate enlargement the cardiac silhouette. This has progressed in the interval. N asogastric tube terminates in the stomach. Endotracheal tube terminates 3.3 cm from the allan. Right jugular central venous catheter terminates at the SVC. No pneumothorax. Suspect a trace left pleural effusion, unchanged. Multifocal bilateral airspace opacities are not significant changed. IMPRESSION: 1. Satisfactory support line placement. 2. Increase in size the cardiac silhouette. This could be technical but raises the possibility of a p ericardial effusion. 3. No change in the multifocal airspace opacities consistent with a pneumonia. ACT 112: Negative or not required by law. Electronically signed by: Catarino Muniz M.D. 11/09/2020 8:18 AM
[2020-11-09] MEDS ORDERED: INSULIN GLARGINE SOLOSTAR 100 UNITS/ML 3 ML PEN SC ONE ×2 (09:00→20:00)
--- NOTE | 2020-11-09 09:05 | Nephrology Progress Note ---
Date of Service November 09, 2020 Assessment & Plan (1) Acute kidney injury: Plan: Non-oliguric. Creatinine stable. Clinically consistent with hemodynamically mediated ATN. Remdesivir appropriately discontinued. Baseline kidney function normal. Electrolytes acceptable. BP controlled. Continue diuretics to encourage negative fluid balance. Bumex 1 mg IV provided this AM. Medications are appropriately dosed for kidney dysfunction. Document I/O's. Repeat metabolic profile tomorrow AM. (2) Hyperkalemia: Plan: Improved s/p SPS. Loop diuretics to encourage kaluresis. Repeat metabolic profile tomorrow AM (3) Cardiomyopathy: Plan: Bumex 1 mg IV provided today. Encourage negative fluid balance. (4) Acute respiratory failure with hypoxia: Plan: Remains ventilator dependent. (5) Pneumonia due to COVID-19 virus: Plan: Remdesivir given at OSH. Outside window for Tocilizumab. Dexamethasone per primary team. Plan of care reviewed with Dr. Mueller. Admission and Anticipated Discharge Date Admission Date: October 29, 2020 Subjective The patient was not physically seen today due to COVID. I discussed the patient with the bedside nurse and Dr. Mueller this morning. Vandana remains ventilator dependent. I/O +1 L. Good urine output this AM. Review of Systems Review of Systems: Unobtainable due to endotracheal tube Physical Exam Physical Exam: Deferred due to COVID. FIO2 40%; TV 300; PEEP 12. Results & Data ([facility]) Vital Signs (Past 12 Hours) Vital Signs Temp Pulse Resp BP Pulse Ox 11/09/20 07:52 71 11/09/20 07:44 72 26 H 93 11/09/20 07:01 78 141/82 H 94 11/09/20 06:31 71 132/76 94 11/09/20 06:01 36.0 C L 73 133/74 94 11/09/20 05:31 36.1 C L 75 126/70 94 11/09/20 05:01 36.2 C L 74 132/72 92 11/09/20 04:30 36.3 C L 75 91 11/09/20 04:02 36.6 C 82 96 11/09/20 04:00 80 26 H 96 11/09/20 03:31 36.7 C 75 141/80 H 96 11/09/20 03:01 36.7 C 75 140/76 96 08/17/21 02:31 36.6 C 76 144/74 H 96 11/09/20 02:01 36.6 C 77 140/74 96 11/09/20 01:31 36.6 C 76 141/72 H 95 11/09/20 01:01 36.6 C 78 140/69 94 11/09/20 00:31 36.6 C 79 138/66 92 11/09/20 00:01 36.6 C 81 141/79 H 91 11/09/20 00:00 111 H 11/08/20 23:31 36.6 C 105 H 163/80 H 91 11/08/20 23:18 96 H 26 H 91 11/08/20 23:01 36.5 C 93 H 141/83 H 92 11/08/20 22:31 36.4 C L 122 H 184/105 H 94 11/08/20 22:01 36.4 C L 77 137/67 92 11/08/20 21:31 36.3 C L 78 136/65 92 Laboratory Results Laboratory Results - last 24 hr 11/08/20 11/08/20 11/08/20 04:47 09:42 09:42 WBC RBC Hgb POC Hgb Hct POC Hct MCV MCH MCHC RDW Std Deviation RDW Coeff of Ale Plt Count MPV Immature Gran % (Auto) Neut % (Auto) Lymph % (Auto) Deuel % (Auto) Eos % (Auto) Baso % (Auto) Neut # (Auto) Lymph # (Auto) Deuel # (Auto) Eos # (Auto) Baso # (Auto) Immature Gran # (Auto) PT 9.8 INR 1.0 APTT 25.3 PTT Ratio 1.0 Fibrinogen > 860 H Sample Site POC pH POC pCO2 POC pO2 POC HCO3 POC Total CO2 POC Base Excess ABG pH (Temp Correct) ABG pCO2 (Temp Corrct POC ABG pO2 at Pt Temp POC ABG O2 Sat Rustam Test O2 Delivery Device POC O2 Rate POC FiO2 Tidal Volume PEEP POC Sodium Sodium POC Potassium Potassium Chloride Carbon Dioxide Anion Gap BUN Creatinine Est Cr Clr Drug Dosing Est GFR ( Amer) Est GFR (Non-Af Amer) BUN/Creatinine Ratio Glucose POC Glucose Calcium Phosphorus Magnesium Total Bilirubin AST ALT Alkaline Phosphatase Lactate Dehydrogenase 160 Total Protein Albumin Globulin Albumin/Globulin Ratio Triglycerides 400 H 11/08/20 11/08/20 11/08/20 12:12 15:47 20:14 WBC RBC Hgb POC Hgb Hct POC Hct MCV MCH MCHC RDW Std Deviation RDW Coeff of Ale Plt Count MPV Immature Gran % (Auto) Neut % (Auto) Lymph % (Auto) Deuel % (Auto) Eos % (Auto) Baso % (Auto) Neut # (Auto) Lymph # (Auto) Deuel # (Auto) Eos # (Auto) Baso # (Auto) Immature Gran # (Auto) PT INR APTT PTT Ratio Fibrinogen Sample Site POC pH POC pCO2 POC pO2 POC HCO3 POC Total CO2 POC Base Excess ABG pH (Temp Correct) ABG pCO2 (Temp Corrct POC ABG pO2 at Pt Temp POC ABG O2 Sat Rustam Test O2 Delivery Device POC O2 Rate POC FiO2 Tidal Volume PEEP POC Sodium Sodium POC Potassium Potassium Chloride Carbon Dioxide Anion Gap BUN Creatinine Est Cr Clr Drug Dosing Est GFR ( Amer) Est GFR (Non-Af Amer) BUN/Creatinine Ratio Glucose POC Glucose 208 H 198 H 206 H Calcium Phosphorus Magnesium Total Bilirubin AST ALT Alkaline Phosphatase Lactate Dehydrogenase Total Protein Albumin Globulin Albumin/Globulin Ratio Triglycerides 11/08/20 11/09/20 11/09/20 23:58 03:56 04:09 WBC RBC Hgb POC Hgb 8.2 L Hct POC Hct 24 L MCV MCH MCHC RDW Std Deviation RDW Coeff of Ale Plt Count MPV Immature Gran % (Auto) Neut % (Auto) Lymph % (Auto) Deuel % (Auto) Eos % (Auto) Baso % (Auto) Neut # (Auto) Lymph # (Auto) Deuel # (Auto) Eos # (Auto) Baso # (Auto) Immature Gran # (Auto) PT INR APTT PTT Ratio Fibrinogen Sample Site Art Line POC pH 7.30 L POC pCO2 50 H POC pO2 101 H POC HCO3 25 H POC Total CO2 26 POC Base Excess -1.0 ABG pH (Temp Correct) 7.308 L ABG pCO2 (Temp Corrct 50 H POC ABG pO2 at Pt Temp 99 POC ABG O2 Sat 97.0 H Rustam Test NA O2 Delivery Device Ventilator POC O2 Rate 26 POC FiO2 60 Tidal Volume 300 PEEP 12 POC Sodium 139 Sodium POC Potassium 5.1 H Potassium Chloride Carbon Dioxide Anion Gap BUN Creatinine Est Cr Clr Drug Dosing Est GFR ( Amer) Est GFR (Non-Af Amer) BUN/Creatinine Ratio Glucose POC Glucose 206 H 172 H Calcium Phosphorus Magnesium Total Bilirubin AST ALT Alkaline Phosphatase Lactate Dehydrogenase Total Protein Albumin Globulin Albumin/Globulin Ratio Triglycerides 11/09/20 11/09/20 11/09/20 04:50 04:50 08:19 WBC 6.88 RBC 2.78 L Hgb 8.1 L POC Hgb Hct 25.3 L POC Hct MCV 91.0 MCH 29.1 MCHC 32.0 RDW Std Deviation 47.5 H RDW Coeff of Ale 14.1 Plt Count 418 H MPV 9.3 Immature Gran % (Auto) 0.3 Neut % (Auto) 86.9 Lymph % (Auto) 7.4 Deuel % (Auto) 5.4 Eos % (Auto) 0.0 Baso % (Auto) 0.0 Neut # (Auto) 5.98 Lymph # (Auto) 0.51 L Deuel # (Auto) 0.37 Eos # (Auto) 0.00 Baso # (Auto) 0.00 Immature Gran # (Auto) 0.02 PT INR APTT PTT Ratio Fibrinogen Sample Site POC pH POC pCO2 POC pO2 POC HCO3 POC Total CO2 POC Base Excess ABG pH (Temp Correct) ABG pCO2 (Temp Corrct POC ABG pO2 at Pt Temp POC ABG O2 Sat Rustam Test O2 Delivery Device POC O2 Rate POC FiO2 Tidal Volume PEEP POC Sodium Sodium 138 POC Potassium Potassium 4.9 Chloride 110 H Carbon Dioxide 24 Anion Gap 4.0 BUN 78 H Creatinine 1.54 H Est Cr Clr Drug Dosing 46.8 Est GFR ( Amer) 43.9 Est GFR (Non-Af Amer) 37.9 BUN/Creatinine Ratio 50.8 H Glucose 182 H POC Glucose 136 H Calcium 9.2 Phosphorus 6.3 H Magnesium 3.2 H Total Bilirubin 0.2 AST 10 L ALT 19 Alkaline Phosphatase 90 Lactate Dehydrogenase Total Protein 7.2 Albumin 1.9 L Globulin 5.3 H Albumin/Globulin Ratio 0.4 L Triglycerides PG Care Time/CCT Total # of Minutes Spent Total Time Spent with Patient: Total time spent is greater than 50% in coordination of care (as documented) at patient's floor/unit and/or counseling patient: Coding Level of Care Code 23878 Subseq Hosp Care Lvl 3 Diagnoses Acute kidney injury N17.9 Hyperkalemia E87.5 Cardiomyopathy I42.9 Acute respiratory failure with hypoxia J96.01 Pneumonia due to COVID-19 virus U07.1; J12.82
[2020-11-09] MEDS: DOCUSATE SODIUM SYRUP 100 MG/10 ML UDC PO SCH ×2 (09:25→19:42)
--- NOTE | 2020-11-09 10:17 | Critical Care Progress Note ---
Date of Service November 09, 2020 Assessment & Plan (1) Acute respiratory failure with hypoxia: (2) Pneumonia due to COVID-19 virus: (3) Cardiomyopathy: (4) Mitral regurgitation: (5) Acute systolic CHF (congestive heart failure): (6) Acute kidney injury: Plan: Impression: 55-year-old female with COVID-19 pneumonia and hypoxemic respiratory failure. Echocardiogram showed severe reduction in ejection fraction down to 25 to 30% with moderate mitral regurgitation and regional wall motion abnormalities. She has had an increase in her oxygen requirement and was transferred back to the ICU 11/05/2020. Intubated 11/06/2020 due to hypoxemic respiratory failure Recommendations: 1. Neurological: We will attempt weaning off Nimbex again. Off propofol. Continue Precedex and fentanyl. Starting oxycodone 10 mg every 6 hours. Continue clonazepam 0.5 mg twice daily. 2. Cardiovascular: Acute CHF with reduction in ejection fraction and wall motion abnormalities. She also has mitral regurgitation. Her filling pressures are difficult to estimate. Volume status does not appear excessive on physical exam. Off of vasopressors. Unclear etiology of cardiomyopathy. Likely stress- induced from viral pneumonia and sepsis. 3. Pulmonary: Patient has been symptomatic with Covid since 10/18/2020 and tested + 10/25/2020. She received remdesivir at an outside facility. The patient is outside the window to consider Tocilizumab. Acute hypoxemic respiratory failure. Would continue dexamethasone to 20 mg a day for 5 days and then 10 mg a day for 5 days for late-phase ARDS, started 11/06. Continue to wean vent support as able. 4. GI: Advance tube feeds. Continue Protonix 40 mg twice daily. 5. Renal: Creatinine stable. We will give 1 mg of IV Bumex. 6. ID: COVID-19 pneumonia: Cultures negative thus far. MRSA screen was negative. Antibiotics deescalated to ceftriaxone. 7 Endocrine: Glycemic control per protocol. 8. Heme-onc: Anemia stable. 9. Prophylaxis: SCDs. Restarting heparin 5000 units twice daily CRITICAL CARE TIME - I have personally spent 33 minutes of critical care time in the direct management of this patient. This is a life/limb threatening event. This includes time spent evaluating patient, direct bedside care, chart review, placing orders, interpretation of diagnostic studies, discussion with consultants, patient, and family members, as well as other required patient management activities. This time is exclusive of all separately billable procedures, and teaching time and separate from and in addition to any other critical care service time. Admission and Anticipated Discharge Date Admission Date: October 29, 2020 Subjective Patient seen and examined. Currently on high doses of sedation. Wean off propofol. On Precedex and fentanyl. No significant overnight events. Weaning down vent settings. Unable to obtain review of systems given the patient's intubated and sedated status. Review of Systems Review of Systems: Unobtainable given patient's intubation and sedation status Physical Exam Constitutional: WD/WN, vitals as above Neck: trachea midline, no thyromegaly Respiratory: + respiratory distress Cardiovascular: Rate/Rhythm: regular rate Heart Sounds: normal S1, normal S2 and + murmur Extremities: no edema Gastrointestinal (Abdomen): normal bowel sounds, soft, nontender, no hepatosplenomegaly Musculoskeletal: Extremities: extremities normal to inspection Skin: no rashes, warm and dry Lymphatic: no cervical lymphadenopathy Results & Data Results & Data ([facility]) Vital Signs (Past 12 Hours) Vital Signs Temp Pulse Resp BP Pulse Ox 11/09/20 07:52 71 11/09/20 07:44 72 26 H 93 11/09/20 07:01 78 141/82 H 94 11/09/20 06:31 71 132/76 94 11/09/20 06:01 96.8 F L 73 133/74 94 11/09/20 05:31 97.0 F L 75 126/70 94 11/09/20 05:01 97.2 F L 74 132/72 92 11/09/20 04:30 97.3 F L 75 91 11/09/20 04:02 97.9 F 82 96 11/09/20 04:00 80 26 H 96 11/09/20 03:31 98.1 F 75 141/80 H 96 11/09/20 03:01 98.1 F 75 140/76 96 11/09/20 02:31 97.9 F 76 144/74 H 96 11/09/20 02:01 97.9 F 77 140/74 96 11/09/20 01:31 97.9 F 76 141/72 H 95 11/09/20 01:01 97.9 F 78 140/69 94 08/17/21 00:31 97.9 F 79 138/66 92 11/09/20 00:01 97.9 F 81 141/79 H 91 11/09/20 00:00 111 H 11/08/20 23:31 97.9 F 105 H 163/80 H 91 11/08/20 23:18 96 H 26 H 91 11/08/20 23:01 97.7 F 93 H 141/83 H 92 11/08/20 22:31 97.5 F L 122 H 184/105 H 94 vital signs, labs and imaging personally reviewed. Chest x-ray with continued bilateral fluffy infiltrates Coding Level of Care Code Critical Care 1st 30-74 mins Diagnoses Acute respiratory failure with hypoxia J96.01 Pneumonia due to COVID-19 virus U07.1; J12.82 Cardiomyopathy I42.9 Mitral regurgitation I34.0 Acute systolic CHF (congestive heart failure) I50.21 Acute kidney injury N17.9 Time Spent (min) 33
--- NOTE | 2020-11-09 11:52 | Pharmacy Report ---
Pharmacy Glycemic Short Note 2 - Date of Service November 09, 2020 - Glycemic Short BSG Results (Last 24 hours): 11/08/20 11/08/20 11/08/20 12:12 15:47 20:14 Glucose POC Glucose 208 H 198 H 206 H 11/08/20 11/09/20 11/09/20 23:58 03:56 04:50 Glucose 182 H POC Glucose 206 H 172 H 11/09/20 11/09/20 08:19 11:08 Glucose POC Glucose 136 H 190 H OUTPATIENT ANTIDIABETIC REGIMEN: * Metformin XR 500 mg PO BIDM * Jardiance 25 mg PO Daily * Trulicity 0.75 mg SC Weekly * Lantus 62 units SC BID * HbA1c = 10.2% (10/30/20) ASSESSMENT: 11/09 * BSG's gradually trended down yesterday with significantly increased Lantus, now 136 mg/dL this AM. Will continue Lantus, but will slightly reduce dose as it is not yet at steady state and will split more evenly BID * OK to tighten CHO ratio back to where it was previously while on dex 6 mg IV daily now that hypoglycemia not as likely due to known Lantus response 11/08 * Pt remains intubated. Attempting to wean paralytics today. Pressors off. Dexamethasone 20 mg IV x5 days started last night, 2nd dose this AM. Planned taper to 10 mg IV daily x5 days (for an additional 10 days of dexamethasone). * BSG's increased 2nd initiation of dexamethasone last night * Will increase Lantus. Used NPH previously while on dexamethasone 6 mg IV qAM, but will keep as Lantus for now as patient is now NPO. * Trickle feeds with Novasource renal starting. Would normally not cover trickle feeds with Novolog, however, due to significant prandial needs while previously on dexamethasone (at lower dose) evidenced by prior CHO ratio of 1.8 g CHO/unit, will cover with Novolog * Discussed insulin drip on ICU rounds given two BSG's very slightly >220 mg/dL. Will initiate at/after lunch if BSG's again >220 mg/dL - OK per Dr. Mueller * Novolog tightened to regimen while previously on dexamethasone, just slightly looser CHO ratio as patient is only on trickle feeds at this time 11/07 * Pt remains intubated, sedated, paralyzed. NPO. No steroids (completed course of DXM 11/03/20) * 11/06: BSGs [phone] * BSGs elevated secondary to basal insulin deficiency from 11/05. Pt received 40 units of basal on 11/04 and then only 15 units of basal on 11/05. Likely true basal needs ~ 30 units/day * Will change Lantus from scale based dosing to fixed BID dosing so that doses are not omitted when BSG is in range. * Continue NovoLog Q4hrs. No changes needed since pt is NPO. Will re-evaluate if enteral nutrition started in the next few days. PLAN FOR INPATIENT GLYCEMIC CONTROL: * Hold outpatient oral diabetes medications * Basal insulin * Lantus 25 units SC x1 this AM. Additional 15-35 units depending on BSG * Bolus insulin * NovoLog per scale q 4 hrs * Goal Range: Low 110 mg/dL - High 140 mg/dL * Correction Factor: 10 mg/dl/unit * Nutritional / Prandial insulin per carb ratio of 1 unit per 1.8 grams CHO consumed PLAN FOR DISCHARGE: * A1c = 10.2% on 10/30/20 * Outpatient regimen will need adjusted at DC to achieve better glycemic control. This will all be dependent on patient prognosis.
[2020-11-09] MEDS ORDERED: oxyCODONE HCL SOLN 5 MG/5 ML UDC PO SCH (12:00)
[2020-11-09] MEDS: HEPARIN SOD 5,000 UNIT/0.5 ML VIAL SC SCH ×2 (12:48→19:42)
[2020-11-09] MEDS: cefTRIAXone SODIUM 2,000 MG in DEXTROSE 5% 50 ML IV SCH (12:48)
[2020-11-09] MEDS: oxyCODONE HCL SOLN 5 MG/5 ML UDC PO SCH ×3 (12:49→23:35)
[2020-11-09] MEDS ORDERED: STAT IV Infusion **Titration per Protocol STA ×2 (13:40→17:15)
[2020-11-09] MEDS: MIDAZOLAM HCL 125 MG/250 ML BAG IV SCH (14:25)
[2020-11-09] MEDS: LACTULOSE SYRUP 10 GM/15 ML BTL 960 ML PO SCH ×2 (14:33→19:41)
[2020-11-09] MEDS: NOVASOURCE RENAL 2.0 CAL 1000ML BAG OG SCH (14:33)
[2020-11-09] MEDS: niCARdipine 25 MG in SODIUM CHLORIDE 0.9% 240 ML IV SCH ×3 (17:53→23:13)
[2020-11-09] MEDS: MIDAZOLAM BOLUS FROM BAG IV PRN ×2 (19:30→20:30)
--- NOTE | 2020-11-09 22:19 | Hospitalist Progress Note ---
Date of Service November 09, 2020 Assessment & Plan (1) Pneumonia due to COVID-19 virus: Plan: Acute hypoxemic respiratory failure / Covid pneumonia Patient is a "breakthrough case "following vaccination with Moderna in July Initiated on remdesivir 11/07 at [facility] and steroids 10/25 as outpatient - Completed 5-day course of remdesivir Completed 10-day course of steroids Completed 5-day course of azithromycin prior to admission Patient was out of the window for Tocilizumab Patient intubated evening of for worsening respiratory failure prone on 11/06 into 11/07, improved PEEP and FiO2 requirement now supine again, management per ICU guarded prognosis slowly weaning back ventilator requirements Continue Rocephin - started on 11/06 for late ARDS: Dexamethasone 20mg daily x 5 days then 10mg x 5 days (2) Acute respiratory failure with hypoxia: Plan: / Covid pneumonia managed as noted (3) Acute systolic CHF (congestive heart failure): Plan: Acute CHFrEF TTE shows EF 25-30%, cardiomyopathy, could be viral induced vs ischemic History of prior SD in 2016, troponins normal during admission Management per ICU Appreciate cardiology recommendations If patient were to survive her current critical illness she would require ischemic eval/cath pending once recovered from COVID and off high oxygen r equirements, however prognosis is guarded at this time. (4) Diabetes mellitus type 2, uncontrolled: Plan: -A1c 10.2%. -ICU hyperglycemia protocol monitor for hypoglycemia (5) Abnormal LFTs: Plan: -Due to Covid and critical illness (6) CAD (coronary artery disease): Plan: -s/p SD 2015. -She was not taking aspirin at admission; thus asa 81mg daily added. Metoprolol and statin held while critically ill (7) Obesity: Plan: BMI 36 (8) Hypertension: Plan: -Cont to hold HCTZ. -Cont to hold CELINE -Cont to hold 25 BID. (9) Hyperlipidemia: Plan: -crestor (10) Tobacco dependence: Plan: -Nicoderm patch 21mg held while critically ill (11) Hypomagnesemia: Plan: -ICU electrolyte protocol (12) Acute kidney injury: Plan: -Cr 1.9 on 10/27 in [place]. -2nd to COVID, severely uncontrolled DM, etc. Cr has improved, stable, monitor UO via calderon (13) Hyperkalemia: Plan: mildly elevated, poor dialysis candidate. Management by ICU team, currently on Kayexalate with nephro consulted (14) DVT prophylaxis: Plan: -lovenox 40 BID (15) Anxiety: Plan: -severe. - buspar held while critically ill and sedated Plan: Patient's daughter Mayra, who lives in [place] . Patient remains critically ill, intubated, sedated, and paralyzed. guarded prognosis Admission and Anticipated Discharge Date Admission Date: October 29, 2020 Subjective no major issues, slowly weaning vent settings transitioning off Nimbex, using Precedex, Oxycodone and Klonopin reviewed labs, stable Review of Systems Review of Systems: Unobtainable due to endotracheal tube Physical Exam Constitutional: + ill appearing and + mechanically ventilated; no acute distress Neck: trachea midline, no thyromegaly Respiratory: no respiratory distress (ventilated) and no labored breathing Auscultation: no crackles, no rales and no wheezes Cardiovascular: RRR, no murmur, no edema Gastrointestinal (Abdomen): normal bowel sounds, soft, nontender, no hepatosplenomegaly Musculoskeletal: no cyanosis or clubbing, extremities motor strength 5/5 Skin: no rashes, warm and dry Neurologic: patellar DTR's 2+ bilat, sensation intact and PERRL, EOMI, accommodation nl, no face palsy, no dysarthria Psychiatric: A+Ox3, euthymic affect Results & Data Results & Data ([facility]) Vital Signs (Past 12 Hours) Vital Signs Temp Pulse Resp BP Pulse Ox 11/09/20 20:49 79 26 H 91 11/09/20 18:31 77 124/72 89 L 11/09/20 18:01 75 140/68 89 L 11/09/20 17:31 69 161/78 H 96 11/09/20 17:01 68 157/79 H 95 11/09/20 16:31 72 155/80 H 94 11/09/20 16:21 69 27 H 95 11/09/20 16:01 74 155/83 H 98 11/09/20 16:00 37 C 11/09/20 15:31 76 154/83 H 96 11/09/20 15:01 79 156/82 H 95 11/09/20 14:31 76 146/76 H 95 11/09/20 14:01 77 142/76 H 94 11/09/20 13:31 83 157/86 H 93 11/09/20 13:01 100 H 162/85 H 93 11/09/20 12:01 85 151/84 H 94 11/09/20 11:44 36.8 C 11/09/20 11:31 78 144/82 H 93 11/09/20 11:27 77 27 H 94 11/09/20 11:01 122 H 191/105 H 84 L Laboratory Results Laboratory Results - last 24 hr 11/08/20 11/09/20 11/09/20 23:58 03:56 04:09 WBC RBC Hgb POC Hgb 8.2 L Hct POC Hct 24 L MCV MCH MCHC RDW Std Deviation RDW Coeff of Ale Plt Count MPV Immature Gran % (Auto) Neut % (Auto) Lymph % (Auto) [place] % (Auto) Eos % (Auto) Baso % (Auto) Neut # (Auto) Lymph # (Auto) [place] # (Auto) Eos # (Auto) Baso # (Auto) Immature Gran # (Auto) Sample Site Art Line POC pH 7.30 L POC pCO2 50 H POC pO2 101 H POC HCO3 25 H POC Total CO2 26 POC Base Excess -1.0 ABG pH (Temp Correct) 7.308 L ABG pCO2 (Temp Corrct 50 H POC ABG pO2 at Pt Temp 99 POC ABG O2 Sat 97.0 H Rustam Test NA O2 Delivery Device Ventilator POC O2 Rate 26 POC FiO2 60 Tidal Volume 300 PEEP 12 POC Sodium 139 Sodium POC Potassium 5.1 H Potassium Chloride Carbon Dioxide Anion Gap BUN Creatinine Est Cr Clr Drug Dosing Est GFR ( Amer) Est GFR (Non-Af Amer) BUN/Creatinine Ratio Glucose POC Glucose 206 H 172 H Calcium Phosphorus Magnesium Total Bilirubin AST ALT Alkaline Phosphatase Total Protein Albumin Globulin Albumin/Globulin Ratio 11/09/20 11/09/20 11/09/20 04:50 04:50 08:19 WBC 6.88 RBC 2.78 L Hgb 8.1 L POC Hgb Hct 25.3 L POC Hct MCV 91.0 MCH 29.1 MCHC 32.0 RDW Std Deviation 47.5 H RDW Coeff of Ale 14.1 Plt Count 418 H MPV 9.3 Immature Gran % (Auto) 0.3 Neut % (Auto) 86.9 Lymph % (Auto) 7.4 [place] % (Auto) 5.4 Eos % (Auto) 0.0 Baso % (Auto) 0.0 Neut # (Auto) 5.98 Lymph # (Auto) 0.51 L [place] # (Auto) 0.37 Eos # (Auto) 0.00 Baso # (Auto) 0.00 Immature Gran # (Auto) 0.02 Sample Site POC pH POC pCO2 POC pO2 POC HCO3 POC Total CO2 POC Base Excess ABG pH (Temp Correct) ABG pCO2 (Temp Corrct POC ABG pO2 at Pt Temp POC ABG O2 Sat Rustam Test O2 Delivery Device POC O2 Rate POC FiO2 Tidal Volume PEEP POC Sodium Sodium 138 POC Potassium Potassium 4.9 Chloride 110 H Carbon Dioxide 24 Anion Gap 4.0 BUN 78 H Creatinine 1.54 H Est Cr Clr Drug Dosing 46.8 Est GFR ( Amer) 43.9 Est GFR (Non-Af Amer) 37.9 BUN/Creatinine Ratio 50.8 H Glucose 182 H POC Glucose 136 H Calcium 9.2 Phosphorus 6.3 H Magnesium 3.2 H Total Bilirubin 0.2 AST 10 L ALT 19 Alkaline Phosphatase 90 Total Protein 7.2 Albumin 1.9 L Globulin 5.3 H Albumin/Globulin Ratio 0.4 L 11/09/20 11/09/20 11/09/20 11:08 16:19 20:15 WBC RBC Hgb POC Hgb Hct POC Hct MCV MCH MCHC RDW Std Deviation RDW Coeff of Ale Plt Count MPV Immature Gran % (Auto) Neut % (Auto) Lymph % (Auto) [place] % (Auto) Eos % (Auto) Baso % (Auto) Neut # (Auto) Lymph # (Auto) [place] # (Auto) Eos # (Auto) Baso # (Auto) Immature Gran # (Auto) Sample Site POC pH POC pCO2 POC pO2 POC HCO3 POC Total CO2 POC Base Excess ABG pH (Temp Correct) ABG pCO2 (Temp Corrct POC ABG pO2 at Pt Temp POC ABG O2 Sat Rustam Test O2 Delivery Device POC O2 Rate POC FiO2 Tidal Volume PEEP POC Sodium Sodium POC Potassium Potassium Chloride Carbon Dioxide Anion Gap BUN Creatinine Est Cr Clr Drug Dosing Est GFR ( Amer) Est GFR (Non-Af Amer) BUN/Creatinine Ratio Glucose POC Glucose 190 H 241 H 216 H Calcium Phosphorus Magnesium Total Bilirubin AST ALT Alkaline Phosphatase Total Protein Albumin Globulin Albumin/Globulin Ratio Medications Administered Current Inpatient Medications Acetaminophen (Acetaminophen 500 Mg Tab) 1,000 mg PO Q6H PRN PRN Reason: pain or headache Stop: 12/04/20 09:11 Last Admin: 11/04/20 09:31 Dose: 1,000 mg Documented by: Aspirin (Aspirin 81 Mg Chew) 81 mg PEG QAM [facility] Stop: 12/08/20 10:29 Last Admin: 11/09/20 08:00 Dose: 81 mg Documented by: Clonazepam (Clonazepam 0.5 Mg Tab) 0.5 mg PO BID [facility] Stop: 12/08/20 20:59 Last Admin: 11/09/20 20:07 Dose: 0.5 mg Documented by: Dextrose (Dextrose 50% 50 Ml Syringe) 25 - 50 ml IV UD PRN; Protocol PRN Reason: Hypoglycemia Protocol Stop: 11/28/20 20:59 Docusate Sodium (Docusate Sodium Syrup 100 Mg/10 Ml Udc) 100 mg PO BID [facility] Stop: 12/08/20 20:59 Last Admin: 11/09/20 19:42 Dose: 100 mg Documented by: Enteral Nutritional Formula (Novasource Renal 2.0 Srinath 1000ml Bag) 1,000 ml OG CONT SHAKIR; Protocol Stop: 12/08/20 11:44 Last Admin: 11/09/20 14:33 Dose: 1,000 ml Documented by: Fentanyl Citrate (Fentanyl Bolus From Bag) 50 mcg IV Q60M PRN PRN Reason: Pain or Agitation Stop: 11/20/20 05:22 Last Admin: 11/09/20 20:30 Dose: 50 mcg Documented by: Glucagon (Glucagon For Inj 1 Mg Vial) 1 mg IM UD PRN; Protocol PRN Reason: Hypoglycemia Protocol Stop: 11/28/20 20:59 Glucose (Glucose 40% Gel 15 Gm Tube) 15 - 30 gm PO UD PRN; Protocol PRN Reason: Hypoglycemia Protocol Stop: 11/28/20 20:59 Glucose (Glucose 10 Tabs/Tube) 4 - 8 tabs PO UD PRN; Protocol PRN Reason: Hypoglycemia Protocol Stop: 11/28/20 20:59 Heparin Sodium (Porcine) (Heparin Sod 5,000 Unit/0.5 Ml Vial) 5,000 units SC Q12 [facility] Stop: 12/09/20 10:29 Last Admin: 11/09/20 19:42 Dose: 5,000 units Documented by: Cisatracurium Besylate 40 mg/ (Sodium Chloride) 100 mls @ 8.55 mls/hr IV .[id number] [facility]; Protocol Stop: 12/06/20 03:59 Last Titration: 11/09/20 16:52 Dose: Infused Documented by: Fentanyl Citrate (Fentanyl Drip) 1,250 mcg in 250 mls @ 40 mls/hr IV .Q6H15M [facility]; Protocol Stop: 11/20/20 05:29 Last Titration: 11/09/20 19:08 Dose: 200 mcg/hr, 40 mls/hr Documented by: Dexamethasone 10 mg/ Syringe 2.5 mls @ 1 mls/min IV DAILY SHAKIR Stop: 11/17/20 08:59 Dexamethasone 20 mg/ Dextrose 30 mls @ 0.833 mls/min IV DAILY [facility] Stop: 11/12/20 08:59 Last Infusion: 11/09/20 09:29 Dose: Infused Documented by: Pantoprazole Sodium 40 mg/ (Syringe) 10 mls @ 5 mls/min IV BID@0900,2100 [facility] Stop: 12/08/20 10:29 Last Admin: 11/09/20 19:43 Dose: 5 mls/min Documented by: Dexmedetomidine HCl 400 mcg/ (Sodium Chloride) 100 mls @ 35.7 mls/hr IV .Q2H49M [facility]; Protocol Stop: 11/12/20 23:29 Last Admin: 11/09/20 20:05 Dose: 1.5 mcg/kg/hr, 35.7 mls/hr Documented by: Ceftriaxone Sodium 2,000 mg/ (Dextrose) 70 mls @ 140 mls/hr IV DAILY@1200 SHAKIR; Protocol Stop: 11/16/20 11:59 Last Infusion: 11/09/20 17:09 Dose: Infused Documented by: Midazolam HCl (Versed) 125 mg in 250 mls @ 2 mls/hr IV .Q96H [facility]; Protocol Stop: 12/09/20 13:44 Last Titration: 11/09/20 19:08 Dose: 2 mg/hr, 4 mls/hr Documented by: Nicardipine HCl 25 mg/ Sodium (Chloride) 250 mls @ 75 mls/hr IV .Q3H20M [facility]; Protocol Stop: 12/09/20 17:14 Last Admin: 11/09/20 20:05 Dose: 7.5 mg/hr, 75 mls/hr Documented by: Insulin Aspart (Insulin Aspart 100 Units/Ml 3 Ml Pen) 0 units SC Q4 [facility]; Protocol Stop: 12/08/20 00:00 Last Admin: 11/09/20 20:20 Dose: 12 units Documented by: Lactulose (Lactulose Syrup 10 Gm/15 Ml Btl 960 Ml) 10 gm PO Q8H SHAKIR Stop: 12/09/20 11:59 Last Admin: 11/09/20 19:41 Dose: 10 gm Documented by: Midazolam HCl (Midazolam Bolus From Bag) 2 mg IV Q60M PRN PRN Reason: Sedation Stop: 12/09/20 13:39 Last Admin: 11/09/20 20:30 Dose: 2 mg Documented by: Miscellaneous (Carbohydrates For Hypoglycemia ) 15 - 30 gm PO UD PRN PRN Reason: Hypoglycemia Treatment Stop: 11/28/20 20:59 Miscellaneous Information (Pharmacy Glycemic Mgmt Consult) 1 ea N/A UD PRN PRN Reason: Consult Stop: 11/28/20 19:30 Multi-Ingredient Cream (Artificial Tears Op Oint 3.5 Gm Tube) 1 appln OP Q4H [facility] Stop: 12/06/20 03:59 Last Admin: 11/09/20 19:35 Dose: Not Given Documented by: Nicotine (Nicotine 21 Mg/24 Hr Tdsy) 21 mg TD QAM [facility] Stop: 11/29/20 08:59 Last Admin: 11/09/20 08:04 Dose: 21 mg Documented by: Oxycodone HCl (Oxycodone Hcl Soln 5 Mg/5 Ml Udc) 10 mg PO Q6 [facility] Stop: 11/23/20 11:59 Last Admin: 11/09/20 17:52 Dose: 10 mg Documented by: Polyethylene Glycol (Polyethylene (Miralax) 17 Gm Pack) 17 gm PO QAM [facility] Stop: 12/09/20 08:59 Last Admin: 11/09/20 08:04 Dose: 17 gm Documented by: Rosuvastatin Calcium (Rosuvastatin Calcium 20 Mg Tab) 20 mg PO QAM [facility] Stop: 12/02/20 08:59 Last Admin: 11/09/20 08:05 Dose: 20 mg Documented by: Sennosides (Sennosides 8.8 Mg/5 Ml Udc) 17.6 mg PO BID [facility] Stop: 12/08/20 20:59 Last Admin: 11/09/20 19:43 Dose: 17.6 mg Documented by: Sterile Water (Tube Feeding Water Flush) 30 ml GT Q4H SHAKIR Stop: 12/08/20 11:59 Last Admin: 11/09/20 19:35 Dose: 30 ml Documented by: PG Care Time/CCT Total # of Minutes Spent Total Time Spent with Patient: Total time spent is greater than 50% in coordination of care (as documented) at patient's floor/unit and/or counseling patient: Coding Level of Care Code 65631 Subseq Hosp Care Lvl 2 Diagnoses Pneumonia due to COVID-19 virus U07.1; J12.82 Acute respiratory failure with hypoxia J96.01 Acute systolic CHF (congestive heart failure) I50.21 Diabetes mellitus type 2, uncontrolled E11.65 Abnormal LFTs R94.5 CAD (coronary artery disease) I25.10 Obesity E66.9 Hypertension I10 Hyperlipidemia E78.5 Tobacco dependence F17.200 Hypomagnesemia E83.42 Acute kidney injury N17.9 Hyperkalemia E87.5 DVT prophylaxis Z29.9 Anxiety F41.9
[2020-11-10] MEDS: DEXMEDETOMIDINE HCL 400 MCG in 0.9 % SODIUM CHLORIDE 96 ML IV SCH ×9 (00:10→22:35)
[2020-11-10] MEDS: niCARdipine 25 MG in SODIUM CHLORIDE 0.9% 240 ML IV SCH ×5 (00:42→20:50)
[2020-11-10] MEDS: fentaNYL DRIP 1,250 MCG/250 ML BAG IV SCH ×3 (03:45→19:07)
[2020-11-10] MEDS: LACTULOSE SYRUP 10 GM/15 ML BTL 960 ML PO SCH ×3 (03:45→20:08)
[2020-11-10] MEDS: TUBE FEEDING WATER FLUSH GT SCH ×5 (03:45→20:07)
[2020-11-10] MEDS: INSULIN ASPART 100 UNITS/ML 3 ML PEN SC SCH ×5 (04:20→20:51)
[2020-11-10 04:59] LABS: Eosinophils # (auto) 0.01 K/uL (0-0.5); Eosinophils % (auto) 0.2 %; Hematocrit (blood only) 27.8 % (37-47); Hemoglobin 8.9 g/dL (12.0-16.0); Immature Granulocytes # (auto) 0.02 K/uL (0.00-0.02); Immature Granulocytes % (auto) 0.3 %; Lymphocytes # (auto) 0.75 K/uL (1.2-3.4); Lymphocytes % (auto) 11.4 %; Mean Corpuscular Hemoglobin 29.2 pg (25-34); Mean Corpuscular Volume 91.1 fL (80-100); Monocytes # (auto) 0.43 K/uL (0.11-0.59); Monocytes % (auto) 6.5 %; Neutrophils # (auto) 5.36 K/uL (1.4-6.5); Neutrophils % (auto) 81.6 %; Platelet Count 418 K/uL (130-400); RDW Coefficient of Variation 14.1 % (11.5-14.5); RDW Standard Deviation 47.3 fL (36.4-46.3); Red Blood Count 3.05 M/uL (4.2-5.4); White Blood Count 6.57 K/uL (4.8-10.8)
[2020-11-10] MEDS: oxyCODONE HCL SOLN 5 MG/5 ML UDC PO SCH ×3 (05:05→18:39)
[2020-11-10] MEDS: MIDAZOLAM BOLUS FROM BAG IV PRN ×4 (05:17→19:29)
[2020-11-10 05:38] LABS: Albumin Globulin Ratio 0.4 (0.9-2); Albumin Level 1.9 gm/dl (3.4-5.0); BUN Creatinine Ratio 69.9 (10-20); Bilirubin,Total 0.2 mg/dl (0.2-1); Calcium 9.1 mg/dl (8.5-10.1); Creatinine Clr Calc Pharmacy 75.7 ml/min; Est GFR (African American) 75.8 ml/min; Est GFR (Non-African American) 65.4 ml/min; Magnesium 2.5 mg/dl (1.8-2.4); Phosphorus 3.2 mg/dl (2.5-4.9); Potassium 4.7 mmol/L (3.5-5.1); Total Protein 6.9 gm/dl (6.4-8.2)
[2020-11-10] MEDS: ARTIFICIAL TEARS OP OINT 3.5 GM TUBE OP SCH ×4 (08:30→20:51)
[2020-11-10] MEDS: ASPIRIN 81 MG CHEW PEG SCH (08:31)
[2020-11-10] MEDS: ROSUVASTATIN CALCIUM 20 MG TAB PO SCH (08:32)
[2020-11-10] MEDS: POLYETHYLENE (MIRALAX) 17 GM PACK PO SCH (08:32)
[2020-11-10] MEDS: HEPARIN SOD 5,000 UNIT/0.5 ML VIAL SC SCH ×2 (08:32→20:09)
[2020-11-10] MEDS: SENNOSIDES 8.8 MG/5 ML UDC PO SCH ×2 (08:32→20:09)
[2020-11-10] MEDS: NICOTINE 21 MG/24 HR TDSY TD SCH (08:33)
[2020-11-10] MEDS: PANTOprazole 40 MG in SYRINGE 0 ML IV SCH ×2 (08:33→20:07)
[2020-11-10] MEDS: DOCUSATE SODIUM SYRUP 100 MG/10 ML UDC PO SCH ×2 (08:34→20:09)
[2020-11-10] MEDS: dexAMETHasone 20 MG in DEXTROSE 5% 25 ML IV SCH (08:37)
[2020-11-10] MEDS: clonazePAM 0.5 MG TAB PO SCH ×2 (08:37→20:07)
[2020-11-10] MEDS ORDERED: INSULIN GLARGINE SOLOSTAR 100 UNITS/ML 3 ML PEN SC ONE ×2 (09:00→20:00)
[2020-11-10] MEDS: CISATRACURIUM BESYLATE 40 MG in 0.9 % SODIUM CHLORIDE 80 ML IV SCH (09:05)
--- NOTE | 2020-11-10 09:42 | Nephrology Progress Note ---
Date of Service November 10, 2020 Assessment & Plan (1) Acute kidney injury: Plan: Non-oliguric. Creatinine normalized. Clinically consistent with hemodynamically mediated ATN. Kidney function appears to have returned to baseline. Electrolytes acceptable. BP controlled. Continue diuretics to encourage even to negative fluid balance. Medications are appropriately dosed for kidney dysfunction. Document I/O's. Repeat metabolic profile tomorrow AM. No additional recommendations at this time. Nephrology will sign-off. Please call with questions or concerns. (2) Cardiomyopathy: Plan: Bumex PRN to encourage negative fluid balance. (3) Acute respiratory failure with hypoxia: Plan: Remains ventilator dependent. (4) Pneumonia due to COVID-19 virus: Plan: Remdesivir given at OSH. Outside window for Tocilizumab. Dexamethasone per primary team. Plan of care reviewed with Dr. Mueller. Admission and Anticipated Discharge Date Admission Date: October 29, 2020 Subjective No acute events overnight. Remains vent dependent. Vandana was not directly seen due to COVID. I discussed her status and plan of care with Dr. Avina and the bedside nurse this AM. Review of Systems Review of Systems: Unobtainable due to endotracheal tube Physical Exam Physical Exam: Deferred due to COVID. I/O: 3.1/3.1 Results & Data ([facility]) Vital Signs (Past 12 Hours) Vital Signs Temp Pulse Resp BP Pulse Ox 11/10/20 07:39 59 L 22 95 11/10/20 06:01 36.1 C L 60 135/69 95 11/10/20 05:31 36.1 C L 61 136/67 95 11/10/20 05:01 36.3 C L 62 136/75 95 11/10/20 04:31 36.7 C 66 144/71 H 89 L 11/10/20 04:01 36.0 C L 63 128/65 95 11/10/20 03:43 68 29 H 91 11/10/20 03:31 36.0 C L 63 129/66 94 11/10/20 03:01 36.0 C L 64 129/67 94 11/10/20 02:31 36.1 C L 67 133/65 94 11/10/20 02:01 36.1 C L 66 130/67 94 11/10/20 01:31 36.2 C L 67 133/66 94 11/10/20 01:01 36.2 C L 66 131/66 93 11/10/20 00:31 36.3 C L 68 133/62 93 11/10/20 00:01 36.3 C L 68 133/63 93 11/10/20 00:00 68 11/09/20 23:13 71 24 93 11/09/20 23:01 36.4 C L 71 130/63 92 11/09/20 22:31 36.5 C 74 133/64 93 11/09/20 22:01 36.5 C 75 131/65 93 Laboratory Results Laboratory Results - last 24 hr 11/09/20 11/09/20 11/09/20 11:08 16:19 20:15 WBC RBC Hgb Hct MCV MCH MCHC RDW Std Deviation RDW Coeff of Ale Plt Count MPV Immature Gran % (Auto) Neut % (Auto) Lymph % (Auto) [place] % (Auto) Eos % (Auto) Baso % (Auto) Neut # (Auto) Lymph # (Auto) [place] # (Auto) Eos # (Auto) Baso # (Auto) Immature Gran # (Auto) Sodium Potassium Chloride Carbon Dioxide Anion Gap BUN Creatinine Est Cr Clr Drug Dosing Est GFR ( Amer) Est GFR (Non-Af Amer) BUN/Creatinine Ratio Glucose POC Glucose 190 H 241 H 216 H Calcium Phosphorus Magnesium Total Bilirubin AST ALT Alkaline Phosphatase Total Protein Albumin Globulin Albumin/Globulin Ratio 11/09/20 11/10/20 11/10/20 23:40 04:01 04:43 WBC 6.57 RBC 3.05 L Hgb 8.9 L Hct 27.8 L MCV 91.1 MCH 29.2 MCHC 32.0 RDW Std Deviation 47.3 H RDW Coeff of Ale 14.1 Plt Count 418 H MPV 9.0 Immature Gran % (Auto) 0.3 Neut % (Auto) 81.6 Lymph % (Auto) 11.4 [place] % (Auto) 6.5 Eos % (Auto) 0.2 Baso % (Auto) 0.0 Neut # (Auto) 5.36 Lymph # (Auto) 0.75 L [place] # (Auto) 0.43 Eos # (Auto) 0.01 Baso # (Auto) 0.00 Immature Gran # (Auto) 0.02 Sodium Potassium Chloride Carbon Dioxide Anion Gap BUN Creatinine Est Cr Clr Drug Dosing Est GFR ( Amer) Est GFR (Non-Af Amer) BUN/Creatinine Ratio Glucose POC Glucose 162 H 138 H Calcium Phosphorus Magnesium Total Bilirubin AST ALT Alkaline Phosphatase Total Protein Albumin Globulin Albumin/Globulin Ratio 11/10/20 11/10/20 04:43 08:52 WBC RBC Hgb Hct MCV MCH MCHC RDW Std Deviation RDW Coeff of Ale Plt Count MPV Immature Gran % (Auto) Neut % (Auto) Lymph % (Auto) [place] % (Auto) Eos % (Auto) Baso % (Auto) Neut # (Auto) Lymph # (Auto) [place] # (Auto) Eos # (Auto) Baso # (Auto) Immature Gran # (Auto) Sodium 144 Potassium 4.7 Chloride 117 H Carbon Dioxide 28 Anion Gap -1.0 L BUN 69 H Creatinine 0.98 D Est Cr Clr Drug Dosing 75.7 Est GFR ( Amer) 75.8 Est GFR (Non-Af Amer) 65.4 BUN/Creatinine Ratio 69.9 H Glucose 138 H POC Glucose 113 H Calcium 9.1 Phosphorus 3.2 D Magnesium 2.5 H Total Bilirubin 0.2 AST 11 L ALT 17 Alkaline Phosphatase 89 Total Protein 6.9 Albumin 1.9 L Globulin 5.0 H Albumin/Globulin Ratio 0.4 L PG Care Time/CCT Total # of Minutes Spent Total Time Spent with Patient: Total time spent is greater than 50% in coordination of care (as documented) at patient's floor/unit and/or counseling patient: Coding Level of Care Code 65049 Subseq Hosp Care Lvl 3 Diagnoses Acute kidney injury N17.9 Cardiomyopathy I42.9 Acute respiratory failure with hypoxia J96.01 Pneumonia due to COVID-19 virus U07.1; J12.82
[2020-11-10] MEDS ORDERED: BUMETANIDE 0.5 MG in SYRINGE 0 ML IV ONE (10:15)
--- NOTE | 2020-11-10 11:04 | Critical Care Progress Note ---
Date of Service November 10, 2020 Assessment & Plan (1) Acute respiratory failure with hypoxia: (2) Pneumonia due to COVID-19 virus: (3) Cardiomyopathy: (4) Mitral regurgitation: (5) Acute systolic CHF (congestive heart failure): (6) Acute kidney injury: (7) Hypertensive urgency: Plan: Impression: 55-year-old female with COVID-19 pneumonia and hypoxemic respiratory failure. Echocardiogram showed severe reduction in ejection fraction down to 25 to 30% with moderate mitral regurgitation and regional wall motion abnormalities. She has had an increase in her oxygen requirement and was transferred back to the ICU 11/05/2020. Intubated 11/06/2020 due to hypoxemic respiratory failure Recommendations: 1. Neurological: We will attempt to wean Versed off today. Continue to wean fentanyl. Off neuromuscular blockade at this time. Continue oxycodone 10 mg every 6 hours. Continue clonazepam 0.5 mg twice daily. 2. Cardiovascular: Acute CHF with reduction in ejection fraction and wall motion abnormalities. She also has mitral regurgitation. Off of vasopressors. Unclear etiology of cardiomyopathy. Likely stress-induced from viral pneumonia and sepsis. Continue nicardipine to maintain systolic blood pressure of 140- 160. 3. Pulmonary: Patient has been symptomatic with Covid since 10/18/2020 and tested + 10/25/2020. She received remdesivir at an outside facility. The patient is outside the window to consider Tocilizumab. Acute hypoxemic respiratory failure. Complete late phase ARDS dexamethasone protocol, started 11/06. Continue to wean vent support as able. 4. GI: Advance tube feeds. Continue Protonix 40 mg twice daily. Currently on MiraLAX, senna twice daily, Bacid twice daily lactulose due to constipation. 5. Renal: Creatinine stable. BUN rising a bit. We will give a dose of 0.5 mg Bumex today. 6. ID: COVID-19 pneumonia: Cultures negative thus far. MRSA screen was negative. Off antibiotics. 7 Endocrine: Glycemic control per protocol. 8. Heme-onc: Anemia stable. 9. Prophylaxis: SCDs. Continue heparin 5000 units twice daily CRITICAL CARE TIME - I have personally spent 35 minutes of critical care time in the direct management of this patient. This is a life/limb threatening event. This includes time spent evaluating patient, direct bedside care, chart review, placing orders, interpretation of diagnostic studies, discussion with consultants, patient, and family members, as well as other required patient management activities. This time is exclusive of all separately billable procedures, and teaching time and separate from and in addition to any other critical care service time. Admission and Anticipated Discharge Date Admission Date: October 29, 2020 Subjective Patient seen and examined this morning. Off Nimbex. Weaning down Versed and fentanyl. Does not follow commands. No significant overnight events. Currently on 50% FiO2 and PEEP of 8. Tidal volume 320 mL. Review of Systems Review of Systems: Unobtainable due to cognitive status Physical Exam Constitutional: WD/WN, vitals as above Neck: trachea midline, no thyromegaly Respiratory: Coarse breath sounds on the ventilator Cardiovascular: Rate/Rhythm: regular rate Heart Sounds: normal S1, normal S2 and + murmur Extremities: no edema Gastrointestinal (Abdomen): normal bowel sounds, soft, nontender, no hepatosplenomegaly Musculoskeletal: Extremities: extremities normal to inspection Skin: no rashes, warm and dry Lymphatic: no cervical lymphadenopathy Results & Data Results & Data ([facility]) Vital Signs (Past 12 Hours) Vital Signs Temp Pulse Resp BP Pulse Ox 11/10/20 07:39 59 L 22 95 11/10/20 06:01 97.0 F L 60 135/69 95 11/10/20 05:31 97.0 F L 61 136/67 95 11/10/20 05:01 97.3 F L 62 136/75 95 11/10/20 04:31 98.1 F 66 144/71 H 89 L 11/10/20 04:01 96.8 F L 63 128/65 95 11/10/20 03:43 68 29 H 91 11/10/20 03:31 96.8 F L 63 129/66 94 11/10/20 03:01 96.8 F L 64 129/67 94 11/10/20 02:31 97.0 F L 67 133/65 94 11/10/20 02:01 97.0 F L 66 130/67 94 11/10/20 01:31 97.2 F L 67 133/66 94 11/10/20 01:01 97.2 F L 66 131/66 93 11/10/20 00:31 97.3 F L 68 133/62 93 11/10/20 00:01 97.3 F L 68 133/63 93 11/10/20 00:00 68 11/09/20 23:13 71 24 93 11/09/20 23:01 97.5 F L 71 130/63 92 Vital signs, labs and imaging reviewed Coding Level of Care Code Critical Care 1st 30-74 mins Diagnoses Acute respiratory failure with hypoxia J96.01 Pneumonia due to COVID-19 virus U07.1; J12.82 Cardiomyopathy I42.9 Mitral regurgitation I34.0 Acute systolic CHF (congestive heart failure) I50.21 Acute kidney injury N17.9 Hypertensive urgency I16.0 Time Spent (min) 35
[2020-11-10] MEDS: cefTRIAXone SODIUM 2,000 MG in DEXTROSE 5% 50 ML IV SCH (12:38)
--- NOTE | 2020-11-10 13:28 | Pharmacy Report ---
Pharmacy Glycemic Short Note 2 - Date of Service November 10, 2020 - Glycemic Short BSG Results (Last 24 hours): 11/09/20 11/09/20 11/09/20 16:19 20:15 23:40 Glucose POC Glucose 241 H 216 H 162 H 11/10/20 11/10/20 11/10/20 04:01 04:43 08:52 Glucose 138 H POC Glucose 138 H 113 H 11/10/20 12:42 Glucose POC Glucose 134 H OUTPATIENT ANTIDIABETIC REGIMEN: * Metformin XR 500 mg PO BIDM * Jardiance 25 mg PO Daily * Trulicity 0.75 mg SC Weekly * Lantus 62 units SC BID * HbA1c = 10.2% (10/30/20) ASSESSMENT: 11/10: * BSG down to 113 mg/dL this AM, will slightly reduce evening lantus scale for total daily dose max of 55 units * Dexamethasone 20 mg day 06/28, continue tightened CHO ratio, TF are to advance to goal of 40 ml/hr- monitor 11/09 * BSG's gradually trended down yesterday with significantly increased Lantus, now 136 mg/dL this AM. Will continue Lantus, but will slightly reduce dose as it is not yet at steady state and will split more evenly BID * OK to tighten CHO ratio back to where it was previously while on dex 6 mg IV daily now that hypoglycemia not as likely due to known Lantus response 11/08 * Pt remains intubated. Attempting to wean paralytics today. Pressors off. Dexamethasone 20 mg IV x5 days started last night, 2nd dose this AM. Planned taper to 10 mg IV daily x5 days (for an additional 10 days of dexamethasone). * BSG's increased 2nd initiation of dexamethasone last night * Will increase Lantus. Used NPH previously while on dexamethasone 6 mg IV qAM, but will keep as Lantus for now as patient is now NPO. * Trickle feeds with Novasource renal starting. Would normally not cover trickle feeds with Novolog, however, due to significant prandial needs while previously on dexamethasone (at lower dose) evidenced by prior CHO ratio of 1.8 g CHO/unit, will cover with Novolog * Discussed insulin drip on ICU rounds given two BSG's very slightly >220 mg/dL. Will initiate at/after lunch if BSG's again >220 mg/dL - OK per Dr. Mueller * Novolog tightened to regimen while previously on dexamethasone, just slightly looser CHO ratio as patient is only on trickle feeds at this time 11/07 * Pt remains intubated, sedated, paralyzed. NPO. No steroids (completed course of DXM 11/03/20) * 11/06: BSGs [phone] * BSGs elevated secondary to basal insulin deficiency from 11/05. Pt received 40 units of basal on 11/04 and then only 15 units of basal on 11/05. Likely true basal needs ~ 30 units/day * Will change Lantus from scale based dosing to fixed BID dosing so that doses are not omitted when BSG is in range. * Continue NovoLog Q4hrs. No changes needed since pt is NPO. Will re-evaluate if enteral nutrition started in the next few days. PLAN FOR INPATIENT GLYCEMIC CONTROL: * Hold outpatient oral diabetes medications * Basal insulin * Lantus 30 units SC x1 this AM. Additional 15-25 units depending on BSG * Bolus insulin * NovoLog per scale q 4 hrs * Goal Range: Low 110 mg/dL - High 140 mg/dL * Correction Factor: 10 mg/dl/unit * Nutritional / Prandial insulin per carb ratio of 1 unit per 1.8 grams CHO consumed PLAN FOR DISCHARGE: * A1c = 10.2% on 10/30/20 * Outpatient regimen will need adjusted at DC to achieve better glycemic control. This will all be dependent on patient prognosis.
[2020-11-10] MEDS: NOVASOURCE RENAL 2.0 CAL 1000ML BAG OG SCH (15:28)
--- NOTE | 2020-11-10 22:09 | Hospitalist Progress Note ---
Date of Service November 10, 2020 Assessment & Plan (1) Pneumonia due to COVID-19 virus: Plan: Acute hypoxemic respiratory failure /2 Covid pneumonia Patient is a "breakthrough case "following vaccination with Moderna in July Initiated on remdesivir 11/07 at [facility] and steroids 10/25 as outpatient - Completed 5-day course of remdesivir Completed 10-day course of steroids Completed 5-day course of azithromycin prior to admission Patient was out of the window for Tocilizumab Patient intubated evening of for worsening respiratory failure prone on 11/06 into 11/07, improved PEEP and FiO2 requirement now supine again, management per ICU guarded prognosis slowly weaning back ventilator requirements PEEP down to 8 today with FiO2 50% weaning off propofol and fentanyl, using oxycodone, klonopin - started on 11/06 for late ARDS: Dexamethasone 20mg daily x 5 days then 10mg x 5 days (2) Acute respiratory failure with hypoxia: Plan: 04/27 Covid pneumonia managed as noted slowly trying to wean ventilatory settings (3) Acute systolic CHF (congestive heart failure): Plan: Acute CHFrEF TTE shows EF 25-30%, cardiomyopathy, could be viral induced vs ischemic History of prior AK in 2016, troponins normal during admission Management per ICU Appreciate cardiology recommendations If patient were to survive her current critical illness she would require ischemic eval/cath pending once recovered from COVID and off high oxygen requirements, however prognosis is guarded at this time. (4) Diabetes mellitus type 2, uncontrolled: Plan: -A1c 10.2%. -ICU hyperglycemia protocol monitor for hypoglycemia (5) Abnormal LFTs: Plan: -Due to Covid and critical illness (6) CAD (coronary artery disease): Plan: -s/p AK 2016. -She was not taking aspirin at admission; thus asa 81mg daily added. Metoprolol and statin held while critically ill (7) Obesity: Plan: BMI 36 (8) Hypertension: Plan: -Cont to hold HCTZ. -Cont to hold CELINE -Cont to hold 25 BID. (9) Hyperlipidemia: Plan: -crestor (10) Tobacco dependence: Plan: -Nicoderm patch 21mg held while critically ill (11) Hypomagnesemia: Plan: -ICU electrolyte protocol (12) Acute kidney injury: Plan: -Cr 1.9 on 8/4 in [place]. -2nd to COVID, severely uncontrolled DM, etc. Cr has improved, stable, monitor UO via calderon (13) Hyperkalemia: Plan: mildly elevated, poor dialysis candidate. Management by ICU team, currently on Kayexalate with nephro consulted (14) DVT prophylaxis: Plan: -lovenox 40 BID (15) Anxiety: Plan: -severe. - buspar held while critically ill and sedated Plan: Patient's daughter Mayra, who lives in [place] . Patient remains critically ill, intubated, sedated, and paralyzed. guarded prognosis Admission and Anticipated Discharge Date Admission Date: October 29, 2020 Subjective remains intubated, weaning of propofol and fentanyl, using Oxycodone, Klonopin trying to wean back FiO2 requirements reviewed labs Review of Systems Review of Systems: Unobtainable due to endotracheal tube Physical Exam Constitutional: well developed, well nourished, + ill appearing, comfortable and + mechanically ventilated; no acute distress Neck: trachea midline, no thyromegaly Respiratory: no respiratory distress (ventilated) and no labored breathing Auscultation: no crackles, no rales and no wheezes Cardiovascular: RRR, no murmur, no edema Gastrointestinal (Abdomen): normal bowel sounds, soft, nontender, no hepatosplenomegaly Musculoskeletal: no cyanosis or clubbing, extremities motor strength 5/5 Skin: no rashes, warm and dry Neurologic: CN's II-XI intact bilaterally and + obtunded; no focal motor deficits Results & Data Results & Data ([facility]) Vital Signs (Past 12 Hours) Vital Signs Temp Pulse Resp BP Pulse Ox 11/10/20 22:01 35.3 C L 53 L 127/65 100 11/10/20 21:31 35.4 C L 52 L 126/67 100 11/10/20 21:01 35.5 C L 56 L 123/67 100 11/10/20 20:31 35.6 C L 58 L 125/64 100 11/10/20 20:01 35.6 C L 62 126/65 99 11/10/20 20:00 53 L 137/59 L 11/10/20 19:50 64 26 H 97 11/10/20 19:31 35.7 C L 70 112/63 96 11/10/20 19:01 35.6 C L 55 L 127/65 96 11/10/20 17:31 35.8 C L 52 L 130/65 97 11/10/20 17:01 35.8 C L 57 L 132/63 97 11/10/20 16:31 35.7 C L 60 131/65 97 11/10/20 16:01 35.7 C L 60 132/64 97 11/10/20 16:00 60 132/64 11/10/20 15:45 60 22 98 11/10/20 15:31 35.6 C L 57 L 129/65 98 11/10/20 15:01 35.6 C L 60 128/66 98 11/10/20 14:31 35.6 C L 58 L 129/65 98 11/10/20 14:01 35.5 C L 55 L 127/66 97 11/10/20 13:31 35.6 C L 56 L 132/66 96 11/10/20 13:01 35.6 C L 60 132/69 92 11/10/20 12:31 35.5 C L 54 L 126/69 95 11/10/20 12:01 35.6 C L 57 L 132/71 96 11/10/20 12:00 57 L 132/71 11/10/20 11:31 35.5 C L 56 L 127/67 96 11/10/20 11:13 56 L 22 96 11/10/20 11:01 35.6 C L 56 L 131/66 96 11/10/20 10:31 35.6 C L 57 L 128/66 96 Laboratory Results Laboratory Results - last 24 hr 11/09/20 11/10/20 11/10/20 23:40 04:01 04:43 WBC 6.57 RBC 3.05 L Hgb 8.9 L Hct 27.8 L MCV 91.1 MCH 29.2 MCHC 32.0 RDW Std Deviation 47.3 H RDW Coeff of Ale 14.1 Plt Count 418 H MPV 9.0 Immature Gran % (Auto) 0.3 Neut % (Auto) 81.6 Lymph % (Auto) 11.4 [place] % (Auto) 6.5 Eos % (Auto) 0.2 Baso % (Auto) 0.0 Neut # (Auto) 5.36 Lymph # (Auto) 0.75 L [place] # (Auto) 0.43 Eos # (Auto) 0.01 Baso # (Auto) 0.00 Immature Gran # (Auto) 0.02 Sodium Potassium Chloride Carbon Dioxide Anion Gap BUN Creatinine Est Cr Clr Drug Dosing Est GFR ( Amer) Est GFR (Non-Af Amer) BUN/Creatinine Ratio Glucose POC Glucose 162 H 138 H Calcium Phosphorus Magnesium Total Bilirubin AST ALT Alkaline Phosphatase Total Protein Albumin Globulin Albumin/Globulin Ratio 11/10/20 11/10/20 11/10/20 04:43 08:52 12:42 WBC RBC Hgb Hct MCV MCH MCHC RDW Std Deviation RDW Coeff of Ale Plt Count MPV Immature Gran % (Auto) Neut % (Auto) Lymph % (Auto) [place] % (Auto) Eos % (Auto) Baso % (Auto) Neut # (Auto) Lymph # (Auto) [place] # (Auto) Eos # (Auto) Baso # (Auto) Immature Gran # (Auto) Sodium 144 Potassium 4.7 Chloride 117 H Carbon Dioxide 28 Anion Gap -1.0 L BUN 69 H Creatinine 0.98 D Est Cr Clr Drug Dosing 75.7 Est GFR ( Amer) 75.8 Est GFR (Non-Af Amer) 65.4 BUN/Creatinine Ratio 69.9 H Glucose 138 H POC Glucose 113 H 134 H Calcium 9.1 Phosphorus 3.2 D Magnesium 2.5 H Total Bilirubin 0.2 AST 11 L ALT 17 Alkaline Phosphatase 89 Total Protein 6.9 Albumin 1.9 L Globulin 5.0 H Albumin/Globulin Ratio 0.4 L 11/10/20 11/10/20 16:43 20:31 WBC RBC Hgb Hct MCV MCH MCHC RDW Std Deviation RDW Coeff of Ale Plt Count MPV Immature Gran % (Auto) Neut % (Auto) Lymph % (Auto) [place] % (Auto) Eos % (Auto) Baso % (Auto) Neut # (Auto) Lymph # (Auto) [place] # (Auto) Eos # (Auto) Baso # (Auto) Immature Gran # (Auto) Sodium Potassium Chloride Carbon Dioxide Anion Gap BUN Creatinine Est Cr Clr Drug Dosing Est GFR ( Amer) Est GFR (Non-Af Amer) BUN/Creatinine Ratio Glucose POC Glucose 206 H 256 H Calcium Phosphorus Magnesium Total Bilirubin AST ALT Alkaline Phosphatase Total Protein Albumin Globulin Albumin/Globulin Ratio Medications Administered Current Inpatient Medications Acetaminophen (Acetaminophen 500 Mg Tab) 1,000 mg PO Q6H PRN PRN Reason: pain or headache Stop: 12/04/20 09:11 Last Admin: 11/04/20 09:31 Dose: 1,000 mg Documented by: Aspirin (Aspirin 81 Mg Chew) 81 mg PEG QAM [facility] Stop: 12/08/20 10:29 Last Admin: 11/10/20 08:31 Dose: 81 mg Documented by: Clonazepam (Clonazepam 0.5 Mg Tab) 0.5 mg PO BID [facility] Stop: 12/08/20 20:59 Last Admin: 11/10/20 20:07 Dose: 0.5 mg Documented by: Dextrose (Dextrose 50% 50 Ml Syringe) 25 - 50 ml IV UD PRN; Protocol PRN Reason: Hypoglycemia Protocol Stop: 11/28/20 20:59 Docusate Sodium (Docusate Sodium Syrup 100 Mg/10 Ml Udc) 100 mg PO BID [facility] Stop: 12/08/20 20:59 Last Admin: 11/10/20 20:09 Dose: 100 mg Documented by: Enteral Nutritional Formula (Novasource Renal 2.0 Srinath 1000ml Bag) 1,000 ml OG CONT SHAKIR; Protocol Stop: 12/08/20 11:44 Last Admin: 11/10/20 15:28 Dose: 1,000 ml Documented by: Fentanyl Citrate (Fentanyl Bolus From Bag) 50 mcg IV Q60M PRN PRN Reason: Pain or Agitation Stop: 11/20/20 05:22 Last Admin: 11/10/20 19:31 Dose: 50 mcg Documented by: Glucagon (Glucagon For Inj 1 Mg Vial) 1 mg IM UD PRN; Protocol PRN Reason: Hypoglycemia Protocol Stop: 11/28/20 20:59 Glucose (Glucose 40% Gel 15 Gm Tube) 15 - 30 gm PO UD PRN; Protocol PRN Reason: Hypoglycemia Protocol Stop: 11/28/20 20:59 Glucose (Glucose 10 Tabs/Tube) 4 - 8 tabs PO UD PRN; Protocol PRN Reason: Hypoglycemia Protocol Stop: 11/28/20 20:59 Heparin Sodium (Porcine) (Heparin Sod 5,000 Unit/0.5 Ml Vial) 5,000 units SC Q12 [facility] Stop: 12/09/20 10:29 Last Admin: 11/10/20 20:09 Dose: 5,000 units Documented by: Fentanyl Citrate (Fentanyl Drip) 1,250 mcg in 250 mls @ 40 mls/hr IV .Q6H15M SHAKIR; Protocol Stop: 11/20/20 05:29 Last Titration: 11/10/20 19:34 Dose: 200 mcg/hr, 40 mls/hr Documented by: Dexamethasone 10 mg/ Syringe 2.5 mls @ 1 mls/min IV DAILY SHAKIR Stop: 11/17/20 08:59 Dexamethasone 20 mg/ Dextrose 30 mls @ 0.833 mls/min IV DAILY SHAKIR Stop: 11/12/20 08:59 Last Infusion: 11/10/20 10:33 Dose: Infused Documented by: Pantoprazole Sodium 40 mg/ (Syringe) 10 mls @ 5 mls/min IV BID@0900,2100 [facility] Stop: 12/08/20 10:29 Last Admin: 11/10/20 20:07 Dose: 5 mls/min Documented by: Dexmedetomidine HCl 400 mcg/ (Sodium Chloride) 100 mls @ 17.85 mls/hr IV .Q5H37M SHAKIR; Protocol Stop: 11/12/20 23:29 Last Admin: 11/10/20 19:07 Dose: 0.75 mcg/kg/hr, 17.9 mls/hr Documented by: Ceftriaxone Sodium 2,000 mg/ (Dextrose) 70 mls @ 140 mls/hr IV DAILY@1200 SHAKIR; Protocol Stop: 11/16/20 11:59 Last Infusion: 11/10/20 13:08 Dose: Infused Documented by: Midazolam HCl (Versed) 125 mg in 250 mls @ 4 mls/hr IV .[id number] SHAKIR; Protocol Stop: 12/09/20 13:44 Last Titration: 11/10/20 19:33 Dose: 2 mg/hr, 4 mls/hr Documented by: Nicardipine HCl 25 mg/ Sodium (Chloride) 250 mls @ 50 mls/hr IV .Q5H SHAKIR; Protocol Stop: 12/09/20 17:14 Last Admin: 11/10/20 20:50 Dose: 5 mg/hr, 50 mls/hr Documented by: Insulin Aspart (Insulin Aspart 100 Units/Ml 3 Ml Pen) 0 units SC Q4 SHAKIR; Protocol Stop: 12/08/20 00:00 Last Admin: 11/10/20 20:51 Dose: 20 units Documented by: Lactulose (Lactulose Syrup 10 Gm/15 Ml Btl 960 Ml) 10 gm PO Q8H SHAKIR Stop: 12/09/20 11:59 Last Admin: 11/10/20 20:08 Dose: 10 gm Documented by: Midazolam HCl (Midazolam Bolus From Bag) 2 mg IV Q60M PRN PRN Reason: Sedation Stop: 12/09/20 13:39 Last Admin: 11/10/20 19:29 Dose: 2 mg Documented by: Miscellaneous (Carbohydrates For Hypoglycemia ) 15 - 30 gm PO UD PRN PRN Reason: Hypoglycemia Treatment Stop: 11/28/20 20:59 Miscellaneous Information (Pharmacy Glycemic Mgmt Consult) 1 ea N/A UD PRN PRN Reason: Consult Stop: 11/28/20 19:30 Multi-Ingredient Cream (Artificial Tears Op Oint 3.5 Gm Tube) 1 appln OP Q4H [facility] Stop: 12/06/20 03:59 Last Admin: 11/10/20 20:51 Dose: 1 appln Documented by: Nicotine (Nicotine 21 Mg/24 Hr Tdsy) 21 mg TD QAM [facility] Stop: 11/29/20 08:59 Last Admin: 11/10/20 08:33 Dose: 21 mg Documented by: Oxycodone HCl (Oxycodone Hcl Soln 5 Mg/5 Ml Udc) 10 mg PO Q6 [facility] Stop: 11/23/20 11:59 Last Admin: 11/10/20 18:39 Dose: 10 mg Documented by: Polyethylene Glycol (Polyethylene (Miralax) 17 Gm Pack) 17 gm PO QAM [facility] Stop: 12/09/20 08:59 Last Admin: 11/10/20 08:32 Dose: 17 gm Documented by: Rosuvastatin Calcium (Rosuvastatin Calcium 20 Mg Tab) 20 mg PO QAM [facility] Stop: 12/02/20 08:59 Last Admin: 11/10/20 08:32 Dose: 20 mg Documented by: Sennosides (Sennosides 8.8 Mg/5 Ml Udc) 17.6 mg PO BID [facility] Stop: 12/08/20 20:59 Last Admin: 11/10/20 20:09 Dose: 17.6 mg Documented by: Sterile Water (Tube Feeding Water Flush) 30 ml GT Q4H [facility] Stop: 12/08/20 11:59 Last Admin: 11/10/20 20:07 Dose: 30 ml Documented by: PG Care Time/CCT Total # of Minutes Spent Total Time Spent with Patient: Total time spent is greater than 50% in coordination of care (as documented) at patient's floor/unit and/or counseling patient: Coding Level of Care Code 18697 Subseq Hosp Care Lvl 2 Diagnoses Pneumonia due to COVID-19 virus U07.1; J12.82 Acute respiratory failure with hypoxia J96.01 Acute systolic CHF (congestive heart failure) I50.21 Diabetes mellitus type 2, uncontrolled E11.65 Abnormal LFTs R94.5 CAD (coronary artery disease) I25.10 Obesity E66.9 Hypertension I10 Hyperlipidemia E78.5 Tobacco dependence F17.200 Hypomagnesemia E83.42 Acute kidney injury N17.9 Hyperkalemia E87.5 DVT prophylaxis Z29.9 Anxiety F41.9
[2020-11-11] MEDS: fentaNYL DRIP 1,250 MCG/250 ML BAG IV SCH ×7 (00:46→23:05)
[2020-11-11] MEDS: oxyCODONE HCL SOLN 5 MG/5 ML UDC PO SCH ×5 (00:46→23:17)
[2020-11-11] MEDS: ARTIFICIAL TEARS OP OINT 3.5 GM TUBE OP SCH ×7 (00:48→23:18)
[2020-11-11] MEDS: TUBE FEEDING WATER FLUSH GT SCH ×6 (00:48→22:03)
[2020-11-11] MEDS: INSULIN ASPART 100 UNITS/ML 3 ML PEN SC SCH ×7 (00:49→23:17)
[2020-11-11] MEDS: niCARdipine 25 MG in SODIUM CHLORIDE 0.9% 240 ML IV SCH ×9 (01:50→23:06)
[2020-11-11] MEDS: DEXMEDETOMIDINE HCL 400 MCG in 0.9 % SODIUM CHLORIDE 96 ML IV SCH ×8 (03:10→23:16)
[2020-11-11] MEDS: LACTULOSE SYRUP 10 GM/15 ML BTL 960 ML PO SCH (05:13)
[2020-11-11 05:34] LABS: Hematocrit (blood only) 29.8 % (37-47); Hemoglobin 9.3 g/dL (12.0-16.0); Immature Granulocytes # (auto) 0.01 K/uL (0.00-0.02); Immature Granulocytes % (auto) 0.2 %; Lymphocytes # (auto) 0.41 K/uL (1.2-3.4); Mean Corpuscular Hgb Conc 31.2 g/dL (32-36); Mean Corpuscular Volume 92.8 fL (80-100); Mean Platelet Volume 9.4 fL (7.4-10.4); Monocytes # (auto) 0.28 K/uL (0.11-0.59); Monocytes % (auto) 5.4 %; Neutrophils # (auto) 4.45 K/uL (1.4-6.5); Neutrophils % (auto) 86.4 %; Platelet Count 428 K/uL (130-400); Red Blood Count 3.21 M/uL (4.2-5.4); White Blood Count 5.15 K/uL (4.8-10.8)
[2020-11-11 05:35] LABS: iSTAT Art Bld Gas pCO2 Correct 45 mmHg (35-46); iSTAT Art Bld Gas pH Corrected 7.369 (7.35-7.45); iSTAT Arterial Blood Gas HCO3 26 meg/L (19-24); iSTAT Arterial Blood Gas pCO2 48 mmHg (35-46); iSTAT Arterial Blood Gas pH 7.34 (7.35-7.45); iSTAT Arterial Blood Gas pO2 94 mmHg (80-95); iSTAT Arterial Blood Gas pO2 C 84; iSTAT Carbon Dioxide 28 mmol/L (24-31); iSTAT FiO2 60 %; iSTAT Hematocrit 26 % (37-47); iSTAT Hemoglobin 8.8 g/dl (12.0-16.0); iSTAT Potassium 4.7 mmol/L (3.3-5.0); iSTAT Site Art Line; iSTAT Sodium 148 mmol/L (135-144)
[2020-11-11 06:03] LABS: BUN Creatinine Ratio 74.1 (10-20); Calcium 8.9 mg/dl (8.5-10.1); Creatinine Clr Calc Pharmacy 105.9 ml/min; Est GFR (African American) 113.8 ml/min; Est GFR (Non-African American) 98.2 ml/min; Magnesium 2.2 mg/dl (1.8-2.4); Phosphorus 3.2 mg/dl (2.5-4.9); Potassium 4.9 mmol/L (3.5-5.1)
[2020-11-11] MEDS: dexAMETHasone 20 MG in DEXTROSE 5% 25 ML IV SCH (08:13)
[2020-11-11] MEDS: PANTOprazole 40 MG in SYRINGE 0 ML IV SCH ×2 (08:13→19:25)
[2020-11-11] MEDS: ASPIRIN 81 MG CHEW PEG SCH (08:14)
[2020-11-11] MEDS: SENNOSIDES 8.8 MG/5 ML UDC PO SCH ×2 (08:14→19:22)
[2020-11-11] MEDS: ROSUVASTATIN CALCIUM 20 MG TAB PO SCH (08:15)
[2020-11-11] MEDS: NICOTINE 21 MG/24 HR TDSY TD SCH (08:15)
[2020-11-11] MEDS: POLYETHYLENE (MIRALAX) 17 GM PACK PO SCH (08:15)
[2020-11-11] MEDS: HEPARIN SOD 5,000 UNIT/0.5 ML VIAL SC SCH ×2 (08:15→19:22)
[2020-11-11] MEDS: DOCUSATE SODIUM SYRUP 100 MG/10 ML UDC PO SCH ×2 (08:16→19:22)
[2020-11-11] MEDS: clonazePAM 0.5 MG TAB PO SCH (08:37)
--- NOTE | 2020-11-11 08:37 | Critical Care Progress Note ---
Date of Service November 11, 2020 Assessment & Plan (1) Acute respiratory failure with hypoxia: (2) Pneumonia due to COVID-19 virus: (3) Cardiomyopathy: (4) Mitral regurgitation: (5) Acute systolic CHF (congestive heart failure): (6) Acute kidney injury: (7) Hypertensive urgency: Plan: Impression: 55-year-old female with COVID-19 pneumonia and hypoxemic respiratory failure. Echocardiogram showed severe reduction in ejection fraction down to 25 to 30% with moderate mitral regurgitation and regional wall motion abnormalities. She has had an increase in her oxygen requirement and was transferred back to the ICU 11/05/2020. Intubated 11/06/2020 due to hypoxemic respiratory failure Recommendations: 1. Neurological: Continue to wean continuous sedation as able. Currently on Versed drip, fentanyl and Precedex. Increase oxycodone to 15 mg every 6 hours. Increase Klonopin to 1 mg twice daily. 2. Cardiovascular: Acute CHF with reduction in ejection fraction and wall motion abnormalities. She also has mitral regurgitation. Off of vasopressors. Unclear etiology of cardiomyopathy. Likely stress-induced from viral pneumonia and sepsis. Continue nicardipine to maintain systolic blood pressure of 140- 160. We will start her on 1 mg Bumex twice daily. 3. Pulmonary: Patient has been symptomatic with Covid since 10/18/2020 and tested + 10/25/2020. She received remdesivir at an outside facility. The patient is outside the window to consider Tocilizumab. Acute hypoxemic respiratory failure. Complete late phase ARDS dexamethasone protocol, started 11/06. Continue to wean vent support as able. May progress to requiring tracheostomy next week if unable to liberate from the ventilator. 4. GI: Advance tube feeds. Continue Protonix 40 mg twice daily. Currently on MiraLAX, senna twice daily, Bacid twice daily lactulose due to constipation. 5. Renal: Creatinine stable. Starting Bumex 1 mg twice daily. Will need to increase free water flushes through the OG tube given increasing sodium level. 6. ID: COVID-19 pneumonia: Cultures negative thus far. MRSA screen was negative. Off antibiotics. 7 Endocrine: Glycemic control per protocol. 8. Heme-onc: Anemia stable. 9. Prophylaxis: SCDs. Continue heparin 5000 units twice daily Patient's was updated over the phone. I relayed to him that there is a high likelihood that she may need a tracheostomy if unable to be weaned off the vent. CRITICAL CARE TIME - I have personally spent 40 minutes of critical care time in the direct management of this patient. This is a life/limb threatening event. This includes time spent evaluating patient, direct bedside care, chart review, placing orders, interpretation of diagnostic studies, discussion with consultants, patient, and family members, as well as other required patient management activities. This time is exclusive of all separately billable procedures, and teaching time and separate from and in addition to any other critical care service time. Admission and Anticipated Discharge Date Admission Date: October 29, 2020 Subjective Patient seen and examined this morning. Remains on high amounts of sedation. Currently on the ventilator. She had periods of desaturations last night and agitation requiring boluses of sedatives. Review of Systems Review of Systems: Unobtainable due to cognitive status and Unobtainable due to endotracheal tube Physical Exam Constitutional: WD/WN, vitals as above Neck: trachea midline, no thyromegaly Respiratory: Coarse breath sounds on the ventilator Cardiovascular: Rate/Rhythm: regular rate Heart Sounds: normal S1, normal S2 and + murmur Extremities: no edema Gastrointestinal (Abdomen): normal bowel sounds, soft, nontender, no hepatos plenomegaly Musculoskeletal: Extremities: extremities normal to inspection Skin: no rashes, warm and dry Neurologic: Obtunded. Not following commands due to sedation Results & Data Results & Data ([facility]) Vital Signs (Past 12 Hours) Vital Signs Temp Pulse Resp BP Pulse Ox 11/11/20 08:09 56 L 26 H 93 11/11/20 06:31 95.4 F L 50 L 116/68 94 11/11/20 06:01 95.4 F L 50 L 117/62 93 11/11/20 05:31 95.4 F L 51 L 118/61 93 11/11/20 05:01 95.4 F L 55 L 115/62 98 11/11/20 04:31 95.4 F L 50 L 121/65 100 11/11/20 04:01 95.4 F L 49 L 121/65 99 11/11/20 04:00 51 L 135/54 L 11/11/20 03:31 95.5 F L 53 L 121/66 99 11/11/20 03:05 64 32 H 93 11/11/20 03:01 95.4 F L 72 129/75 99 11/11/20 02:31 95.2 F L 50 L 120/63 100 11/11/20 02:01 95.2 F L 51 L 117/68 100 11/11/20 01:31 95.2 F L 50 L 118/65 100 11/11/20 01:01 95.2 F L 52 L 115/68 100 11/11/20 00:31 95.2 F L 53 L 120/64 99 11/11/20 00:01 95.2 F L 59 L 114/66 95 11/11/20 00:00 50 L 31 H 137/57 L 95 11/10/20 23:31 95.2 F L 54 L 121/66 99 11/10/20 23:01 95.4 F L 58 L 122/63 98 11/10/20 22:01 95.5 F L 53 L 127/65 100 11/10/20 21:31 95.7 F L 52 L 126/67 100 11/10/20 21:01 95.9 F L 56 L 123/67 100 vital signs, labs and imaging reviewed. Persistent peripheral opacity noted on chest x-ray. Coding Level of Care Code Critical Care 1st 30-74 mins Diagnoses Acute respiratory failure with hypoxia J96.01 Pneumonia due to COVID-19 virus U07.1; J12.82 Cardiomyopathy I42.9 Mitral regurgitation I34.0 Acute systolic CHF (congestive heart failure) I50.21 Acute kidney injury N17.9 Hypertensive urgency I16.0 Time Spent (min) 40
[2020-11-11] MEDS: INSULIN GLARGINE SOLOSTAR 100 UNITS/ML 3 ML PEN SC SCH ×2 (08:45→20:05)
[2020-11-11] MEDS: BUMETANIDE 1 MG in SYRINGE 0 ML IV SCH ×2 (09:03→16:29)
[2020-11-11] MEDS ORDERED: ATROPINE SULFATE 0.1 MG/ML 10ML SYR IV ONE (10:11)
[2020-11-11] MEDS: clonazePAM 1 MG TAB PO SCH ×2 (10:12→20:05)
--- NOTE | 2020-11-11 11:27 | XRay Report ---
XR chest 1V portable CLINICAL HISTORY: f/u COMPARISON STUDY: November 09, 2020 FINDINGS: No pneumothorax. No pleural effusion. Multifocal patchy airspace opacities are again seen bilaterally, appear more prominent which could be due to low inspiratory effort. Cardiac silhouette is mildly enlarged, stable since prior. Pulmonary vasculature is obscured. Tip of endotracheal tube is seen projecting 3.8 cm above allan. Stable position of the enteric tube. Multiple overlying wires are seen partially obscuring left lung parenchyma.. Osseous structures: unremarkable IMPRESSION: 1. Multifocal pneumonia, probably slightly worsened since prior 2. Tip of endotracheal tube is seen projecting 3.8 cm above allan. The rest of support apparatus as above. 3. Stable cardiomegaly. ACT 112: Negative or not required by law. The above report was generated using voice recognition software. It may contain grammatical, syntax o r spelling errors. Electronically signed by: Mariela Enamorado DO 11/11/2020 11:26 AM
[2020-11-11] MEDS: HYDROmorphone INJ 1 MG/ML SYRINGE IV PRN ×2 (11:50→17:48)
[2020-11-11] MEDS: cefTRIAXone SODIUM 2,000 MG in DEXTROSE 5% 50 ML IV SCH (11:54)
[2020-11-11] MEDS ORDERED: VECURONIUM BROMIDE 10 MG VIAL IV ONE (12:04)
[2020-11-11] MEDS ORDERED: VECURONIUM BROMIDE 10 MG VIAL IV STA (12:08)
[2020-11-11] MEDS: MIDAZOLAM BOLUS FROM BAG IV PRN ×3 (12:11→20:09)
--- NOTE | 2020-11-11 12:51 | Pharmacy Report ---
Pharmacy Glycemic Short Note 2 - Date of Service November 11, 2020 - Glycemic Short BSG Results (Last 24 hours): 11/10/20 11/10/20 11/11/20 16:43 20:31 00:32 Glucose POC Glucose 206 H 256 H 216 H 11/11/20 11/11/20 11/11/20 04:52 04:57 08:40 Glucose 235 H POC Glucose 225 H 203 H 11/11/20 12:00 Glucose POC Glucose 164 H OUTPATIENT ANTIDIABETIC REGIMEN: * Metformin XR 500 mg PO BIDM * Jardiance 25 mg PO Daily * Trulicity 0.75 mg SC Weekly * Lantus 62 units SC BID * HbA1c = 10.2% (10/30/20) ASSESSMENT: 11/11: * BSG's increased yesterday, which coincided with titration up on tubefeeds. Patient was previously very sensitive to CHO while on a lower dose of dex. Will therefore tighten Novolog parameters * Estimated basal needs ~60 units/day while on dex 20 mg, based on BSG's prior to titration up of tubefeeds while on Lantus 60 units/day (divided). Therefore will not increase significantly * Of note, dexamethasone is tapering tomorrow and regimen will likely require re-adjustment at that time 11/10: * BSG down to 113 mg/dL this AM, will slightly reduce evening lantus scale for total daily dose max of 55 units * Dexamethasone 20 mg day 06/28, continue tightened CHO ratio, TF are to advance to goal of 40 ml/hr- monitor 11/09 * BSG's gradually trended down yesterday with significantly increased Lantus, now 136 mg/dL this AM. Will continue Lantus, but will slightly reduce dose as it is not yet at steady state and will split more evenly BID * OK to tighten CHO ratio back to where it was previously while on dex 6 mg IV daily now that hypoglycemia not as likely due to known Lantus response 11/08 * Pt remains intubated. Attempting to wean paralytics today. Pressors off. Dexamethasone 20 mg IV x5 days started last night, 2nd dose this AM. Planned taper to 10 mg IV daily x5 days (for an additional 10 days of dexamethasone). * BSG's increased 2nd initiation of dexamethasone last night * Will increase Lantus. Used NPH previously while on dexamethasone 6 mg IV qAM, but will keep as Lantus for now as patient is now NPO. * Trickle feeds with Novasource renal starting. Would normally not cover trickle feeds with Novolog, however, due to significant prandial needs while previously on dexamethasone (at lower dose) evidenced by prior CHO ratio of 1.8 g CHO/unit, will cover with Novolog * Discussed insulin drip on ICU rounds given two BSG's very slightly >220 mg/dL. Will initiate at/after lunch if BSG's again >220 mg/dL - OK per Dr. Mueller * Novolog tightened to regimen while previously on dexamethasone, just slightly looser CHO ratio as patient is only on trickle feeds at this time 11/07 * Pt remains intubated, sedated, paralyzed. NPO. No steroids (completed course of DXM 11/03/20) * 11/06: BSGs [phone] * BSGs elevated secondary to basal insulin deficiency from 11/05. Pt received 40 units of basal on 11/04 and then only 15 units of basal on 11/05. Likely true basal needs ~ 30 units/day * Will change Lantus from scale based dosing to fixed BID dosing so that doses are not omitted when BSG is in range. * Continue NovoLog Q4hrs. No changes needed since pt is NPO. Will re-evaluate if enteral nutrition started in the next few days. PLAN FOR INPATIENT GLYCEMIC CONTROL: * Hold outpatient oral diabetes medications * Basal insulin * Lantus 25-35 units SC BID, depending on BSG. Will re-assess in AM. * Bolus insulin * NovoLog per scale q 4 hrs * Goal Range: Low 110 mg/dL - High 140 mg/dL * Correction Factor: 8 mg/dl/unit * Nutritional / Prandial insulin per carb ratio of 1 unit per 1.5 grams CHO consumed PLAN FOR DISCHARGE: * A1c = 10.2% on 10/30/20 * Outpatient regimen will need adjusted at DC to achieve better glycemic control. This will all be dependent on patient prognosis.
[2020-11-11] MEDS: NOVASOURCE RENAL 2.0 CAL 1000ML BAG OG SCH (14:03)
[2020-11-11] MEDS: MIDAZOLAM HCL 125 MG/250 ML BAG IV SCH (20:08)
--- NOTE | 2020-11-11 22:50 | Hospitalist Progress Note ---
Date of Service November 11, 2020 Assessment & Plan (1) Pneumonia due to COVID-19 virus: Plan: Acute hypoxemic respiratory failure 2/2 Covid pneumonia Patient is a "breakthrough case "following vaccination with Moderna in July Initiated on remdesivir 11/07 at [facility] and steroids 10/25 as outpatient - Completed 5-day course of remdesivir Completed 10-day course of steroids Completed 5-day course of azithromycin prior to admission Patient was out of the window for Tocilizumab Patient intubated evening of for worsening respiratory failure prone on 11/06 into 11/07, improved PEEP and FiO2 requirement now supine again, management per ICU guarded prognosis slowly weaning back ventilator requirements but not progressing very quickly ICU discussed likely need for tracheostomy next week - started on 11/06 for late ARDS: Dexamethasone 20mg daily x 5 days then 10mg x 5 days (2) Acute respiratory failure with hypoxia: Plan: 2/2 Covid pneumonia managed as noted slowly trying to wean ventilatory settings (3) Acute systolic CHF (congestive heart failure): Plan: Acute CHFrEF TTE shows EF 25-30%, cardiomyopathy, could be viral induced vs ischemic History of prior OK in 2016, troponins normal during admission Management per ICU, start on Bumex Appreciate cardiology recommendations If patient were to survive her current critical illness she would require ischemic eval/cath pending once recovered from COVID and off high oxygen requirements, however prognosis is guarded at this time. (4) Diabetes mellitus type 2, uncontrolled: Plan: -A1c 10.2%. -ICU hyperglycemia protocol monitor for hypoglycemia (5) Abnormal LFTs: Plan: -Due to Covid and critical illness (6) CAD (coronary artery disease): Plan: -s/p OK 2016. -She was not taking aspirin at admission; thus asa 81mg daily added. Metoprolol and statin held while critically ill (7) Obesity: Plan: BMI 36 (8) Hypertension: Plan: -Cont to hold HCTZ. -Cont to hold CELINE -Cont to hold 25 BID. (9) Hyperlipidemia: Plan: -crestor (10) Tobacco dependence: Plan: -Nicoderm patch 21mg held while critically ill (11) Hypomagnesemia: Plan: -ICU electrolyte protocol (12) Acute kidney injury: Plan: -Cr 1.9 on 10/27 in [place]. -2nd to COVID, severely uncontrolled DM, etc. Cr has improved, stable, monitor UO via calderon (13) Hyperkalemia: Plan: resolved (14) DVT prophylaxis: Plan: -lovenox 40 BID (15) Anxiety: Plan: -severe. - buspar held while critically ill and sedated Plan: Patient's daughter Mayra, who lives in [place] . Patient remains critically ill, intubated, sedated, and paralyzed. guarded prognosis Admission and Anticipated Discharge Date Admission Date: October 29, 2020 Subjective patient continues to require numerous medications for sedation still difficult to ventilate ICU discussed with family that she may need tracheostomy early next week labs reviewed appreciate management per ICU Review of Systems Review of Systems: Unobtainable due to endotracheal tube Physical Exam Constitutional: well developed, well nourished, + ill appearing, comfortable and + mechanically ventilated; no acute distress Neck: trachea midline, no thyromegaly Respiratory: no respiratory distress (ventilated) and no labored breathing Auscultation: no crackles, no rales and no wheezes Cardiovascular: RRR, no murmur, no edema Gastrointestinal (Abdomen): normal bowel sounds, soft, nontender, no hepatosplenomegaly Musculoskeletal: no cyanosis or clubbing, extremities motor strength 5/5 Skin: no rashes, warm and dry Neurologic: CN's II-XI intact bilaterally and + obtunded; no focal motor deficits Results & Data Results & Data ([facility]) Vital Signs (Past 12 Hours) Vital Signs Temp Pulse Resp BP Pulse Ox 11/11/20 22:28 63 23 99 11/11/20 20:31 36.4 C L 67 113/66 96 11/11/20 20:01 36.3 C L 66 112/65 96 11/11/20 19:40 84 23 93 11/11/20 19:31 36.3 C L 61 119/67 97 11/11/20 19:01 36.3 C L 60 116/68 97 11/11/20 18:01 36.2 C L 66 116/66 93 11/11/20 17:31 36.2 C L 62 118/63 95 11/11/20 17:01 36.2 C L 59 L 120/64 97 11/11/20 16:31 36.2 C L 58 L 117/63 96 11/11/20 16:01 36.1 C L 59 L 121/65 95 11/11/20 16:00 57 L 147/58 H 11/11/20 15:31 36.1 C L 61 120/63 94 11/11/20 15:01 36.1 C L 62 117/63 92 11/11/20 14:49 22 92 11/11/20 14:31 36.1 C L 64 115/64 90 11/11/20 14:01 36.1 C L 64 116/64 99 11/11/20 13:31 36.1 C L 73 108/64 96 11/11/20 13:02 35.9 C L 128 H 159/89 H 84 L 11/11/20 12:30 35.8 C L 69 95 11/11/20 12:04 35.6 C L 115 H 87 L 11/11/20 12:00 70 134/54 L 11/11/20 11:56 54 L 23 36 L 11/11/20 11:31 35.6 C L 55 L 125/67 97 11/11/20 11:01 35.5 C L 55 L 128/68 98 Laboratory Results Laboratory Results - last 24 hr 11/11/20 11/11/20 11/11/20 00:32 04:52 04:57 WBC 5.15 RBC 3.21 L Hgb 9.3 L POC Hgb Hct 29.8 L POC Hct MCV 92.8 MCH 29.0 MCHC 31.2 L RDW Std Deviation 48.0 H RDW Coeff of Ale 14.0 Plt Count 428 H MPV 9.4 Immature Gran % (Auto) 0.2 Neut % (Auto) 86.4 Lymph % (Auto) 8.0 Norman % (Auto) 5.4 Eos % (Auto) 0.0 Baso % (Auto) 0.0 Neut # (Auto) 4.45 Lymph # (Auto) 0.41 L Norman # (Auto) 0.28 Eos # (Auto) 0.00 Baso # (Auto) 0.00 Immature Gran # (Auto) 0.01 Sample Site POC pH POC pCO2 POC pO2 POC HCO3 POC Total CO2 POC Base Excess ABG pH (Temp Correct) ABG pCO2 (Temp Corrct POC ABG pO2 at Pt Temp POC ABG O2 Sat Rustam Test O2 Delivery Device POC O2 Rate POC FiO2 Tidal Volume PEEP POC Sodium Sodium POC Potassium Potassium Chloride Carbon Dioxide Anion Gap BUN Creatinine Est Cr Clr Drug Dosing Est GFR ( Amer) Est GFR (Non-Af Amer) BUN/Creatinine Ratio Glucose POC Glucose 216 H 225 H Calcium Phosphorus Magnesium Triglycerides 11/11/20 11/11/20 11/11/20 04:57 05:12 08:40 WBC RBC Hgb POC Hgb 8.8 L Hct POC Hct 26 L MCV MCH MCHC RDW Std Deviation RDW Coeff of Ale Plt Count MPV Immature Gran % (Auto) Neut % (Auto) Lymph % (Auto) Norman % (Auto) Eos % (Auto) Baso % (Auto) Neut # (Auto) Lymph # (Auto) Norman # (Auto) Eos # (Auto) Baso # (Auto) Immature Gran # (Auto) Sample Site Art Line POC pH 7.34 L POC pCO2 48 H POC pO2 94 POC HCO3 26 H POC Total CO2 28 POC Base Excess 0.0 ABG pH (Temp Correct) 7.369 ABG pCO2 (Temp Corrct 45 POC ABG pO2 at Pt Temp 84 POC ABG O2 Sat 97.0 H Rustam Test NA O2 Delivery Device Ventilator POC O2 Rate 22 POC FiO2 60 Tidal Volume 300 PEEP 10 POC Sodium 148 H Sodium 145 POC Potassium 4.7 Potassium 4.9 Chloride 118 H Carbon Dioxide 26 Anion Gap 1.0 L BUN 52 H Creatinine 0.70 Est Cr Clr Drug Dosing 105.9 Est GFR ( Amer) 113.8 Est GFR (Non-Af Amer) 98.2 BUN/Creatinine Ratio 74.1 H Glucose 235 H POC Glucose 203 H Calcium 8.9 Phosphorus 3.2 Magnesium 2.2 Triglycerides 363 H 11/11/20 11/11/20 11/11/20 12:00 16:32 19:58 WBC RBC Hgb POC Hgb Hct POC Hct MCV MCH MCHC RDW Std Deviation RDW Coeff of Ale Plt Count MPV Immature Gran % (Auto) Neut % (Auto) Lymph % (Auto) Norman % (Auto) Eos % (Auto) Baso % (Auto) Neut # (Auto) Lymph # (Auto) Norman # (Auto) Eos # (Auto) Baso # (Auto) Immature Gran # (Auto) Sample Site POC pH POC pCO2 POC pO2 POC HCO3 POC Total CO2 POC Base Excess ABG pH (Temp Correct) ABG pCO2 (Temp Corrct POC ABG pO2 at Pt Temp POC ABG O2 Sat Rustam Test O2 Delivery Device POC O2 Rate POC FiO2 Tidal Volume PEEP POC Sodium Sodium POC Potassium Potassium Chloride Carbon Dioxide Anion Gap BUN Creatinine Est Cr Clr Drug Dosing Est GFR ( Amer) Est GFR (Non-Af Amer) BUN/Creatinine Ratio Glucose POC Glucose 164 H 161 H 154 H Calcium Phosphorus Magnesium Triglycerides 11/11/20 22:22 WBC RBC Hgb POC Hgb Hct POC Hct MCV MCH MCHC RDW Std Deviation RDW Coeff of Ale Plt Count MPV Immature Gran % (Auto) Neut % (Auto) Lymph % (Auto) Norman % (Auto) Eos % (Auto) Baso % (Auto) Neut # (Auto) Lymph # (Auto) Norman # (Auto) Eos # (Auto) Baso # (Auto) Immature Gran # (Auto) Sample Site POC pH POC pCO2 POC pO2 POC HCO3 POC Total CO2 POC Base Excess ABG pH (Temp Correct) ABG pCO2 (Temp Corrct POC ABG pO2 at Pt Temp POC ABG O2 Sat Rustam Test O2 Delivery Device POC O2 Rate POC FiO2 Tidal Volume PEEP POC Sodium Sodium Pending POC Potassium Potassium Pending Chloride Pending Carbon Dioxide Pending Anion Gap Pending BUN Pending Creatinine Pending Est Cr Clr Drug Dosing Pending Est GFR ( Amer) Pending Est GFR (Non-Af Amer) Pending BUN/Creatinine Ratio Pending Glucose Pending POC Glucose Calcium Pending Phosphorus Magnesium Triglycerides Medications Administered Current Inpatient Medications Acetaminophen (Acetaminophen 500 Mg Tab) 1,000 mg PO Q6H PRN PRN Reason: pain or headache Stop: 12/04/20 09:11 Last Admin: 11/04/20 09:31 Dose: 1,000 mg Documented by: Aspirin (Aspirin 81 Mg Chew) 81 mg PEG QAM [facility] Stop: 12/08/20 10:29 Last Admin: 11/11/20 08:14 Dose: 81 mg Documented by: Clonazepam (Clonazepam 1 Mg Tab) 1 mg PO BID SHAKIR Stop: 12/11/20 08:59 Last Admin: 11/11/20 20:05 Dose: 1 mg Documented by: Dextrose (Dextrose 50% 50 Ml Syringe) 25 - 50 ml IV UD PRN; Protocol PRN Reason: Hypoglycemia Protocol Stop: 11/28/20 20:59 Docusate Sodium (Docusate Sodium Syrup 100 Mg/10 Ml Udc) 100 mg PO BID SHAKIR Stop: 12/08/20 20:59 Last Admin: 11/11/20 19:22 Dose: 100 mg Documented by: Enteral Nutritional Formula (Novasource Renal 2.0 Srinath 1000ml Bag) 1,000 ml OG CONT SHAKIR; Protocol Stop: 12/08/20 11:44 Last Admin: 11/11/20 14:03 Dose: 1,000 ml Documented by: Fentanyl Citrate (Fentanyl Bolus From Bag) 50 mcg IV Q60M PRN PRN Reason: Pain or Agitation Stop: 11/20/20 05:22 Last Admin: 11/11/20 20:09 Dose: 50 mcg Documented by: Glucagon (Glucagon For Inj 1 Mg Vial) 1 mg IM UD PRN; Protocol PRN Reason: Hypoglycemia Protocol Stop: 11/28/20 20:59 Glucose (Glucose 40% Gel 15 Gm Tube) 15 - 30 gm PO UD PRN; Protocol PRN Reason: Hypoglycemia Protocol Stop: 11/28/20 20:59 Glucose (Glucose 10 Tabs/Tube) 4 - 8 tabs PO UD PRN; Protocol PRN Reason: Hypoglycemia Protocol Stop: 11/28/20 20:59 Heparin Sodium (Porcine) (Heparin Sod 5,000 Unit/0.5 Ml Vial) 5,000 units SC Q12 SHAKIR Stop: 12/09/20 10:29 Last Admin: 11/11/20 19:22 Dose: 5,000 units Documented by: Hydromorphone HCl (Hydromorphone Inj 1 Mg/Ml Syringe) 1 mg IV Q2H PRN PRN Reason: Pain Stop: 11/25/20 10:33 Last Admin: 11/11/20 17:48 Dose: 1 mg Documented by: Fentanyl Citrate (Fentanyl Drip) 1,250 mcg in 250 mls @ 50 mls/hr IV .Q5H SHAKIR; Protocol Stop: 11/20/20 05:29 Last Titration: 11/11/20 21:34 Dose: 250 mcg/hr, 50 mls/hr Documented by: Dexamethasone 10 mg/ Syringe 2.5 mls @ 1 mls/min IV DAILY SHAKIR Stop: 11/17/20 08:59 Dexamethasone 20 mg/ Dextrose 30 mls @ 0.833 mls/min IV DAILY SHAKIR Stop: 11/12/20 08:59 Last Infusion: 11/11/20 08:51 Dose: Infused Documented by: Pantoprazole Sodium 40 mg/ (Syringe) 10 mls @ 5 mls/min IV BID@0900,2100 SHAKIR Stop: 12/08/20 10:29 Last Admin: 11/11/20 19:25 Dose: 5 mls/min Documented by: Dexmedetomidine HCl 400 mcg/ (Sodium Chloride) 100 mls @ 9.52 mls/hr IV .[id number] SHAKIR; Protocol Stop: 11/12/20 23:29 Last Titration: 11/11/20 21:28 Dose: 0.4 mcg/kg/hr, 9.5 mls/hr Documented by: Ceftriaxone Sodium 2,000 mg/ (Dextrose) 70 mls @ 140 mls/hr IV DAILY@1200 SHAKIR; Protocol Stop: 11/16/20 11:59 Last Infusion: 11/11/20 12:24 Dose: Infused Documented by: Midazolam HCl (Versed) 125 mg in 250 mls @ 4 mls/hr IV .[id number] SHAKIR; Protocol Stop: 12/09/20 13:44 Last Titration: 11/11/20 21:35 Dose: 2 mg/hr, 4 mls/hr Documented by: Nicardipine HCl 25 mg/ Sodium (Chloride) 250 mls @ 0 mls/hr IV .Q0M SHAKIR; Protocol Stop: 12/09/20 17:14 Last Titration: 11/11/20 20:57 Dose: 0 mg/hr, 0 mls/hr Documented by: Bumetanide 1 mg/ Syringe 4 mls @ 4 mls/min IV BID@0900,1700 SHAKIR Stop: 12/11/20 08:59 Last Admin: 11/11/20 16:29 Dose: 4 mls/min Documented by: Insulin Aspart (Insulin Aspart 100 Units/Ml 3 Ml Pen) 0 units SC Q4 SHAKIR; Protocol Stop: 12/08/20 00:00 Last Admin: 11/11/20 20:07 Dose: 17 units Documented by: Insulin Glargine (Insulin Glargine Solostar 100 Units/Ml 3 Ml Pen) 0 units SC BID@0800,2000 SHAKIR; Protocol Stop: 11/11/20 23:59 Last Admin: 11/11/20 20:05 Dose: 30 units Documented by: Midazolam HCl (Midazolam Bolus From Bag) 2 mg IV Q60M PRN PRN Reason: Sedation Stop: 12/09/20 13:39 Last Admin: 11/11/20 20:09 Dose: 2 mg Documented by: Miscellaneous (Carbohydrates For Hypoglycemia ) 15 - 30 gm PO UD PRN PRN Reason: Hypoglycemia Treatment Stop: 11/28/20 20:59 Miscellaneous Information (Pharmacy Glycemic Mgmt Consult) 1 ea N/A UD PRN PRN Reason: Consult Stop: 11/28/20 19:30 Multi-Ingredient Cream (Artificial Tears Op Oint 3.5 Gm Tube) 1 appln OP Q4H [facility] Stop: 12/06/20 03:59 Last Admin: 11/11/20 19:21 Dose: 1 appln Documented by: Nicotine (Nicotine 21 Mg/24 Hr Tdsy) 21 mg TD QAM [facility] Stop: 11/29/20 08:59 Last Admin: 11/11/20 08:15 Dose: 21 mg Documented by: Oxycodone HCl (Oxycodone Hcl Soln 5 Mg/5 Ml Udc) 15 mg PO Q6 [facility] Stop: 11/25/20 11:59 Last Admin: 11/11/20 17:02 Dose: 15 mg Documented by: Polyethylene Glycol (Polyethylene (Miralax) 17 Gm Pack) 17 gm PO QAM [facility] Stop: 12/09/20 08:59 Last Admin: 11/11/20 08:15 Dose: 17 gm Documented by: Rosuvastatin Calcium (Rosuvastatin Calcium 20 Mg Tab) 20 mg PO QAM [facility] Stop: 12/02/20 08:59 Last Admin: 11/11/20 08:15 Dose: 20 mg Documented by: Sennosides (Sennosides 8.8 Mg/5 Ml Udc) 17.6 mg PO BID [facility] Stop: 12/08/20 20:59 Last Admin: 11/11/20 19:22 Dose: 17.6 mg Documented by: Sterile Water (Tube Feeding Water Flush) 200 ml GT Q6H [facility] Stop: 12/11/20 10:29 Last Admin: 11/11/20 22:03 Dose: 200 ml Documented by: PG Care Time/CCT Total # of Minutes Spent Total Time Spent with Patient: Total time spent is greater than 50% in coordination of care (as documented) at patient's floor/unit and/or counseling patient: Coding Level of Care Code 65962 Subseq Hosp Care Lvl 2 Diagnoses Pneumonia due to COVID-19 virus U07.1; J12.82 Acute respiratory failure with hypoxia J96.01 Acute systolic CHF (congestive heart failure) I50.21 Diabetes mellitus type 2, uncontrolled E11.65 Abnormal LFTs R94.5 CAD (coronary artery disease) I25.10 Obesity E66.9 Hypertension I10 Hyperlipidemia E78.5 Tobacco dependence F17.200 Hypomagnesemia E83.42 Acute kidney injury N17.9 Hyperkalemia E87.5 DVT prophylaxis Z29.9 Anxiety F41.9
[2020-11-11 23:07] LABS: BUN Creatinine Ratio 70.5 (10-20); Calcium 9.2 mg/dl (8.5-10.1); Creatinine Clr Calc Pharmacy 97.5 ml/min; Est GFR (African American) 101.5 ml/min; Est GFR (Non-African American) 87.5 ml/min; Potassium 4.8 mmol/L (3.5-5.1)
[2020-11-12] MEDS: MIDAZOLAM BOLUS FROM BAG IV PRN (01:00)
[2020-11-12] MEDS: HYDROmorphone INJ 1 MG/ML SYRINGE IV PRN ×2 (01:29→04:34)
[2020-11-12] MEDS: fentaNYL DRIP 1,250 MCG/250 ML BAG IV SCH ×5 (01:29→16:10)
[2020-11-12 04:04] LABS: iSTAT Arterial Blood Gas HCO3 29 meg/L (19-24); iSTAT Arterial Blood Gas pCO2 49 mmHg (35-46); iSTAT Arterial Blood Gas pH 7.37 (7.35-7.45); iSTAT Arterial Blood Gas pO2 102 mmHg (80-95); iSTAT Carbon Dioxide 30 mmol/L (24-31); iSTAT FiO2 50 %; iSTAT Site Art Line
[2020-11-12] MEDS: ARTIFICIAL TEARS OP OINT 3.5 GM TUBE OP SCH ×5 (04:34→20:29)
[2020-11-12] MEDS: TUBE FEEDING WATER FLUSH GT SCH ×3 (04:34→16:11)
[2020-11-12] MEDS: INSULIN ASPART 100 UNITS/ML 3 ML PEN SC SCH ×5 (04:50→21:00)
[2020-11-12 05:05] LABS: Hematocrit (blood only) 29.7 % (37-47); Hemoglobin 9.2 g/dL (12.0-16.0); Immature Granulocytes # (auto) 0.03 K/uL (0.00-0.02); Immature Granulocytes % (auto) 0.4 %; Lymphocytes # (auto) 0.52 K/uL (1.2-3.4); Lymphocytes % (auto) 6.8 %; Mean Corpuscular Hemoglobin 29.1 pg (25-34); Mean Platelet Volume 9.6 fL (7.4-10.4); Monocytes # (auto) 0.57 K/uL (0.11-0.59); Monocytes % (auto) 7.5 %; Neutrophils # (auto) 6.48 K/uL (1.4-6.5); Neutrophils % (auto) 85.3 %; Platelet Count 480 K/uL (130-400); RDW Coefficient of Variation 14.1 % (11.5-14.5); RDW Standard Deviation 48.6 fL (36.4-46.3); Red Blood Count 3.16 M/uL (4.2-5.4)
[2020-11-12 05:34] LABS: BUN Creatinine Ratio 68.1 (10-20); Calcium 8.9 mg/dl (8.5-10.1); Creatinine Clr Calc Pharmacy 85.7 ml/min; Est GFR (African American) 86.3 ml/min; Est GFR (Non-African American) 74.5 ml/min; Magnesium 2.1 mg/dl (1.8-2.4); Potassium 4.8 mmol/L (3.5-5.1)
[2020-11-12 05:35] LABS: Phosphorus 3.1 mg/dl (2.5-4.9)
[2020-11-12] MEDS: oxyCODONE HCL SOLN 5 MG/5 ML UDC PO SCH ×4 (06:00→17:26)
[2020-11-12] MEDS: BUMETANIDE 1 MG in SYRINGE 0 ML IV SCH ×2 (08:02→17:11)
[2020-11-12] MEDS: POLYETHYLENE (MIRALAX) 17 GM PACK PO SCH (08:03)
[2020-11-12] MEDS: SENNOSIDES 8.8 MG/5 ML UDC PO SCH ×2 (08:03→20:30)
[2020-11-12] MEDS: ROSUVASTATIN CALCIUM 20 MG TAB PO SCH (08:03)
[2020-11-12] MEDS: dexAMETHasone 10 MG in SYRINGE 0 ML IV SCH (08:03)
[2020-11-12] MEDS: PANTOprazole 40 MG in SYRINGE 0 ML IV SCH ×2 (08:03→20:10)
[2020-11-12] MEDS: NICOTINE 21 MG/24 HR TDSY TD SCH (08:03)
[2020-11-12] MEDS: HEPARIN SOD 5,000 UNIT/0.5 ML VIAL SC SCH ×2 (08:04→20:10)
[2020-11-12] MEDS: DEXMEDETOMIDINE HCL 400 MCG in 0.9 % SODIUM CHLORIDE 96 ML IV SCH ×3 (08:04→16:11)
[2020-11-12] MEDS: DOCUSATE SODIUM SYRUP 100 MG/10 ML UDC PO SCH ×2 (08:04→20:30)
[2020-11-12] MEDS: ASPIRIN 81 MG CHEW PEG SCH (08:04)
[2020-11-12] MEDS: clonazePAM 1 MG TAB PO SCH ×2 (08:04→20:30)
[2020-11-12] MEDS: INSULIN GLARGINE SOLOSTAR 100 UNITS/ML 3 ML PEN SC SCH ×2 (08:28→21:01)
--- NOTE | 2020-11-12 09:15 | Hospitalist Progress Note ---
Date of Service November 12, 2020 Assessment & Plan (1) Pneumonia due to COVID-19 virus: Plan: Acute hypoxemic respiratory failure 2/2 Covid pneumonia Patient is a "breakthrough case "following vaccination with Moderna in July Initiated on remdesivir 11/07 at [facility] and steroids 10/25 as outpatient - Completed 5-day course of remdesivir Completed 10-day course of steroids Completed 5-day course of azithromycin prior to admission Patient was out of the window for Tocilizumab Patient intubated evening of for worsening respiratory failure prone on 11/06 into 11/07, improved PEEP and FiO2 requirement now supine again, management per ICU guarded prognosis big improvement on 11/12 with successful extubation, currently on oxymask - started on 11/06 for late ARDS: Dexamethasone 20mg daily x 5 days then 10mg x 5 days, currently on 10mg (2) Acute respiratory failure with hypoxia: Plan: 2/2 Covid pneumonia managed as noted extubated 11/12 to oxymask keep in ICU continue to diurese to keep lungs dry (3) Acute systolic CHF (congestive heart failure): Plan: Acute CHFrEF TTE shows EF 25-30%, cardiomyopathy, could be viral induced vs ischemic History of prior MN in 2016, troponins normal during admission Management per ICU, continue Bumex, working well Appreciate cardiology recommendations If patient were to survive her current critical illness she would require ischemic eval/cath pending once recovered from COVID and off high oxygen requirements (4) Diabetes mellitus type 2, uncontrolled: Plan: -A1c 10.2%. -ICU hyperglycemia protocol monitor for hypoglycemia, no episodes (5) Abnormal LFTs: Plan: -Due to Covid and critical illness (6) CAD (coronary artery disease): Plan: -s/p MN 2016. -She was not taking aspirin at admission; thus asa 81mg daily added. Metoprolol and statin held while critically ill (7) Obesity: Plan: BMI 36 (8) Hypertension: Plan: - Bumex 1mg IV BID for diuresis Hydralazine PRN Nicardipine drip as needed (9) Hyperlipidemia: Plan: -crestor (10) Tobacco dependence: Plan: -Nicoderm patch 21mg held while critically ill (11) Hypomagnesemia: Plan: -ICU electrolyte protocol (12) Acute kidney injury: Plan: -Cr 1.9 on 10/27 in [place]. -2nd to COVID, severely uncontrolled DM, etc. Cr has improved, stable, monitor UO via calderon Bumex for fluid removal (13) Hyperkalemia: Plan: resolved (14) DVT prophylaxis: Plan: -lovenox 40 BID (15) Anxiety: Plan: -severe. - required incredible amount of sedation, now weaning off, extubated Plan: Patient's daughter Mayra, who lives in [place] . Patient remains critically ill but improvement today with extubation, prognosis still guarded but step in right direction today Admission and Anticipated Discharge Date Admission Date: October 29, 2020 Subjective patient extubated today after she did great with SBT stable on oxy mask she is still fatigued but answering appropriately, following commands keep in ICU for close monitoring labs are stable, diuresing well with Bumex discussed with Dr. Mueller Review of Systems Review of Systems: All systems reviewed & are unremarkable except as noted in Subjective Constitutional: + fatigue and + weakness Respiratory: + cough and + dyspnea Cardiovascular: no chest pain and no edema Gastrointestinal: no abdominal pain, no nausea, no vomiting, no constipation and no diarrhea/loose stools Physical Exam Constitutional: well developed, well nourished, + frail appearing and comfortable; no acute distress Neck: trachea midline, no thyromegaly Respiratory: + cough and + tachypneic; no respiratory distress and no labored breathing Auscultation: no crackles, no rales and no wheezes Cardiovascular: RRR, no murmur, no edema Gastrointestinal (Abdomen): normal bowel sounds, soft, nontender, no hepatosplenomegaly Musculoskeletal: no cyanosis or clubbing, extremities motor strength 5/5 Skin: no rashes, warm and dry Neurologic: patellar DTR's 2+ bilat, sensation intact and PERRL, EOMI, accommodation nl, no face palsy, no dysarthria CN's II-XI intact bilaterally and + obtunded; no focal motor deficits Psychiatric: A+Ox3, euthymic affect Results & Data Results & Data ([facility]) Vital Signs (Past 12 Hours) Vital Signs Temp Pulse Resp BP Pulse Ox 11/12/20 08:31 37.1 C 78 116/66 93 11/12/20 08:01 37.1 C 66 104/59 L 100 11/12/20 08:00 66 126/62 11/12/20 07:53 66 22 98 11/12/20 07:31 37.1 C 67 106/60 98 11/12/20 07:01 37.0 C 66 105/59 L 98 11/12/20 06:31 36.9 C 65 108/64 98 11/12/20 06:01 36.9 C 65 108/64 98 11/12/20 05:31 36.9 C 65 103/60 98 11/12/20 05:01 36.9 C 67 101/53 L 99 11/12/20 04:31 36.9 C 66 107/62 99 11/12/20 04:01 36.9 C 65 110/63 99 11/12/20 03:50 65 23 99 11/12/20 03:31 36.9 C 65 23 110/63 99 11/12/20 03:01 36.9 C 66 22 109/65 99 11/12/20 02:31 36.9 C 68 22 113/68 99 11/12/20 02:01 36.9 C 69 23 107/65 98 11/12/20 01:31 36.9 C 95 H 123/90 94 11/12/20 01:01 36.8 C 81 116/69 96 11/12/20 00:31 36.8 C 64 111/65 98 11/12/20 00:01 36.7 C 66 106/62 98 11/11/20 23:46 64 11/11/20 23:31 36.7 C 64 110/64 98 11/11/20 23:01 36.7 C 63 115/66 98 11/11/20 22:31 36.7 C 66 108/65 98 11/11/20 22:28 63 23 99 11/11/20 22:01 36.6 C 63 86/51 L 100 11/11/20 21:31 36.6 C 65 85/49 L 98 Laboratory Results Laboratory Results - last 24 hr 11/11/20 11/11/20 11/11/20 12:00 16:32 19:58 WBC RBC Hgb Hct MCV MCH MCHC RDW Std Deviation RDW Coeff of Ale Plt Count MPV Immature Gran % (Auto) Neut % (Auto) Lymph % (Auto) [place] % (Auto) Eos % (Auto) Baso % (Auto) Neut # (Auto) Lymph # (Auto) [place] # (Auto) Eos # (Auto) Baso # (Auto) Immature Gran # (Auto) Sample Site POC pH POC pCO2 POC pO2 POC HCO3 POC Total CO2 POC Base Excess POC ABG O2 Sat Rustam Test O2 Delivery Device POC O2 Rate POC FiO2 Tidal Volume PEEP Sodium Potassium Chloride Carbon Dioxide Anion Gap BUN Creatinine Est Cr Clr Drug Dosing Est GFR ( Amer) Est GFR (Non-Af Amer) BUN/Creatinine Ratio Glucose POC Glucose 164 H 161 H 154 H Calcium Phosphorus Magnesium 11/11/20 11/11/20 11/12/20 22:22 23:14 03:50 WBC RBC Hgb Hct MCV MCH MCHC RDW Std Deviation RDW Coeff of Ale Plt Count MPV Immature Gran % (Auto) Neut % (Auto) Lymph % (Auto) [place] % (Auto) Eos % (Auto) Baso % (Auto) Neut # (Auto) Lymph # (Auto) [place] # (Auto) Eos # (Auto) Baso # (Auto) Immature Gran # (Auto) Sample Site Art Line POC pH 7.37 POC pCO2 49 H POC pO2 102 H POC HCO3 29 H POC Total CO2 30 POC Base Excess 3.0 H POC ABG O2 Sat 98.0 H Rustam Test NA O2 Delivery Device Ventilator POC O2 Rate 22 POC FiO2 50 Tidal Volume 340 PEEP 10 Sodium 144 Potassium 4.8 Chloride 114 H Carbon Dioxide 27 Anion Gap 3.0 BUN 54 H Creatinine 0.77 Est Cr Clr Drug Dosing 97.5 Est GFR ( Amer) 101.5 Est GFR (Non-Af Amer) 87.5 BUN/Creatinine Ratio 70.5 H Glucose 203 H POC Glucose 174 H Calcium 9.2 Phosphorus Magnesium 11/12/20 11/12/20 11/12/20 04:42 04:42 04:44 WBC 7.60 RBC 3.16 L Hgb 9.2 L Hct 29.7 L MCV 94.0 MCH 29.1 MCHC 31.0 L RDW Std Deviation 48.6 H RDW Coeff of Ale 14.1 Plt Count 480 H MPV 9.6 Immature Gran % (Auto) 0.4 Neut % (Auto) 85.3 Lymph % (Auto) 6.8 [place] % (Auto) 7.5 Eos % (Auto) 0.0 Baso % (Auto) 0.0 Neut # (Auto) 6.48 Lymph # (Auto) 0.52 L [place] # (Auto) 0.57 Eos # (Auto) 0.00 Baso # (Auto) 0.00 Immature Gran # (Auto) 0.03 H Sample Site POC pH POC pCO2 POC pO2 POC HCO3 POC Total CO2 POC Base Excess POC ABG O2 Sat Rustam Test O2 Delivery Device POC O2 Rate POC FiO2 Tidal Volume PEEP Sodium 144 Potassium 4.8 Chloride 115 H Carbon Dioxide 27 Anion Gap 2.0 L BUN 60 H Creatinine 0.88 Est Cr Clr Drug Dosing 85.7 Est GFR ( Amer) 86.3 Est GFR (Non-Af Amer) 74.5 BUN/Creatinine Ratio 68.1 H Glucose 173 H POC Glucose 168 H Calcium 8.9 Phosphorus 3.1 Magnesium 2.1 11/12/20 08:10 WBC RBC Hgb Hct MCV MCH MCHC RDW Std Deviation RDW Coeff of Ale Plt Count MPV Immature Gran % (Auto) Neut % (Auto) Lymph % (Auto) [place] % (Auto) Eos % (Auto) Baso % (Auto) Neut # (Auto) Lymph # (Auto) [place] # (Auto) Eos # (Auto) Baso # (Auto) Immature Gran # (Auto) Sample Site POC pH POC pCO2 POC pO2 POC HCO3 POC Total CO2 POC Base Excess POC ABG O2 Sat Rustam Test O2 Delivery Device POC O2 Rate POC FiO2 Tidal Volume PEEP Sodium Potassium Chloride Carbon Dioxide Anion Gap BUN Creatinine Est Cr Clr Drug Dosing Est GFR ( Amer) Est GFR (Non-Af Amer) BUN/Creatinine Ratio Glucose POC Glucose 140 H Calcium Phosphorus Magnesium Medications Administered Current Inpatient Medications Acetaminophen (Acetaminophen 500 Mg Tab) 1,000 mg PO Q6H PRN PRN Reason: pain or headache Stop: 12/04/20 09:11 Last Admin: 11/04/20 09:31 Dose: 1,000 mg Documented by: Aspirin (Aspirin 81 Mg Chew) 81 mg PEG QAM [facility] Stop: 12/08/20 10:29 Last Admin: 11/12/20 08:04 Dose: 81 mg Documented by: Clonazepam (Clonazepam 1 Mg Tab) 1 mg PO BID [facility] Stop: 12/11/20 08:59 Last Admin: 11/12/20 08:04 Dose: 1 mg Documented by: Dextrose (Dextrose 50% 50 Ml Syringe) 25 - 50 ml IV UD PRN; Protocol PRN Reason: Hypoglycemia Protocol Stop: 11/28/20 20:59 Docusate Sodium (Docusate Sodium Syrup 100 Mg/10 Ml Udc) 100 mg PO BID SHAKIR Stop: 12/08/20 20:59 Last Admin: 11/12/20 08:04 Dose: 100 mg Documented by: Enteral Nutritional Formula (Novasource Renal 2.0 Srinath 1000ml Bag) 1,000 ml OG CONT [facility]; Protocol Stop: 12/08/20 11:44 Last Admin: 11/11/20 14:03 Dose: 1,000 ml Documented by: Fentanyl Citrate (Fentanyl Bolus From Bag) 50 mcg IV Q60M PRN PRN Reason: Pain or Agitation Stop: 11/20/20 05:22 Last Admin: 11/12/20 01:00 Dose: 50 mcg Documented by: Glucagon (Glucagon For Inj 1 Mg Vial) 1 mg IM UD PRN; Protocol PRN Reason: Hypoglycemia Protocol Stop: 11/28/20 20:59 Glucose (Glucose 40% Gel 15 Gm Tube) 15 - 30 gm PO UD PRN; Protocol PRN Reason: Hypoglycemia Protocol Stop: 11/28/20 20:59 Glucose (Glucose 10 Tabs/Tube) 4 - 8 tabs PO UD PRN; Protocol PRN Reason: Hypoglycemia Protocol Stop: 11/28/20 20:59 Heparin Sodium (Porcine) (Heparin Sod 5,000 Unit/0.5 Ml Vial) 5,000 units SC Q12 SHAKIR Stop: 12/09/20 10:29 Last Admin: 11/12/20 08:04 Dose: 5,000 units Documented by: Hydromorphone HCl (Hydromorphone Inj 1 Mg/Ml Syringe) 1 mg IV Q2H PRN PRN Reason: Pain Stop: 11/25/20 10:33 Last Admin: 11/12/20 04:34 Dose: 1 mg Documented by: Fentanyl Citrate (Fentanyl Drip) 1,250 mcg in 250 mls @ 55 mls/hr IV .Q4H33M [facility]; Protocol Stop: 11/20/20 05:29 Last Titration: 11/12/20 06:55 Dose: 275 mcg/hr, 55 mls/hr Documented by: Dexamethasone 10 mg/ Syringe 2.5 mls @ 1 mls/min IV DAILY [facility] Stop: 11/17/20 08:59 Last Admin: 11/12/20 08:03 Dose: 1 mls/min Documented by: Pantoprazole Sodium 40 mg/ (Syringe) 10 mls @ 5 mls/min IV BID@0900,2100 SHAKIR Stop: 12/08/20 10:29 Last Admin: 11/12/20 08:03 Dose: 5 mls/min Documented by: Dexmedetomidine HCl 400 mcg/ (Sodium Chloride) 100 mls @ 9.52 mls/hr IV .[id number] SHAKIR; Protocol Stop: 11/12/20 23:29 Last Admin: 11/12/20 08:04 Dose: 0.4 mcg/kg/hr, 9.5 mls/hr Documented by: Ceftriaxone Sodium 2,000 mg/ (Dextrose) 70 mls @ 140 mls/hr IV DAILY@1200 SHAKIR; Protocol Stop: 11/16/20 11:59 Last Infusion: 11/11/20 12:24 Dose: Infused Documented by: Midazolam HCl (Versed) 125 mg in 250 mls @ 4 mls/hr IV .[id number] SHAKIR; Protocol Stop: 12/09/20 13:44 Last Titration: 11/12/20 06:55 Dose: 2 mg/hr, 4 mls/hr Documented by: Nicardipine HCl 25 mg/ Sodium (Chloride) 250 mls @ 0 mls/hr IV .Q0M SHAKIR; Protocol Stop: 12/09/20 17:14 Last Titration: 11/12/20 06:55 Dose: 0 mg/hr, 0 mls/hr Documented by: Bumetanide 1 mg/ Syringe 4 mls @ 4 mls/min IV BID@0900,1700 SHAKIR Stop: 12/11/20 08:59 Last Admin: 11/12/20 08:02 Dose: 4 mls/min Documented by: Insulin Aspart (Insulin Aspart 100 Units/Ml 3 Ml Pen) 0 units SC Q4 SHAKIR; Protocol Stop: 12/08/20 00:00 Last Admin: 11/12/20 08:27 Dose: 17 units Documented by: Insulin Glargine (Insulin Glargine Solostar 100 Units/Ml 3 Ml Pen) 0 units SC BID@0800,2000 SHAKIR; Protocol Stop: 12/12/20 07:59 Last Admin: 11/12/20 08:28 Dose: 25 units Documented by: Midazolam HCl (Midazolam Bolus From Bag) 2 mg IV Q60M PRN PRN Reason: Sedation Stop: 12/09/20 13:39 Last Admin: 11/12/20 01:00 Dose: 2 mg Documented by: Miscellaneous (Carbohydrates For Hypoglycemia ) 15 - 30 gm PO UD PRN PRN Reason: Hypoglycemia Treatment Stop: 11/28/20 20:59 Miscellaneous Information (Pharmacy Glycemic Mgmt Consult) 1 ea N/A UD PRN PRN Reason: Consult Stop: 11/28/20 19:30 Multi-Ingredient Cream (Artificial Tears Op Oint 3.5 Gm Tube) 1 appln OP Q4H SC H Stop: 12/06/20 03:59 Last Admin: 11/12/20 08:04 Dose: 1 appln Documented by: Nicotine (Nicotine 21 Mg/24 Hr Tdsy) 21 mg TD QAM [facility] Stop: 11/29/20 08:59 Last Admin: 11/12/20 08:03 Dose: 21 mg Documented by: Oxycodone HCl (Oxycodone Hcl Soln 5 Mg/5 Ml Udc) 15 mg PO Q6 SHAKIR Stop: 11/25/20 11:59 Last Admin: 11/12/20 06:00 Dose: 15 mg Documented by: Polyethylene Glycol (Polyethylene (Miralax) 17 Gm Pack) 17 gm PO QAM [facility] Stop: 12/09/20 08:59 Last Admin: 11/12/20 08:03 Dose: 17 gm Documented by: Rosuvastatin Calcium (Rosuvastatin Calcium 20 Mg Tab) 20 mg PO QAM [facility] Stop: 12/02/20 08:59 Last Admin: 11/12/20 08:03 Dose: 20 mg Documented by: Sennosides (Sennosides 8.8 Mg/5 Ml Udc) 17.6 mg PO BID [facility] Stop: 12/08/20 20:59 Last Admin: 11/12/20 08:03 Dose: 17.6 mg Documented by: Sterile Water (Tube Feeding Water Flush) 200 ml GT Q6H SHAKIR Stop: 12/11/20 10:29 Last Admin: 11/12/20 04:34 Dose: 200 ml Documented by: PG Care Time/CCT Total # of Minutes Spent Total Time Spent with Patient: Total time spent is greater than 50% in coordination of care (as documented) at patient's floor/unit and/or counseling patient: Coding Level of Care Code 85705 Subseq Hosp Care Lvl 3 Diagnoses Pneumonia due to COVID-19 virus U07.1; J12.82 Acute respiratory failure with hypoxia J96.01 Acute systolic CHF (congestive heart failure) I50.21 Diabetes mellitus type 2, uncontrolled E11.65 Abnormal LFTs R94.5 CAD (coronary artery disease) I25.10 Obesity E66.9 Hypertension I10 Hyperlipidemia E78.5 Tobacco dependence F17.200 Hypomagnesemia E83.42 Acute kidney injury N17.9 Hyperkalemia E87.5 DVT prophylaxis Z29.9 Anxiety F41.9
--- NOTE | 2020-11-12 09:27 | XRay Report ---
XR chest 1V portable HISTORY: Covid pneumonia. Follow-up. COMPARISON: Chest 11/11/2020. FINDINGS: The endotracheal tube and nasogastric tube remain unchanged in position. No pneumothorax. T he heart remains enlarged. There are low lung volumes. Trace bilateral pleural effusions and bilatera l airspace opacities are not significantly changed. Right jugular central venous catheter terminates at the proximal SVC. This is also unchanged. IMPRESSION: 1. Satisfactory support line placement. 2. No change in the bilateral airspace opacities consistent with a Covid pneumonia. ACT 112: Negative or not required by law. Electronically signed by: Catarino Muniz M.D. 11/12/2020 9:26 AM
[2020-11-12] MEDS ORDERED: POLYETHYLENE (MIRALAX) 17 GM PACK PO PRN (09:35)
--- NOTE | 2020-11-12 09:35 | Critical Care Progress Note ---
Date of Service November 12, 2020 Assessment & Plan (1) Acute respiratory failure with hypoxia: (2) Pneumonia due to COVID-19 virus: (3) Cardiomyopathy: (4) Mitral regurgitation: (5) Acute systolic CHF (congestive heart failure): (6) Acute kidney injury: (7) Hypertensive urgency: Plan: Impression: 55-year-old female with COVID-19 pneumonia and hypoxemic respiratory failure. Echocardiogram showed severe reduction in ejection fraction down to 25 to 30% with moderate mitral regurgitation and regional wall motion abnormalities. She has had an increase in her oxygen requirement and was transferred back to the ICU 11/05/2020. Intubated 11/06/2020 due to hypoxemic respiratory failure Recommendations: 1. Neurological: Continue to wean sedation as able. Continue oxycodone to 15 mg every 6 hours. Continue Klonopin to 1 mg twice daily. Delirium improving. 2. Cardiovascular: Acute CHF with reduction in ejection fraction and wall motion abnormalities. She also has mitral regurgitation. Off of vasopressors. Unclear etiology of cardiomyopathy. Likely stress-induced from viral pneumonia and sepsis. Continue nicardipine to maintain systolic blood pressure of 140- 160. Continue Bumex 1 mg twice daily. 3. Pulmonary: Patient has been symptomatic with Covid since 10/18/2020 and tested + 10/25/2020. She received remdesivir at an outside facility. The patient is outside the window to consider Tocilizumab. Acute hypoxemic respiratory failure. Complete late phase ARDS dexamethasone protocol, started 11/06. Continue to wean vent support as able. May progress to requiring tracheostomy next week if unable to liberate from the ventilator. 4. GI: Advance tube feeds. Continue Protonix 40 mg twice daily. Currently on MiraLAX, senna twice daily, docusate twice daily. 5. Renal: Creatinine stable. Continue Bumex 1 mg twice daily. Sodium levels within normal limits. 6. ID: COVID-19 pneumonia: Cultures negative thus far. MRSA screen was negative. Off antibiotics. 7 Endocrine: Glycemic control per protocol. 8. Heme-onc: Anemia stable. 9. Prophylaxis: SCDs. Continue heparin 5000 units twice daily. CRITICAL CARE TIME - I have personally spent 30 minutes of critical care time in the direct management of this patient. This is a life/limb threatening event. This includes time spent evaluating patient, direct bedside care, chart review, placing orders, interpretation of diagnostic studies, discussion with consultants, patient, and family members, as well as other required patient management activities. This time is exclusive of all separately billable procedures, and teaching time and separate from and in addition to any other critical care service time. Admission and Anticipated Discharge Date Admission Date: October 29, 2020 Subjective Patient seen and examined this morning. She is more alert. She is currently on 275 mcg of fentanyl per hour. We are actively weaning this down. She is tolerating pressure support trials well. No significant overnight events. Review of Systems Review of Systems: Unobtainable due to cognitive status Physical Exam Constitutional: well developed, well nourished, + ill appearing, comfortable and + mechanically ventilated; no acute distress Neck: trachea midline, no thyromegaly Respiratory: no respiratory distress (ventilated) and no labored breathing Auscultation: no crackles, no rales and no wheezes Cardiovascular: RRR, no murmur, no edema Gastrointestinal (Abdomen): normal bowel sounds, soft, nontender, no hepatosplenomegaly Musculoskeletal: no cyanosis or clubbing, extremities motor strength 5/5 Skin: no rashes, warm and dry Neurologic: CN's II-XI intact bilaterally and awake Psychiatric: A+Ox3, euthymic affect Results & Data Results & Data ([facility]) Vital Signs (Past 12 Hours) Vital Signs Temp Pulse Resp BP Pulse Ox 11/12/20 08:31 98.8 F 78 116/66 93 11/12/20 08:01 98.8 F 66 104/59 L 100 11/12/20 08:00 66 126/62 11/12/20 07:53 66 22 98 11/12/20 07:31 98.8 F 67 106/60 98 11/12/20 07:01 98.6 F 66 105/59 L 98 11/12/20 06:31 98.4 F 65 108/64 98 11/12/20 06:01 98.4 F 65 108/64 98 11/12/20 05:31 98.4 F 65 103/60 98 11/12/20 05:01 98.4 F 67 101/53 L 99 11/12/20 04:31 98.4 F 66 107/62 99 11/12/20 04:01 98.4 F 65 110/63 99 11/12/20 03:50 65 23 99 11/12/20 03:31 98.4 F 65 23 110/63 99 11/12/20 03:01 98.4 F 66 22 109/65 99 11/12/20 02:31 98.4 F 68 22 113/68 99 11/12/20 02:01 98.4 F 69 23 107/65 98 11/12/20 01:31 98.4 F 95 H 123/90 94 11/12/20 01:01 98.2 F 81 116/69 96 11/12/20 00:31 98.2 F 64 111/65 98 11/12/20 00:01 98.1 F 66 106/62 98 11/11/20 23:46 64 11/11/20 23:31 98.1 F 64 110/64 98 11/11/20 23:01 98.1 F 63 115/66 98 11/11/20 22:31 98.1 F 66 108/65 98 11/11/20 22:28 63 23 99 11/11/20 22:01 97.9 F 63 86/51 L 100 11/11/20 21:31 97.9 F 65 85/49 L 98 vital signs, labs and imaging personally reviewed Coding Level of Care Code Critical Care 1st 30-74 mins Diagnoses Acute respiratory failure with hypoxia J96.01 Pneumonia due to COVID-19 virus U07.1; J12.82 Cardiomyopathy I42.9 Mitral regurgitation I34.0 Acute systolic CHF (congestive heart failure) I50.21 Acute kidney injury N17.9 Hypertensive urgency I16.0 Time Spent (min) 30
[2020-11-12] MEDS: cefTRIAXone SODIUM 2,000 MG in DEXTROSE 5% 50 ML IV SCH (12:04)
[2020-11-12] MEDS: NOVASOURCE RENAL 2.0 CAL 1000ML BAG OG SCH (12:24)
[2020-11-12] MEDS ORDERED: hydrALAZINE HCL 20 MG/ML VIAL ONE (15:43)
[2020-11-12] MEDS ORDERED: hydrALAZINE HCL 20 MG/ML VIAL IV STA (15:53)
[2020-11-12] MEDS ORDERED: Nursing to Pharmacy Communication SCH (20:30)
[2020-11-12] MEDS ORDERED: LORazepam 0.5 MG TAB SL STA (22:35)
[2020-11-13] MEDS: MIDAZOLAM HCL 125 MG/250 ML BAG IV SCH (00:25)
[2020-11-13] MEDS: oxyCODONE HCL SOLN 5 MG/5 ML UDC PO SCH ×2 (00:25→03:23)
[2020-11-13] MEDS: INSULIN ASPART 100 UNITS/ML 3 ML PEN SC SCH ×7 (00:34→20:27)
[2020-11-13 05:50] LABS: Eosinophils # (auto) 0.04 K/uL (0-0.5); Eosinophils % (auto) 0.4 %; Hematocrit (blood only) 32.4 % (37-47); Hemoglobin 10.1 g/dL (12.0-16.0); Immature Granulocytes # (auto) 0.02 K/uL (0.00-0.02); Immature Granulocytes % (auto) 0.2 %; Lymphocytes # (auto) 1.95 K/uL (1.2-3.4); Lymphocytes % (auto) 18.5 %; Mean Corpuscular Hemoglobin 29.1 pg (25-34); Mean Corpuscular Hgb Conc 31.2 g/dL (32-36); Mean Corpuscular Volume 93.4 fL (80-100); Mean Platelet Volume 9.7 fL (7.4-10.4); Monocytes # (auto) 0.78 K/uL (0.11-0.59); Monocytes % (auto) 7.4 %; Neutrophils # (auto) 7.73 K/uL (1.4-6.5); Neutrophils % (auto) 73.5 %; Platelet Count 632 K/uL (130-400); RDW Coefficient of Variation 14.2 % (11.5-14.5); Red Blood Count 3.47 M/uL (4.2-5.4); White Blood Count 10.52 K/uL (4.8-10.8)
[2020-11-13 06:28] LABS: BUN Creatinine Ratio 61.9 (10-20); Calcium 8.9 mg/dl (8.5-10.1); Creatinine Clr Calc Pharmacy 83.8 ml/min; Est GFR (African American) 86.3 ml/min; Est GFR (Non-African American) 74.5 ml/min; Magnesium 1.8 mg/dl (1.8-2.4); Phosphorus 2.7 mg/dl (2.5-4.9); Potassium 3.9 mmol/L (3.5-5.1)
[2020-11-13] MEDS ORDERED: LORazepam 0.5 MG/1 ML VIAL IV STA (07:55)
--- NOTE | 2020-11-13 08:02 | XRay Report ---
XR chest 1V portable CLINICAL HISTORY: f/u COMPARISON STUDY: Chest radiograph November 12, 2020. FINDINGS: Right internal jugular central line remains in place. Endotracheal and nasogastric tubes yost ve been removed. Cardiomegaly is unchanged. There is no pneumothorax or pleural effusion. Bilateral a irspace opacities persist. Lung aeration is slightly improved. IMPRESSION: 1. Interval improvement in lung aeration. Persistent bilateral airspace opacities suggestive of viral pneumonia. 2. Cardiomegaly. ACT 112: Negative or not required by law. Electronically signed by: Antonio Roy M.D. 11/13/2020 8:00 AM
[2020-11-13] MEDS: NICOTINE 21 MG/24 HR TDSY TD SCH (08:20)
[2020-11-13] MEDS: dexAMETHasone 10 MG in SYRINGE 0 ML IV SCH (08:21)
[2020-11-13] MEDS: PANTOprazole 40 MG in SYRINGE 0 ML IV SCH (08:22)
[2020-11-13] MEDS: HEPARIN SOD 5,000 UNIT/0.5 ML VIAL SC SCH ×2 (08:24→20:32)
--- NOTE | 2020-11-13 08:25 | Hospitalist Progress Note ---
Date of Service November 13, 2020 Assessment & Plan (1) Pneumonia due to COVID-19 virus: Plan: Acute hypoxemic respiratory failure 2/2 Covid pneumonia Patient is a "breakthrough case "following vaccination with Moderna in July Initiated on remdesivir 11/07 at [facility] and steroids 10/25 as outpatient - Completed 5-day course of remdesivir Completed 10-day course of steroids Completed 5-day course of azithromycin prior to admission Patient was out of the window for Tocilizumab Patient intubated evening of for worsening respiratory failure prone on 11/06 into 11/07, improved PEEP and FiO2 requirement big improvement on 11/12 with successful extubation, currently on 6L wall high flow - started on 11/06 for late ARDS: Dexamethasone 20mg daily x 5 days then 10mg x 5 days, currently on 10mg, last dose is 11/17 moved to PCU COVID unit today, she can actually come out of neg pressure isolation tomorrow (2) Acute respiratory failure with hypoxia: Plan: 2/2 Covid pneumonia managed as noted extubated 11/12 to oxymask, now on wall high flow, no distress, lungs clear moved to PCU status continue to diurese to keep lungs dry PRN, consider Bumex again tomorrow, Cr and K stable (3) Acute systolic CHF (congestive heart failure): Plan: Acute CHFrEF TTE shows EF 25-30%, cardiomyopathy, could be viral induced vs ischemic History of prior MT in 2016, troponins normal during admission consider Bumex again tomorrow AM Appreciate cardiology recommendations If patient were to survive her current critical illness she would require ischemic eval/cath pending once recovered from COVID and off high oxygen requirements (4) Diabetes mellitus type 2, uncontrolled: Plan: -A1c 10.2%. -ICU hyperglycemia protocol monitor for hypoglycemia, no episodes (5) Abnormal LFTs: Plan: -Due to Covid and critical illness (6) CAD (coronary artery disease): Plan: -s/p MT 2016. -She was not taking aspirin at admission; thus asa 81mg daily added. Metoprolol and statin held while critically ill (7) Obesity: Plan: BMI 36 (8) Hypertension: Plan: - Bumex 1mg IV BID for diuresis Hydralazine PRN Nicardipine drip as needed (9) Hyperlipidemia: Plan: -crestor (10) Tobacco dependence: Plan: -Nicoderm patch 21mg held while critically ill (11) Hypomagnesemia: Plan: -ICU electrolyte protocol (12) Acute kidney injury: Plan: -Cr 1.9 on 10/27 in [place]. -2nd to COVID, severely uncontrolled DM, etc. Cr has improved, stable, monitor UO via calderon Bumex for fluid removal (13) Hyperkalemia: Plan: resolved (14) DVT prophylaxis: Plan: -lovenox 40 BID (15) Anxiety: Plan: -severe. - required incredible amount of sedation, now weaning off, extubated Ativan 0.5mg q6 PRN, started today due to complaining about anxiety Plan: Patient's daughter Mayra, who lives in [place] . Patient is improving, although she is a little delirious, give her time to recover Admission and Anticipated Discharge Date Admission Date: October 29, 2020 Subjective patient is anxious but very happy, moved from ICU to COVID unit on PCU breathing is stable, still coughing but not a lot, no chest pain she is so grateful, keeps saying thank you for saving my life she passed swallows study, got to eat some lunch, she is swallowing medications without difficulty labs reviewed, Cr stable, K stable Review of Systems Review of Systems: All systems reviewed & are unremarkable except as noted in Subjective Respiratory: + cough and + dyspnea on exertion; no dyspnea Cardiovascular: no chest pain and no edema Psychiatric: + anxiety Physical Exam Constitutional: well developed, well nourished, + frail appearing and comfortable; no acute distress Neck: trachea midline, no thyromegaly Respiratory: + cough and + tachypneic; no respiratory distress and no labored breathing Auscultation: no crackles, no rales and no wheezes Cardiovascular: RRR, no murmur, no edema Gastrointestinal (Abdomen): normal bowel sounds, soft, nontender, no hepatosplenomegaly Musculoskeletal: no cyanosis or clubbing, extremities motor strength 5/5 Skin: no rashes, warm and dry Neurologic: patellar DTR's 2+ bilat, sensation intact and PERRL, EOMI, accommodation nl, no face palsy, no dysarthria CN's II-XI intact bilaterally and + obtunded; no focal motor deficits Psychiatric: A+Ox3, euthymic affect Results & Data Results & Data ([facility]) Vital Signs (Past 12 Hours) Vital Signs Temp Pulse Pulse Resp BP Pulse Ox 11/13/20 07:31 37.1 C 103 H 154/78 H 92 11/13/20 07:01 37.1 C 99 H 141/76 H 93 11/13/20 06:31 37.1 C 95 H 133/72 93 11/13/20 06:01 37.0 C 91 H 135/73 94 11/13/20 05:31 37.0 C 99 H 135/78 91 11/13/20 05:01 37.0 C 98 H 148/78 H 93 11/13/20 04:31 37.0 C 89 149/77 H 96 11/13/20 04:01 37.0 C 102 H 150/79 H 94 11/13/20 03:31 37.0 C 96 H 143/85 H 93 11/13/20 03:01 37.2 C 109 H 131/75 89 L 11/13/20 02:31 37.3 C 102 H 155/81 H 92 11/13/20 02:01 37.3 C 98 H 147/76 H 93 11/13/20 01:31 37.3 C 103 H 149/74 H 92 11/13/20 01:01 37.3 C 101 H 148/76 H 94 11/13/20 00:32 37.3 C 108 H 143/77 H 91 11/13/20 00:01 37.3 C 97 H 162/81 H 94 11/12/20 23:31 37.3 C 99 H 152/83 H 94 11/12/20 23:09 101 H 11/12/20 23:01 37.3 C 98 H 161/79 H 95 11/12/20 22:31 37.3 C 103 H 148/78 H 94 11/12/20 22:01 37.3 C 97 H 154/83 H 94 11/12/20 21:31 37.3 C 100 H 155/72 H 92 11/12/20 21:01 37.3 C 102 H 153/79 H 93 11/12/20 20:59 109 H 20 93 11/12/20 20:31 37.2 C 105 H 134/72 89 L Laboratory Results Laboratory Results - last 24 hr 11/12/20 11/12/20 11/12/20 12:02 16:04 20:22 WBC RBC Hgb Hct MCV MCH MCHC RDW Std Deviation RDW Coeff of Ale Plt Count MPV Immature Gran % (Auto) Neut % (Auto) Lymph % (Auto) Worth % (Auto) Eos % (Auto) Baso % (Auto) Neut # (Auto) Lymph # (Auto) Worth # (Auto) Eos # (Auto) Baso # (Auto) Immature Gran # (Auto) Sodium Potassium Chloride Carbon Dioxide Anion Gap BUN Creatinine Est Cr Clr Drug Dosing Est GFR ( Amer) Est GFR (Non-Af Amer) BUN/Creatinine Ratio Glucose POC Glucose 146 H 133 H 124 H Calcium Phosphorus Magnesium 11/13/20 11/13/20 11/13/20 00:29 02:58 05:18 WBC 10.52 RBC 3.47 L Hgb 10.1 L Hct 32.4 L MCV 93.4 MCH 29.1 MCHC 31.2 L RDW Std Deviation 48.0 H RDW Coeff of Ale 14.2 Plt Count 632 H MPV 9.7 Immature Gran % (Auto) 0.2 Neut % (Auto) 73.5 Lymph % (Auto) 18.5 Worth % (Auto) 7.4 Eos % (Auto) 0.4 Baso % (Auto) 0.0 Neut # (Auto) 7.73 H Lymph # (Auto) 1.95 Worth # (Auto) 0.78 H Eos # (Auto) 0.04 Baso # (Auto) 0.00 Immature Gran # (Auto) 0.02 Sodium Potassium Chloride Carbon Dioxide Anion Gap BUN Creatinine Est Cr Clr Drug Dosing Est GFR ( Amer) Est GFR (Non-Af Amer) BUN/Creatinine Ratio Glucose POC Glucose 96 72 Calcium Phosphorus Magnesium 11/13/20 05:18 WBC RBC Hgb Hct MCV MCH MCHC RDW Std Deviation RDW Coeff of Ale Plt Count MPV Immature Gran % (Auto) Neut % (Auto) Lymph % (Auto) Worth % (Auto) Eos % (Auto) Baso % (Auto) Neut # (Auto) Lymph # (Auto) Worth # (Auto) Eos # (Auto) Baso # (Auto) Immature Gran # (Auto) Sodium 147 H Potassium 3.9 D Chloride 114 H Carbon Dioxide 29 Anion Gap 4.0 BUN 55 H Creatinine 0.88 Est Cr Clr Drug Dosing 83.8 Est GFR ( Amer) 86.3 Est GFR (Non-Af Amer) 74.5 BUN/Creatinine Ratio 61.9 H Glucose 71 POC Glucose Calcium 8.9 Phosphorus 2.7 Magnesium 1.8 Medications Administered Current Inpatient Medications Acetaminophen (Acetaminophen 500 Mg Tab) 1,000 mg PO Q6H PRN PRN Reason: pain or headache Stop: 12/04/20 09:11 Last Admin: 11/04/20 09:31 Dose: 1,000 mg Documented by: Aspirin (Aspirin 81 Mg Chew) 81 mg PEG QAM SHAKIR Stop: 12/08/20 10:29 Last Admin: 11/12/20 08:04 Dose: 81 mg Documented by: Dextrose (Dextrose 50% 50 Ml Syringe) 25 - 50 ml IV UD PRN; Protocol PRN Reason: Hypoglycemia Protocol Stop: 11/28/20 20:59 Docusate Sodium (Docusate Sodium Syrup 100 Mg/10 Ml Udc) 100 mg PO BID [facility] Stop: 12/08/20 20:59 Last Admin: 11/12/20 20:30 Dose: Not Given Documented by: Enteral Nutritional Formula (Novasource Renal 2.0 Srinath 1000ml Bag) 1,000 ml OG CONT SHAKIR; Protocol Stop: 12/08/20 11:44 Last Admin: 11/12/20 12:24 Dose: Not Given Documented by: Glucagon (Glucagon For Inj 1 Mg Vial) 1 mg IM UD PRN; Protocol PRN Reason: Hypoglycemia Protocol Stop: 11/28/20 20:59 Glucose (Glucose 40% Gel 15 Gm Tube) 15 - 30 gm PO UD PRN; Protocol PRN Reason: Hypoglycemia Protocol Stop: 11/28/20 20:59 Glucose (Glucose 10 Tabs/Tube) 4 - 8 tabs PO UD PRN; Protocol PRN Reason: Hypoglycemia Protocol Stop: 11/28/20 20:59 Heparin Sodium (Porcine) (Heparin Sod 5,000 Unit/0.5 Ml Vial) 5,000 units SC Q12 SHAKIR Stop: 12/09/20 10:29 Last Admin: 11/13/20 08:24 Dose: 5,000 units Documented by: Hydromorphone HCl (Hydromorphone Inj 1 Mg/Ml Syringe) 1 mg IV Q2H PRN PRN Reason: Pain Stop: 11/25/20 10:33 Last Admin: 11/12/20 04:34 Dose: 1 mg Documented by: Dexamethasone 10 mg/ Syringe 2.5 mls @ 1 mls/min IV DAILY [facility] Stop: 11/17/20 08:59 Last Admin: 11/13/20 08:21 Dose: 1 mls/min Documented by: Pantoprazole Sodium 40 mg/ (Syringe) 10 mls @ 5 mls/min IV BID@0900,2100 [facility] Stop: 12/08/20 10:29 Last Admin: 11/13/20 08:22 Dose: 5 mls/min Documented by: Ceftriaxone Sodium 2,000 mg/ (Dextrose) 70 mls @ 140 mls/hr IV DAILY@1200 SHAKIR; Protocol Stop: 11/16/20 11:59 Last Infusion: 11/12/20 12:50 Dose: Infused Documented by: Insulin Aspart (Insulin Aspart 100 Units/Ml 3 Ml Pen) 0 units SC Q4 [facility]; Protocol Stop: 12/08/20 00:00 Last Admin: 11/13/20 03:22 Dose: Not Given Documented by: Insulin Glargine (Insulin Glargine Solostar 100 Units/Ml 3 Ml Pen) 0 units SC BID@0800,2000 [facility]; Protocol Stop: 12/12/20 07:59 Last Admin: 11/12/20 21:01 Dose: 20 units Documented by: Miscellaneous (Carbohydrates For Hypoglycemia ) 15 - 30 gm PO UD PRN PRN Reason: Hypoglycemia Treatment Stop: 11/28/20 20:59 Miscellaneous Information (Pharmacy Glycemic Mgmt Consult) 1 ea N/A UD PRN PRN Reason: Consult Stop: 11/28/20 19:30 Nicotine (Nicotine 21 Mg/24 Hr Tdsy) [facility] Stop: 11/29/20 08:59 Last Admin: 11/13/20 08:20 Dose: 21 mg Documented by: Polyethylene Glycol (Polyethylene (Miralax) 17 Gm Pack) 17 gm PO DAILY PRN PRN Reason: CONSTIPATION Stop: 12/12/20 09:34 Rosuvastatin Calcium (Rosuvastatin Calcium 20 Mg Tab) 20 mg PO QAM [facility] Stop: 12/02/20 08:59 Last Admin: 11/12/20 08:03 Dose: 20 mg Documented by: Sennosides (Sennosides 8.8 Mg/5 Ml Udc) 17.6 mg PO BID SHAKIR Stop: 12/08/20 20:59 Last Admin: 11/12/20 20:30 Dose: Not Given Documented by: PG Care Time/CCT Total # of Minutes Spent Total Time Spent with Patient: Total time spent is greater than 50% in coordination of care (as documented) at patient's floor/unit and/or counseling patient: Coding Level of Care Code 54466 Subseq Hosp Care Lvl 3 Diagnoses Pneumonia due to COVID-19 virus U07.1; J12.82 Acute respiratory failure with hypoxia J96.01 Acute systolic CHF (congestive heart failure) I50.21 Diabetes mellitus type 2, uncontrolled E11.65 Abnormal LFTs R94.5 CAD (coronary artery disease) I25.10 Obesity E66.9 Hypertension I10 Hyperlipidemia E78.5 Tobacco dependence F17.200 Hypomagnesemia E83.42 Acute kidney injury N17.9 Hyperkalemia E87.5 DVT prophylaxis Z29.9 Anxiety F41.9
[2020-11-13] MEDS ORDERED: LABETALOL HCL IV 5 MG/ML 20ML IV STA (08:35)
[2020-11-13] MEDS: SENNOSIDES 8.8 MG/5 ML UDC PO SCH ×2 (08:46→09:53)
[2020-11-13] MEDS: ROSUVASTATIN CALCIUM 20 MG TAB PO SCH (08:46)
[2020-11-13] MEDS: DOCUSATE SODIUM SYRUP 100 MG/10 ML UDC PO SCH ×2 (08:47→21:14)
[2020-11-13] MEDS: ASPIRIN 81 MG CHEW PEG SCH (08:47)
--- NOTE | 2020-11-13 09:01 | Critical Care Progress Note ---
Date of Service November 13, 2020 Assessment & Plan (1) Acute respiratory failure with hypoxia: (2) Pneumonia due to COVID-19 virus: (3) Cardiomyopathy: (4) Mitral regurgitation: (5) Acute systolic CHF (congestive heart failure): (6) Acute kidney injury: (7) Hypertensive urgency: Plan: Impression: 55-year-old female with COVID-19 pneumonia and hypoxemic respiratory failure. Echocardiogram showed severe reduction in ejection fraction down to 25 to 30% with moderate mitral regurgitation and regional wall motion abnormalities. She has had an increase in her oxygen requirement and was transferred back to the ICU 11/05/2020. Intubated 11/06/2020 due to hypoxemic respiratory failure. Extubated on 11/12/2020. Recommendations: 1. Neurological: Delirium has resolved. Currently extubated. Receiving as needed Ativan. 2. Cardiovascular: Acute CHF with reduction in ejection fraction and wall motion abnormalities. She also has mitral regurgitation. Unclear etiology of cardiomyopathy. Likely stress-induced from viral pneumonia and sepsis. Will need to start beta-blockade and CELINE inhibitor when she is able to take oral medications due to her underlying systolic CHF. Given a one-time dose of 5 mg labetalol at this time. 3. Pulmonary: Patient has been symptomatic with Covid since 10/18/2020 and tested + 10/25/2020. She received remdesivir at an outside facility. Complete late phase ARDS dexamethasone protocol, started 11/06. Extubated 11/12/2020. Tolerating oxygen mask. Will initiate incentive spirometer and on flutter valve. 4. GI: Advance tube feeds. Continue Protonix 40 mg twice daily. Continue sen na and docusate. MiraLAX.. 5. Renal: Creatinine stable. Hold Bumex today given hypernatremia. Fluid status acceptable. 6. ID: COVID-19 pneumonia: Cultures negative thus far. MRSA screen was ne gative. Discontinue Rocephin. 7 Endocrine: Glycemic control per protocol. 8. Heme-onc: Anemia stable. 9. Prophylaxis: SCDs. Continue heparin 5000 units twice daily. Stable for downgrade out of the ICU. Admission and Anticipated Discharge Date Admission Date: October 29, 2020 Subjective Patient seen and examined this morning. She has been anxious this morning. Mild shortness of breath. She is mildly hypertensive. She is thirsty. She is currently requiring a 6 L oxygen mask and saturating in the low 90s. Review of Systems Review of Systems: All systems reviewed & are unremarkable except as noted in HPI & below Physical Exam Constitutional: well developed, well nourished and + frail appearing; no acute distress Neck: trachea midline, no thyromegaly Respiratory: normal respiratory effort Auscultation: no crackles, no rales and no wheezes Cardiovascular: RRR, no murmur, no edema Gastrointestinal (Abdomen): normal bowel sounds, soft, nontender, no hepatosplenomegaly Musculoskeletal: no cyanosis or clubbing, extremities motor strength 5/5 Skin: no rashes, warm and dry Neurologic: CN's II-XI intact bilaterally and awake Psychiatric: A+Ox3, euthymic affect Results & Data Results & Data ([facility]) Vital Signs (Past 12 Hours) Vital Signs Temp Pulse Pulse Resp BP Pulse Ox 11/13/20 07:31 98.8 F 103 H 154/78 H 92 11/13/20 07:01 98.8 F 99 H 141/76 H 93 11/13/20 06:31 98.8 F 95 H 133/72 93 11/13/20 06:01 98.6 F 91 H 135/73 94 11/13/20 05:31 98.6 F 99 H 135/78 91 11/13/20 05:01 98.6 F 98 H 148/78 H 93 11/13/20 04:31 98.6 F 89 149/77 H 96 11/13/20 04:01 98.6 F 102 H 150/79 H 94 11/13/20 03:31 98.6 F 96 H 143/85 H 93 11/13/20 03:01 99.0 F 109 H 131/75 89 L 11/13/20 02:31 99.1 F 102 H 155/81 H 92 11/13/20 02:01 99.1 F 98 H 147/76 H 93 11/13/20 01:31 99.1 F 103 H 149/74 H 92 11/13/20 01:01 99.1 F 101 H 148/76 H 94 11/13/20 00:32 99.1 F 108 H 143/77 H 91 11/13/20 00:01 99.1 F 97 H 162/81 H 94 11/12/20 23:31 99.1 F 99 H 152/83 H 94 11/12/20 23:09 101 H 11/12/20 23:01 99.1 F 98 H 161/79 H 95 11/12/20 22:31 99.1 F 103 H 148/78 H 94 11/12/20 22:01 99.1 F 97 H 154/83 H 94 11/12/20 21:31 99.1 F 100 H 155/72 H 92 11/12/20 21:01 99.1 F 102 H 153/79 H 93 11/12/20 20:59 109 H 20 93 vital signs, labs and imaging personally reviewed Coding Level of Care Code 38817 Subseq Hosp Care Lvl 3 Diagnoses Acute respiratory failure with hypoxia J96.01 Pneumonia due to COVID-19 virus U07.1; J12.82 Cardiomyopathy I42.9 Mitral regurgitation I34.0 Acute systolic CHF (congestive heart failure) I50.21 Acute kidney injury N17.9 Hypertensive urgency I16.0
[2020-11-13] MEDS: INSULIN GLARGINE SOLOSTAR 100 UNITS/ML 3 ML PEN SC SCH ×2 (09:12→20:26)
[2020-11-13] MEDS ORDERED: Nursing to Pharmacy Communication SCH (13:15)
--- NOTE | 2020-11-13 15:20 | Pharmacy Report ---
Pharmacy Glycemic Short Note 2 - Date of Service November 13, 2020 - Glycemic Short BSG Results (Last 24 hours): 11/12/20 11/12/20 11/13/20 16:04 20:22 00:29 Glucose POC Glucose 133 H 124 H 96 11/13/20 11/13/20 11/13/20 02:58 05:18 08:31 Glucose 71 POC Glucose 72 84 11/13/20 12:07 Glucose POC Glucose 145 H OUTPATIENT ANTIDIABETIC REGIMEN: * Metformin XR 500 mg PO BIDM * Jardiance 25 mg PO Daily * Trulicity 0.75 mg SC Weekly * Lantus 62 units SC BID * HbA1c = 10.2% (10/30/20) ASSESSMENT: 11/13: * Pt has received 81 units of insulin over the past 24hrs * 45 units of basal with Lantus * 36 units of bolus with NovoLog * BSGs 71-173 mg/dl * Patinet extubated, passed speech eval, transferred to telemetry * Remains on Dexamethasone 10mg IV Daily (day 2 of ) * Gave lower dose of basal this AM for NPO status, increased for PM dose as diet started with lunch. 11/11: * BSG's increased yesterday, which coincided with titration up on tubefeeds. Patient was previously very sensitive to CHO while on a lower dose of dex. Will therefore tighten Novolog parameters * Estimated basal needs ~60 units/day while on dex 20 mg, based on BSG's prior to titration up of tubefeeds while on Lantus 60 units/day (divided). Therefore will not increase significantly * Of note, dexamethasone is tapering tomorrow and regimen will likely require re-adjustment at that time 11/10: * BSG down to 113 mg/dL this AM, will slightly reduce evening lantus scale for total daily dose max of 55 units * Dexamethasone 20 mg day 06/28, continue tightened CHO ratio, TF are to advance to goal of 40 ml/hr- monitor 11/09 * BSG's gradually trended down yesterday with significantly increased Lantus, now 136 mg/dL this AM. Will continue Lantus, but will slightly reduce dose as it is not yet at steady state and will split more evenly BID * OK to tighten CHO ratio back to where it was previously while on dex 6 mg IV daily now that hypoglycemia not as likely due to known Lantus response 11/08 * Pt remains intubated. Attempting to wean paralytics today. Pressors off. Dexamethasone 20 mg IV x5 days started last night, 2nd dose this AM. Planned taper to 10 mg IV daily x5 days (for an additional 10 days of dexamethasone). * BSG's increased 2nd initiation of dexamethasone last night * Will increase Lantus. Used NPH previously while on dexamethasone 6 mg IV qAM, but will keep as Lantus for now as patient is now NPO. * Trickle feeds with Novasource renal starting. Would normally not cover trickle feeds with Novolog, however, due to significant prandial needs while previously on dexamethasone (at lower dose) evidenced by prior CHO ratio of 1.8 g CHO/unit, will cover with Novolog * Discussed insulin drip on ICU rounds given two BSG's very slightly >220 mg/dL. Will initiate at/after lunch if BSG's again >220 mg/dL - OK per Dr. Mueller * Novolog tightened to regimen while previously on dexamethasone, just slightly looser CHO ratio as patient is only on trickle feeds at this time 11/07 * Pt remains intubated, sedated, paralyzed. NPO. No steroids (completed course of DXM 11/03/20) * 11/06: BSGs [phone] * BSGs elevated secondary to basal insulin deficiency from 11/05. Pt received 40 units of basal on 11/04 and then only 15 units of basal on 11/05. Likely true basal needs ~ 30 units/day * Will change Lantus from scale based dosing to fixed BID dosing so that doses are not omitted when BSG is in range. * Continue NovoLog Q4hrs. No changes needed since pt is NPO. Will re-evaluate if enteral nutrition started in the next few days. PLAN FOR INPATIENT GLYCEMIC CONTROL: * Hold outpatient diabetes medications * Basal insulin * Lantus 10 units x1 this AM then * 20-40 units SC BID, depending on BSG * Bolus insulin * NovoLog per scale ACHS * Goal Range: Low 110 mg/dL - High 140 mg/dL * Correction Factor: 8 mg/dl/unit * Nutritional / Prandial insulin per carb ratio of 1 unit per 1.5 grams CHO consumed PLAN FOR DISCHARGE: * A1c = 10.2% on 10/30/20 * Outpatient regimen will need adjusted at DC to achieve better glycemic control. This will all be dependent on patient prognosis.
[2020-11-13] MEDS: LORazepam 0.5 MG TAB PO PRN (17:47)
[2020-11-14] MEDS: INSULIN ASPART 100 UNITS/ML 3 ML PEN SC SCH ×4 (08:45→20:39)
[2020-11-14] MEDS: INSULIN GLARGINE SOLOSTAR 100 UNITS/ML 3 ML PEN SC SCH (08:45)
[2020-11-14] MEDS ORDERED: PANTOprazole 40 MG in SYRINGE 0 ML IV SCH (09:00)
[2020-11-14] MEDS: NICOTINE 21 MG/24 HR TDSY TD SCH (09:24)
[2020-11-14] MEDS: dexAMETHasone 10 MG in SYRINGE 0 ML IV SCH (09:24)
[2020-11-14] MEDS: DOCUSATE SODIUM SYRUP 100 MG/10 ML UDC PO SCH ×2 (09:25→20:21)
--- NOTE | 2020-11-14 09:26 | Hospitalist Progress Note ---
Date of Service November 14, 2020 Assessment & Plan (1) Pneumonia due to COVID-19 virus: Plan: Acute hypoxemic respiratory failure 2/2 Covid pneumonia Patient is a "breakthrough case "following vaccination with Moderna in July Initiated on remdesivir 11/07 at [facility] and steroids 10/25 as outpatient - Completed 5-day course of remdesivir Completed 10-day course of steroids Completed 5-day course of azithromycin prior to admission Patient was out of the window for Tocilizumab Patient intubated evening of for worsening respiratory failure prone on 11/06 into 11/07, improved PEEP and FiO2 requirement big improvement on 11/12 with successful extubation, currently on 3L NC - started on 11/06 for late ARDS: Dexamethasone 20mg daily x 5 days then 10mg x 5 days, currently on 10mg, last dose is 11/17 can move out of COVID unit today, discontinue neg pressure isolation (2) Acute respiratory failure with hypoxia: Plan: 2/2 Covid pneumonia managed as noted extubated 11/12 to oxymask, now on 3L NC, no distress, lungs clear moved to med [facility] status give Lasix 40mg PO today, keep lungs dry especially with cardiomyopathy, see below (3) Acute systolic CHF (congestive heart failure): Plan: Acute CHFrEF TTE shows EF 25-30%, cardiomyopathy, could be viral induced vs ischemic History of prior [place] in 2016, troponins normal during admission give Lasix 40mg PO now, see how she responds, pull calderon after a few hours start back on Toprol 25mg BID, she took this at home, her HR is 110 and BP 140 systolic will check a limited echo tomorrow, see if her EF has improved at all, especially since she is producing elevated blood pressures ask cardiology to follow up with her tomorrow, review medications and make further recommendations going forward (4) Diabetes mellitus type 2, uncontrolled: Plan: -A1c 10.2%. -ICU hyperglycemia protocol monitor for hypoglycemia, no episodes currently on Lantus scale and Novolog scale (5) Abnormal LFTs: Plan: -Due to Covid and critical illness resolved (6) Anxiety: Plan: -severe. - required incredible amount of sedation, now weaning off, extubated Ativan 0.5mg q6 PRN, started today due to complaining about anxiety (7) CAD (coronary artery disease): Plan: -s/p [place] 2015. -She was not taking aspirin at admission; thus asa 81mg daily added. Toprol 25mg BID resumed this morning continue crestor follow up limited echo to reassess EF (8) Obesity: Plan: BMI 36 (9) Hypertension: Plan: Toprol 25mg Lasix 40mg PO daily SBP is 140's this morning but that is prior to Toprol (10) Hyperlipidemia: Plan: -crestor (11) Tobacco dependence: Plan: -Nicoderm patch 21mg held while critically ill (12) Hypomagnesemia: Plan: -ICU electrolyte protocol (13) Acute kidney injury: Plan: -Cr 1.9 on 10/27 in [place]. -2nd to [facility], severely uncontrolled DM, etc. Cr has improved, stable, monitor UO via calderon Lasix 40mg PO daily, remove calderon later today check BMP in the morning (14) DVT prophylaxis: Plan: -lovenox 40 BID Plan: Patient's daughter Mayra, who lives in [place] . Patient is improving, transfer out of COVID unit today this week, work on fine tuning cardiac medications, continue with therapy, follow up echo, have cardiology check on patient ultimately would anticipate her going to rehab by the end of the week, she agrees with that plan she was intubated for nearly two weeks Admission and Anticipated Discharge Date Admission Date: October 29, 2020 Subjective patient is doing well, breathing comfortably, no chest pain at all, no fever/ch ills she keeps getting anxiety, will have "melt downs" she is so emotional, thankful for everyone saving her life we discussed that our next goal for the week is to get stronger, likely go to rehab she agrees with the idea of rehab discontinue isolation orders, can move out of the COVID wing today, go to [facility] tele reviewed home medications, will resume Toprol 25mg BID, give a dose this morning give Lasix 40mg PO this morning, keep calderon until it has had time to work right IJ line removed Review of Systems Review of Systems: All systems reviewed & are unremarkable except as noted in Subjective Respiratory: + dyspnea on exertion; no cough, no dyspnea and no wheezing Cardiovascular: no chest pain, no palpitations, no syncope and no edema Gastrointestinal: no abdominal pain, no nausea, no vomiting, no constipation and no diarrhea/loose stools Psychiatric: + anxiety Physical Exam Constitutional: well developed, well nourished, + frail appearing and comfortable; no acute distress Neck: trachea midline, no thyromegaly Respiratory: normal respiratory effort; no respiratory distress, no labored breathing and no cough Auscultation: no crackles, no rales and no wheezes Cardiovascular: Rate/Rhythm: regular rhythm and + tachycardic Heart Sounds: normal S1 and normal S2; no murmur Vessels: no JVD Extremities: normal capillary refill; no edema Gastrointestinal (Abdomen): normal bowel sounds, soft, nontender, no hepatosplenomegaly Musculoskeletal: no cyanosis or clubbing, extremities motor strength 5/5 Skin: no rashes, warm and dry Neurologic: patellar DTR's 2+ bilat, sensation intact and PERRL, EOMI, accommodation nl, no face palsy, no dysarthria CN's II-XI intact bilaterally and + obtunded; no focal motor deficits Psychiatric: Orientation: alert and oriented x 3 Affect: + anxious affect Results & Data Results & Data ([facility]) Vital Signs (Past 12 Hours) Vital Signs Temp Pulse Pulse Resp BP Pulse Ox 11/14/20 08:00 87 11/14/20 07:28 37.1 C 84 20 143/63 H 90 11/14/20 03:55 36.9 C 81 21 149/82 H 96 11/14/20 00:00 84 11/13/20 22:25 36.9 C 87 17 132/82 94 Laboratory Results Laboratory Results - last 24 hr 11/13/20 11/13/20 11/13/20 12:07 16:08 20:19 POC Glucose 145 H 256 H 131 H 11/14/20 07:27 POC Glucose 98 Medications Administered Current Inpatient Medications Acetaminophen (Acetaminophen 500 Mg Tab) 1,000 mg PO Q6H PRN PRN Reason: pain or headache Stop: 12/04/20 09:11 Last Admin: 11/04/20 09:31 Dose: 1,000 mg Documented by: Aspirin (Aspirin 81 Mg Chew) 81 mg PEG QAM SHAKIR Stop: 12/08/20 10:29 Last Admin: 11/14/20 09:29 Dose: 81 mg Documented by: Dextrose (Dextrose 50% 50 Ml Syringe) 25 - 50 ml IV UD PRN; Protocol PRN Reason: Hypoglycemia Protocol Stop: 11/28/20 20:59 Docusate Sodium (Docusate Sodium Syrup 100 Mg/10 Ml Udc) 100 mg PO BID SHAKIR Stop: 12/08/20 20:59 Last Admin: 11/14/20 09:25 Dose: Not Given Documented by: Glucagon (Glucagon For Inj 1 Mg Vial) 1 mg IM UD PRN; Protocol PRN Reason: Hypoglycemia Protocol Stop: 11/28/20 20:59 Glucose (Glucose 40% Gel 15 Gm Tube) 15 - 30 gm PO UD PRN; Protocol PRN Reason: Hypoglycemia Protocol Stop: 11/28/20 20:59 Glucose (Glucose 10 Tabs/Tube) 4 - 8 tabs PO UD PRN; Protocol PRN Reason: Hypoglycemia Protocol Stop: 11/28/20 20:59 Heparin Sodium (Porcine) (Heparin Sod 5,000 Unit/0.5 Ml Vial) 5,000 units SC Q12 [facility] Stop: 12/09/20 10:29 Last Admin: 11/14/20 09:28 Dose: 5,000 units Documented by: Hydromorphone HCl (Hydromorphone Inj 1 Mg/Ml Syringe) 1 mg IV Q2H PRN PRN Reason: Pain Stop: 11/25/20 10:33 Last Admin: 11/12/20 04:34 Dose: 1 mg Documented by: Dexamethasone 10 mg/ Syringe 2.5 mls @ 1 mls/min IV DAILY [facility] Stop: 11/17/20 08:59 Last Admin: 11/14/20 09:24 Dose: 1 mls/min Documented by: Pantoprazole Sodium 40 mg/ (Syringe) 10 mls @ 5 mls/min IV DAILY [facility] Stop: 12/14/20 08:59 Last Admin: 11/14/20 09:29 Dose: 5 mls/min Documented by: Insulin Aspart (Insulin Aspart 100 Units/Ml 3 Ml Pen) 0 units SC ACHS [facility]; Protocol Stop: 12/13/20 13:29 Last Admin: 11/14/20 08:45 Dose: 21 units Documented by: Insulin Glargine (Insulin Glargine Solostar 100 Units/Ml 3 Ml Pen) 0 units SC BID@0800,2000 [facility]; Protocol Stop: 12/12/20 07:59 Last Admin: 11/14/20 08:45 Dose: 20 units Documented by: Lorazepam (Lorazepam 0.5 Mg Tab) 0.5 mg PO Q6H PRN PRN Reason: Anxiety Stop: 12/13/20 17:15 Last Admin: 11/14/20 09:59 Dose: 0.5 mg Documented by: Miscellaneous (Carbohydrates For Hypoglycemia ) 15 - 30 gm PO UD PRN PRN Reason: Hypoglycemia Treatment Stop: 11/28/20 20:59 Miscellaneous Information (Pharmacy Glycemic Mgmt Consult) 1 ea N/A UD PRN PRN Reason: Consult Stop: 11/28/20 19:30 Nicotine (Nicotine 21 Mg/24 Hr Tdsy) 21 mg TD QAM [facility] Stop: 11/29/20 08:59 Last Admin: 11/14/20 09:24 Dose: 21 mg Documented by: Polyethylene Glycol (Polyethylene (Miralax) 17 Gm Pack) 17 gm PO DAILY PRN PRN Reason: CONSTIPATION Stop: 12/12/20 09:34 Rosuvastatin Calcium (Rosuvastatin Calcium 20 Mg Tab) [facility] Stop: 12/02/20 08:59 Last Admin: 11/14/20 09:29 Dose: 20 mg Documented by: Sennosides (Sennosides 8.8 Mg/5 Ml Udc) 17.6 mg PO QAM [facility] Stop: 12/13/20 09:00 Last Admin: 11/14/20 09:29 Dose: Not Given Documented by: PG Care Time/CCT Total # of Minutes Spent Total Time Spent with Patient: Total time spent is greater than 50% in coordination of care (as documented) at patient's floor/unit and/or counseling patient: Coding Level of Care Code 80653 Subseq Hosp Care Lvl 3 Diagnoses Pneumonia due to COVID-19 virus U07.1; J12.82 Acute respiratory failure with hypoxia J96.01 Acute systolic CHF (congestive heart failure) I50.21 Diabetes mellitus type 2, uncontrolled E11.65 Abnormal LFTs R94.5 CAD (coronary artery disease) I25.10 Obesity E66.9 Hypertension I10 Hyperlipidemia E78.5 Tobacco dependence F17.200 Hypomagnesemia E83.42 Acute kidney injury N17.9 DVT prophylaxis Z29.9 Anxiety F41.9
[2020-11-14] MEDS: HEPARIN SOD 5,000 UNIT/0.5 ML VIAL SC SCH ×2 (09:28→20:25)
[2020-11-14] MEDS: ROSUVASTATIN CALCIUM 20 MG TAB PO SCH (09:29)
[2020-11-14] MEDS: ASPIRIN 81 MG CHEW PEG SCH (09:29)
[2020-11-14] MEDS: SENNOSIDES 8.8 MG/5 ML UDC PO SCH (09:29)
[2020-11-14] MEDS: LORazepam 0.5 MG TAB PO PRN ×2 (09:59→20:25)
[2020-11-14] MEDS: METOPROLOL SUCC 25MG EXT REL TAB PO SCH ×2 (12:49→20:25)
[2020-11-14] MEDS: FUROSEMIDE 40 MG TAB PO SCH (12:49)
[2020-11-14] MEDS ORDERED: INSULIN GLARGINE SOLOSTAR 100 UNITS/ML 3 ML PEN SC ONE (21:00)
[2020-11-15] MEDS: LORazepam 0.5 MG TAB PO PRN ×2 (02:35→20:37)
[2020-11-15 06:25] LABS: Hematocrit (blood only) 33.2 % (37-47); Hemoglobin 10.6 g/dL (12.0-16.0); Mean Corpuscular Hemoglobin 29.2 pg (25-34); Mean Corpuscular Hgb Conc 31.9 g/dL (32-36); Mean Corpuscular Volume 91.5 fL (80-100); Mean Platelet Volume 9.7 fL (7.4-10.4); Platelet Count 514 K/uL (130-400); RDW Standard Deviation 45.7 fL (36.4-46.3); Red Blood Count 3.63 M/uL (4.2-5.4); White Blood Count 9.19 K/uL (4.8-10.8)
[2020-11-15] MEDS: HEPARIN SOD 5,000 UNIT/0.5 ML VIAL SC SCH ×2 (08:40→20:42)
[2020-11-15] MEDS: FUROSEMIDE 40 MG TAB PO SCH (08:40)
[2020-11-15] MEDS: dexAMETHasone 10 MG in SYRINGE 0 ML IV SCH (08:40)
[2020-11-15] MEDS: ASPIRIN 81 MG CHEW PEG SCH (08:40)
[2020-11-15] MEDS: PANTOprazole 40 MG TAB PO SCH (08:41)
[2020-11-15] MEDS: METOPROLOL SUCC 25MG EXT REL TAB PO SCH ×2 (08:41→20:43)
[2020-11-15] MEDS: NICOTINE 21 MG/24 HR TDSY TD SCH (08:41)
[2020-11-15] MEDS: ROSUVASTATIN CALCIUM 20 MG TAB PO SCH (08:42)
[2020-11-15] MEDS: SENNOSIDES 8.8 MG/5 ML UDC PO SCH (08:42)
[2020-11-15] MEDS: DOCUSATE SODIUM SYRUP 100 MG/10 ML UDC PO SCH ×2 (08:42→20:38)
[2020-11-15] MEDS: INSULIN ASPART 100 UNITS/ML 3 ML PEN SC SCH ×3 (08:46→17:19)
[2020-11-15] MEDS: INSULIN GLARGINE SOLOSTAR 100 UNITS/ML 3 ML PEN SC SCH ×2 (08:47→20:38)
--- NOTE | 2020-11-15 09:25 | XCELERA ---
[id number]
--- NOTE | 2020-11-15 09:33 | Cardiology Progress Note ---
Date of Service November 15, 2020 Assessment & Plan (1) Acute systolic CHF (congestive heart failure): Plan: Overall volume status appears good. Renal function is stable. She continues on a daily dose of Lasix. I think this is appropriate. (2) Acute respiratory failure with hypoxia: Plan: Mostly due to her viral pneumonia and subsequent ARDS. Clinically improving. Much less oxygen requirement. (3) CAD (coronary artery disease): Plan: A remote history of a single-vessel intervention Remotely. No current symptoms suggestive of ischemia. Would continue aggressive secondary prevention with her daily aspirin and rosuvastatin. (4) Mitral regurgitation: Plan: Improved. Only mild on her current echocardiogram. (5) Cardiomyopathy: Plan: This is of unclear duration. Improved. Likely worsened by her acute illness. No evidence of infarct at the time of presentation. At some point a coronary evaluation would seem reasonable, but I do not think this is an urgent matter as she appears well compensated and has no symptoms of coronary insufficiency. Will get a better understanding of any limitations or other symptoms when she is more ambulatory. I will continue her current dose of metoprolol. She can be switched to a single daily dose. Her renal function and blood pressures appear adequate for institution of Supa inhibition. I would consider starting lisinopril 5 milligrams daily. As noted above continue daily dose of diuretic and monitor renal function electrolytes. Admission and Anticipated Discharge Date Admission Date: October 29, 2020 Subjective This morning the patient feels well. Minimal dyspnea. She feels that she can take deep breaths. Good appetite. It all of her breakfast. No chest pain. Review of Systems Review of Systems: Per HPI Physical Exam Physical Exam: She is alert and oriented x3. Mood affect appear normal. She answered all questions appropriately. HEENT: Sclerae are anicteric. Pupils are equal and reactive to light and accommodation. Extraocular movements were intact. Neuro: Cranial nerves intact Lungs: good air movement. Normal respiratory effort. Coarse upper respiratory sounds. Cardiac: The rhythm was regular. Rate was elevated. S1 and S2 were normal. There are no murmurs on examination. The PMI was not markedly displaced on palpation. Results & Data ([facility]) Vital Signs (Past 12 Hours) Vital Signs Temp Pulse Pulse Resp BP Pulse Ox 11/15/20 07:39 91 H 11/15/20 07:14 36.7 C 87 20 151/89 H 90 11/15/20 03:39 36.8 C 91 H 19 161/93 H 90 11/14/20 23:38 90 11/14/20 22:59 36.6 C 93 H 19 147/77 H 92 Laboratory Results Abnormal Lab Results 11/14/20 11/14/20 11/14/20 11:37 16:51 16:51 WBC RBC Hgb Hct MCV MCH MCHC RDW Std Deviation RDW Coeff of Ale Plt Count MPV POC Glucose 132 H 311 H* 302 H* 11/14/20 11/15/20 11/15/20 20:20 05:09 05:53 WBC 9.19 RBC 3.63 L Hgb 10.6 L Hct 33.2 L MCV 91.5 MCH 29.2 MCHC 31.9 L RDW Std Deviation 45.7 RDW Coeff of Ale 14.0 Plt Count 514 H MPV 9.7 POC Glucose 236 H 102 H 11/15/20 07:25 WBC RBC Hgb Hct MCV MCH MCHC RDW Std Deviation RDW Coeff of Ale Plt Count MPV POC Glucose 119 H Diagnostic Findings Limited echocardiogram performed today revealed improved LV systolic function. Ejection fraction around 40-45 percent. PG Care Time/CCT Total # of Minutes Spent Total Time Spent with Patient: Total time spent is greater than 50% in coordination of care (as documented) at patient's floor/unit and/or counseling patient: Coding Level of Care Code 61223 Subseq Hosp Care Lvl 2 Diagnoses Acute systolic CHF (congestive heart failure) I50.21 Acute respiratory failure with hypoxia J96.01 CAD (coronary artery disease) I25.10 Mitral regurgitation I34.0 Cardiomyopathy I42.9
--- NOTE | 2020-11-15 12:55 | Pharmacy Report ---
Pharmacy Glycemic Short Note 2 - Date of Service November 15, 2020 - Glycemic Short BSG Results (Last 24 hours): 11/14/20 11/14/20 11/14/20 16:51 16:51 20:20 POC Glucose 311 H* 302 H* 236 H 11/15/20 11/15/20 11/15/20 05:09 07:25 11:31 POC Glucose 102 H 119 H 80 OUTPATIENT ANTIDIABETIC REGIMEN: * Metformin XR 500 mg PO BIDM * Jardiance 25 mg PO Daily * Trulicity 0.75 mg SC Weekly * Lantus 62 units SC BID * HbA1c = 10.2% (10/30/20) ASSESSMENT: 11/15: * BSGs yesterday of 98, 132, 311, and 232 mg/dL * received 141 units of insulin (40 units of basal and 101 units of bolus) * given increasing BSGs at dinner-time/HS, will increase AM Lantus with dexamethasone * One more day of dexamethasone 10 mg IV ordered 11/13: * Pt has received 81 units of insulin over the past 24hrs * 45 units of basal with Lantus * 36 units of bolus with NovoLog * BSGs 71-173 mg/dl * Patinet extubated, passed speech eval, transferred to telemetry * Remains on Dexamethasone 10mg IV Daily (day 2 of 5) * Gave lower dose of basal this AM for NPO status, increased for PM dose as diet started with lunch. 11/11: * BSG's increased yesterday, which coincided with titration up on tubefeeds. Patient was previously very sensitive to CHO while on a lower dose of dex. Will therefore tighten Novolog parameters * Estimated basal needs ~60 units/day while on dex 20 mg, based on BSG's prior to titration up of tubefeeds while on Lantus 60 units/day (divided). Therefore will not increase significantly * Of note, dexamethasone is tapering tomorrow and regimen will likely require re-adjustment at that time 11/08 * Pt remains intubated. Attempting to wean paralytics today. Pressors off. Dexamethasone 20 mg IV x5 days started last night, 2nd dose this AM. Planned taper to 10 mg IV daily x5 days (for an additional 10 days of dexamethasone). * BSG's increased 2nd initiation of dexamethasone last night * Will increase Lantus. Used NPH previously while on dexamethasone 6 mg IV qAM, but will keep as Lantus for now as patient is now NPO. * Trickle feeds with Novasource renal starting. Would normally not cover trickle feeds with Novolog, however, due to significant prandial needs while previously on dexamethasone (at lower dose) evidenced by prior CHO ratio of 1.8 g CHO/unit, will cover with Novolog * Discussed insulin drip on ICU rounds given two BSG's very slightly >220 mg/dL. Will initiate at/after lunch if BSG's again >220 mg/dL - OK per Dr. Mueller * Novolog tightened to regimen while previously on dexamethasone, just slightly looser CHO ratio as patient is only on trickle feeds at this time 11/07 * Pt remains intubated, sedated, paralyzed. NPO. No steroids (completed course of DXM 11/03/20) * 11/06: BSGs [phone] * BSGs elevated secondary to basal insulin deficiency from 11/05. Pt received 40 units of basal on 11/04 and then only 15 units of basal on 11/05. Likely true basal needs ~ 30 units/day * Will change Lantus from scale based dosing to fixed BID dosing so that doses are not omitted when BSG is in range. * Continue NovoLog Q4hrs. No changes needed since pt is NPO. Will re-evaluate if enteral nutrition started in the next few days. PLAN FOR INPATIENT GLYCEMIC CONTROL: * Hold outpatient diabetes medications * Basal insulin * Lantus 30 units SC qAM - increase * Lantus 10-30 units SC HS (see EHR for details) - adjusted scale * Bolus insulin * NovoLog per scale ACHS * Goal Range: Low 110 mg/dL - High 140 mg/dL * Correction Factor: 8 mg/dl/unit * Nutritional / Prandial insulin per carb ratio of 1 unit per 1.5 grams CHO consumed PLAN FOR DISCHARGE: * A1c = 10.2% on 10/30/20 * Outpatient regimen will need adjusted at DC to achieve better glycemic control. This will all be dependent on patient prognosis. * Will be able to make more informed recs once steroids discontinued
[2020-11-15] MEDS: INSULIN ASPART 100 UNITS/ML VIAL SC SCH ×2 (17:54→20:41)
--- NOTE | 2020-11-15 20:58 | Hospitalist Progress Note ---
Date of Service November 15, 2020 Assessment & Plan (1) Pneumonia due to COVID-19 virus: Plan: Acute hypoxemic respiratory failure 2/2 Covid pneumonia Patient is a "breakthrough case "following vaccination with Moderna in July Initiated on remdesivir 11/07 at [facility] and steroids 10/25 as outpatient - Completed 5-day course of remdesivir Completed 10-day course of steroids Completed 5-day course of azithromycin prior to admission Patient was out of the window for Tocilizumab Patient intubated evening of for worsening respiratory failure prone on 11/06 into 11/07, improved PEEP and FiO2 requirement big improvement on 11/12 with successful extubation, currently on 3L NC - started on 11/06 for late ARDS: Dexamethasone 20mg daily x 5 days then 10mg x 5 days, currently on 10mg, last dose is 11/17 can move out of COVID unit today, discontinue neg pressure isolation (2) Acute respiratory failure with hypoxia: Plan: 2/2 Covid pneumonia managed as noted extubated 11/12 to oxymask, now on 3L NC, no distress, lungs clear moved to med tele status give Lasix 40mg PO today, keep lungs dry especially with cardiomyopathy, see below (3) Acute systolic CHF (congestive heart failure): Plan: Acute CHFrEF TTE shows EF 25-30%, cardiomyopathy, could be viral induced vs ischemic History of prior [place] in 2015, troponins normal during admission give Lasix 40mg PO now, see how she responds, pull calderon after a few hours start back on Toprol 25mg BID, she took this at home, her HR is 110 and BP 140 systolic will check a limited echo : mildly reduced EF appreciate input from Cardio. (4) Diabetes mellitus type 2, uncontrolled: Plan: -A1c 10.2%. -ICU hyperglycemia protocol monitor for hypoglycemia, no episodes currently on Lantus scale and Novolog scale (5) Abnormal LFTs: Plan: -Due to Covid and critical illness resolved (6) Anxiety: Plan: -severe. - required incredible amount of sedation, now weaning off, extubated Ativan 0.5mg q6 PRN, started today due to complaining about anxiety (7) CAD (coronary artery disease): Plan: -s/p [place] 2015. -She was not taking aspirin at admission; thus asa 81mg daily added. Toprol 25mg BID resumed this morning continue crestor follow up limited echo to reassess EF (8) Obesity: Plan: BMI 36 (9) Hypertension: Plan: Toprol 25mg Lasix 40mg PO daily SBP is 140's this morning but that is prior to Toprol (10) Hyperlipidemia: Plan: -crestor (11) Tobacco dependence: Plan: -Nicoderm patch 21mg held while critically ill (12) Hypomagnesemia: Plan: -ICU electrolyte protocol (13) Acute kidney injury: Plan: -Cr 1.9 on 10/27 in [place]. -2nd to COVID, severely uncontrolled DM, etc. Cr has improved, stable, monitor UO via calderon Lasix 40mg PO daily, remove calderon later today check BMP in the morning (14) DVT prophylaxis: Plan: -lovenox 40 BID Plan: Patient's daughter Mayra, who lives in [place] . Patient is improving, transfer out of COVID unit today this week, work on fine tuning cardiac medications, continue with therapy, follow up echo, have cardiology check on patient ultimately would anticipate her going to rehab by the end of the week, she agrees with that plan she was intubated for nearly two weeks Admission and Anticipated Discharge Date Admission Date: October 29, 2020 Subjective Patient reports breating better. She has no new complaints at this time. Review of Systems Review of Systems: All systems reviewed & are unremarkable except as noted in HPI & below Physical Exam Physical Exam: Constitutional: well developed, well nourished, + frail appearing and comfortable; no acute distress Neck: trachea midline, no thyromegaly Respiratory: normal respiratory effort; no respiratory distress, no labored breathing and no cough Auscultation: no crackles, no rales and no wheezes Cardiovascular: Rate/Rhythm: regular rhythm and + tachycardic Heart Sounds: normal S1 and normal S2; no murmur Vessels: no JVD Extremities: normal capillary refill; no edema Gastrointestinal (Abdomen): normal bowel sounds, soft, nontender, no hepatosplenomegaly Musculoskeletal: no cyanosis or clubbing, extremities motor strength 5/5 Skin: no rashes, warm and dry Neurologic: patellar DTR's 2+ bilat, sensation intact and PERRL, EOMI, accommodation nl, no face palsy, no dysarthria CN's II-XI intact bilaterally and + obtunded; no focal motor deficits Psychiatric: Orientation: alert and oriented x 3 Affect: + anxious affect Results & Data Results & Data ([facility]) Vital Signs (Past 12 Hours) Vital Signs Temp Pulse Pulse Resp BP BP Pulse Ox 11/15/20 19:29 36.6 C 90 20 124/78 93 11/15/20 15:51 36.8 C 102 H 20 116/74 92 11/15/20 15:13 95 H 11/15/20 11:20 37 C 93 H 18 131/84 95 PG Care Time/CCT Total # of Minutes Spent Total Time Spent with Patient: Total time spent is greater than 50% in coordination of care (as documented) at patient's floor/unit and/or counseling patient: Coding Level of Care Code 24357 Subseq Hosp Care Lvl 2 Diagnoses Pneumonia due to COVID-19 virus U07.1; J12.82 Acute respiratory failure with hypoxia J96.01 Acute systolic CHF (congestive heart failure) I50.21 Diabetes mellitus type 2, uncontrolled E11.65 Abnormal LFTs R94.5 Anxiety F41.9 CAD (coronary artery disease) I25.10 Obesity E66.9 Hypertension I10 Hyperlipidemia E78.5 Tobacco dependence F17.200 Hypomagnesemia E83.42 Acute kidney injury N17.9 DVT prophylaxis Z29.9 Time Spent (min) 25
[2020-11-15] MEDS ORDERED: GABAPENTIN 300 MG CAP PO PRN (21:22)
[2020-11-16] MEDS: dexAMETHasone 10 MG in SYRINGE 0 ML IV SCH (08:26)
[2020-11-16] MEDS: ASPIRIN 81 MG CHEW PEG SCH (08:26)
[2020-11-16] MEDS: DOCUSATE SODIUM SYRUP 100 MG/10 ML UDC PO SCH ×2 (08:26→20:59)
[2020-11-16] MEDS: FUROSEMIDE 40 MG TAB PO SCH (08:27)
[2020-11-16] MEDS: NICOTINE 21 MG/24 HR TDSY TD SCH (08:28)
[2020-11-16] MEDS: PANTOprazole 40 MG TAB PO SCH (08:28)
[2020-11-16] MEDS: METOPROLOL SUCC 25MG EXT REL TAB PO SCH ×2 (08:28→21:02)
[2020-11-16] MEDS: ROSUVASTATIN CALCIUM 20 MG TAB PO SCH (08:28)
[2020-11-16] MEDS: SENNOSIDES 8.8 MG/5 ML UDC PO SCH (08:29)
[2020-11-16] MEDS: INSULIN ASPART 100 UNITS/ML VIAL SC SCH ×4 (08:35→21:04)
[2020-11-16] MEDS: INSULIN GLARGINE SOLOSTAR 100 UNITS/ML 3 ML PEN SC SCH ×2 (08:46→21:03)
[2020-11-16] MEDS: HEPARIN SOD 5,000 UNIT/0.5 ML VIAL SC SCH ×2 (10:11→21:02)
[2020-11-16 11:43] LABS: Hemoglobin 11.3 g/dL (12.0-16.0); Mean Corpuscular Hgb Conc 32.3 g/dL (32-36); Mean Corpuscular Volume 92.8 fL (80-100); Mean Platelet Volume 9.9 fL (7.4-10.4); Platelet Count 586 K/uL (130-400); RDW Coefficient of Variation 14.8 % (11.5-14.5); RDW Standard Deviation 47.4 fL (36.4-46.3); Red Blood Count 3.77 M/uL (4.2-5.4); White Blood Count 14.19 K/uL (4.8-10.8)
[2020-11-16 12:07] LABS: BUN Creatinine Ratio 31.3 (10-20); Creatinine Clr Calc Pharmacy 77.5 ml/min; Est GFR (African American) 77.7 ml/min; Potassium 4.1 mmol/L (3.5-5.1)
--- NOTE | 2020-11-16 14:59 | XRay Report ---
SINGLE VIEW CHEST CLINICAL HISTORY: Hypoxia. FINDINGS: An AP, portable, upright chest radiograph is compared to study dated 11/13/2020. Correlation is made with chest CT dated 10/27/2020. A right internal jugular central venous catheter has been [place]. The heart is enlarged. The pulmonary vasculature is noncongested. Multifocal airspace consolidat ion has not significantly changed from 11/13/2020. No large pleural effusion or pneumothorax is seen. The bony thorax is grossly intact. IMPRESSION: 1. Multifocal airspace consolidation has not significantly changed as compared 11/13/2020. 2. Cardiomegaly. ACT 112: Negative or not required by law. Electronically signed by: Shailesh Palma M.D. 11/16/2020 2:58 PM
--- NOTE | 2020-11-16 21:03 | Hospitalist Progress Note ---
Date of Service November 16, 2020 Assessment & Plan (1) Pneumonia due to COVID-19 virus: Plan: Acute hypoxemic respiratory failure 2/2 Covid pneumonia Patient is a "breakthrough case "following vaccination with Moderna in July Initiated on remdesivir 11/07 at [facility] and steroids 10/25 as outpatient - Completed 5-day course of remdesivir Completed 10-day course of steroids Completed 5-day course of azithromycin prior to admission Patient was out of the window for Tocilizumab Patient intubated evening of for worsening respiratory failure prone on 11/06 into 11/07, improved PEEP and FiO2 requirement big improvement on 11/12 with successful extubation, currently on 3L NC - started on 11/06 for late ARDS: Dexamethasone 20mg daily x 5 days then 10mg x 5 days, currently on 10mg, last dose is 11/17 out of covid unit. Patient is feeling better, AND IS AMBULATING. But continues to require high amounts of oxygen. X-ray reviewed which did not show much improvement. (2) Acute respiratory failure with hypoxia: Plan: 2/2 Covid pneumonia managed as noted extubated 11/12 to oxymask, now on 3L NC, no distress, lungs clear moved to med tele status give Lasix 40mg PO today, keep lungs dry especially with cardiomyopathy, see below (3) Acute systolic CHF (congestive heart failure): Plan: Acute CHFrEF TTE shows EF 25-30%, cardiomyopathy, could be viral induced vs ischemic History of prior [place] in 2016, troponins normal during admission give Lasix 40mg PO now, see how she responds, pull calderon after a few hours start back on Toprol 25mg BID, she took this at home, her HR is 110 and BP 140 systolic will check a limited echo : mildly reduced EF appreciate input from Cardio. (4) Diabetes mellitus type 2, uncontrolled: Plan: -A1c 10.2%. -ICU hyperglycemia protocol monitor for hypoglycemia, no episodes currently on Lantus scale and Novolog scale (5) Abnormal LFTs: Plan: -Due to Covid and critical illness resolved (6) Anxiety: Plan: -severe. - required incredible amount of sedation, now weaning off, extubated Ativan 0.5mg q6 PRN, started today due to complaining about anxiety (7) CAD (coronary artery disease): Plan: -s/p [place] 2015. -She was not taking aspirin at admission; thus asa 81mg daily added. Toprol 25mg BID resumed this morning continue crestor follow up limited echo to reassess EF (8) Obesity: Plan: BMI 36 (9) Hypertension: Plan: Toprol 25mg Lasix 40mg PO daily SBP is 140's this morning but that is prior to Toprol (10) Hyperlipidemia: Plan: -crestor (11) Tobacco dependence: Plan: -Nicoderm patch 21mg held while critically ill (12) Hypomagnesemia: Plan: -ICU electrolyte protocol (13) Acute kidney injury: Plan: -Cr 1.9 on 10/27 in [place]. -2nd to COVID, severely uncontrolled DM, etc. Cr has improved, stable, monitor UO via calderon Lasix 40mg PO daily, remove calderon later today check BMP in the morning (14) DVT prophylaxis: Plan: -lovenox 40 BID Plan: Patient's daughter Mayra, who lives in [place] . this week, work on fine tuning cardiac medications, continue with therapy, follow up echo, have cardiology check on patient ultimately would anticipate her going to rehab by the end of the week, she agrees with that plan she was intubated for nearly two weeks Admission and Anticipated Discharge Date Admission Date: October 29, 2020 Subjective Patient appears more upbeat. Updated daughter on the phone Patient required more oxygen supplementation after walking. O2 nasal cannula increased to 6 liters as per nurse Review of Systems Review of Systems: All systems reviewed & are unremarkable except as noted in HPI & below Physical Exam Physical Exam: Constitutional: well developed, well nourished, + frail appearing and comfortable; no acute distress Neck: trachea midline, no thyromegaly Respiratory: normal respiratory effort; no respiratory distress, no labored breathing and no cough Auscultation: no crackles, no rales and no wheezes Cardiovascular: Rate/Rhythm: regular rhythm and + tachycardic Heart Sounds: normal S1 and normal S2; no murmur Vessels: no JVD Extremities: normal capillary refill; no edema Gastrointestinal (Abdomen): normal bowel sounds, soft, nontender, no hepatosplenomegaly Musculoskeletal: no cyanosis or clubbing, extremities motor strength 5/5 Skin: no rashes, warm and dry Neurologic: patellar DTR's 2+ bilat, sensation intact and PERRL, EOMI, accommodation nl, no face palsy, no dysarthria CN's II-XI intact bilaterally and + obtunded; no focal motor deficits Psychiatric: Orientation: alert and oriented x 3 Affect: + anxious affect Results & Data Results & Data ([facility]) Vital Signs (Past 12 Hours) Vital Signs Temp Pulse Pulse Resp BP Pulse Ox 11/16/20 15:37 36.8 C 95 H 18 116/74 92 11/16/20 14:23 105 H 11/16/20 11:30 36.5 C 101 H 18 105/66 91 PG Care Time/CCT Total # of Minutes Spent Total Time Spent with Patient: Total time spent is greater than 50% in coordination of care (as documented) at patient's floor/unit and/or counseling patient: Coding Level of Care Code 74636 Subseq Hosp Care Lvl 3 Diagnoses Pneumonia due to COVID-19 virus U07.1; J12.82 Acute respiratory failure with hypoxia J96.01 Acute systolic CHF (congestive heart failure) I50.21 Diabetes mellitus type 2, uncontrolled E11.65 Abnormal LFTs R94.5 Anxiety F41.9 CAD (coronary artery disease) I25.10 Obesity E66.9 Hypertension I10 Hyperlipidemia E78.5 Tobacco dependence F17.200 Hypomagnesemia E83.42 Acute kidney injury N17.9 DVT prophylaxis Z29.9 Time Spent (min) 35
[2020-11-16] MEDS: LORazepam 0.5 MG TAB PO PRN (21:09)
[2020-11-17] MEDS: LORazepam 0.5 MG TAB PO PRN (03:11)
--- NOTE | 2020-11-17 08:45 | Cardiology Progress Note ---
Date of Service November 17, 2020 Assessment & Plan (1) Acute systolic CHF (congestive heart failure): Plan: Overall volume status appears good. Renal function is stable. She continues on a daily dose of Lasix. Difficult to gauge her fluid balance based on her i ntake and output measurements. I do not think the output has been accurately recorded over the past couple of days. However, renal function is stable as noted above and there is no evidence of peripheral edema. I think continuing her current dose of diuretic on a daily basis is adequate. (2) Acute respiratory failure with hypoxia: Plan: Mostly due to her viral pneumonia and subsequent ARDS. Clinically improving. Much less oxygen requirement. (3) CAD (coronary artery disease): Plan: A remote history of a single-vessel intervention Remotely. No current symptoms suggestive of ischemia. Would continue aggressive secondary prevention with her daily aspirin, Metoprolol and rosuvastatin. (4) Mitral regurgitation: Plan: Improved. Only mild on her current echocardiogram. (5) Cardiomyopathy: Plan: she appears well compensated currently. Will continue metoprolol succinate which could be converted to a single daily dose of 50 milligrams. I ordered her lisinopril 5 milligrams daily. She should have renal function electrolytes checked in a few days. From a cardiac standpoint she certainly ready for discharge. I will continue her medicines as currently prescribed. She should follow up in our clinic in the next 2-4 weeks. Admission and Anticipated Discharge Date Admission Date: October 29, 2020 Subjective This morning patient claimed he feeling "great". Her appetite is good she finished off her breakfast. She ambulated yesterday with a walker. She states she had some tiredness but overall was pleased with her progress. Mild dyspnea associated with ambulation. No dyspnea at rest. No chest pain with activity. Review of Systems Review of Systems: Per HPI Physical Exam Physical Exam: She is alert and oriented x3. Mood affect appear normal. She answered all questions appropriately. HEENT: Sclerae are anicteric. Pupils are equal and reactive to light and accommodation. Extraocular movements were intact. edentulous Neuro: Cranial nerves intact Lungs: left lung field is clear, reduced breath sounds on the right. Upper airway rhonchi. No expiratory wheezing. Normal respiratory effort. Cardiac: The rhythm was regular. S1 and S2 were normal. There are no murmurs on examination. The PMI was not markedly displaced on palpation. Abdomen: The abdomen was soft and nontender. Extremities: Patient has bilateral radial pulses that are equal in intensity. There is no evidence cyanosis or clubbing. There was no evidence of significant peripheral edema bilaterally. Results & Data ([facility]) Vital Signs (Past 12 Hours) Vital Signs Temp Pulse Pulse Resp BP BP Pulse Ox 11/17/20 07:56 36.7 C 83 20 134/75 92 11/17/20 07:43 87 11/17/20 04:54 37.3 C 91 H 18 126/76 90 11/17/20 00:00 86 11/16/20 23:04 36.9 C 99 H 20 116/71 92 Laboratory Results Abnormal Lab Results 11/16/20 11/16/20 11/16/20 11:35 11:35 11:43 WBC 14.19 H RBC 3.77 L Hgb 11.3 L Hct 35.0 L MCV 92.8 MCH 30.0 MCHC 32.3 RDW Std Deviation 47.4 H RDW Coeff of Ale 14.8 H Plt Count 586 H MPV 9.9 Sodium 135 L Potassium 4.1 Chloride 100 Carbon Dioxide 25 Anion Gap 10.0 BUN 30 H Creatinine 0.96 Est Cr Clr Drug Dosing 77.5 Est GFR ( Amer) 77.7 Est GFR (Non-Af Amer) 67.0 BUN/Creatinine Ratio 31.3 H Glucose 148 H POC Glucose 169 H Calcium 9.0 11/16/20 11/16/20 11/17/20 16:38 20:14 07:46 WBC RBC Hgb Hct MCV MCH MCHC RDW Std Deviation RDW Coeff of Ale Plt Count MPV Sodium Potassium Chloride Carbon Dioxide Anion Gap BUN Creatinine Est Cr Clr Drug Dosing Est GFR ( Amer) Est GFR (Non-Af Amer) BUN/Creatinine Ratio Glucose POC Glucose 257 H 134 H 183 H Calcium PG Care Time/CCT Total # of Minutes Spent Total Time Spent with Patient: Total time spent is greater than 50% in coordination of care (as documented) at patient's floor/unit and/or counseling patient: Coding Level of Care Code 11167 Subseq Hosp Care Lvl 2 Diagnoses Acute systolic CHF (congestive heart failure) I50.21 Acute respiratory failure with hypoxia J96.01 CAD (coronary artery disease) I25.10 Mitral regurgitation I34.0 Cardiomyopathy I42.9
[2020-11-17] MEDS: SENNOSIDES 8.8 MG/5 ML UDC PO SCH (08:51)
[2020-11-17] MEDS: DOCUSATE SODIUM SYRUP 100 MG/10 ML UDC PO SCH ×2 (08:51→20:44)
[2020-11-17] MEDS: INSULIN ASPART 100 UNITS/ML VIAL SC SCH ×4 (08:54→20:44)
[2020-11-17] MEDS: FUROSEMIDE 40 MG TAB PO SCH (08:56)
[2020-11-17] MEDS: HEPARIN SOD 5,000 UNIT/0.5 ML VIAL SC SCH (08:56)
[2020-11-17] MEDS: NICOTINE 21 MG/24 HR TDSY TD SCH (08:56)
[2020-11-17] MEDS: METOPROLOL SUCC 25MG EXT REL TAB PO SCH ×3 (08:56→20:44)
[2020-11-17] MEDS: PANTOprazole 40 MG TAB PO SCH (08:57)
[2020-11-17] MEDS: ROSUVASTATIN CALCIUM 20 MG TAB PO SCH (08:57)
[2020-11-17] MEDS: lisinopril 5 MG TAB PO SCH (09:04)
[2020-11-17] MEDS: ASPIRIN 81 MG CHEW PEG SCH (09:04)
--- NOTE | 2020-11-17 10:22 | Pharmacy Report ---
Pharmacy Glycemic Short Note 2 - Date of Service November 17, 2020 - Glycemic Short BSG Results (Last 24 hours): 11/16/20 11/16/20 11/16/20 11:35 11:43 16:38 Glucose 148 H POC Glucose 169 H 257 H 11/16/20 11/17/20 20:14 07:46 Glucose POC Glucose 134 H 183 H OUTPATIENT ANTIDIABETIC REGIMEN: * Metformin XR 500 mg PO BIDM * Jardiance 25 mg PO Daily * Trulicity 0.75 mg SC Weekly * Lantus 62 units SC BID * HbA1c = 10.2% (10/30/20) ASSESSMENT: 11/17: * BSGs yesterday of 118, 169, 257, and 134 mg/dL * Received 171 units of insulin (50 units of basal and 121 units of prandial/correctional bolus) * Last dose of IV dexamethasone given yesterday * Will hold Lantus this morning and plan on reduced dose later today * Empirically loosened Novolog parameters 11/13: * Pt has received 81 units of insulin over the past 24hrs * 45 units of basal with Lantus * 36 units of bolus with NovoLog * BSGs 71-173 mg/dl * Patinet extubated, passed speech eval, transferred to telemetry * Remains on Dexamethasone 10mg IV Daily (day 2 of 5) * Gave lower dose of basal this AM for NPO status, increased for PM dose as diet started with lunch. 11/11: * BSG's increased yesterday, which coincided with titration up on tubefeeds. Patient was previously very sensitive to CHO while on a lower dose of dex. Will therefore tighten Novolog parameters * Estimated basal needs ~60 units/day while on dex 20 mg, based on BSG's prior to titration up of tubefeeds while on Lantus 60 units/day (divided). Therefore will not increase significantly * Of note, dexamethasone is tapering tomorrow and regimen will likely require re-adjustment at that time 11/08 * Pt remains intubated. Attempting to wean paralytics today. Pressors off. Dexamethasone 20 mg IV x5 days started last night, 2nd dose this AM. Planned taper to 10 mg IV daily x5 days (for an additional 10 days of dexamethasone). * BSG's increased 2nd initiation of dexamethasone last night * Will increase Lantus. Used NPH previously while on dexamethasone 6 mg IV qAM, but will keep as Lantus for now as patient is now NPO. * Trickle feeds with Novasource renal starting. Would normally not cover trickle feeds with Novolog, however, due to significant prandial needs while previously on dexamethasone (at lower dose) evidenced by prior CHO ratio of 1.8 g CHO/unit, will cover with Novolog * Discussed insulin drip on ICU rounds given two BSG's very slightly >220 mg/dL. Will initiate at/after lunch if BSG's again >220 mg/dL - OK per Dr. Mueller * Novolog tightened to regimen while previously on dexamethasone, just slightly looser CHO ratio as patient is only on trickle feeds at this time 11/07 * Pt remains intubated, sedated, paralyzed. NPO. No steroids (completed course of DXM 11/03/20) * 11/06: BSGs [phone] * BSGs elevated secondary to basal insulin deficiency from 11/05. Pt received 40 units of basal on 11/04 and then only 15 units of basal on 11/05. Likely true basal needs ~ 30 units/day * Will change Lantus from scale based dosing to fixed BID dosing so that doses are not omitted when BSG is in range. * Continue NovoLog Q4hrs. No changes needed since pt is NPO. Will re-evaluate if enteral nutrition started in the next few days. PLAN FOR INPATIENT GLYCEMIC CONTROL: * Hold outpatient diabetes medications * Basal insulin - decrease now that steroids are discontinued * Lantus 25 units SC daily (50% of yesterday's dose) * Will likely require further titration - reassess daily * Bolus insulin - loosen now that steroids are discontinued * NovoLog per scale ACHS * Goal Range: Low 110 mg/dL - High 140 mg/dL * Correction Factor: 15 mg/dl/unit * Nutritional / Prandial insulin per carb ratio of 1 unit per 5 grams CHO consumed PLAN FOR DISCHARGE: * A1c = 10.2% on 10/30/20 * Outpatient regimen will need adjusted at DC to achieve better glycemic control. This will all be dependent on patient prognosis. * Will be able to make more informed recs now that steroids are discontinued - will follow
[2020-11-17] MEDS ORDERED: FUROSEMIDE 40 MG in SYRINGE 0 ML IV ONE ×2 (11:35→15:15)
[2020-11-17] MEDS ORDERED: INSULIN GLARGINE SOLOSTAR 100 UNITS/ML 3 ML PEN SC ONE (11:45)
[2020-11-17 11:51] LABS: Basophils # (auto) 0.01 K/uL (0-0.2); Basophils % (auto) 0.1 %; Eosinophils # (auto) 0.24 K/uL (0-0.5); Eosinophils % (auto) 2.4 %; Hematocrit (blood only) 32.4 % (37-47); Hemoglobin 10.5 g/dL (12.0-16.0); Immature Granulocytes # (auto) 0.07 K/uL (0.00-0.02); Immature Granulocytes % (auto) 0.7 %; Lymphocytes # (auto) 2.31 K/uL (1.2-3.4); Lymphocytes % (auto) 22.9 %; Mean Corpuscular Hemoglobin 29.7 pg (25-34); Mean Corpuscular Hgb Conc 32.4 g/dL (32-36); Mean Corpuscular Volume 91.8 fL (80-100); Mean Platelet Volume 9.8 fL (7.4-10.4); Monocytes # (auto) 0.77 K/uL (0.11-0.59); Monocytes % (auto) 7.6 %; Neutrophils % (auto) 66.3 %; Platelet Count 481 K/uL (130-400); RDW Coefficient of Variation 15.2 % (11.5-14.5); RDW Standard Deviation 47.9 fL (36.4-46.3); Red Blood Count 3.53 M/uL (4.2-5.4)
[2020-11-17] MEDS ORDERED: LORazepam 1 MG/2 ML VIAL IV STA (12:11)
[2020-11-17 12:12] LABS: BUN Creatinine Ratio 32.4 (10-20); Creatinine Clr Calc Pharmacy 80.9 ml/min; Est GFR (African American) 81.8 ml/min; Est GFR (Non-African American) 70.6 ml/min; Potassium 3.9 mmol/L (3.5-5.1)
[2020-11-17] MEDS ORDERED: OPTIRAY 320 125ml IV ONE (12:26)
--- NOTE | 2020-11-17 12:46 | CT Scan Report ---
CHEST CTA for PULMONARY ARTERIES CT DOSE: 670.51 mGy.cm HISTORY: Shortness of breath. Cough. TECHNIQUE: Multiaxial CT images of the chest were performed following the intravenous administration of contrast to evaluate the pulmonary arteries. Maximal intensity projection images were also obtaine d. A dose lowering technique was utilized adhering to the principles of ALARA. COMPARISON STUDY: Chest 11/16/2020. Outside hospital chest CT 10/27/2020 and 05/23/2019. FINDINGS: No pneumothorax. No pleural effusions. The central airways are patent. There are multifocal groundglass and consolidative irregular airspace opacity seen throughout the lungs. These demonstrat e a peripheral and basilar predominance. This is consistent with a multifocal viral pneumonia. This i s similar to the recent chest x-ray but has progressed compared to the 10/27/2020 chest CTA. No fractur es within the visualized osseous structures. Limited views of the upper abdomen demonstrate a normal liver and spleen. Normal esophagus. No mediastinal or hilar lymphadenopathy. Trace pericardial effusi on. Heart is mildly enlarged. Normal caliber thoracic aorta with no evidence for dissection. No evide nce for right-sided heart strain. There is a filling defect seen within a single segmental/subsegment al branch of the right lower lobe best seen on images 55 through 75 consistent with a pulmonary embol us. The remaining pulmonary arteries appear patent. IMPRESSION: 1. A single segmental/subsegmental pulmonary embolus within the right lower lobe. No evidence for rig ht-sided heart strain. 2. Multifocal bilateral airspace opacities consistent with a viral pneumonia. This has progressed com pared to the 10/27/[address] 3. This finding was called/faxed to the referring physician following dictation. ACT 112: Negative or not required by law. Electronically signed by: Catarino Muniz M.D. 11/17/2020 12:44 PM
--- NOTE | 2020-11-17 12:57 | XRay Report ---
XR chest 2V PA/lateral CLINICAL HISTORY: Shortness of breath. COMPARISON STUDY: Chest radiograph November 16, 2020. Chest CT performed earlier today. FINDINGS: Lung volumes are normal. There is no pneumothorax or pleural effusion. Cardiomegaly is unch anged. Moderate to extensive bilateral airspace opacities persist. IMPRESSION: Persistent bilateral airspace opacities consistent with viral pneumonia. ACT 112: Negative or not required by law. Electronically signed by: Antonio Roy M.D. 11/17/2020 12:55 PM
[2020-11-17] MEDS ORDERED: ZOLPIDEM TARTRATE 5 MG TAB PO PRN (17:24)
--- NOTE | 2020-11-17 20:39 | Hospitalist Progress Note ---
Date of Service November 17, 2020 Assessment & Plan (1) Pneumonia due to COVID-19 virus: Plan: Acute hypoxemic respiratory failure 2/2 Covid pneumonia Patient is a "breakthrough case "following vaccination with Moderna in July Initiated on remdesivir 11/07 at [facility] and steroids 10/25 as outpatient - Completed 5-day course of remdesivir Completed 10-day course of steroids Completed 5-day course of azithromycin prior to admission Patient was out of the window for Tocilizumab Patient intubated evening of for worsening respiratory failure prone on 11/06 into 11/07, improved PEEP and FiO2 requirement big improvement on 11/12 with successful extubation, currently on 3L NC - started on 11/06 for late ARDS: Dexamethasone 20mg daily x 5 days then 10mg x 5 days, currently on 10mg, last dose is 11/17 out of covid unit. Patient is feeling better, AND IS AMBULATING. But continues to require high amounts of oxygen. X-ray reviewed which did not show much improvement. Now requring 10 liters on ambulation. Obtained ct scan of chest: showed right subsegmental pulonary emboli. Patient will be on anticoagulation at least for 3 months. P/E likely not contributing to her hypoxia. Will order diuresis in the afternoon to give at least 3-4 hours after contrast was given for P/E likely ARDS with fluid overload as BNP is higher. (2) Acute pulmonary embolism: Plan: as stated above. added eliquis (3) Acute respiratory failure with hypoxia: Plan: 2/2 Covid pneumonia managed as noted extubated 11/12 to oxymask, now on 3L NC, no distress, lungs clear moved to med [facility] status give Lasix 40mg PO today, keep lungs dry especially with cardiomyopathy, see below (4) Acute systolic CHF (congestive heart failure): Plan: Acute CHFrEF TTE shows EF 25-30%, cardiomyopathy, could be viral induced vs ischemic History of prior [place] in 2016, troponins normal during admission give Lasix 40mg PO now, see how she responds, pull calderon after a few hours start back on Toprol 25mg BID, she took this at home, her HR is 110 and BP 140 systolic will check a limited echo : mildly reduced EF appreciate input from Cardio. (5) Diabetes mellitus type 2, uncontrolled: Plan: -A1c 10.2%. -ICU hyperglycemia protocol monitor for hypoglycemia, no episodes currently on Lantus scale and Novolog scale (6) Abnormal LFTs: Plan: -Due to Covid and critical illness resolved (7) Anxiety: Plan: -severe. - required incredible amount of sedation, now weaning off, extubated Ativan 0.5mg q6 PRN, started today due to complaining about anxiety (8) CAD (coronary artery disease): Plan: -s/p [place] 2015. -She was not taking aspirin at admission; thus asa 81mg daily added. Toprol 25mg BID resumed this morning continue crestor follow up limited echo to reassess EF (9) Obesity: Plan: BMI 36 (10) Hypertension: Plan: Toprol 25mg Lasix 40mg PO daily SBP is 140's this morning but that is prior to Toprol (11) Hyperlipidemia: Plan: -crestor (12) Tobacco dependence: Plan: -Nicoderm patch 21mg held while critically ill (13) Hypomagnesemia: Plan: -ICU electrolyte protocol (14) Acute kidney injury: Plan: -Cr 1.9 on 10/27 in [place]. -2nd to COVID, severely uncontrolled DM, etc. Cr has improved, stable, monitor UO via calderon Lasix 40mg PO daily, remove calderon later today check BMP in the morning (15) DVT prophylaxis: Plan: -lovenox 40 BID Plan: Patient's daughter Mayra, who lives in [place] . this week, work on fine tuning cardiac medications, continue with therapy, follow up echo, have cardiology check on patient ultimately would anticipate her going to rehab by the end of the week, she agrees with that plan she was intubated for nearly two weeks Admission and Anticipated Discharge Date Admission Date: October 29, 2020 Subjective Patient reports that she wants to be discharged. Patient however reports feeling short of breath when she ambulates. Nurse informed me that patient did poorly on two step. Called and explained situation, would like patient to stay. Patient reports being very anxious and wants to come home. After obtaining permission to have come in hospital, (due to covid restrictions), patient agreed that she should stay. Review of Systems Review of Systems: All systems reviewed & are unremarkable except as noted in HPI & below Physical Exam Physical Exam: Constitutional: well developed, well nourished, + frail appearing and comfortable; no acute distress Neck: trachea midline, no thyromegaly Respiratory: normal respiratory effort; no respiratory distress, no labored breathing and no cough Auscultation: no crackles, no rales and no wheezes Cardiovascular: Rate/Rhythm: regular rhythm and + tachycardic Heart Sounds: normal S1 and normal S2; no murmur Vessels: no JVD Extremities: normal capillary refill; no edema Gastrointestinal (Abdomen): normal bowel sounds, soft, nontender, no hepatosplenomegaly Musculoskeletal: no cyanosis or clubbing, extremities motor strength 5/5 Skin: no rashes, warm and dry Neurologic: patellar DTR's 2+ bilat, sensation intact and PERRL, EOMI, accommodation nl, no face palsy, no dysarthria CN's II-XI intact bilaterally and + obtunded; no focal motor deficits Psychiatric: Orientation: alert and oriented x 3 Affect: + anxious affect Results & Data Results & Data ([facility]) Vital Signs (Past 12 Hours) Vital Signs Temp Pulse Pulse Pulse Pulse Pulse Pulse 11/17/20 20:00 36.4 C L 11/17/20 16:00 96 H 11/17/20 15:00 36.3 C L 11/17/20 11:20 104 H 106 H 116 H 118 H 122 H Pulse Pulse Pulse Resp Resp Resp Resp 11/17/20 20:00 87 18 11/17/20 16:00 11/17/20 15:00 86 20 11/17/20 11:20 115 H 104 H 18 18 22 Resp Resp Resp Resp BP Pulse Ox Pulse Ox 11/17/20 20:00 97/63 L 100 11/17/20 16:00 11/17/20 15:00 100/65 100 11/17/20 11:20 24 24 22 18 85 L Pulse Ox Pulse Ox Pulse Ox Pulse Ox Pulse Ox Pulse Ox 11/17/20 20:00 11/17/20 16:00 11/17/20 15:00 11/17/20 11:20 90 84 L 86 L 91 84 L 83 L PG Care Time/CCT Total # of Minutes Spent Total Time Spent with Patient: Total time spent is greater than 50% in coordination of care (as documented) at patient's floor/unit and/or counseling patient: Prolonged Care Time 70 11:00 to 11:30 11:50 to 12:00 12:40 to 13:00 18:00 to 18:10 Coding Level of Care Code 51986 Subseq Hosp Care Lvl 3 (25 - SIGNIFICANT, SEPARATELY IDENTIFIABLE ) Diagnoses Pneumonia due to COVID-19 virus U07.1; J12.82 Acute respiratory failure with hypoxia J96.01 Acute systolic CHF (congestive heart failure) I50.21 Diabetes mellitus type 2, uncontrolled E11.65 Abnormal LFTs R94.5 Anxiety F41.9 CAD (coronary artery disease) I25.10 Obesity E66.9 Hypertension I10 Hyperlipidemia E78.5 Tobacco dependence F17.200 Hypomagnesemia E83.42 Acute kidney injury N17.9 DVT prophylaxis Z29.9 Acute pulmonary embolism I26.99 Time Spent (min) 70
[2020-11-17] MEDS: APIXABAN 5 MG TABLET PO SCH (20:43)
[2020-11-18 06:10] LABS: Hematocrit (blood only) 31.5 % (37-47); Hemoglobin 9.8 g/dL (12.0-16.0); Mean Corpuscular Hemoglobin 29.1 pg (25-34); Mean Corpuscular Hgb Conc 31.1 g/dL (32-36); Mean Corpuscular Volume 93.5 fL (80-100); Mean Platelet Volume 9.9 fL (7.4-10.4); Platelet Count 424 K/uL (130-400); RDW Coefficient of Variation 15.5 % (11.5-14.5); RDW Standard Deviation 49.9 fL (36.4-46.3); Red Blood Count 3.37 M/uL (4.2-5.4); White Blood Count 8.37 K/uL (4.8-10.8)
[2020-11-18] MEDS: INSULIN ASPART 100 UNITS/ML VIAL SC SCH ×2 (08:39→12:39)
[2020-11-18] MEDS: ASPIRIN 81 MG CHEW PEG SCH (08:50)
[2020-11-18] MEDS: METOPROLOL SUCC 25MG EXT REL TAB PO SCH (08:51)
[2020-11-18] MEDS: ROSUVASTATIN CALCIUM 20 MG TAB PO SCH (08:51)
[2020-11-18] MEDS: FUROSEMIDE 40 MG TAB PO SCH (08:51)
[2020-11-18] MEDS: lisinopril 5 MG TAB PO SCH (08:51)
[2020-11-18] MEDS: PANTOprazole 40 MG TAB PO SCH (08:51)
[2020-11-18] MEDS: APIXABAN 5 MG TABLET PO SCH (08:52)
[2020-11-18] MEDS: DOCUSATE SODIUM SYRUP 100 MG/10 ML UDC PO SCH (08:52)
[2020-11-18] MEDS: NICOTINE 21 MG/24 HR TDSY TD SCH (08:52)
[2020-11-18] MEDS: SENNOSIDES 8.8 MG/5 ML UDC PO SCH (08:53)
[2020-11-18] MEDS ORDERED: INSULIN GLARGINE SOLOSTAR 100 UNITS/ML 3 ML PEN SC SCH (09:00)
[2020-11-18] MEDS: LORazepam 0.5 MG TAB PO PRN (10:02)
[2020-11-18 12:21] LABS: Calcium 8.9 mg/dl (8.5-10.1); Creatinine Clr Calc Pharmacy 86.6 ml/min; Est GFR (African American) 87.5 ml/min; Est GFR (Non-African American) 75.5 ml/min; Potassium 4.1 mmol/L (3.5-5.1)
--- NOTE | 2020-11-18 12:58 | XRay Report ---
XR chest 1V portable CLINICAL HISTORY: Shortness of breath. COMPARISON STUDY: Chest CT November 17, 2020. Chest radiograph November 17, 2020. FINDINGS: Lung volumes are normal. There is no pneumothorax or pleural effusion. Cardiomediastinal si lhouette is stable. Moderate to extensive bilateral airspace opacities are similar to prior exam. Maximiliano earance of the chest is unchanged. IMPRESSION: No significant change in bilateral airspace opacities suggestive of viral pneumonia. ACT 112: Negative or not required by law. Electronically signed by: Antonio Roy M.D. 11/18/2020 12:56 PM
[2020-11-18] MEDS ORDERED: FUROSEMIDE 40 MG in SYRINGE 0 ML IV ONE (13:30)
--- NOTE | 2020-11-19 07:34 | Discharge Summary ---
Date of Service November 18, 2020 Principal Diagnosis COVID 19 Pneumonia Discharge Exam Constitutional: well developed, well nourished, + frail appearing and comfortable; no acute distress Neck: trachea midline, no thyromegaly Respiratory: normal respiratory effort; no respiratory distress, no labored breathing and no cough Auscultation: no crackles, no rales and no wheezes Cardiovascular: Rate/Rhythm: regular rhythm and + tachycardic Heart Sounds: normal S1 and normal S2; no murmur Vessels: no JVD Extremities: normal capillary refill; no edema Gastrointestinal (Abdomen): normal bowel sounds, soft, nontender, no hepatosplenomegaly Musculoskeletal: no cyanosis or clubbing, extremities motor strength 5/5 Skin: no rashes, warm and dry Neurologic: patellar DTR's 2+ bilat, sensation intact and PERRL, EOMI, accommodation nl, no face palsy, no dysarthria CN's II-XI intact bilaterally and + obtunded; no focal motor deficits Psychiatric: Orientation: alert and oriented x 3 Affect: + anxious affect Discharge Data Allergies Allergy/AdvReac Type Severity Reaction Status Date / Time latex Allergy Rash Verified 10/29/20 18:35 oxycodone [From Percocet] Allergy Hives Verified 10/29/20 18:36 Consultations 11/01/20 17:16 Consult Cardiology Routine 11/01/20 18:17 Consult Health Information Management Routine 11/07/20 06:22 Consult Nephrology Routine 11/18/20 13:20 [facility] Referral Routine Ordered Studies 10/29/20 21:21 US venous doppler LE BI Urgent 11/07/20 00:19 US point of care ultrasound Stat 11/17/20 11:44 CT angio chest PE protocol Urgent Hospital Course (1) Pneumonia due to COVID-19 virus: Acute hypoxemic respiratory failure 2/2 Covid pneumonia Patient is a "breakthrough case "following vaccination with Moderna in July Initiated on remdesivir 11/07 at [facility] and steroids 10/25 as outpatient - Completed 5-day course of remdesivir Completed 10-day course of steroids Completed 5-day course of azithromycin prior to admission Patient was out of the window for Tocilizumab Patient intubated evening of for worsening respiratory failure prone on 11/06 into 11/07, improved PEEP and FiO2 requirement big improvement on 11/12 with successful extubation, currently on 3L NC - started on 11/06 for late ARDS: Dexamethasone 20mg daily x 5 days then 10mg x 5 days, currently on 10mg, last dose is 11/17 out of covid unit. Patient is feeling better, AND IS AMBULATING. But continues to require high amounts of oxygen. X-ray reviewed which did not show much improvement. Now requring 10 liters on ambulation. Obtained ct scan of chest: showed right subsegmental pulonary emboli. Patient will be on anticoagulation at least for 3 months. P/E likely not contributing to her hypoxia. Patient responded to diuresis. [employer] emergency services manager able to obtain sufficent oxygenation for patient at home. Patient will be discharged (2) Acute pulmonary embolism: as stated above. added eliquis (3) Acute respiratory failure with hypoxia: 2/2 Covid pneumonia managed as noted extubated 11/12 to oxymask, now on 3L NC, no distress, lungs clear moved to med [facility] status give Lasix 40mg PO today, keep lungs dry especially with cardiomyopathy, see below (4) Acute systolic CHF (congestive heart failure): Acute CHFrEF TTE shows EF 25-30%, cardiomyopathy, could be viral induced vs ischemic History of prior [place] in 2016, troponins normal during admission give Lasix 40mg PO now, see how she responds, pull calderon after a few hours start back on Toprol 25mg BID, she took this at home, her HR is 110 and BP 140 systolic will check a limited echo : mildly reduced EF appreciate input from Cardio. (5) Diabetes mellitus type 2, uncontrolled: -A1c 10.2%. -ICU hyperglycemia protocol monitor for hypoglycemia, no episodes currently on Lantus scale and Novolog scale (6) Abnormal LFTs: -Due to Covid and critical illness resolved (7) Anxiety: -severe. - required incredible amount of sedation, now weaning off, extubated Ativan 0.5mg q6 PRN, started today due to complaining about anxiety (8) CAD (coronary artery disease): -s/p [place] 2016. -She was not taking aspirin at admission; thus asa 81mg daily added. Toprol 25mg BID resumed this morning continue crestor follow up limited echo to reassess EF (9) Obesity: BMI 36 (10) Hypertension: Toprol 25mg Lasix 40mg PO daily SBP is 140's this morning but that is prior to Toprol (11) Hyperlipidemia: -crestor (12) Tobacco dependence: -Nicoderm patch 21mg held while critically ill (13) Hypomagnesemia: -ICU electrolyte protocol (14) Acute kidney injury: -Cr 1.9 on 10/27 in [place]. -2nd to COVID, severely uncontrolled DM, etc. Cr has improved, stable, monitor UO via calderon Lasix 40mg PO daily, remove calderon later today check BMP in the morning (15) DVT prophylaxis: -lovenox 40 BID Patient's daughter Mayra, who lives in [place] . this week, work on fine tuning cardiac medications, continue with therapy, follow up echo, have cardiology check on patient ultimately would anticipate her going to rehab by the end of the week, she agrees with that plan she was intubated for nearly two weeks Total Time Total Time Spent Total Time Spent (In Minutes): 32 Discharge Plan Discharge Items Patient Disposition: Home - Home Health Services Reason For Visit: HYPOXEMIA Discharge Diagnosis: hypoxemia Activity: Resume your previous activity Non-emergency contact: Primary Care Provider Call non-emergency contact if: you have any medication questions Follow-up/Referrals: PCP,NO [Primary Care Provider] - (PLEASE CALL YOUR PRIMARY CARE PROVIDER TO SET UP A FOLLOW-UP DISCHARGE APPOINTMENT IN 7-10 DAYS.) Diet: Heart Healthy and Low Sodium (2gm) Addtl Attending Provider Instructions: You will be on Eliquis for 3 months. Gave you a coupon for 30 days. Start Metformin on Sunday Call your Primary Care doctor if any of the following symptoms or problems start or get worse: * Shortness of breath or difficulty breathing * Wake up at night short of breath * Chest pain * Cough * Swelling of your hands, feet, or legs * More fatigued or tired with your normal activity * Palpitations - sudden fast heart beats WEIGHT * Weigh yourself every morning after using the bathroom. * Use the same scale. * Wear the same amount of clothing. * Write your weight down on a chart. * Call your Primary Care doctor if you gain more than 2-3 pounds in 1-2 days. MEDICATIONS * Use this discharge instruction sheet for medication instructions. * Take your medications at the time your doctor ordered. * Do not skip a dose of your medicines. * If you miss a dose of medicine, take it as soon as possible, but DO NOT DOUBLE A DOSE. * Read your medicine information when you get home. * Know all of the side effects of your medicine. If in doubt, ask your pharmacist * Call your Primary Care doctor's office if you have any side effects. * Be sure all of your doctors know what medicine and herbs you take (including cold, flu, and herbal medicine). Take the following with you to your follow-up doctor appointments: * Weight Chart * Medication List * List of questions Do not drink excessive alcohol, beer or wine. Pending Studies at Discharge: No Stand-Alone Forms: My [facility] [employer], Smoking Cessation Medications and DC Order Prescriptions: New Eliquis 5 mg Tablet See Rx Instructions .ROUTE .COMPLEX Qty: 60 RF: 0 aspirin [Children's Aspirin] 81 mg Tablet,Chewable 81 mg PEG QAM Qty: 30 RF: 0 lisinopril [Zestril] 5 mg Tablet 5 mg PO QAM Qty: 30 RF: 0 furosemide 40 mg Tablet 40 mg PO QAM Qty: 30 RF: 0 Continued gabapentin 300 mg capsule 300 mg PO HS RF: 0 metoprolol succinate 25 mg tablet extended release 24 hr 25 mg PO BID RF: 0 metformin 500 mg tablet extended release 24 hr 500 mg PO BID RF: 0 esomeprazole magnesium 20 mg capsule,delayed release(DR/EC) 20 mg PO DAILY RF: 0 rosuvastatin 20 mg tablet 20 mg PO DAILY RF: 0 Lantus Solostar U-100 Insulin 100 unit/mL (3 mL) insulin pen 62 unit SUBCUT BID RF: 0 Jardiance 25 mg tablet 25 mg PO DAILY RF: 0 Discontinued hydrochlorothiazide 25 mg tablet 25 mg PO DAILY RF: 0 Discharge Orders: Discharge Order (Routine); Ordered 11/18/20 Ordered By: Erik Clark Admission Data Admit Date/Time: 10/29/20 17:25 Attending Provider: Erik Clark Admit Provider: Ruth Perez Primary Care Provider: PCP,NO Other Providers: Raudel Sky ; Neris Denny ; [facility], ; [facility] ; Vandana Ni Other Interventions: Discharge Summary Assessment (RN) Last Done: 11/18/20 14:17 Coding Level of Care Code D/C DAY MANAGEMENT >30 MINS Diagnoses Pneumonia due to COVID-19 virus U07.1; J12.82 Acute pulmonary embolism I26.99 Acute respiratory failure with hypoxia J96.01 Acute systolic CHF (congestive heart failure) I50.21 Diabetes mellitus type 2, uncontrolled E11.65 Abnormal LFTs R94.5 Anxiety F41.9 CAD (coronary artery disease) I25.10 Obesity E66.9 Hypertension I10 Hyperlipidemia E78.5 Tobacco dependence F17.200 Hypomagnesemia E83.42 Acute kidney injury N17.9 DVT prophylaxis Z29.9
== END 2020-11-18 15:27 | disposition home or self-care (01) | DRG 207 ==
LOC: SUATTDRO 17:25 → 2E 17:25 → 1E 11-05 10:12 → 2E 11-13 10:59 → 2N 11-14 17:20